=== PATIENT | male | born 1955 | race Caucasian/White ===

== ENCOUNTER 2020-05-27 23:39 | Emergency (ER) | payer MEDICARE, OTHER, SELFPAY ==
[2020-05-27 23:46] VITALS: BP 90/61; PULSE 85; RESP 16; TEMP 36.5; O2SAT 96; BMI 20.8
--- NOTE | 2020-05-27 23:47 | ECG_ITS ---
Test Reason : ALTERED MENTHAL Blood Pressure : / mmHG Vent. Rate : 081 BPM Atrial Rate : 081 BPM P-R Int : 196 ms QRS Dur : 088 ms QT Int : 422 ms P-R-T Axes : 075 004 060 degrees QTc Int : 490 ms Normal sinus rhythm Prolonged QT Abnormal ECG No previous ECGs available Referred By: Masha Arizmendi Electronically Signed By:Wilber Diaz
--- NOTE | 2020-05-27 23:47 | ED.AMS ---
HPI - Altered Mental Status General Chief Complaint: Altered Mental Status Stated Complaint: AMS W/FLU SX HX OF PNA FROM SNF Source: EMS Mode of arrival: EMS Limitations: altered mental status History of Present Illness HPI narrative: 64-year-old male presents via EMS from [facility] with past medical history of BPH, constipation, history of esophageal obstruction GERD diabetes 2, history of hydronephrosis, anemia, dysphagia, hypertension, hypothyroidism, presbyopia, schizoaffective disorder, and personality disorder presents with altered mental status, diagnosis of pneumonia on chest x-ray today to the left lower lobe. He was given 1 dose of his antibiotic and nursing staff noted that he was unable to speak, was lethargic, and required physical stimulus to respond. Related Data Previous Rx's Medication Instructions Recorded cefuroxime axetil 500 mg PO Q12H 10 Days #20 tab 05/28/20 Allergies Allergy/AdvReac Type Severity Reaction Status Date / Time fish oil [FISH OIL] Allergy Unknown UNK Unverified 02/29/20 19:27 Iodinated Contrast Media Allergy Unknown UNK Unverified 02/29/20 19:27 [IODINATED CONTRAST- ORAL AND IV DYE] iodine [IODINE] Allergy Unknown UNK Unverified 02/29/20 19:27 pollen Allergy Unknown Uncoded 07/04/19 00:00 SEAFOOD Allergy Unknown UNK Uncoded 02/29/20 19:27 shellfish Allergy Unknown Uncoded 07/04/19 00:00 Review of Systems Review of Systems: H&P limited secondary to mental status Yes Unobtainable due to mental status PMFSH Past Medical History Source: unable to obtain, old records reviewed and nursing notes reviewed Social History Social History Alcohol intake: unknown Smoking Status: Never smoker Smoked in Last 30 Days: No Use of substances other than those prescribed or required for medical reasons: No Advance Directives: No Advance Directives Information Provided: No Physical Exam Vital Signs: Vital Signs: Last Vital Signs Temp 97.5 F 05/28/20 00:00 Pulse 70 05/28/20 02:00 Resp 18 05/28/20 02:00 BP 104/65 05/28/20 02:00 Pulse Ox 97 05/28/20 01:29 Body Mass Index 20.8 Appearance: Alert. Does not respond appropriately. Moderate distress. Unable to perform tasks at this time Eyes: Pupils equal, round and reactive to light. ENT: Pharynx normal. Neck: Normal inspection. Neck supple. CVS: Normal heart rate and rhythm. Pulses normal. Respiratory: No respiratory distress. Abdomen: Soft and nontender. Skin: Skin warm and dry. Normal skin color. Normal skin turgor. Extremities: No lower extremity edema. Neuro: No motor deficit. No sensory deficit. Course Course Course Narrative: 64-year-old male presents from [facility], diagnosed with pneumonia today via chest x-ray. He was given 1 dose of doxycycline 100 mg and started on prednisone at [facility]. Plan of care is to rule out ACS, CVA, and sepsis. EKG shows normal sinus rhythm, troponin negative, white count is elevated at 18 but he does have known pneumonia, lactic acid is 0.9, BUN is 31 we will resuscitate with 2 L of fluid, 1st L was infusing on arrival. Blood pressure on arrival was 90/61, responsive to 1 L fluids at 111/68 at 1:29 a.m.. COVID RSV and influenza negative. Patient is not septic, highly unlikely that this is ACS, could possibly be steroid induced reaction. Plan of care is to discharge to care home facility with the addition of Ceftin 500 mg b.i.d. for 10 days in conjunction with the already prescribed doxycycline. Report to [facility] by RN. MDM - Altered Mental Status Differential Diagnosis Differential diagnosis: Likely altered mental status, delirium, subarachnoid hemorrhage and sepsis Medical Records Attestation: I reviewed the patient's medical records. Lab Data Attestation: I reviewed the patient's lab results. Result diagrams: 05/28/20 00:28 05/28/20 00:48 Labs: Lab Results 05/28/20 05/28/20 05/28/20 Range/Units 00:28 00:28 00:28 WBC 18.9 H (4.8-10.8) X10*3/uL RBC 3.78 L (4.60-5.80) X10*6/uL Hgb 10.8 L (14.0-18.0) g/dl Hct 33.6 L (42-52) % MCV 88.9 (80-98) fL MCH 28.6 (27.0-33.0) pg MCHC 32.1 (31.0-36.0) g/dl RDW 15.8 (11.0-16.0) % Plt Count 214 (160-400) X10*3/uL MPV 10.9 (9.4-12.4) fL Immature Gran % (Auto) 0.5 H (0.0-0.4) % Neut % (Auto) 82.4 H (45-73) % Lymph % (Auto) 9.6 L (20-40) % [place] % (Auto) 6.9 (2-11) % Eos % (Auto) 0.3 (0-4) % Baso % (Auto) 0.3 (0-2) % Lymph # (Auto) 1.8 (1.2-4.9) X10*3/uL [place] # (Auto) 1.3 H (0.1-1.2) X10*3/uL Eos # (Auto) 0.1 (0.0-0.4) X10*3/uL Baso # (Auto) 0.1 (0.0-0.2) X10*3/uL Abs Immat Gran (auto) 0.10 H (0.00-0.03) X10*3/uL Absolute Neuts (auto) 15.6 H (2.0-8.3) X10*3/uL Absolute Nucleated RBC 0.000 (0.0-0.012) X10*3/uL Nucleated RBC % (auto) 0.0 (0.0-0.2) /100WBC PT 15.6 H (10.8-13.0) SEC INR 1.3 H (0.9-1.1) APTT 33.5 (24.1-38.0) SEC Sodium (135-145) mmol/L Potassium (3.3-5.1) mmol/l Chloride (96-108) mmol/L Carbon Dioxide (22-29) mmol/L Anion Gap (12-20) BUN (9-16) mg/dL Creatinine (0.5-1.4) mg/dL Estim Creat Clear Calc Estimated GFR POC Glucose (60-115) mg/dL Random Glucose (60-115) mg/dL Lactic Acid (0.5-2.0) mmol/L Calcium (8.4-10.2) mg/dL Magnesium (1.6-2.6) mg/dL Troponin I High Sens < 3.5 (<3.5-35.0) ng/L Urine Color Urine Appearance Urine pH (5.0-8.0) Ur Specific [place] (1.005-1.025) Urine Protein (NEG-TRACE) MG/DL Urine Glucose (UA) (NEG) MG/DL Urine Ketones (NEG) MG/DL Urine Blood (NEG) Urine Nitrite (NEG) Ur Leukocyte Esterase (NEG) Coronavirus (PCR) (Negative) Influenza Type A (PCR) (Negative) Influenza Type B (PCR) (Negative) RSV RNA Qual (PCR) (Negative) 05/28/20 05/28/20 05/28/20 Range/Units 00:30 00:48 00:48 WBC (4.8-10.8) X10*3/uL RBC (4.60-5.80) X10*6/uL Hgb (14.0-18.0) g/dl Hct (42-52) % MCV (80-98) fL MCH (27.0-33.0) pg MCHC (31.0-36.0) g/dl RDW (11.0-16.0) % Plt Count (160-400) X10*3/uL MPV (9.4-12.4) fL Immature Gran % (Auto) (0.0-0.4) % Neut % (Auto) (45-73) % Lymph % (Auto) (20-40) % [place] % (Auto) (2-11) % Eos % (Auto) (0-4) % Baso % (Auto) (0-2) % Lymph # (Auto) (1.2-4.9) X10*3/uL [place] # (Auto) (0.1-1.2) X10*3/uL Eos # (Auto) (0.0-0.4) X10*3/uL Baso # (Auto) (0.0-0.2) X10*3/uL Abs Immat Gran (auto) (0.00-0.03) X10*3/uL Absolute Neuts (auto) (2.0-8.3) X10*3/uL Absolute Nucleated RBC (0.0-0.012) X10*3/uL Nucleated RBC % (auto) (0.0-0.2) /100WBC PT (10.8-13.0) SEC INR (0.9-1.1) APTT (24.1-38.0) SEC Sodium 140 (135-145) mmol/L Potassium 4.3 (3.3-5.1) mmol/l Chloride 105 (96-108) mmol/L Carbon Dioxide 28 (22-29) mmol/L Anion Gap 11 L (12-20) BUN 31 H (9-16) mg/dL Creatinine 1.39 (0.5-1.4) mg/dL Estim Creat Clear Calc 49.9 Estimated GFR 51 POC Glucose (60-115) mg/dL Random Glucose 93 (60-115) mg/dL Lactic Acid 0.9 (0.5-2.0) mmol/L Calcium 7.5 L (8.4-10.2) mg/dL Magnesium 1.9 (1.6-2.6) mg/dL Troponin I High Sens (<3.5-35.0) ng/L Urine Color Urine Appearance Urine pH (5.0-8.0) Ur Specific [place] (1.005-1.025) Urine Protein (NEG-TRACE) MG/DL Urine Glucose (UA) (NEG) MG/DL Urine Ketones (NEG) MG/DL Urine Blood (NEG) Urine Nitrite (NEG) Ur Leukocyte Esterase (NEG) Coronavirus (PCR) NEGATIVE (Negative) Influenza Type A (PCR) NEGATIVE (Negative) Influenza Type B (PCR) NEGATIVE (Negative) RSV RNA Qual (PCR) NEGATIVE (Negative) 05/28/20 05/28/20 Range/Units 00:56 01:07 WBC (4.8-10.8) X10*3/uL RBC (4.60-5.80) X10*6/uL Hgb (14.0-18.0) g/dl Hct (42-52) % MCV (80-98) fL MCH (27.0-33.0) pg MCHC (31.0-36.0) g/dl RDW (11.0-16.0) % Plt Count (160-400) X10*3/uL MPV (9.4-12.4) fL Immature Gran % (Auto) (0.0-0.4) % Neut % (Auto) (45-73) % Lymph % (Auto) (20-40) % [place] % (Auto) (2-11) % Eos % (Auto) (0-4) % Baso % (Auto) (0-2) % Lymph # (Auto) (1.2-4.9) X10*3/uL [place] # (Auto) (0.1-1.2) X10*3/uL Eos # (Auto) (0.0-0.4) X10*3/uL Baso # (Auto) (0.0-0.2) X10*3/uL Abs Immat Gran (auto) (0.00-0.03) X10*3/uL Absolute Neuts (auto) (2.0-8.3) X10*3/uL Absolute Nucleated RBC (0.0-0.012) X10*3/uL Nucleated RBC % (auto) (0.0-0.2) /100WBC PT (10.8-13.0) SEC INR (0.9-1.1) APTT (24.1-38.0) SEC Sodium (135-145) mmol/L Potassium (3.3-5.1) mmol/l Chloride (96-108) mmol/L Carbon Dioxide (22-29) mmol/L Anion Gap (12-20) BUN (9-16) mg/dL Creatinine (0.5-1.4) mg/dL Estim Creat Clear Calc Estimated GFR POC Glucose 94 (60-115) mg/dL Random Glucose (60-115) mg/dL Lactic Acid (0.5-2.0) mmol/L Calcium (8.4-10.2) mg/dL Magnesium (1.6-2.6) mg/dL Troponin I High Sens (<3.5-35.0) ng/L Urine Color DARK YELLOW Urine Appearance CLEAR Urine pH 6.5 (5.0-8.0) Ur Specific [place] <= 1.005 (1.005-1.025) Urine Protein NEG (NEG-TRACE) MG/DL Urine Glucose (UA) NEG (NEG) MG/DL Urine Ketones NEG (NEG) MG/DL Urine Blood NEG (NEG) Urine Nitrite NEG (NEG) Ur Leukocyte Esterase NEG (NEG) Coronavirus (PCR) (Negative) Influenza Type A (PCR) (Negative) Influenza Type B (PCR) (Negative) RSV RNA Qual (PCR) (Negative) Imaging Data CT scan - chest: Attestation: I personally reviewed and interpreted this imaging study as follows: Radiologist's impression: EXAMINATION: CT CHEST WITHOUT CONTRAST CLINICAL INFORMATION: Altered mental status. Concern for pneumonia. COMPARISON: None. TECHNIQUE: Contiguous axial thin section helical images of the chest were performed without contrast. The data set was reformatted in the coronal and sagittal planes and reviewed on an independent workstation. Please note that the examination is limited due to patient motion artifact. DLP: 287 mGy-cm. FINDINGS: The heart is of normal size. There is no pericardial effusion. There is neither mediastinal, hilar nor axillary lymphadenopathy. There are no chest wall masses. There is a moderate hiatal hernia. Review of lung windows demonstrates that there are neither pleural effusions nor pneumothoraces. There is patchy groundglass opacification throughout the left lower lobe. Within the posterior basal segment of the right lower lobe, there is linear opacification. There is less prominent patchy ground glass opacification within the left upper lobe. There are no pulmonary parenchymal nodules. Images of the upper abdomen demonstrate that the liver is of normal size and attenuation without focal lesions. Normal adrenal glands are identified. Bone windows: Neither sclerotic nor lytic bone lesions are identified. CT/CT chest wo con IMPRESSION: Limited exam due to patient motion artifact. Left lower lobe groundglass opacification suspicious for pneumonia. Recommendation is for a followup chest series to be obtained following treatment and/or resolution of symptoms to assure resolution of this appearance. Automated exposure control (Care Dose) Adjustment of the mA and/or kv according to patient size (this includes techniques or standardized protocols for targeted exams where dose is matched to indication / reason for exam; i.e. extremities or head). CT scan - head: Attestation: I personally reviewed and interpreted this imaging study as follows: Radiologist's impression: EXAMINATION: CT HEAD WITHOUT CONTRAST CLINICAL INFORMATION: Altered mental status. COMPARISON: 08/05/2017. TECHNIQUE: Contiguous helical images of the brain were obtained without IV contrast. Multiplanar reconstructions were performed. DLP: 880 mGy-cm. FINDINGS: There are no pathologic extra-axial fluid collections. The lateral, third, fourth ventricles are nondilated and concordant with the appearance of the sulci. There is no evidence for acute intraparenchymal hemorrhage or infarct. There is neither mass nor mass effect. There is no shift of midline structures. The paranasal sinuses and mastoid air cells are clear. There are no osseous lesions. CT/CT head/brain wo con IMPRESSION: No evidence for acute intracranial injury. Automated exposure control (Care Dose) Adjustment of the mA and/or kv according to patient size (this includes techniques or standardized protocols for targeted exams where dose is matched to indication / reason for exam; i.e. extremities or head). ECG Data ECG #1: Attestation: I personally reviewed and interpreted this ECG as follows: ECG interpretation date: 05/28/20 ECG interpretation time: 00:04 Prior ECG tracings: not available for review Interpretation: Vent. Rate : 081 BPM Atrial Rate : 081 BPM P-R Int : 196 ms QRS Dur : 088 ms QT Int : 422 ms P-R-T Axes : 075 004 060 degrees QTc Int : 490 ms Normal sinus rhythm Prolonged QT Abnormal ECG No previous ECGs available Scores Heart Score History: -0- slightly suspicious ECG: -0- normal Age: -1- >45 - <65 Risk factory: -1- 1 or 2 risk factors Troponin: -0- < or = normal limit Score: 2 Risk: 1.7% Critical Care Time Critical Care Time Critical Care Time: Yes Total Critical Care Time: 65 Attestation: I have personally provided critical care time exclusive of time spent on separately billable procedures. Time includes review of laboratory data, radiology results, discussion with consultants, and monitoring for potential decompensation. Interventions were performed as documented. Discharge Plan Discharge Clinical Impression: Altered mental status Qualifiers: Altered mental status type: unspecified Qualified Code(s): R41.82 - Altered mental status, unspecified Pneumonia Qualifiers: Pneumonia type: due to unspecified organism Laterality: left Lung location: lower lobe of lung Qualified Code(s): J18.9 - Pneumonia, unspecified organism Patient Disposition: [facility] Instructions: Bacterial Pneumonia (ED) Additional Instructions: You were evaluated for altered mental status and lethargy after taking doxycycline and prednisone for left lobe pneumonia. Please continue to take her doxycycline as scheduled. Please add Ceftin 500 mg p.o. b.i.d. for 10 days. Continue with all other medications previously prescribed. Your EKG was normal sinus rhythm with a prolonged QT interval of 490, suspected to be because of your antipsychotic medication. Troponin is negative. We ruled out sepsis, your lactic acid is 0.9. You do have kidney disease, BUN was elevated at 31, we resuscitated with 2 L of normal saline. Urinalysis was negative for acute findings. CT scan of head was negative for acute findings requiring emergent intervention. Prescriptions: New cefuroxime axetil 500 mg tablet 500 mg PO Q12H 10 Days Qty: 20 RF: 0
[2020-05-28] VITALS: BP 104/63; PULSE 79; RESP 15; TEMP 36.4; O2SAT 97
--- NOTE | 2020-05-28 00:05 | CT_ITS ---
EXAMINATION: CT CHEST WITHOUT CONTRAST CLINICAL INFORMATION: Altered mental status. Concern for pneumonia. COMPARISON: None. TECHNIQUE: Contiguous axial thin section helical images of the chest were performed without contrast. The data set was reformatted in the coronal and sagittal planes and reviewed on an independent workstation. Please note that the examination is limited due to patient motion artifact. DLP: 287 mGy-cm. FINDINGS: The heart is of normal size. There is no pericardial effusion. There is neither mediastinal, hilar nor axillary lymphadenopathy. There are no chest wall masses. There is a moderate hiatal hernia. Review of lung windows demonstrates that there are neither pleural effusions nor pneumothoraces. There is patchy groundglass opacification throughout the left lower lobe. Within the posterior basal segment of the right lower lobe, there is linear opacification. There is less prominent patchy ground glass opacification within the left upper lobe. There are no pulmonary parenchymal nodules. Images of the upper abdomen demonstrate that the liver is of normal size and attenuation without focal lesions. Normal adrenal glands are identified. Bone windows: Neither sclerotic nor lytic bone lesions are identified. CT/CT chest wo con IMPRESSION: Limited exam due to patient motion artifact. Left lower lobe groundglass opacification suspicious for pneumonia. Recommendation is for a followup chest series to be obtained following treatment and/or resolution of symptoms to assure resolution of this appearance. Automated exposure control (Care Dose) Adjustment of the mA and/or kv according to patient size (this includes techniques or standardized protocols for targeted exams where dose is matched to indication / reason for exam; i.e. extremities or head).
[2020-05-28] MEDS: 0.9 % Sodium Chloride 1,000 ML 999 ML IVCONT ×2 (00:17→01:41)
--- NOTE | 2020-05-28 00:19 | PC.NURSE ---
Iv access obtained to left hand. Fluids hung and running wo. Pt minimally responsive to verbal and physical stimuli at this time. Spo2 97% on room air. Sinus on monitor in the 70's. Extremities pale and cool. Afebrile rectally, ekg obtained and passed off to provider. Resp reg and even with occasional snores, covid swab obtained. Plan for chest CT.
[2020-05-28 00:46] LABS: MANUAL DIFF FLAG NO
[2020-05-28 00:47] VITALS: BP 104/63; PULSE 70; RESP 16
[2020-05-28 00:48] LABS: Basophils Absolute Auto 0.1 X10*3/uL (0.0-0.2); Basophils Percent Auto 0.3 % (0-2); Eosinophils Absolute Auto 0.1 X10*3/uL (0.0-0.4); Eosinophils Percent Auto 0.3 % (0-4); Hematocrit 33.6 % (42-52); Hemoglobin 10.8 g/dl (14.0-18.0); Imm Gran Pct Auto 0.5 % (0.0-0.4); Lymphocytes Absolute Auto 1.8 X10*3/uL (1.2-4.9); Lymphocytes Percent Auto 9.6 % (20-40); Mean Corpuscular HGB Conc 32.1 g/dl (31.0-36.0); Mean Corpuscular Hemoglobin 28.6 pg (27.0-33.0); Mean Corpuscular Volume 88.9 fL (80-98); Mean Platelet Volume 10.9 fL (9.4-12.4); Monocytes Absolute Auto 1.3 X10*3/uL (0.1-1.2); Monocytes Percent Auto 6.9 % (2-11); Neutrophils Absolute Auto 15.6 X10*3/uL (2.0-8.3); Neutrophils Percent Auto 82.4 % (45-73); Platelet Count 214 X10*3/uL (160-400); Red Blood Count 3.78 X10*6/uL (4.60-5.80); Red Cell Distribution Width 15.8 % (11.0-16.0); White Blood Count 18.9 X10*3/uL (4.8-10.8)
--- NOTE | 2020-05-28 00:52 | CT_ITS ---
EXAMINATION: CT HEAD WITHOUT CONTRAST CLINICAL INFORMATION: Altered mental status. COMPARISON: 08/05/2017. TECHNIQUE: Contiguous helical images of the brain were obtained without IV contrast. Multiplanar reconstructions were performed. DLP: 880 mGy-cm. FINDINGS: There are no pathologic extra-axial fluid collections. The lateral, third, fourth ventricles are nondilated and concordant with the appearance of the sulci. There is no evidence for acute intraparenchymal hemorrhage or infarct. There is neither mass nor mass effect. There is no shift of midline structures. The paranasal sinuses and mastoid air cells are clear. There are no osseous lesions. CT/CT head/brain wo con IMPRESSION: No evidence for acute intracranial injury. Automated exposure control (Care Dose) Adjustment of the mA and/or kv according to patient size (this includes techniques or standardized protocols for targeted exams where dose is matched to indication / reason for exam; i.e. extremities or head).
[2020-05-28 00:56] LABS: INTERNATIONAL NORM RATIO 1.3 (0.9-1.1); Prothrombin Time 15.6 SEC (10.8-13.0)
[2020-05-28 00:59] LABS: Partial Thromboplastin Time 33.5 SEC (24.1-38.0)
[2020-05-28 01:11] LABS: Glucose, Whole Blood 94 mg/dL (60-115)
[2020-05-28 01:16] LABS: Glucose Urine UA NEG (NEG); Leukocyte Esterase Urine NEG (NEG); Nitrite Urine NEG (NEG); PH 6.5 (5.0-8.0); Specific Gravity - Urine <= 1.005 (1.005-1.025); Urine Blood NEG (NEG); Urine Ketones NEG (NEG); Urine Protein NEG (NEG-TRACE)
[2020-05-28 01:17] LABS: Lactic Acid 0.9 mmol/L (0.5-2.0)
[2020-05-28 01:19] LABS: Troponin-I High Sensitivity < 3.5 ng/L (<3.5-35.0)
[2020-05-28 01:21] LABS: Influenza A PCR NEGATIVE (Negative); Influenza B PCR NEGATIVE (Negative); Resp Syncy Virus RNA Qual PCR NEGATIVE (Negative); SARS COV2 PCR INHOUSE NEGATIVE (Negative)
[2020-05-28 01:22] LABS: Anion Gap 11 (12-20); Blood Urea Nitrogen 31 mg/dL (9-16); Calcium 7.5 mg/dL (8.4-10.2); Carbon Dioxide 28 mmol/L (22-29); Chloride 105 mmol/L (96-108); Creatinine Clr Calc Pharmacy 49.9; Estimated Glomerular Filt Rate 51; Glucose Random 93 mg/dL (60-115); Magnesium 1.9 mg/dL (1.6-2.6); Potassium 4.3 mmol/l (3.3-5.1); Sodium 140 mmol/L (135-145)
[2020-05-28 01:27] LABS: Appearance Urine CLEAR; Color Urine DARK YELLOW
[2020-05-28 01:29] VITALS: BP 111/68; PULSE 76; RESP 18; O2SAT 97
[2020-05-28] MEDS: cefTRIAXone sodium 1 GM in 0.9 % Sodium Chloride 50 ML IV (01:57)
[2020-05-28 02:00] VITALS: BP 104/65; PULSE 70; RESP 18
== END 2020-05-28 03:16 | disposition skilled nursing facility (03) ==
PROVIDERS: Nurse Practitioner Family; Emergency Provider Student in an Organized Health Care Education/Training Program
DX: J18.9 Pneumonia, unspecified organism (principal); R41.82 Altered mental status, unspecified; Z20.828 Contact with and (suspected) exposure to other viral communicable diseases; Z79.899 Other long term (current) drug therapy
CPT/HCPCS: 0241U; 36415; 70450; 71250; 80048; 81003; 82947; 83605; 83735; 84484; 85025; 85610; 85730; 87040; 93005; 96361; 96374; 99284; 99291; J0696

== ENCOUNTER 2020-09-23 08:37 | Inpatient (IN) | payer MEDICARE, MEDICAID, SELFPAY ==
[2020-09-23] VITALS (13 sets, daily range): BP systolic 86–132; BP diastolic 53–84; PULSE 98–112; RESP 16–24; TEMP 36.6–38.9; O2SAT 92–99; BMI 23.3
--- NOTE | ~2020-09-23 | XR_ITS ---
EXAMINATION: XR CHEST CLINICAL INFORMATION: Dyspnea. COMPARISON: Chest CT dated 05/28/2020. TECHNIQUE: Frontal view of the chest was obtained. FINDINGS: Linear scarring versus atelectasis redemonstrated within the right midlung. No new airspace consolidation. No pleural effusion or pneumothorax. Stable cardiomediastinal silhouette. XR/XR chest 1V IMPRESSION: No acute cardiopulmonary findings.
--- NOTE | 2020-09-23 08:43 | ED.WEAKNESS ---
HPI - Weakness General Chief complaint: Fever Stated complaint: INCR WEAKNESS,TEMP,LOW O2SAT (89%RA) PER SNF Time Seen by Provider: 09/23/20 08:43 Source: patient, EMS and old records reviewed Mode of arrival: EMS Limitations: altered mental status History of Present Illness HPI Narrative: 64 yo male with hx of TIB, schizoaffective ds, BPH, prior UTIs comes in from [facility] with low BPs in 80s, fevers, tachycardia Complaint: generalized weakness Onset (ago): hour(s) (started this AM) Duration: constant Location: generalized Migration: none Severity: moderate Relieving factors: none Exacerbating factors: none Context: history of similar Associated symptoms: fever/chills and loss of appetite Related Data Home Medications Medication Instructions Recorded Confirmed acetaminophen 650 mg PO Q4H PRN 09/23/20 09/23/20 acetaminophen 650 mg PO Q4H PRN 09/23/20 09/23/20 clomipramine 150 mg PO BEDTIME 09/23/20 09/23/20 clonazepam 0.25 mg PO DAILY 09/23/20 09/23/20 clonazepam 0.5 mg PO BEDTIME 09/23/20 09/23/20 clozapine 100 mg PO BEDTIME 09/23/20 09/23/20 clozapine 200 mg PO BEDTIME 09/23/20 09/23/20 diphenhydramine HCl [Benadryl] 25 mg PO Q6H PRN 09/23/20 09/23/20 docusate sodium 100 mg PO BID 09/23/20 09/23/20 doxycycline hyclate 50 mg PO DAILY 09/23/20 09/23/20 famotidine 40 mg PO BEDTIME 09/23/20 09/23/20 lactulose 10 g PO DAILY 09/23/20 09/23/20 levothyroxine 50 mcg PO DAILY 09/23/20 09/23/20 metoprolol tartrate 12.5 mg PO DAILY 09/23/20 09/23/20 multivitamin 1 tab PO DAILY 09/23/20 09/23/20 omeprazole 40 mg PO DAILY 09/23/20 09/23/20 pantoprazole 40 mg PO BID 09/23/20 09/23/20 pregabalin 150 mg PO BID 09/23/20 09/23/20 sennosides [senna] 17.2 mg PO BEDTIME 09/23/20 09/23/20 sodium bicarbonate 650 mg PO BID 09/23/20 09/23/20 tamsulosin 0.4 mg PO BEDTIME 09/23/20 09/23/20 Allergies Allergy/AdvReac Type Severity Reaction Status Date / Time fish oil [FISH OIL] Allergy Unknown UNK Unverified 02/29/20 19:27 Iodinated Contrast Media Allergy Unknown UNK Unverified 02/29/20 19:27 [IODINATED CONTRAST- ORAL AND IV DYE] iodine [IODINE] Allergy Unknown UNK Unverified 02/29/20 19:27 pollen Allergy Unknown Uncoded 07/04/19 00:00 SEAFOOD Allergy Unknown UNK Uncoded 02/29/20 19:27 shellfish Allergy Unknown Uncoded 07/04/19 00:00 Review of Systems Review of Systems: ROS unable to be obtained due to cognitive impairment PMFSH Past Medical History Attestation statement: The following information was validated with the patient. Medical History BPH (benign prostatic hyperplasia) Schizoaffective disorder TBI (traumatic brain injury) Social History Social History Alcohol intake: unknown Smoking Status: Never smoker Advance Directives: No Advance Directives Information Provided: No Physical Exam Vital Signs: Vital Signs: Last Vital Signs Temp 99.3 F 09/23/20 10:48 Pulse 99 09/23/20 11:16 Resp 16 09/23/20 11:16 BP 107/71 09/23/20 11:16 Pulse Ox 96 09/23/20 11:16 Body Mass Index 23.3 Appearance: Alert. Oriented x1, follows commands. Mild acute distress. Eyes: Pupils equal, round and reactive to light. ENT: Pharynx dry MMM Neck: Normal inspection. Neck supple. CVS: tachycardic heart rate and rhythm. Pulses normal. Respiratory: No respiratory distress. Breath sounds normal. Abdomen: Soft and no grimace to palpation Skin: Skin warm and dry. Normal skin color. Normal skin turgor. Extremities: No lower extremity edema. No calf ttp Neuro: Oriented X 1 No motor deficit. No sensory deficit. follows commands, repeats commands back Course Course Course Narrative: will repeat fluids responding well now 107/71 seems more alert, states he feels fine at this time, if he continues to improve plan to admit to hospitalist service focused exam for sepsis performed at 12pm MDM - Weakness MDM Narrative Medical decision making narrative: 64 yo male with hx of TIB, schizoaffective ds, BPH, prior UTIs comes in from [facility] with low BPs in 80s, fevers, tachycardia at this time labs, cultures, lactic acid, CXR, urine, IVF 30cc/kg bolus, tylenol, empiric cefepime ordered on arrival, dispo per results and improvement, suspect UTI vs pneumonia as source of infection Lab Data Result diagrams: 09/23/20 09:13 09/23/20 09:13 Labs: Lab Results 09/23/20 09/23/20 09/23/20 Range/Units 08:58 09:00 09:13 WBC (4.8-10.8) X10*3/uL RBC (4.60-5.80) X10*6/uL Hgb (14.0-18.0) g/dl Hct (42-52) % MCV (80-98) fL MCH (27.0-33.0) pg MCHC (31.0-36.0) g/dl RDW (11.0-16.0) % Plt Count (160-400) X10*3/uL MPV (9.4-12.4) fL Immature Gran % (Auto) (0.0-0.4) % Neut % (Auto) (45-73) % Lymph % (Auto) (20-40) % [place] % (Auto) (2-11) % Eos % (Auto) (0-4) % Baso % (Auto) (0-2) % Lymph # (Auto) (1.2-4.9) X10*3/uL [place] # (Auto) (0.1-1.2) X10*3/uL Eos # (Auto) (0.0-0.4) X10*3/uL Baso # (Auto) (0.0-0.2) X10*3/uL Abs Immat Gran (auto) (0.00-0.03) X10*3/uL Absolute Neuts (auto) (2.0-8.3) X10*3/uL Absolute Nucleated RBC (0.0-0.012) X10*3/uL Nucleated RBC % (auto) (0.0-0.2) /100WBC PT (10.8-13.0) SEC INR (0.9-1.1) APTT (24.1-38.0) SEC Sodium 140 (135-145) mmol/L Potassium 4.5 (3.3-5.1) mmol/L Chloride 105 (96-108) mmol/L Carbon Dioxide 23 (22-29) mmol/L Anion Gap 17 (12-20) BUN 33 H (9-16) mg/dL Creatinine 2.32 H (0.5-1.4) mg/dL Estim Creat Clear Calc 34.2 Estimated GFR 28 Random Glucose 130 H D (60-115) mg/dL Lactic Acid (0.5-2.0) mmol/L Calcium 8.3 L D (8.4-10.2) mg/dL Magnesium (1.6-2.6) mg/dL Total Bilirubin (0.0-1.0) mg/dL Direct Bilirubin (0.0-0.5) mg/dL AST (5-37) U/L ALT (0-40) U/L Alkaline Phosphatase (39-117) U/L Troponin I High Sens (<3.5-35.0) ng/L Total Protein (6.5-8.0) g/dL Albumin (3.5-5.0) g/dL Lipase (8-78) U/L Urine Color DARK YELLOW Urine Appearance CLOUDY Urine pH 6.5 (5.0-8.0) Ur Specific Gilbert 1.020 (1.005-1.025) Urine Protein 2+ H (NEG-TRACE) MG/DL Urine Glucose (UA) 100 H (NEG) MG/DL Urine Ketones 5 (NEG) MG/DL Urine Blood 3+ H (NEG) Urine Nitrite NEG (NEG) Ur Leukocyte Esterase 3+ H (NEG) Urine RBC 1-4 (0) /HPF Urine WBC TNTC H (0-4) /HPF Ur Squamous Epith Cells TRACE /LPF Urine Bacteria 4+ /LPF COVID-19 (RICHA) Negative (Negative) COVID-19 Clin Com See Note 09/23/20 09/23/20 09/23/20 Range/Units 09:13 09:13 09:13 WBC 19.6 H (4.8-10.8) X10*3/uL RBC 4.52 L (4.60-5.80) X10*6/uL Hgb 11.8 L (14.0-18.0) g/dl Hct 38.1 L (42-52) % MCV 84.3 (80-98) fL MCH 26.1 L (27.0-33.0) pg MCHC 31.0 (31.0-36.0) g/dl RDW 15.9 (11.0-16.0) % Plt Count 227 (160-400) X10*3/uL MPV 10.4 (9.4-12.4) fL Immature Gran % (Auto) 1.0 H (0.0-0.4) % Neut % (Auto) 87.8 H (45-73) % Lymph % (Auto) 4.4 L (20-40) % [place] % (Auto) 6.7 (2-11) % Eos % (Auto) 0.0 (0-4) % Baso % (Auto) 0.1 (0-2) % Lymph # (Auto) 0.9 L (1.2-4.9) X10*3/uL [place] # (Auto) 1.3 H (0.1-1.2) X10*3/uL Eos # (Auto) 0.0 (0.0-0.4) X10*3/uL Baso # (Auto) 0.0 (0.0-0.2) X10*3/uL Abs Immat Gran (auto) 0.19 H (0.00-0.03) X10*3/uL Absolute Neuts (auto) 17.3 H (2.0-8.3) X10*3/uL Absolute Nucleated RBC 0.000 (0.0-0.012) X10*3/uL Nucleated RBC % (auto) 0.0 (0.0-0.2) /100WBC PT 18.7 H (10.8-13.0) SEC INR 1.6 H (0.9-1.1) APTT 39.9 H (24.1-38.0) SEC Sodium (135-145) mmol/L Potassium (3.3-5.1) mmol/L Chloride (96-108) mmol/L Carbon Dioxide (22-29) mmol/L Anion Gap (12-20) BUN (9-16) mg/dL Creatinine (0.5-1.4) mg/dL Estim Creat Clear Calc Estimated GFR Random Glucose (60-115) mg/dL Lactic Acid (0.5-2.0) mmol/L Calcium (8.4-10.2) mg/dL Magnesium 1.9 (1.6-2.6) mg/dL Total Bilirubin 0.6 (0.0-1.0) mg/dL Direct Bilirubin 0.3 (0.0-0.5) mg/dL AST 24 (5-37) U/L ALT 25 (0-40) U/L Alkaline Phosphatase 131 H (39-117) U/L Troponin I High Sens (<3.5-35.0) ng/L Total Protein 6.5 (6.5-8.0) g/dL Albumin 3.6 (3.5-5.0) g/dL Lipase 11 (8-78) U/L Urine Color Urine Appearance Urine pH (5.0-8.0) Ur Specific Gilbert (1.005-1.025) Urine Protein (NEG-TRACE) MG/DL Urine Glucose (UA) (NEG) MG/DL Urine Ketones (NEG) MG/DL Urine Blood (NEG) Urine Nitrite (NEG) Ur Leukocyte Esterase (NEG) Urine RBC (0) /HPF Urine WBC (0-4) /HPF Ur Squamous Epith Cells /LPF Urine Bacteria /LPF COVID-19 (RICHA) (Negative) COVID-19 Clin Com 09/23/20 09/23/20 Range/Units 09:13 09:13 WBC (4.8-10.8) X10*3/uL RBC (4.60-5.80) X10*6/uL Hgb (14.0-18.0) g/dl Hct (42-52) % MCV (80-98) fL MCH (27.0-33.0) pg MCHC (31.0-36.0) g/dl RDW (11.0-16.0) % Plt Count (160-400) X10*3/uL MPV (9.4-12.4) fL Immature Gran % (Auto) (0.0-0.4) % Neut % (Auto) (45-73) % Lymph % (Auto) (20-40) % [place] % (Auto) (2-11) % Eos % (Auto) (0-4) % Baso % (Auto) (0-2) % Lymph # (Auto) (1.2-4.9) X10*3/uL [place] # (Auto) (0.1-1.2) X10*3/uL Eos # (Auto) (0.0-0.4) X10*3/uL Baso # (Auto) (0.0-0.2) X10*3/uL Abs Immat Gran (auto) (0.00-0.03) X10*3/uL Absolute Neuts (auto) (2.0-8.3) X10*3/uL Absolute Nucleated RBC (0.0-0.012) X10*3/uL Nucleated RBC % (auto) (0.0-0.2) /100WBC PT (10.8-13.0) SEC INR (0.9-1.1) APTT (24.1-38.0) SEC Sodium (135-145) mmol/L Potassium (3.3-5.1) mmol/L Chloride (96-108) mmol/L Carbon Dioxide (22-29) mmol/L Anion Gap (12-20) BUN (9-16) mg/dL Creatinine (0.5-1.4) mg/dL Estim Creat Clear Calc Estimated GFR Random Glucose (60-115) mg/dL Lactic Acid 2.0 (0.5-2.0) mmol/L Calcium (8.4-10.2) mg/dL Magnesium (1.6-2.6) mg/dL Total Bilirubin (0.0-1.0) mg/dL Direct Bilirubin (0.0-0.5) mg/dL AST (5-37) U/L ALT (0-40) U/L Alkaline Phosphatase (39-117) U/L Troponin I High Sens 6.2 D (<3.5-35.0) ng/L Total Protein (6.5-8.0) g/dL Albumin (3.5-5.0) g/dL Lipase (8-78) U/L Urine Color Urine Appearance Urine pH (5.0-8.0) Ur Specific Gilbert (1.005-1.025) Urine Protein (NEG-TRACE) MG/DL Urine Glucose (UA) (NEG) MG/DL Urine Ketones (NEG) MG/DL Urine Blood (NEG) Urine Nitrite (NEG) Ur Leukocyte Esterase (NEG) Urine RBC (0) /HPF Urine WBC (0-4) /HPF Ur Squamous Epith Cells /LPF Urine Bacteria /LPF COVID-19 (RICHA) (Negative) COVID-19 Clin Com ECG Data Attestation: I personally reviewed and interpreted this ECG as follows: ECG interpretation date: 09/23/20 ECG interpretation time: 09:19 Interpretation: Rate: 106 Rhythm: sinus tachycardia [place]: normal Normal P waves. Normal KACEY. Normal QRS complex. ST T wave : nonspecific qTC: normal prior studies: no acute ischemia The study has been interpreted contemporaneously by me. . Critical Care Time Critical Care Time Critical Care Time: Yes Total Critical Care Time: 30 Attestation: 3L of IVF I attest to this time spent taking care of the patient Discharge Plan Discharge Clinical Impression: Acute UTI Fever Qualifiers: Fever type: unspecified Qualified Code(s): R50.9 - Fever, unspecified Acute renal failure Qualifiers: Acute renal failure type: unspecified Qualified Code(s): N17.9 - Acute kidney failure, unspecified Patient Disposition: Admitted As Inpatient
--- NOTE | 2020-09-23 08:48 | ECG_ITS ---
Test Reason : TACHYCARDIA Blood Pressure : / mmHG Vent. Rate : 106 BPM Atrial Rate : 106 BPM P-R Int : 182 ms QRS Dur : 090 ms QT Int : 374 ms P-R-T Axes : 076 040 069 degrees QTc Int : 496 ms Sinus tachycardia Nonspecific ST abnormality Borderline ECG When compared with ECG of 28-MAY-2020 00:04, No significant change was found Referred By: Arielle Mars Electronically Signed By:ANT MARTIN
[2020-09-23 09:25] LABS: MANUAL DIFF FLAG NO
[2020-09-23 09:29] LABS: Basophils Percent Auto 0.1 % (0-2); Hematocrit 38.1 % (42-52); Hemoglobin 11.8 g/dl (14.0-18.0); Imm Gran Abs Auto 0.19 X10*3/uL (0.00-0.03); Lymphocytes Absolute Auto 0.9 X10*3/uL (1.2-4.9); Lymphocytes Percent Auto 4.4 % (20-40); Mean Corpuscular Hemoglobin 26.1 pg (27.0-33.0); Mean Corpuscular Volume 84.3 fL (80-98); Mean Platelet Volume 10.4 fL (9.4-12.4); Monocytes Absolute Auto 1.3 X10*3/uL (0.1-1.2); Monocytes Percent Auto 6.7 % (2-11); Neutrophils Absolute Auto 17.3 X10*3/uL (2.0-8.3); Neutrophils Percent Auto 87.8 % (45-73); Platelet Count 227 X10*3/uL (160-400); Red Blood Count 4.52 X10*6/uL (4.60-5.80); Red Cell Distribution Width 15.9 % (11.0-16.0); White Blood Count 19.6 X10*3/uL (4.8-10.8)
[2020-09-23] MEDS: cefEPime HCl 2 GM in 0.9 % Sodium Chloride 50 ML IV ×2 (09:35→21:27)
[2020-09-23] MEDS: Acetaminophen Oral Liquid 650 MG/20.3 ML SOLUTION PO (09:36)
[2020-09-23 09:40] LABS: INTERNATIONAL NORM RATIO 1.6 (0.9-1.1); Prothrombin Time 18.7 SEC (10.8-13.0)
[2020-09-23 09:42] LABS: Glucose Urine UA 100 MG/DL (NEG); Leukocyte Esterase Urine 3+ (NEG); Nitrite Urine NEG (NEG); PH 6.5 (5.0-8.0); UACC Culture Trigger YES; Urine Blood 3+ (NEG); Urine Ketones 5 MG/DL (NEG); Urine Protein 2+ MG/DL (NEG-TRACE)
[2020-09-23 09:44] LABS: Partial Thromboplastin Time 39.9 SEC (24.1-38.0)
[2020-09-23 09:47] LABS: COVID-19 Test Negative (Negative)
[2020-09-23 09:47] LABS: Appearance Urine CLOUDY; Color Urine DARK YELLOW
[2020-09-23 09:59] LABS: Alanine Aminotransferase 25 U/L (0-40); Albumin Level 3.6 g/dL (3.5-5.0); Alkaline Phosphatase 131 U/L (39-117); Aspartate Amino Transferase 24 U/L (5-37); Bilirubin Direct 0.3 mg/dL (0.0-0.5); Bilirubin Total 0.6 mg/dL (0.0-1.0); Lipase 11 U/L (8-78); Magnesium 1.9 mg/dL (1.6-2.6); Total Protein 6.5 g/dL (6.5-8.0)
[2020-09-23 10:00] LABS: Anion Gap 17 (12-20); Blood Urea Nitrogen 33 mg/dL (9-16); Calcium 8.3 mg/dL (8.4-10.2); Carbon Dioxide 23 mmol/L (22-29); Chloride 105 mmol/L (96-108); Creatinine Clr Calc Pharmacy 34.2; Estimated Glomerular Filt Rate 28; Glucose Random 130 mg/dL (60-115); Potassium 4.5 mmol/L (3.3-5.1); Sodium 140 mmol/L (135-145)
[2020-09-23 10:04] LABS: Troponin-I High Sensitivity 6.2 ng/L (<3.5-35.0)
[2020-09-23 10:05] LABS: Bacteria Urine 4+ /LPF; Squamous Epithelial Cell Urine TRACE /LPF; WBC Urine TNTC /HPF (0-4)
[2020-09-23] MEDS: 0.9 % Sodium Chloride 1,000 ML 999 ML IVCONT ×2 (10:18→11:20)
[2020-09-23] MEDS: 0.9 % Sodium Chloride 1,000 ML 100 ML IVCONT ×2 (14:30→23:31)
--- NOTE | 2020-09-23 15:14 | HP_ITS ---
DATE OF SERVICE: 09/23/2020 CHIEF COMPLAINT: Fever and weakness. HISTORY OF PRESENTING ILLNESS: This is a 64-year-old gentleman, resident of [facility] with underlying history of traumatic brain injury, schizoaffective disorder, BPH, history of prior UTIs, was sent to [facility] due to fevers, low blood pressure, and tachycardia. The patient in the emergency room was noted to be hypotensive with the blood pressure of 87/53. He was tachycardic and febrile with temperature of 102.1. The patient's lactic acid was normal, but his renal function was suggestive of acute kidney injury. Therefore, the patient was diagnosed to have sepsis. Since his urinalysis was positive for UTI, he was started on IV cefepime and was placed on IV fluids 30 mL/kg. The patient's blood pressure subsequently improved currently 105/86. The patient is awake, answering questions appropriately, but then falls back to sleep. No behavioral issues have been noted. The patient's chest x-ray showed no infection. The patient denies any pain, discomfort, he denies any nausea, vomiting, or shortness of breath. He does not verbalize much, most likely due to his underlying psychiatric history. The patient is now being admitted to [facility] for continued monitoring and treatment of severe sepsis related to UTI. PAST MEDICAL HISTORY: Significant for: 1. Benign prostate hyperplasia. 2. History of schizoaffective disorder. 3. History of traumatic brain injury. 4. History of GERD. 5. History of esophageal obstruction. 6. History of diabetes type 2. 7. History of anemia. 8. History of dysphagia. 9. History of hypothyroidism. 10. History of hypertension. 11. History of personality disorder. 12. History of presbyopia. SOCIAL HISTORY: The patient unable to provide any history, but as per old records, no history of alcohol use. He has never smoked. FAMILY HISTORY: Not available in the old records and the patient unable to provide any information regarding his family. ALLERGIES: THE PATIENT IS ALLERGIC TO FISH OIL, IODINATED CONTRAST MEDIA, IODINE, POLLEN, SEAFOOD, SHELLFISH, UNKNOWN ALLERGY TO ALL ABOVE. MEDICATIONS ON ADMISSION: Tylenol 650 mg every 4 hours as needed, clomipramine 150 mg at bedtime, clonazepam 0.25 mg daily and 0.5 mg at bedtime, clozapine 300 mg at bedtime, diphenhydramine 25 mg every 6 hours as needed, Colace 100 mg b.i.d., doxycycline 50 mg daily, famotidine 40 mg at bedtime, lactulose 10 g by mouth daily, levothyroxine 50 mcg daily, metoprolol 12.5 daily, multivitamin 1 p.o. daily, omeprazole 40 daily, Protonix 40 mg b.i.d., pregabalin 150 b.i.d., senna 17.2 mg p.o. at bedtime, sodium bicarb 650 mg b.i.d., Flomax 0.4 mg p.o. at bedtime. REVIEW OF SYSTEMS: CURTAIN CLEANER: The patient denies any headache or dizziness. CVS: He denies chest pain. GASTROINTESTINAL: The patient denies nausea, vomiting, or diarrhea. : No urinary symptoms. Rest of all other systems are reviewed and are negative. PHYSICAL EXAMINATION: GENERAL: The patient is awake, alert, answered most of the questions appropriately. VITAL SIGNS: His current vitals are BP 107/71 with a pulse of 99, respiratory rate 16, O2 saturation 96%. His fever improved from 102.1 to 99.3. HEENT: Pupils equal, round, and reactive to light and accommodation. NECK: Supple. No increased JVD. LUNGS: Clear to auscultation bilaterally. HEART: Regular rate rhythm. ABDOMEN: Soft. EXTREMITIES: Without clubbing, cyanosis, or edema. NEURO: The patient is moving all 4 extremities. Speech is clear. LABORATORY DATA: Showed a WBC count of 19,600, hematocrit of 38.1, platelet of 227. Sodium 140, potassium 4.5, chloride 105, bicarb of 23, creatinine of 2.32 with a normal creatinine in May 2020 of 1.39. Blood sugar 130, calcium 8.3, albumin 3.6. IMAGING STUDY: Chest x-ray showed no acute infiltrate. ASSESSMENT AND PLAN: This is a 64-year-old gentleman, resident of [facility] with underlying history of traumatic brain injury and schizoaffective disorder, was sent to [facility] for evaluation of low blood pressure, fever and weakness. The patient has been diagnosed to be in severe sepsis due to urinary tract infection. 1. Severe sepsis due to urinary tract infection. The patient has received IV fluid 30 mL/kg in the emergency room and has received IV cefepime. Sepsis focused examination has been done. The patient met sepsis criteria due to fever, tachycardia, and leukocytosis as well as acute renal injury. We will follow patient's CBC, BMP closely. The patient will be continued on IV fluids. We will follow urine as well as blood culture and adjust antibiotics. 2. History of schizoaffective disorder/traumatic brain injury. The patient will be continued on home medication including Clozaril and Klonopin. 3. History of gastroesophageal reflux disease. The patient is on 2 different PPIs as well as H2 blockers. We will discontinue Protonix. Continue him on Prilosec and famotidine. 4. History of hypertension. The patient is on low-dose beta blockers. We will hold beta elmer for today and reassess the need for beta blockers tomorrow morning. 5. Anemia. The patient's hematocrit is stable at 38. 6. Deep venous thrombosis prophylaxis. The patient will be placed on Lovenox. 7. History of diabetes mellitus. The patient is not on oral hypoglycemics. We will follow blood sugar closely. 8. History of hypothyroidism. Continue levothyroxine. MD SILVA Yanez/JAY / [id number]
[2020-09-23] MEDS: 0.9 % Sodium Chloride Flush 3 ML SYRINGE IVFLUSH (16:37)
[2020-09-23 16:57] LABS: Glucose, Whole Blood 76 mg/dL (60-115)
[2020-09-23] MEDS: Acetaminophen 325 MG TABLET 650 MG PO (18:49)
--- NOTE | 2020-09-23 19:30 | MHC.CM.PN ---
CM attempted to meet with pt. Pt unable to answer questions probably due to his hx of TBI. Explained that he will be admitted to the hospital because he has a UTI and needs antibiotics. Pt states that's good for me, infection is bad . Pt had no questions for CM and CM told pt that I would call his mother in [place] to update her on his medical condition. Pt was pleased I would call his mother. CM unable to gain any knowledge speaking with pt. Record from [facility] reviewed. Pt is independent with ambulation and with ADL's. Is continent. Has no difficulty eating. Pt mother/guardian Eliza Riggs ([phone]). Reviewed IMM with guardian and signed by CM. Guardian agreeable and requests that IMM be left with patient's belongings. CM gave CM contact information to guardian and encouraged her to call with any concerns. Aware that CM is present in [facility] 8 am to 11pm. Guardian aware that pt does not yet have a bed assignment. D/C plan is to return to [facility] via BLS. CM to follow for d/c needs.
[2020-09-24] VITALS (9 sets, daily range): BP systolic 119–157; BP diastolic 71–97; PULSE 95–108; RESP 14–20; TEMP 36.4–36.8; O2SAT 94–98
[2020-09-24] MEDS: ondansetron HCL 4 MG/2 ML VIAL IVPUSH (04:43)
--- NOTE | 2020-09-24 04:43 | PC.NURSE ---
pt vomited brown liquid. treated with zofran iv.
[2020-09-24] MEDS: Omeprazole 40 MG CAPSULE.DR PO (06:48)
--- NOTE | 2020-09-24 06:51 | PC.NURSE ---
pt nausea has resolved and no vomiting, pt is ready for transfer report given to Tiffanie HOOPER
[2020-09-24] MEDS: Levothyroxine Sodium 50 MCG TABLET PO (06:55)
--- NOTE | 2020-09-24 07:35 | P.PNIM_ITS ---
Subjective Subjective Date of Service: 09/24/20 Interval History: F/u on severe sepsis, UTI and renal failure Review of Systems Gen: no fever Resp: no sob, no cough CV: no chest, no ASTUDILLO, no leg edema GI: No n/v, no abd pain Neuro: No confusion Physical Exam Vital Signs: Vital Signs: Last Vital Signs Temp 98.1 F 09/23/20 21:26 Pulse 101 H 09/24/20 06:54 Resp 18 09/24/20 06:54 BP 138/79 09/24/20 06:54 Pulse Ox 96 09/24/20 06:50 Body Mass Index 23.3 General: alert, no distress Resp: CTA bilateral CVS: S1,S2,RRR GI: +BS, NT, no distention Skin: No rash Neuro: motor grossly intact Psych: appropriate affect Objective Data Current Medications Generic Name Dose Route Start Last Admin Trade Name Freq PRN Reason Stop Dose Admin Acetaminophen 650 mg 09/23/20 13:06 09/23/20 18:49 Acetaminophen 325 Mg Tablet PO 650 mg Q6H PRN Administration Pain, Mild (Pain Scale 1-3) Clomipramine HCl 150 mg 09/24/20 21:00 Clomipramine Hcl 25 Mg Capsule PO BEDTIME KIMBER Clonazepam 0.25 mg 09/24/20 09:00 Clonazepam 0.5 Mg Tablet PO DAILY KIMBER Clonazepam 0.5 mg 09/24/20 01:39 09/24/20 02:23 Clonazepam 0.5 Mg Tablet PO Not Given BEDTIME KIMBER Clozapine 100 mg 09/24/20 01:39 09/24/20 02:32 Clozapine 100 Mg Tablet PO Not Given BEDTIME KIMBER Clozapine 200 mg 09/24/20 01:39 09/24/20 02:32 Clozapine 100 Mg Tablet PO Not Given BEDTIME KIMBER Diphenhydramine HCl 25 mg 09/24/20 01:39 Diphenhydramine Hcl 25 Mg Tablet PO Q6H PRN Itching Docusate Sodium 100 mg 09/24/20 01:39 09/24/20 02:41 Docusate Sodium 100 Mg Capsule PO Not Given BID KIMBER Enoxaparin Sodium 40 mg 09/24/20 02:00 09/24/20 02:40 Enoxaparin Sodium 40 Mg/0.4 Ml Syringe SUBCUT Not Given Q24H KIMBER Famotidine 40 mg 09/24/20 21:00 Famotidine 20 Mg Tablet PO BEDTIME [facility] Sodium Chloride 1,000 mls @ 100 mls/hr 09/23/20 13:15 09/23/20 23:31 Ns IVCONT 100 mls/hr .Q10H KIMBER Administration Cefepime HCl 2 gm/ Sodium 50 mls @ 100 mls/hr 09/23/20 21:00 09/23/20 22:12 Chloride IV Infused Q12H [facility] Infusion Levothyroxine Sodium 50 mcg 09/24/20 06:30 09/24/20 06:55 Levothyroxine Sodium 50 Mcg Tablet PO 50 mcg DAILY@0630 [facility] Administration Metoprolol Tartrate 12.5 mg 09/24/20 09:00 Metoprolol Tartrate 25 Mg Tablet PO DAILY [facility] Protocol Omeprazole 40 mg 09/24/20 06:30 09/24/20 06:48 Omeprazole 40 Mg Capsule.Dr PO 40 mg DAILY@0630 [facility] Administration Ondansetron HCl 4 mg 09/23/20 13:06 09/24/20 04:43 Ondansetron Hcl 4 Mg/2 Ml Vial IVPUSH 4 mg Q8H PRN Administration Nausea and Vomiting Pharmacy Consult 1 each 09/23/20 08:47 Consult Rx Perform Med Rec MISCELLANE ONCE PRN Consult order Pregabalin 150 mg 09/24/20 01:39 09/24/20 02:41 Pregabalin 150 Mg Capsule PO Not Given BID [facility] Sodium Bicarbonate 650 mg 09/24/20 01:39 09/24/20 02:40 Sodium Bicarbonate 650 Mg Tablet PO Not Given BID [facility] Sodium Chloride 3 ml 09/23/20 16:00 09/24/20 00:41 0.9 % Sodium Chloride Flush 3 Ml Syringe IVFLUSH Not Given QSHIFT [facility] Tamsulosin HCl 0.4 mg 09/24/20 01:39 09/24/20 02:40 Tamsulosin Hcl 0.4 Mg Capsule PO Not Given BEDTIME [facility] Labs CBC & Chem 7: 09/24/20 08:36 09/24/20 08:36 Assessment and Plan (1) Sepsis associated hypotension: Status: Acute (2) Acute UTI: Status: Acute (3) Acute renal failure: Status: Acute (4) BPH (benign prostatic hyperplasia): Status: Inactive (5) Schizoaffective disorder: Status: Inactive Assessment and Plan: 64-year-old male from [facility] with underlying history of traumatic brain injury and schizoaffective disorder sent to ED for low blood pressure, fever and weakness. He is diagnosed with severe sepsis due to urinary tract infection. # Severe sepsis due UTI and associated with Hypotension. Hypotension is now resolved. -Continue Cefepime -Follow cultures -consider ID consult -Repeat labs (CBC, chem) tomorrow #SARAH--likely pre renal, hydrated # Schizoaffective disorder/traumatic brain injury. The patient will be continued on home medication including Clozaril and Klonopin. # GERD. Prilosec and Famotidine # Hypertension. Restart Metoprolol, was on hold d/t low BP # Anemia, chronic stable. No acute loss # Diabetes mellitus. Not on med, SSI # Hypothyroidism. Continue levothyroxine. # Deep venous thrombosis prophylaxis: Lovenox Need for hospitalization: severe sepsis associated organ failure with incrased risk of morbidity and mortality and in need of IV antibiotics use
[2020-09-24 08:53] LABS: Hematocrit 33.7 % (42-52); Hemoglobin 10.5 g/dl (14.0-18.0); Mean Corpuscular HGB Conc 31.2 g/dl (31.0-36.0); Mean Corpuscular Hemoglobin 26.5 pg (27.0-33.0); Mean Corpuscular Volume 85.1 fL (80-98); Mean Platelet Volume 11.1 fL (9.4-12.4); Platelet Count 182 X10*3/uL (160-400); Red Blood Count 3.96 X10*6/uL (4.60-5.80); Red Cell Distribution Width 15.8 % (11.0-16.0); White Blood Count 15.4 X10*3/uL (4.8-10.8)
[2020-09-24] MEDS: cefEPime HCl 2 GM in 0.9 % Sodium Chloride 50 ML IV (09:09)
[2020-09-24 09:18] LABS: Anion Gap 14 (12-20); Blood Urea Nitrogen 25 mg/dL (9-16); Calcium 7.3 mg/dL (8.4-10.2); Carbon Dioxide 19 mmol/L (22-29); Chloride 112 mmol/L (96-108); Creatinine Clr Calc Pharmacy 73.5; Estimated Glomerular Filt Rate > 60; Glucose Random 100 mg/dL (60-115); Potassium 4.1 mmol/L (3.3-5.1); Sodium 141 mmol/L (135-145)
[2020-09-24] MEDS: 0.9 % Sodium Chloride 1,000 ML 100 ML IVCONT ×2 (09:46→18:19)
--- NOTE | 2020-09-24 11:47 | MHC.CM.PN ---
GUARDIANSHIP AND FACE SHEET RECEIVED VIA EMAIL. COPIES NOW IN PAPER CHART. PLAN IS TO RETURN TO [facility] WHEN MEDICALLY STABLE.
--- NOTE | 2020-09-24 16:03 | MHC.CM.PN ---
PER PHYSICIAN ROUNDS, PLAN IS 1-2 MORE DAYS OF IV ABX AND RETURN TO [facility] ON PO. FACILITY MADE AWARE OF PLAN.
--- NOTE | 2020-09-24 19:20 | PC.NURSE ---
PT refused all AM meds. Dr. Bach made aware.
--- NOTE | 2020-09-24 23:17 | PC.NURSE ---
Addendum entered by Marly Lantigua RN 09/25/20 04:53: sitter placed at bedside d/t needing frequent redirection, pt constantly up with supervision to bathroom back ot bed spitting on bed and floor. pt refusing personal care when offered. Addendum entered by Marly Lantigua RN 09/25/20 02:26: pt oob frequently, tele sitter calling frequently and bed alarming, when staff to bedside pt stating take a hike , made aware pt refused all PO psych medications yesterday and last night, placed new order for PO Clonazepam, offer to pt, pt spit on floor made aware MD states frequent orientation. Nursing research contracts supervisor made aware of pts need for sitter d/t frequent OOB, nursing research contracts supervisor at bedside to see pt. Original Note: pt removed tele pack and IV, refusing to allow Rn to replace them pt asking this Rn to leave his room and come back wiht his breakfast at 830, when offered night time medications pt states the same thing, pt refuses to listen to RN explain the medications, continually asking this Rn to leave the room made aware
[2020-09-25 03:33] VITALS: BP 165/93; PULSE 95; RESP 20; TEMP 36.6; O2SAT 98
[2020-09-25 06:45] LABS: Hematocrit 34.1 % (42-52); Hemoglobin 10.7 g/dl (14.0-18.0); Mean Corpuscular HGB Conc 31.4 g/dl (31.0-36.0); Mean Corpuscular Hemoglobin 26.4 pg (27.0-33.0); Mean Platelet Volume 10.8 fL (9.4-12.4); Platelet Count 223 X10*3/uL (160-400); Red Blood Count 4.06 X10*6/uL (4.60-5.80); Red Cell Distribution Width 15.8 % (11.0-16.0); White Blood Count 10.7 X10*3/uL (4.8-10.8)
[2020-09-25 07:21] VITALS: BP 164/95; PULSE 107; RESP 18; TEMP 36.5; O2SAT 99
[2020-09-25 10:18] VITALS: BP 164/95; PULSE 107
[2020-09-25 11:06] VITALS: BP 151/98; PULSE 100; RESP 18; TEMP 36.7; O2SAT 99
--- NOTE | 2020-09-25 12:44 | PM.DS ---
DS: Providers Provider Date of Service: 09/25/20 Date of admission: 09/23/20 13:06 Primary care physician: Swapnil Vazquez DO DS: Diagnosis Discharge Diagnosis (1) Sepsis associated hypotension: Status: Acute (2) Acute UTI: Status: Acute (3) Acute renal failure: Status: Acute (4) BPH (benign prostatic hyperplasia): Status: Inactive (5) Schizoaffective disorder: Status: Inactive DS: Medications Discharge Medications Home Medications: Home Medications Medication Instructions Recorded Confirmed acetaminophen 650 mg PO Q4H PRN 09/23/20 09/23/20 acetaminophen 650 mg PO Q4H PRN 09/23/20 09/23/20 clomipramine 150 mg PO BEDTIME 09/23/20 09/23/20 clonazepam 0.25 mg PO DAILY 09/23/20 09/23/20 clonazepam 0.5 mg PO BEDTIME 09/23/20 09/23/20 clozapine 100 mg PO BEDTIME 09/23/20 09/23/20 clozapine 200 mg PO BEDTIME 09/23/20 09/23/20 diphenhydramine HCl [Benadryl] 25 mg PO Q6H PRN 09/23/20 09/23/20 docusate sodium 100 mg PO BID 09/23/20 09/23/20 doxycycline hyclate 50 mg PO DAILY 09/23/20 09/23/20 famotidine 40 mg PO BEDTIME 09/23/20 09/23/20 lactulose 10 g PO DAILY 09/23/20 09/23/20 levothyroxine 50 mcg PO DAILY 09/23/20 09/23/20 metoprolol tartrate 12.5 mg PO DAILY 09/23/20 09/23/20 multivitamin 1 tab PO DAILY 09/23/20 09/23/20 omeprazole 40 mg PO DAILY 09/23/20 09/23/20 pantoprazole 40 mg PO BID 09/23/20 09/23/20 pregabalin 150 mg PO BID 09/23/20 09/23/20 sennosides [senna] 17.2 mg PO BEDTIME 09/23/20 09/23/20 sodium bicarbonate 650 mg PO BID 09/23/20 09/23/20 tamsulosin 0.4 mg PO BEDTIME 09/23/20 09/23/20 DS: Summary Hospital Course Hospital Course: He presented with sepsis due to UTI with elevated WBC, hypoventilation and was put on IV Cefepime with good response, blood pressure has returned normal, no fever, WBC is now normal down from 19 K. Culture growing proteus M. He has been refusing care, refusing medication, vitals and I this point is likely to take meds from staff that he knows and will therefore discharge with PO Augmentin fore rest of treatment for UTI. Time Spent with Patient Time attestation: Total time spent providing and/or coordinating discharge services: Discharge coordination time: Greater than 30 minutes Physical Exam Vital Signs: Vital Signs: Last Vital Signs Temp 98.1 F 09/25/20 11:06 Pulse 131 H 09/25/20 11:06 Resp 18 09/25/20 11:06 BP 151/98 H 09/25/20 11:06 Pulse Ox 99 09/25/20 11:06 Body Mass Index 23.3 General: agresiv, uncooper, no acute distress Resp: normal breathing pattern CVS: S1,S2,RRR, tachy when agitated GI: +BS, NT, no distention Skin: No rash Neuro: motor grossly intact Psych: flat DS: Data Data Completed and Pending Labs on day of discharge: Laboratory Results - last 24 hr 09/25/20 05:42 WBC 10.7 RBC 4.06 L Hgb 10.7 L Hct 34.1 L MCV 84.0 MCH 26.4 L MCHC 31.4 RDW 15.8 Plt Count 223 MPV 10.8 Absolute Nucleated RBC 0.000 Nucleated RBC % (auto) 0.0 Preliminary micro results at discharge 09/23/20 09:15 Blood Culture - Preliminary Blood - Venous No growth after 48 hours. 09/23/20 09:15 Blood Culture - Preliminary Blood - Venous No growth after 48 hours. 09/23/20 00:00 Urine Culture - Preliminary Urine clean catch - Clean Catch Midstream Proteus mirabilis Gram negative patricia Discharge Plan Discharge Anticipated Discharge Date/Time: 09/25/20 09:39 Patient Disposition: Xfer [facility] Discharge Diagnosis: Sepsis, UTI Referrals: [facility] [Outside] - 1 Week (RESUMPTION OF CARE) Swapnil Vazquez DO [Primary Care Provider] - 1 Week Discharge Medications: New amoxicillin-pot clavulanate 875-125 mg Tablet 1 tab PO Q12H Qty: 16 RF: 0 Continued clomipramine 75 mg capsule 150 mg PO BEDTIME RF: 0 famotidine 40 mg tablet 40 mg PO BEDTIME RF: 0 clonazepam 0.5 mg tablet 0.25 mg PO DAILY RF: 0 doxycycline hyclate 50 mg capsule 50 mg PO DAILY RF: 0 omeprazole 40 mg capsule,delayed release(DR/EC) 40 mg PO DAILY RF: 0 tamsulosin 0.4 mg capsule 0.4 mg PO BEDTIME RF: 0 pregabalin 150 mg capsule 150 mg PO BID RF: 0 multivitamin Tablet 1 tab PO DAILY RF: 0 sennosides [senna] 8.6 mg Tablet 17.2 mg PO BEDTIME RF: 0 acetaminophen 325 mg Tablet 650 mg PO Q4H PRN (Reason: Fever) RF: 0 acetaminophen 325 mg Tablet 650 mg PO Q4H PRN (Reason: Pain) RF: 0 clozapine 100 mg Tablet 100 mg PO BEDTIME RF: 0 clozapine 100 mg Tablet 200 mg PO BEDTIME RF: 0 clonazepam 0.5 mg tablet 0.5 mg PO BEDTIME RF: 0 sodium bicarbonate 650 mg Tablet 650 mg PO BID RF: 0 levothyroxine 50 mcg tablet 50 mcg PO DAILY RF: 0 pantoprazole 40 mg Tablet,Delayed Release (Dr/Ec) 40 mg PO BID RF: 0 diphenhydramine HCl [Benadryl] 25 mg Capsule 25 mg PO Q6H PRN (Reason: Itching) RF: 0 docusate sodium 100 mg Capsule 100 mg PO BID RF: 0 metoprolol tartrate 25 mg Tablet 12.5 mg PO DAILY RF: 0 lactulose 10 gram/15 mL (15 mL) Solution 10 g PO DAILY RF: 0 Discharge Orders: Discharge Order (Routine); Ordered 09/25/20 Ordered By: Mert Bach Diet: advance to usual diet Activity on Discharge: As tolerated Stand Alone Forms: Patient Portal Discharge page Care Plan Goals: full recovery from UTI and prevent rehospitalization Health Concerns: pneumonia and underlying schizophrenia Plan of Treatment: Take antibiotics as recommended and follow with your Doctor in a week Assessment: Sepsis due to pneumonia, sepsis resolved and recovering from pneumonia
--- NOTE | 2020-09-25 13:18 | MHC.CM.PN ---
PT DISCHARGING TODAY BACK TO [facility] AT 3PM, ACTION FOR BLS TRANSPORT, [facility], NSG AND HOSPITALIST AWARE PF PT'S DISPO.
== END 2020-09-25 15:23 | disposition skilled nursing facility (03) | DRG 872 ==
LOC: HO.ED 10:21 → HO.EDOVER 13:11 → HO.S3 09-24 07:07
PROVIDERS: Admitting Provider Hospitalist; Emergency Provider Emergency Medicine; PCP Hospitalist; Visit Provider Internal Medicine
DX: A41.9 Sepsis, unspecified organism (principal); N17.9 Acute kidney failure, unspecified; N39.0 Urinary tract infection, site not specified; E11.9 Type 2 diabetes mellitus without complications; E03.9 Hypothyroidism, unspecified; N40.0 Benign prostatic hyperplasia without lower urinary tract symptoms; R65.20 Severe sepsis without septic shock; B96.4 Proteus (mirabilis) (morganii) as the cause of diseases classified elsewhere; K21.9 Gastro-esophageal reflux disease without esophagitis; F25.9 Schizoaffective disorder, unspecified; Z87.820 Personal history of traumatic brain injury; Z20.822 Contact with and (suspected) exposure to COVID-19; Z87.891 Personal history of nicotine dependence; Z79.890 Hormone replacement therapy; Z79.899 Other long term (current) drug therapy
CPT/HCPCS: 36415; 70450; 71045; 80048; 80076; 81001; 81003; 82947; 83605; 83690; 83735; 84484; 85025; 85027; 85610; 85730; 87040; 87086; 87088; 87186; 87635; 93005; 96361; 96365; 99284; 99291; J0692; J1650; J2405

== ENCOUNTER 2020-09-25 15:58 | Emergency (ER) | payer MEDICARE, MEDICAID, SELFPAY ==
--- NOTE | ~2020-09-25 | CT_ITS ---
EXAMINATION: CT HEAD WITHOUT CONTRAST CLINICAL INFORMATION: Fall. COMPARISON: CT head 05/28/2020 TECHNIQUE: Contiguous axial imaging was performed from the skull base to vertex without intravenous administration of contrast. Coronal and sagittal reformatted images are performed at the CT scanner. [This CT examination was performed using dose optimization techniques as appropriate, variously including the following: *Automated exposure control *Adjustment of mA and/or kV according to patient size (this includes techniques or standardized protocols for targeted exams where dose is matched to indication/reason for exam; i.e. extremities or head) *Use of iterative reconstruction technique] DLP: 809 mGy-cm. FINDINGS: There is no evidence of acute intracranial hemorrhage or territorial infarction. No abnormal mass-effect or midline shift is seen. Newell to white matter differentiation is well preserved. No extra-axial fluid collections are identified. The ventricles are normal in size for patient age. There is no abnormal attenuation within the brain parenchyma. There is no osseous abnormality. The mastoid air cells and visualized portions of the paranasal sinuses are well-aerated. CT/CT head/brain wo con IMPRESSION: No acute intracranial pathology.
[2020-09-25 16:11] VITALS: BP 182/99; PULSE 85; RESP 18; TEMP 37.1; O2SAT 99; BMI 25.8
--- NOTE | 2020-09-25 16:18 | PC.NURSE ---
PER ELSA HOOPER ON [facility], PATIENT DID NOT FALL TODAY HAD [employer]ERAS ON AND SITTER AT BEDSIDE.
--- NOTE | 2020-09-25 16:27 | ED.FALL ---
HPI - Fall General Chief Complaint: Fall Stated Complaint: LAC TO BACK OF HEAD Time Seen by Provider: 09/25/20 16:26 Source: EMS Mode of arrival: EMS Limitations: other (TBI) History of Present Illness HPI Narrative: With extensive history as noted below including history of TBI does history from the patient is somewhat limited and he resides at a fpc facility he was here at this facility and admitted for UTI he was under supervision given his schizoaffective disorder and TBI and intellectual disability he was transferred from the facility to the residential where he was ([facility]) upon return there they noted that he had some abrasion like area to the posterior scalp there was a question whether he fell or not per the facility however patient was under supervision here the entire time and he was transferred back with EMS transport/supervision and there is no reported fall. Patient apparently has a history of scratching himself and apparently he did this is posterior scalp likely. He upon arrival is well nontoxic appearing, smiling is asking for coffee. Off no epitaxial reactor technician in the ED who works at the facility and as well as here and knows the patient and this is his baseline. Fall witnessed: no Prolonged down time: no Location of injury: head Related Data Home Medications Medication Instructions Recorded Confirmed acetaminophen 650 mg PO Q4H PRN 09/23/20 09/23/20 acetaminophen 650 mg PO Q4H PRN 09/23/20 09/23/20 clomipramine 150 mg PO BEDTIME 09/23/20 09/23/20 clonazepam 0.25 mg PO DAILY 09/23/20 09/23/20 clonazepam 0.5 mg PO BEDTIME 09/23/20 09/23/20 clozapine 100 mg PO BEDTIME 09/23/20 09/23/20 clozapine 200 mg PO BEDTIME 09/23/20 09/23/20 diphenhydramine HCl [Benadryl] 25 mg PO Q6H PRN 09/23/20 09/23/20 docusate sodium 100 mg PO BID 09/23/20 09/23/20 doxycycline hyclate 50 mg PO DAILY 09/23/20 09/23/20 famotidine 40 mg PO BEDTIME 09/23/20 09/23/20 lactulose 10 g PO DAILY 09/23/20 09/23/20 levothyroxine 50 mcg PO DAILY 09/23/20 09/23/20 metoprolol tartrate 12.5 mg PO DAILY 09/23/20 09/23/20 multivitamin 1 tab PO DAILY 09/23/20 09/23/20 omeprazole 40 mg PO DAILY 09/23/20 09/23/20 pantoprazole 40 mg PO BID 09/23/20 09/23/20 pregabalin 150 mg PO BID 09/23/20 09/23/20 sennosides [senna] 17.2 mg PO BEDTIME 09/23/20 09/23/20 sodium bicarbonate 650 mg PO BID 09/23/20 09/23/20 tamsulosin 0.4 mg PO BEDTIME 09/23/20 09/23/20 Previous Rx's Medication Instructions Recorded amoxicillin-pot clavulanate 1 tab PO Q12H #16 tab 09/25/20 Allergies Allergy/AdvReac Type Severity Reaction Status Date / Time fish oil [FISH OIL] Allergy Unknown UNK Verified 09/24/20 09:51 Iodinated Contrast Media Allergy Unknown UNK Verified 09/24/20 09:51 [IODINATED CONTRAST- ORAL AND IV DYE] iodine [IODINE] Allergy Unknown UNK Verified 09/24/20 09:51 pollen Allergy Unknown Unknown Uncoded 09/24/20 09:51 SEAFOOD Allergy Unknown UNK Uncoded 02/29/20 19:27 shellfish Allergy Unknown Unknown Uncoded 09/24/20 09:51 Review of Systems Review of Systems: Constitutional: No Weight loss, No Fever, No Chills, No Night Sweats, No Fatigue, No Malaise ENT/Mouth: No Hearing loss, No Ear Pain, No Nasal Congestion, No Sinus Pain, No Hoarseness, No sore throat, No Rhinorrhea, No Swallowing Difficulty Eyes: No Eye Pain, No Swelling, No Redness, No Foreign Body, No Discharge, No Vision Changes Cardiovascular: No Chest Pain, No SOB, No Dyspnea on Exertion, No Orthopnea, No Edema, No Palpitations Respiratory: No Cough, No Sputum, No Wheezing, No Smoke Exposure, No Dyspnea Gastrointestinal: No Nausea, No Vomiting, No Diarrhea, No Constipation, No abdominal Pain, No Hematochezia, No Melena Genitourinary: no irregular bleeding, No Dysuria, No Urinary Frequency, No Hematuria, No Urinary Incontinence, No Urgency, No Flank Pain, No Urinary Flow Changes, No Hesitancy Musculoskeletal: No joint pain, No Myalgias, No Joint Swelling Skin: No Skin Lesions, No rash Neuro: No Weakness, No Numbness, No Paresthesias, No Loss of Consciousness, No Dizziness, No Headache Psych: No Social Issues Heme/Lymph: No Bruising, No Bleeding,No Lymphadenopathy Endocrine: No Polyuria, No Polydipsia, No Temperature Intolerance Yes all other systems are reviewed and are negative [facility] Past Medical History [facility] Narrative: 1. Benign prostate hyperplasia. 2. History of schizoaffective disorder. 3. History of traumatic brain injury. 4. History of GERD. 5. History of esophageal obstruction. 6. History of diabetes type 2. 7. History of anemia. 8. History of dysphagia. 9. History of hypothyroidism. 10. History of hypertension. 11. History of personality disorder. 12. History of presbyopia. Medical History BPH (benign prostatic hyperplasia) Schizoaffective disorder TBI (traumatic brain injury) Social History Social History Household Members: Other Housing: Correction Alcohol intake: unknown Smoking Status: Never smoker Advance Directives: No Advance Directives Information Provided: Yes Current occupational status: disabled Physical Exam Vital Signs: Vital Signs: Last Vital Signs Temp 98.7 F 09/25/20 16:11 Pulse 85 09/25/20 16:11 Resp 18 09/25/20 16:11 BP 182/99 H 09/25/20 16:11 Pulse Ox 99 09/25/20 16:11 Body Mass Index 25.8 Reviewed Const: General: cooperative; No acute distress or intoxicated appearing Nutritional Appearance: average body habitus Orientation/consciousness: oriented to person and patient oriented x3 HENMT: Head: Yes normal to inspection Head images: 1. Area of 1 cm superficial abrasion. No tender palpation, no hematoma. Ears: hearing grossly normal bilaterally Eyes: General: appearance normal, both eyes and all related structures Visual Johns: normal visual johns by confrontation Neck: Neck: Yes normal visual inspection, No positive Brudzinski's sign, No positive Kernig's sign and No tender Thyroid: Thyroid normal Chest: Chest palpation & inspection: normal inspection of the chest Resp: Effort & Inspection: normal respiratory effort Auscultation: clear to auscultation bilaterally Cardio: Jugular venous distension: no JVD Rhythm: regular rhythm Heart sounds: S1 normal heart sound present and S2 normal heart sound present GI: Inspection: Yes normal to inspection Percussion: Yes normal to percussion Auscultation: normal bowel sounds : General: Yes no CVA tenderness Back/Spine/Pelvis: Back: no CVA tenderness Skin: Other: Bilateral elbows with slight erythema consistent with friction but no abrasion or skin breakage. No signs of infection. Full range of motion. No TTP. General skin exam: no rashes or lesions noted Neuro: General: oriented to person and patient oriented x3 Extrem: General: Yes normal to inspection Course Course Course Narrative: Given the TBI and intellectual disability CT of the brain was done upon arrival as a precaution this was negative. Area is consistent with abrasion like. He is otherwise atraumatic on exam. He offers no complaints. Drinking coffee patient is cleared to return back to skilled nurse facility. Discharge Plan Discharge Clinical Impression: Abrasion of scalp Qualifiers: Encounter type: initial encounter Qualified Code(s): S00.01XA - Abrasion of scalp, initial encounter Patient Disposition: Home, Self-Care Instructions: Abrasion (ED) Additional Instructions: The scalp abrasions likely from him scratching as his tendency to do so however CT scan of the brain was done and this was negative Return to facility Prescriptions: No Action clomipramine 75 mg capsule 150 mg PO BEDTIME RF: 0 famotidine 40 mg tablet 40 mg PO BEDTIME RF: 0 clonazepam 0.5 mg tablet 0.25 mg PO DAILY RF: 0 doxycycline hyclate 50 mg capsule 50 mg PO DAILY RF: 0 omeprazole 40 mg capsule,delayed release(DR/EC) 40 mg PO DAILY RF: 0 tamsulosin 0.4 mg capsule 0.4 mg PO BEDTIME RF: 0 pregabalin 150 mg capsule 150 mg PO BID RF: 0 multivitamin Tablet 1 tab PO DAILY RF: 0 sennosides [senna] 8.6 mg Tablet 17.2 mg PO BEDTIME RF: 0 acetaminophen 325 mg Tablet 650 mg PO Q4H PRN (Reason: Fever) RF: 0 acetaminophen 325 mg Tablet 650 mg PO Q4H PRN (Reason: Pain) RF: 0 clozapine 100 mg Tablet 100 mg PO BEDTIME RF: 0 clozapine 100 mg Tablet 200 mg PO BEDTIME RF: 0 clonazepam 0.5 mg tablet 0.5 mg PO BEDTIME RF: 0 sodium bicarbonate 650 mg Tablet 650 mg PO BID RF: 0 levothyroxine 50 mcg tablet 50 mcg PO DAILY RF: 0 pantoprazole 40 mg Tablet,Delayed Release (Dr/Ec) 40 mg PO BID RF: 0 diphenhydramine HCl [Benadryl] 25 mg Capsule 25 mg PO Q6H PRN (Reason: Itching) RF: 0 docusate sodium 100 mg Capsule 100 mg PO BID RF: 0 metoprolol tartrate 25 mg Tablet 12.5 mg PO DAILY RF: 0 lactulose 10 gram/15 mL (15 mL) Solution 10 g PO DAILY RF: 0 amoxicillin-pot clavulanate 875-125 mg Tablet 1 tab PO Q12H Qty: 16 RF: 0
--- NOTE | 2020-09-25 16:35 | MHC.CM.ED ---
CM reviewed pt chart and pt did not fall. Pt had a sitter and camera while in hospital. RYLEE spoke with RN at [facility], Marilynn, who stated that pt returned to them with old blood on back of his head and bilateral redness on both elbows. Stated they need some documentation regarding the bilateral redness of elbows and if a scratch or laceration was noted after dried blood was cleansed. Stated that pt can return, if above concerns are documented. Monique HOOPER aware of above conversation as well as Dhiraj MONSALVE.
--- NOTE | 2020-09-25 17:04 | PC.NURSE ---
mlp mark noted dried blood to back of head appears to have been caused by patient scratching self and reddened elbows noted to not have trauma etiology. plan at this time is to d/c back to [facility] when ct is back.
[2020-09-25 18:51] VITALS: PULSE 84; RESP 16; O2SAT 100
[2020-09-25 18:57] VITALS: BP 140/85; PULSE 58; RESP 18; TEMP 36.5; O2SAT 100
== END 2020-09-25 19:47 | disposition home or self-care (01) ==
PROVIDERS: Emergency Provider Emergency Medicine; PCP Hospitalist
DX: S00.01XA Abrasion of scalp, initial encounter (principal); W50.4XXA Accidental scratch by another person, initial encounter; E11.9 Type 2 diabetes mellitus without complications; I10 Essential (primary) hypertension; K21.9 Gastro-esophageal reflux disease without esophagitis; D64.9 Anemia, unspecified; F25.9 Schizoaffective disorder, unspecified; Z87.820 Personal history of traumatic brain injury; Y93.9 Activity, unspecified; Y92.129 Unspecified place in nursing home as the place of occurrence of the external cause; Y99.9 Unspecified external cause status
CPT/HCPCS: 70450; 99284

== ENCOUNTER 2020-09-29 01:40 | Emergency (ER) | payer MEDICARE, MEDICAID, SELFPAY ==
[2020-09-29 01:44] VITALS: BP 143/78; BP 157/92; PULSE 85; PULSE 92; RESP 15; TEMP 37.2; O2SAT 99; BMI 23.7
--- NOTE | 2020-09-29 01:52 | ED.GENADULT ---
HPI - General Adult General Chief complaint: General Medical Stated complaint: vomiting per snf Time Seen by Provider: 09/29/20 01:47 Source: EMS Mode of arrival: EMS Limitations: altered mental status History of Present Illness HPI narrative: Patient comes emergency room from [facility]. Patient was discharged on September 25 for sepsis UTI. The staff at [facility] states that the patient has been unwilling to take his medication has been vomiting. Patient was discharged with Augmentin. Patient is unable to give any significant history due to a chronic traumatic brain injury, patient states that he feels well Related Data Home Medications Medication Instructions Recorded Confirmed acetaminophen 650 mg PO Q4H PRN 09/23/20 09/23/20 acetaminophen 650 mg PO Q4H PRN 09/23/20 09/23/20 clomipramine 150 mg PO BEDTIME 09/23/20 09/23/20 clonazepam 0.25 mg PO DAILY 09/23/20 09/23/20 clonazepam 0.5 mg PO BEDTIME 09/23/20 09/23/20 clozapine 100 mg PO BEDTIME 09/23/20 09/23/20 clozapine 200 mg PO BEDTIME 09/23/20 09/23/20 diphenhydramine HCl [Benadryl] 25 mg PO Q6H PRN 09/23/20 09/23/20 docusate sodium 100 mg PO BID 09/23/20 09/23/20 doxycycline hyclate 50 mg PO DAILY 09/23/20 09/23/20 famotidine 40 mg PO BEDTIME 09/23/20 09/23/20 lactulose 10 g PO DAILY 09/23/20 09/23/20 levothyroxine 50 mcg PO DAILY 09/23/20 09/23/20 metoprolol tartrate 12.5 mg PO DAILY 09/23/20 09/23/20 multivitamin 1 tab PO DAILY 09/23/20 09/23/20 omeprazole 40 mg PO DAILY 09/23/20 09/23/20 pantoprazole 40 mg PO BID 09/23/20 09/23/20 pregabalin 150 mg PO BID 09/23/20 09/23/20 sennosides [senna] 17.2 mg PO BEDTIME 09/23/20 09/23/20 sodium bicarbonate 650 mg PO BID 09/23/20 09/23/20 tamsulosin 0.4 mg PO BEDTIME 09/23/20 09/23/20 Previous Rx's Medication Instructions Recorded amoxicillin-pot clavulanate 1 tab PO Q12H #16 tab 09/25/20 Allergies Allergy/AdvReac Type Severity Reaction Status Date / Time fish oil [FISH OIL] Allergy Unknown UNK Verified 09/24/20 09:51 Iodinated Contrast Media Allergy Unknown UNK Verified 09/24/20 09:51 [IODINATED CONTRAST- ORAL AND IV DYE] iodine [IODINE] Allergy Unknown UNK Verified 09/24/20 09:51 pollen Allergy Unknown Unknown Uncoded 09/24/20 09:51 SEAFOOD Allergy Unknown UNK Uncoded 02/29/20 19:27 shellfish Allergy Unknown Unknown Uncoded 09/24/20 09:51 Review of Systems Review of Systems: Patient states that he feels well Yes Unobtainable due to mental condition PMFSH Past Medical History Medical History BPH (benign prostatic hyperplasia) Schizoaffective disorder TBI (traumatic brain injury) Social History Social History Household Members: Other Housing: Longterm Alcohol intake: never Smoking Status: Never smoker Use of substances other than those prescribed or required for medical reasons: No Advance Directives: No Advance Directives Information Provided: No Current occupational status: disabled Physical Exam Vital Signs: Vital Signs: Last Vital Signs Temp 98.9 F 09/29/20 01:44 Pulse 85 09/29/20 01:44 Resp 15 09/29/20 01:44 BP 157/92 H 09/29/20 01:44 Pulse Ox 99 09/29/20 01:44 Body Mass Index 23.7 Appearance: Alert. Oriented X1. No acute distress. Eyes: Pupils equal, round and reactive to light. ENT: Pharynx normal. Neck: Normal inspection. Neck supple. No lymph nodes noted. No crepitus CVS: Normal heart rate and rhythm. Pulses normal. Normal S1 and S2 Respiratory: No respiratory distress. Breath sounds normal. No Wheezing. No rales Abdomen: Soft and nontender. No rigidity. No distention. good BS x4 Skin: Skin warm and dry. Normal skin color. Normal skin turgor. Extremities: No lower extremity edema. No lower extremity edema. No Lacerations. No Rash Neuro: Oriented X1. No motor deficit. Cranial nerves 2-12 grossly intact Course Course Course Narrative: Patient has not vomited in the emergency room. Patient's labs reviewed. White blood cell count within normal limits, lactic acid normal, patient does not have fever, urinalysis is clean. Patient to continue his regimen of current antibiotics with Augmentin as prescribed on hospital discharge on September 25 Medical Decision Making Lab Data Result diagrams: 09/29/20 02:02 09/29/20 02:02 Labs: Lab Results 09/29/20 09/29/20 09/29/20 Range/Units 02:02 02:02 02:02 WBC 9.2 (4.8-10.8) X10*3/uL RBC 4.46 L (4.60-5.80) X10*6/uL Hgb 11.7 L (14.0-18.0) g/dl Hct 36.4 L (42-52) % MCV 81.6 (80-98) fL MCH 26.2 L (27.0-33.0) pg MCHC 32.1 (31.0-36.0) g/dl RDW 14.9 (11.0-16.0) % Plt Count 297 D (160-400) X10*3/uL MPV 9.5 (9.4-12.4) fL Immature Gran % (Auto) 3.2 H (0.0-0.4) % Neut % (Auto) 77.2 H (45-73) % Lymph % (Auto) 10.9 L (20-40) % Crowley % (Auto) 8.5 (2-11) % Eos % (Auto) 0.0 (0-4) % Baso % (Auto) 0.2 (0-2) % Lymph # (Auto) 1.0 L (1.2-4.9) X10*3/uL Crowley # (Auto) 0.8 (0.1-1.2) X10*3/uL Eos # (Auto) 0.0 (0.0-0.4) X10*3/uL Baso # (Auto) 0.0 (0.0-0.2) X10*3/uL Abs Immat Gran (auto) 0.29 H (0.00-0.03) X10*3/uL Absolute Neuts (auto) 7.1 (2.0-8.3) X10*3/uL Absolute Nucleated RBC 0.000 (0.0-0.012) X10*3/uL Nucleated RBC % (auto) 0.0 (0.0-0.2) /100WBC Sodium 141 (135-145) mmol/L Potassium 3.7 (3.3-5.1) mmol/L Chloride 103 (96-108) mmol/L Carbon Dioxide 27 (22-29) mmol/L Anion Gap 15 (12-20) BUN 22 H (9-16) mg/dL Creatinine 0.93 (0.5-1.4) mg/dL Estim Creat Clear Calc 88.0 Estimated GFR > 60 Random Glucose 108 (60-115) mg/dL Lactic Acid (0.5-2.0) mmol/L Calcium 9.1 D (8.4-10.2) mg/dL Total Bilirubin 0.3 (0.0-1.0) mg/dL Direct Bilirubin 0.2 (0.0-0.5) mg/dL AST 21 (5-37) U/L ALT 34 (0-40) U/L Alkaline Phosphatase 115 (39-117) U/L Total Protein 6.8 (6.5-8.0) g/dL Albumin 4.0 (3.5-5.0) g/dL Urine Color Urine Appearance Urine pH (5.0-8.0) Ur Specific Cadott (1.005-1.025) Urine Protein (NEG-TRACE) MG/DL Urine Glucose (UA) (NEG) MG/DL Urine Ketones (NEG) MG/DL Urine Blood (NEG) Urine Nitrite (NEG) Ur Leukocyte Esterase (NEG) 09/29/20 09/29/20 Range/Units 02:02 02:23 WBC (4.8-10.8) X10*3/uL RBC (4.60-5.80) X10*6/uL Hgb (14.0-18.0) g/dl Hct (42-52) % MCV (80-98) fL MCH (27.0-33.0) pg MCHC (31.0-36.0) g/dl RDW (11.0-16.0) % Plt Count (160-400) X10*3/uL MPV (9.4-12.4) fL Immature Gran % (Auto) (0.0-0.4) % Neut % (Auto) (45-73) % Lymph % (Auto) (20-40) % Crowley % (Auto) (2-11) % Eos % (Auto) (0-4) % Baso % (Auto) (0-2) % Lymph # (Auto) (1.2-4.9) X10*3/uL Crowley # (Auto) (0.1-1.2) X10*3/uL Eos # (Auto) (0.0-0.4) X10*3/uL Baso # (Auto) (0.0-0.2) X10*3/uL Abs Immat Gran (auto) (0.00-0.03) X10*3/uL Absolute Neuts (auto) (2.0-8.3) X10*3/uL Absolute Nucleated RBC (0.0-0.012) X10*3/uL Nucleated RBC % (auto) (0.0-0.2) /100WBC Sodium (135-145) mmol/L Potassium (3.3-5.1) mmol/L Chloride (96-108) mmol/L Carbon Dioxide (22-29) mmol/L Anion Gap (12-20) BUN (9-16) mg/dL Creatinine (0.5-1.4) mg/dL Estim Creat Clear Calc Estimated GFR Random Glucose (60-115) mg/dL Lactic Acid 0.8 (0.5-2.0) mmol/L Calcium (8.4-10.2) mg/dL Total Bilirubin (0.0-1.0) mg/dL Direct Bilirubin (0.0-0.5) mg/dL AST (5-37) U/L ALT (0-40) U/L Alkaline Phosphatase (39-117) U/L Total Protein (6.5-8.0) g/dL Albumin (3.5-5.0) g/dL Urine Color YELLOW Urine Appearance CLEAR Urine pH 7.0 (5.0-8.0) Ur Specific Cadott 1.025 (1.005-1.025) Urine Protein TRACE (NEG-TRACE) MG/DL Urine Glucose (UA) NEG (NEG) MG/DL Urine Ketones 15 (NEG) MG/DL Urine Blood NEG (NEG) Urine Nitrite NEG (NEG) Ur Leukocyte Esterase NEG (NEG) Discharge Plan Discharge Clinical Impression: Nausea Patient Disposition: Xfer Other Transfer Details: [facility] Instructions: Acute Nausea and Vomiting (ED) Additional Instructions: Continue the current regimen of antibiotics. Prescriptions: No Action clomipramine 75 mg capsule 150 mg PO BEDTIME RF: 0 famotidine 40 mg tablet 40 mg PO BEDTIME RF: 0 clonazepam 0.5 mg tablet 0.25 mg PO DAILY RF: 0 doxycycline hyclate 50 mg capsule 50 mg PO DAILY RF: 0 omeprazole 40 mg capsule,delayed release(DR/EC) 40 mg PO DAILY RF: 0 tamsulosin 0.4 mg capsule 0.4 mg PO BEDTIME RF: 0 pregabalin 150 mg capsule 150 mg PO BID RF: 0 multivitamin Tablet 1 tab PO DAILY RF: 0 sennosides [senna] 8.6 mg Tablet 17.2 mg PO BEDTIME RF: 0 acetaminophen 325 mg Tablet 650 mg PO Q4H PRN (Reason: Fever) RF: 0 acetaminophen 325 mg Tablet 650 mg PO Q4H PRN (Reason: Pain) RF: 0 clozapine 100 mg Tablet 100 mg PO BEDTIME RF: 0 clozapine 100 mg Tablet 200 mg PO BEDTIME RF: 0 clonazepam 0.5 mg tablet 0.5 mg PO BEDTIME RF: 0 sodium bicarbonate 650 mg Tablet 650 mg PO BID RF: 0 levothyroxine 50 mcg tablet 50 mcg PO DAILY RF: 0 pantoprazole 40 mg Tablet,Delayed Release (Dr/Ec) 40 mg PO BID RF: 0 diphenhydramine HCl [Benadryl] 25 mg Capsule 25 mg PO Q6H PRN (Reason: Itching) RF: 0 docusate sodium 100 mg Capsule 100 mg PO BID RF: 0 metoprolol tartrate 25 mg Tablet 12.5 mg PO DAILY RF: 0 lactulose 10 gram/15 mL (15 mL) Solution 10 g PO DAILY RF: 0 amoxicillin-pot clavulanate 875-125 mg Tablet 1 tab PO Q12H Qty: 16 RF: 0
[2020-09-29 02:08] LABS: Basophils Percent Auto 0.2 % (0-2); Hematocrit 36.4 % (42-52); Hemoglobin 11.7 g/dl (14.0-18.0); Imm Gran Abs Auto 0.29 X10*3/uL (0.00-0.03); Imm Gran Pct Auto 3.2 % (0.0-0.4); Lymphocytes Percent Auto 10.9 % (20-40); MANUAL DIFF FLAG NO; Mean Corpuscular HGB Conc 32.1 g/dl (31.0-36.0); Mean Corpuscular Hemoglobin 26.2 pg (27.0-33.0); Mean Corpuscular Volume 81.6 fL (80-98); Mean Platelet Volume 9.5 fL (9.4-12.4); Monocytes Absolute Auto 0.8 X10*3/uL (0.1-1.2); Monocytes Percent Auto 8.5 % (2-11); Neutrophils Absolute Auto 7.1 X10*3/uL (2.0-8.3); Neutrophils Percent Auto 77.2 % (45-73); Platelet Count 297 X10*3/uL (160-400); Red Blood Count 4.46 X10*6/uL (4.60-5.80); Red Cell Distribution Width 14.9 % (11.0-16.0); White Blood Count 9.2 X10*3/uL (4.8-10.8)
[2020-09-29 02:26] LABS: Lactic Acid 0.8 mmol/L (0.5-2.0)
[2020-09-29 02:33] LABS: Glucose Urine UA NEG (NEG); Leukocyte Esterase Urine NEG (NEG); Nitrite Urine NEG (NEG); Specific Gravity - Urine 1.025 (1.005-1.025); Urine Blood NEG (NEG); Urine Ketones 15 MG/DL (NEG); Urine Protein TRACE MG/DL (NEG-TRACE)
[2020-09-29 02:34] LABS: Appearance Urine CLEAR; Color Urine YELLOW
--- NOTE | 2020-09-29 02:35 | PC.NURSE ---
Patient came from [facility] with chief complaint per RN for behavioral vomiting. Per EMS patient has not had any vomiting while on ambulance. Patient also has not vomited since he has been at the hospital.
[2020-09-29 02:40] LABS: Anion Gap 15 (12-20); Blood Urea Nitrogen 22 mg/dL (9-16); Calcium 9.1 mg/dL (8.4-10.2); Carbon Dioxide 27 mmol/L (22-29); Chloride 103 mmol/L (96-108); Estimated Glomerular Filt Rate > 60; Glucose Random 108 mg/dL (60-115); Potassium 3.7 mmol/L (3.3-5.1); Sodium 141 mmol/L (135-145)
[2020-09-29 02:41] LABS: Alanine Aminotransferase 34 U/L (0-40); Alkaline Phosphatase 115 U/L (39-117); Aspartate Amino Transferase 21 U/L (5-37); Bilirubin Direct 0.2 mg/dL (0.0-0.5); Bilirubin Total 0.3 mg/dL (0.0-1.0); Total Protein 6.8 g/dL (6.5-8.0)
--- NOTE | 2020-09-29 02:45 | PC.NURSE ---
Patient was given ice cubes and patient tolerated the fluid. Patient didn't not vomit after eating the ice chips.
== END 2020-09-29 03:46 | disposition other institution (70) ==
PROVIDERS: Emergency Provider Emergency Medicine
DX: R11.2 Nausea with vomiting, unspecified (principal); N40.0 Benign prostatic hyperplasia without lower urinary tract symptoms; Z79.899 Other long term (current) drug therapy
CPT/HCPCS: 36415; 51702; 80048; 80076; 81003; 83605; 85025; 87040; 87147; 87205; 99284

== ENCOUNTER 2020-11-05 06:45 | Outpatient (REF) | payer MEDICARE, MEDICAID, SELFPAY | END 2020-11-05 06:46 | disposition home or self-care (01) | LOC: HO.CT 06:45 | PROVIDERS: PCP Hospitalist; Visit Provider Hospitalist | DX: Z13.89 Encounter for screening for other disorder (principal) ==

== ENCOUNTER 2020-11-18 13:44 | Outpatient (REF) | payer MEDICARE, MEDICAID, SELFPAY ==
--- NOTE | ~2020-11-18 | CT_ITS ---
EXAMINATION: CT ABDOMEN WITHOUT AND WITH CONTRAST CLINICAL INFORMATION: Abnormal finding on diagnostic imaging. COMPARISON: Previous chest CT May 2020. TECHNIQUE: Contiguous axial thin section helical images of the abdomen were performed before and after the administration of oral contrast and 85 mL of Omnipaque 350 intravenous contrast. The data set was reformatted in the coronal and sagittal planes and reviewed on an independent workstation. This CT examination was performed using dose optimization techniques as appropriate, variously including the following: *Automated exposure control *Adjustment of mA and/or kV according to patient size (this includes techniques or standardized protocols for targeted exams where dose is matched to indication/reason for exam; i.e. extremities or head) *Use of iterative reconstruction technique DLP: 302 mGy-cm FINDINGS: LUNG BASES: There is chronic scarring or atelectasis in the posterior basal segment of the right lower lobe. This is similar to May [address] Previously identified left lower lobe pneumonia has resolved. LIVER, GALLBLADDER, AND BILIARY TREE: Unremarkable. PANCREAS: Unremarkable. SPLEEN: Unremarkable. ADRENAL GLANDS AND KIDNEYS: The right kidney appears atrophic. There is a small 1 mm stone in the lower pole of the right kidney. There are multiple bilateral renal cysts. There is a 1.4 cm lesion in the medial upper pole of the right kidney. This is high signal without contrast Hounsfield units measuring 68. This does demonstrate evidence of enhancement, Hounsfield units postcontrast measuring 68 as well, and likely represents a hyperdense cyst. The remainder of the cysts represent simple cysts. The largest measures 3 cm in the lower pole of the right kidney. BOWEL LOOPS: There is a large amount of stool seen in the colon suggestive of severe constipation. The colon appears dilated. Visualized small bowel is unremarkable. There are postsurgical changes to the stomach and probable esophageal hernia. LYMPH NODES: Normal. VASCULAR: Unremarkable. BONES: There are degenerative changes of the lower thoracic spine. CT/CT abdomen wo/w con IMPRESSION: Severe constipation. Atrophic right kidney. Bilateral renal cysts. 1.4 cm hyperdense cyst in the medial upper pole of the right kidney. The remainder of the cysts represent simple cysts. Postsurgical changes to the stomach and probable esophageal hernia.
[2020-11-18] MEDS: iohexoL 350 MG/ML 100 ML INFUS..BTL IV (14:51)
== END 2020-11-18 13:45 | disposition home or self-care (01) ==
LOC: HO.CT 13:44
PROVIDERS: PCP Hospitalist; Visit Provider Hospitalist
DX: R93.421 Abnormal radiologic findings on diagnostic imaging of right kidney (principal)
CPT/HCPCS: 74170; Q9967

== ENCOUNTER 2020-11-22 13:40 | Inpatient (IN) | payer MEDICARE, MEDICAID, SELFPAY ==
--- NOTE | ~2020-11-22 | CT_ITS ---
EXAMINATION: CT ABDOMEN AND PELVIS WITH CONTRAST CLINICAL INFORMATION: Vomiting feces, question bowel obstruction COMPARISON: CT abdomen with and without contrast 11/18/2020 TECHNIQUE: Multidetector volumetric images were obtained from the superior aspect of the liver through the pubic symphysis following administration 85 mL of Omnipaque 350 intravenous contrast. Sagittal and coronal reformatted images were obtained on the technologist's workstation. Oral contrast: No This CT examination was performed using dose optimization techniques as appropriate, variously including the following: *Automated exposure control *Adjustment of mA and/or kV according to patient size (this includes techniques or standardized protocols for targeted exams where dose is matched to indication/reason for exam; i.e. extremities or head) *Use of iterative reconstruction technique DLP: 410 mGy-cm FINDINGS: LUNG BASES: There is right lower lobe bandlike atelectasis. Minimal compressive atelectasis left lung base. There is a small hiatal hernia. The heart size is normal. LIVER, GALLBLADDER, AND BILIARY TREE: The liver is normal in size, shape, and attenuation. No focal hepatic lesion or biliary ductal dilatation is present. The gallbladder is unremarkable with no evidence of radiopaque gallstones, gallbladder wall thickening, or obvious pericholecystic inflammatory changes. PANCREAS: Unremarkable. SPLEEN: Unremarkable. ADRENAL GLANDS: Unremarkable. KIDNEYS AND URETERS: The right kidney is smaller measuring 8.2 cm with multiple simple cyst. The largest cyst upper pole measures 3.4 cm. Right No radiopaque renal calculi or hydronephrosis seen. There is a 1.1 cm lesion in the mid upper pole right kidney with increased attenuation measuring 70 Hounsfield units. Question hyperdense cyst. The left kidney measures 12.3 cm in length. There are several upper mid and lower pole renal cysts. No radiopaque renal calculi or hydronephrosis seen. BLADDER: Nonspecific mild bladder wall thickening seen. No radiopaque calculi Unremarkable. GASTROINTESTINAL TRACT: The large amount of stool seen in the colon most prominent in the right colon. The small bowel loops are normal caliber. A subtle finding of a swirled appearance of a small bowel loop left midabdomen on axial images 3236, series 3 suspicious for focal small bowel or torsion. No proximal small bowel obstruction seen. This finding appears new. Appendix is not seen with certainty no free air or free fluid seen. ABDOMINAL WALL: There is likely lower anterior abdominal wall hernia repair with mesh in place. No recurrent hernia seen. LYMPH NODES: Normal. VASCULAR: Bilateral hemispheric calcification of abdominal aorta without aneurysmal dilatation PELVIC VISCERA: Large amount of stool seen throughout the sigmoid. There is no free fluid. There is moderate constipation. OSSEOUS STRUCTURES: Unremarkable. CT/CT abdomen pelvis w con IMPRESSION: Indication constipation with large amount of stool seen throughout the colon most prominent in the right colon. Appendix is not seen. There is a whirled appearance of a loop of small bowel in the left midabdomen suspicious for early volvulus. This was not seen on the previous exam. Recommend follow-up CT abdomen with bowel perforation in 24-48 hours or earlier earlier if clinically deemed necessary. Atrophic right kidney and a complex lesion upper pole medially measuring 80 Hounsfield units, suspicious of a hyperdense cyst or mass. Multiple left renal Mild nonspecific bladder wall thickening and right and midline anterior abdominal wall hernia repair with mesh in place. Stable right lower lobe atelectasis scarring. Minimal dependent atelectasis left lung base. Small hiatal hernia.
--- NOTE | ~2020-11-22 | XR_ITS ---
EXAMINATION: XR ABDOMEN KUB CLINICAL INDICATION: Constipation COMPARISON: CT abdomen and pelvis 11/23/2020 TECHNIQUE: AP x2 views of the abdomen. FINDINGS: There is a large amount of stool seen through the entire colon similar to recent imaging. There is no gaseous dilatation of bowel or abnormal collections of gas. No pneumatosis. There are metallic tacks seen overlying the lower quadrant from prior mesh/hernia repair. No visible urinary tract calculi. Subsegmental atelectasis right lung base. No segmental airspace consolidation or effusion. No visible acute bony abnormality. XR/XR KUB IMPRESSION: Large amount of stool throughout entire colon. No abnormal collections of gas.
[2020-11-22 13:50] VITALS: BP 156/101; PULSE 96; O2SAT 100
--- NOTE | 2020-11-22 13:51 | ECG_ITS ---
Test Reason : CHECK CARDIAC STATUS Blood Pressure : / mmHG Vent. Rate : 097 BPM Atrial Rate : 097 BPM P-R Int : 162 ms QRS Dur : 082 ms QT Int : 366 ms P-R-T Axes : 074 -39 069 degrees QTc Int : 464 ms Normal sinus rhythm Left axis deviation Cannot rule out Inferior infarct , age undetermined Cannot rule out Anterior infarct , age undetermined Abnormal ECG When compared with ECG of 23-SEP-2020 09:14, No significant change was found Referred By: Arielle Mars Electronically Signed By:RAND WARD MD
--- NOTE | 2020-11-22 13:52 | ED.AMS ---
HPI - Altered Mental Status General Chief Complaint: Psychiatric Symptoms Stated Complaint: ALTERED MENTAL Time Seen by Provider: 11/22/20 13:51 Source: patient and EMS Mode of arrival: EMS Limitations: altered mental status History of Present Illness HPI narrative: eating his feces, wont' take meds for 2 days complaint: other (agitation) Onset (ago): day(s) (2) Timing confirmed by: caregiver Severity: moderate Consistency of symptoms: constant Context: history of similar presentation Associated symptoms: denies other symptoms Related Data Home Medications Medication Instructions Recorded Confirmed acetaminophen 650 mg PO Q4H PRN 09/23/20 09/23/20 acetaminophen 650 mg PO Q4H PRN 09/23/20 09/23/20 clomipramine 150 mg PO BEDTIME 09/23/20 09/23/20 clonazepam 0.25 mg PO DAILY 09/23/20 09/23/20 clonazepam 0.5 mg PO BEDTIME 09/23/20 09/23/20 clozapine 100 mg PO BEDTIME 09/23/20 09/23/20 clozapine 200 mg PO BEDTIME 09/23/20 09/23/20 diphenhydramine HCl [Benadryl] 25 mg PO Q6H PRN 09/23/20 09/23/20 docusate sodium 100 mg PO BID 09/23/20 09/23/20 doxycycline hyclate 50 mg PO DAILY 09/23/20 09/23/20 famotidine 40 mg PO BEDTIME 09/23/20 09/23/20 lactulose 10 g PO DAILY 09/23/20 09/23/20 levothyroxine 50 mcg PO DAILY 09/23/20 09/23/20 metoprolol tartrate 12.5 mg PO DAILY 09/23/20 09/23/20 multivitamin 1 tab PO DAILY 09/23/20 09/23/20 omeprazole 40 mg PO DAILY 09/23/20 09/23/20 pantoprazole 40 mg PO BID 09/23/20 09/23/20 pregabalin 150 mg PO BID 09/23/20 09/23/20 sennosides [senna] 17.2 mg PO BEDTIME 09/23/20 09/23/20 sodium bicarbonate 650 mg PO BID 09/23/20 09/23/20 tamsulosin 0.4 mg PO BEDTIME 09/23/20 09/23/20 Previous Rx's Medication Instructions Recorded amoxicillin-pot clavulanate 1 tab PO Q12H #16 tab 09/25/20 Allergies Allergy/AdvReac Type Severity Reaction Status Date / Time fish oil [FISH OIL] Allergy Unknown UNK Verified 09/24/20 09:51 Iodinated Contrast Media Allergy Unknown UNK Verified 09/24/20 09:51 [IODINATED CONTRAST- ORAL AND IV DYE] iodine [IODINE] Allergy Unknown UNK Verified 09/24/20 09:51 pollen Allergy Unknown Unknown Uncoded 09/24/20 09:51 SEAFOOD Allergy Unknown UNK Uncoded 02/29/20 19:27 shellfish Allergy Unknown Unknown Uncoded 09/24/20 09:51 Review of Systems Review of Systems: ROS unable to be obtained due to altered mental status [facility] Past Medical History Attestation statement: The following information was validated with the patient. Medical History Acute kidney failure BPH (benign prostatic hyperplasia) BPH (benign prostatic hyperplasia) Diabetes Dysphagia HTN (hypertension) Schizoaffective disorder TBI (traumatic brain injury) Social History Social History (Updated 11/22/20 @ 14:13 by Arielle Mars DO) Household Members: Other Household Members Other:: SNF Housing: Prison Alcohol intake: never Patient Tobacco Use Status: Tobacco use Unknown Advance Directives: No Advance Directives Information Provided: No Current occupational status: disabled Physical Exam Vital Signs: Vital Signs: Last Vital Signs Temp 98 F 11/22/20 13:54 Pulse 76 11/22/20 13:54 Resp 17 11/22/20 13:54 BP 144/71 H 11/22/20 13:54 Pulse Ox 97 11/22/20 13:54 Body Mass Index 22.4 Appearance: Alert. Not cooperative states I am only here for observation No acute distress. I do not appreciate feces on his person, mouth, under fingernails Eyes: Pupils equal, round and reactive to light. ENT: Pharynx normal. Neck: Normal inspection. Neck supple. CVS: Normal heart rate and rhythm. Pulses normal. Respiratory: No respiratory distress. Breath sounds normal. Abdomen: Soft and non-tender. Skin: Skin warm and dry. Normal skin color. Normal skin turgor. Extremities: No lower extremity edema. No calf ttp Neuro: tracks follows commands, not cooperative. No motor deficit. No sensory deficit. Course Course Course Narrative: staff notes he is well known to them and that this is not far off from his baseline and that he does have a history of eating feces - no focal deficits, no abdominal pain doubt need for imaging Physician observation started at 326pm Patient placed in physician observation because the patient needed more time for crisis evaluation and need for safe DC back to facility. At the time observation was started the patient's vitals were stable, patient is alert and oriented but slightly agitated, Neuro: nonfocal, CV RRR, Lungs clear MDM - Altered Mental Status MDM Narrative Medical decision making narrative: 64 yo male with SARAH, BPH, dysphagia, schizoaffective, HTN here with reported ingestion of his own feces then throwing, not taking his medications x 2 days, at this time will obtain labs, CT head/abdomen pelvis for obstruction though he is refusing all care at this time, may need BHN input given presentation Lab Data Result diagrams: 11/22/20 14:41 11/22/20 14:41 Labs: Lab Results 11/22/20 11/22/20 11/22/20 Range/Units 14:31 14:40 14:41 WBC 8.0 (4.8-10.8) X10*3/uL RBC 5.18 (4.60-5.80) X10*6/uL Hgb 12.6 L (14.0-18.0) g/dl Hct 40.6 L (42-52) % MCV 78.4 L (80-98) fL MCH 24.3 L (27.0-33.0) pg MCHC 31.0 (31.0-36.0) g/dl RDW 15.7 (11.0-16.0) % Plt Count 432 H D (160-400) X10*3/uL MPV 9.9 (9.4-12.4) fL Immature Gran % (Auto) 0.6 H (0.0-0.4) % Neut % (Auto) 74.5 H (45-73) % Lymph % (Auto) 17.6 L (20-40) % [place] % (Auto) 6.9 (2-11) % Eos % (Auto) 0.0 (0-4) % Baso % (Auto) 0.4 (0-2) % Lymph # (Auto) 1.4 (1.2-4.9) X10*3/uL [place] # (Auto) 0.6 (0.1-1.2) X10*3/uL Eos # (Auto) 0.0 (0.0-0.4) X10*3/uL Baso # (Auto) 0.0 (0.0-0.2) X10*3/uL Abs Immat Gran (auto) 0.05 H (0.00-0.03) X10*3/uL Absolute Neuts (auto) 5.9 (2.0-8.3) X10*3/uL Absolute Nucleated RBC 0.000 (0.0-0.012) X10*3/uL Nucleated RBC % (auto) 0.0 (0.0-0.2) /100WBC VBG pH (7.32-7.43) VBG pCO2 mmHg VBG pO2 mmHg VBG HCO3 (22-26) mmol/L VBG O2 Saturation % VBG Base Excess mmol/L Sodium (135-145) mmol/L Potassium (3.3-5.1) mmol/L Chloride (96-108) mmol/L Carbon Dioxide (22-29) mmol/L Anion Gap (12-20) BUN (9-16) mg/dL Creatinine (0.5-1.4) mg/dL Estim Creat Clear Calc Estimated GFR Random Glucose (60-115) mg/dL Calcium (8.4-10.2) mg/dL Magnesium (1.6-2.6) mg/dL Total Bilirubin (0.0-1.0) mg/dL Direct Bilirubin (0.0-0.5) mg/dL AST (5-37) U/L ALT (0-40) U/L Alkaline Phosphatase (39-117) U/L Ammonia (13-55) umol/L Troponin I High Sens (<3.5-35.0) ng/L Total Protein (6.5-8.0) g/dL Albumin (3.5-5.0) g/dL TSH 1.93 (0.32-4.0) uIU/mL Urine Color YELLOW Urine Appearance CLOUDY Urine pH 8.5 H (5.0-8.0) Ur Specific [place] 1.015 (1.005-1.025) Urine Protein TRACE (NEG-TRACE) MG/DL Urine Glucose (UA) NEG (NEG) MG/DL Urine Ketones 5 (NEG) MG/DL Urine Blood NEG (NEG) Urine Nitrite NEG (NEG) Ur Leukocyte Esterase NEG (NEG) COVID-19 (RICHA) (Negative) COVID-19 Clin Com 11/22/20 11/22/20 11/22/20 Range/Units 14:41 14:41 14:41 WBC (4.8-10.8) X10*3/uL RBC (4.60-5.80) X10*6/uL Hgb (14.0-18.0) g/dl Hct (42-52) % MCV (80-98) fL MCH (27.0-33.0) pg MCHC (31.0-36.0) g/dl RDW (11.0-16.0) % Plt Count (160-400) X10*3/uL MPV (9.4-12.4) fL Immature Gran % (Auto) (0.0-0.4) % Neut % (Auto) (45-73) % Lymph % (Auto) (20-40) % [place] % (Auto) (2-11) % Eos % (Auto) (0-4) % Baso % (Auto) (0-2) % Lymph # (Auto) (1.2-4.9) X10*3/uL [place] # (Auto) (0.1-1.2) X10*3/uL Eos # (Auto) (0.0-0.4) X10*3/uL Baso # (Auto) (0.0-0.2) X10*3/uL Abs Immat Gran (auto) (0.00-0.03) X10*3/uL Absolute Neuts (auto) (2.0-8.3) X10*3/uL Absolute Nucleated RBC (0.0-0.012) X10*3/uL Nucleated RBC % (auto) (0.0-0.2) /100WBC VBG pH (7.32-7.43) VBG pCO2 mmHg VBG pO2 mmHg VBG HCO3 (22-26) mmol/L VBG O2 Saturation % VBG Base Excess mmol/L Sodium 142 (135-145) mmol/L Potassium 4.2 (3.3-5.1) mmol/L Chloride 108 (96-108) mmol/L Carbon Dioxide 22 (22-29) mmol/L Anion Gap 16 (12-20) BUN 20 H (9-16) mg/dL Creatinine 1.11 (0.5-1.4) mg/dL Estim Creat Clear Calc 71.1 Estimated GFR > 60 Random Glucose 92 (60-115) mg/dL Calcium 9.6 (8.4-10.2) mg/dL Magnesium 2.2 (1.6-2.6) mg/dL Total Bilirubin 0.5 (0.0-1.0) mg/dL Direct Bilirubin 0.2 (0.0-0.5) mg/dL AST 13 (5-37) U/L ALT 8 (0-40) U/L Alkaline Phosphatase 140 H D (39-117) U/L Ammonia 32 (13-55) umol/L Troponin I High Sens (<3.5-35.0) ng/L Total Protein 7.6 (6.5-8.0) g/dL Albumin 4.4 (3.5-5.0) g/dL TSH (0.32-4.0) uIU/mL Urine Color Urine Appearance Urine pH (5.0-8.0) Ur Specific [place] (1.005-1.025) Urine Protein (NEG-TRACE) MG/DL Urine Glucose (UA) (NEG) MG/DL Urine Ketones (NEG) MG/DL Urine Blood (NEG) Urine Nitrite (NEG) Ur Leukocyte Esterase (NEG) COVID-19 (RICHA) Negative (Negative) COVID-19 Clin Com See Note 11/22/20 11/22/20 Range/Units 14:41 14:48 WBC (4.8-10.8) X10*3/uL RBC (4.60-5.80) X10*6/uL Hgb (14.0-18.0) g/dl Hct (42-52) % MCV (80-98) fL MCH (27.0-33.0) pg MCHC (31.0-36.0) g/dl RDW (11.0-16.0) % Plt Count (160-400) X10*3/uL MPV (9.4-12.4) fL Immature Gran % (Auto) (0.0-0.4) % Neut % (Auto) (45-73) % Lymph % (Auto) (20-40) % [place] % (Auto) (2-11) % Eos % (Auto) (0-4) % Baso % (Auto) (0-2) % Lymph # (Auto) (1.2-4.9) X10*3/uL [place] # (Auto) (0.1-1.2) X10*3/uL Eos # (Auto) (0.0-0.4) X10*3/uL Baso # (Auto) (0.0-0.2) X10*3/uL Abs Immat Gran (auto) (0.00-0.03) X10*3/uL Absolute Neuts (auto) (2.0-8.3) X10*3/uL Absolute Nucleated RBC (0.0-0.012) X10*3/uL Nucleated RBC % (auto) (0.0-0.2) /100WBC VBG pH 7.40 (7.32-7.43) VBG pCO2 35 mmHg VBG pO2 82 mmHg VBG HCO3 22 (22-26) mmol/L VBG O2 Saturation 94.0 % VBG Base Excess -1.3 mmol/L Sodium (135-145) mmol/L Potassium (3.3-5.1) mmol/L Chloride (96-108) mmol/L Carbon Dioxide (22-29) mmol/L Anion Gap (12-20) BUN (9-16) mg/dL Creatinine (0.5-1.4) mg/dL Estim Creat Clear Calc Estimated GFR Random Glucose (60-115) mg/dL Calcium (8.4-10.2) mg/dL Magnesium (1.6-2.6) mg/dL Total Bilirubin (0.0-1.0) mg/dL Direct Bilirubin (0.0-0.5) mg/dL AST (5-37) U/L ALT (0-40) U/L Alkaline Phosphatase (39-117) U/L Ammonia (13-55) umol/L Troponin I High Sens < 3.5 (<3.5-35.0) ng/L Total Protein (6.5-8.0) g/dL Albumin (3.5-5.0) g/dL TSH (0.32-4.0) uIU/mL Urine Color Urine Appearance Urine pH (5.0-8.0) Ur Specific [place] (1.005-1.025) Urine Protein (NEG-TRACE) MG/DL Urine Glucose (UA) (NEG) MG/DL Urine Ketones (NEG) MG/DL Urine Blood (NEG) Urine Nitrite (NEG) Ur Leukocyte Esterase (NEG) COVID-19 (RICHA) (Negative) COVID-19 Clin Com ECG Data ECG #1: Attestation: I personally reviewed and interpreted this ECG as follows: ECG interpretation date: 11/22/20 ECG interpretation time: 15:24 Interpretation: Rate: 97 Rhythm: NSR [place]: left Normal P waves. Normal KACEY. Normal QRS complex. ST T wave : no SARAH, inverted aVL qTC: normal prior studies: no sig change since but q waves noted now in inf leads The study has been interpreted contemporaneously by me. . Discharge Plan Discharge Clinical Impression: Schizoaffective disorder Prescriptions: No Action clomipramine 75 mg capsule 150 mg PO BEDTIME RF: 0 famotidine 40 mg tablet 40 mg PO BEDTIME RF: 0 clonazepam 0.5 mg tablet 0.25 mg PO DAILY RF: 0 doxycycline hyclate 50 mg capsule 50 mg PO DAILY RF: 0 omeprazole 40 mg capsule,delayed release(DR/EC) 40 mg PO DAILY RF: 0 tamsulosin 0.4 mg capsule 0.4 mg PO BEDTIME RF: 0 pregabalin 150 mg capsule 150 mg PO BID RF: 0 multivitamin Tablet 1 tab PO DAILY RF: 0 sennosides [senna] 8.6 mg Tablet 17.2 mg PO BEDTIME RF: 0 acetaminophen 325 mg Tablet 650 mg PO Q4H PRN (Reason: Fever) RF: 0 acetaminophen 325 mg Tablet 650 mg PO Q4H PRN (Reason: Pain) RF: 0 clozapine 100 mg Tablet 100 mg PO BEDTIME RF: 0 clozapine 100 mg Tablet 200 mg PO BEDTIME RF: 0 clonazepam 0.5 mg tablet 0.5 mg PO BEDTIME RF: 0 sodium bicarbonate 650 mg Tablet 650 mg PO BID RF: 0 levothyroxine 50 mcg tablet 50 mcg PO DAILY RF: 0 pantoprazole 40 mg Tablet,Delayed Release (Dr/Ec) 40 mg PO BID RF: 0 diphenhydramine HCl [Benadryl] 25 mg Capsule 25 mg PO Q6H PRN (Reason: Itching) RF: 0 docusate sodium 100 mg Capsule 100 mg PO BID RF: 0 metoprolol tartrate 25 mg Tablet 12.5 mg PO DAILY RF: 0 lactulose 10 gram/15 mL (15 mL) Solution 10 g PO DAILY RF: 0 amoxicillin-pot clavulanate 875-125 mg Tablet 1 tab PO Q12H Qty: 16 RF: 0
[2020-11-22 13:54] VITALS: BP 144/71; PULSE 76; RESP 17; TEMP 36.6; O2SAT 97; BMI 22.4
--- NOTE | 2020-11-22 14:13 | PC.NURSE ---
PT refused blood draw. RN and DO aware.
--- NOTE | 2020-11-22 14:48 | PC.NURSE ---
per snf pt aate his own feces x4 and vomitted it back up. rn here that also works there confirms he's done this in the past, pt has refused meds x 2 days and has been more agitated than usual
[2020-11-22 14:51] LABS: MANUAL DIFF FLAG NO
[2020-11-22 14:56] LABS: Glucose Urine UA NEG (NEG); Leukocyte Esterase Urine NEG (NEG); Nitrite Urine NEG (NEG); PH 8.5 (5.0-8.0); Specific Gravity - Urine 1.015 (1.005-1.025); Urine Blood NEG (NEG); Urine Ketones 5 MG/DL (NEG); Urine Protein TRACE MG/DL (NEG-TRACE)
[2020-11-22 14:56] LABS: VBG Base Excess -1.3 mmol/L; VBG HCO3 22 mmol/L (22-26); VBG pCO2 35 mmHg; VBG pO2 82 mmHg
[2020-11-22 14:57] LABS: Venous Blood Gas Refer to POC result
[2020-11-22 14:58] LABS: Basophils Percent Auto 0.4 % (0-2); Hematocrit 40.6 % (42-52); Hemoglobin 12.6 g/dl (14.0-18.0); Imm Gran Abs Auto 0.05 X10*3/uL (0.00-0.03); Imm Gran Pct Auto 0.6 % (0.0-0.4); Lymphocytes Absolute Auto 1.4 X10*3/uL (1.2-4.9); Lymphocytes Percent Auto 17.6 % (20-40); Mean Corpuscular Hemoglobin 24.3 pg (27.0-33.0); Mean Corpuscular Volume 78.4 fL (80-98); Mean Platelet Volume 9.9 fL (9.4-12.4); Monocytes Absolute Auto 0.6 X10*3/uL (0.1-1.2); Monocytes Percent Auto 6.9 % (2-11); Neutrophils Absolute Auto 5.9 X10*3/uL (2.0-8.3); Neutrophils Percent Auto 74.5 % (45-73); Platelet Count 432 X10*3/uL (160-400); Red Blood Count 5.18 X10*6/uL (4.60-5.80); Red Cell Distribution Width 15.7 % (11.0-16.0)
[2020-11-22 14:58] LABS: Appearance Urine CLOUDY; Color Urine YELLOW
[2020-11-22 15:06] LABS: COVID-19 Test Negative (Negative); IDNOW Serial# 9DD0AD1C
[2020-11-22 15:11] LABS: Ammonia 32 umol/L (13-55)
[2020-11-22 15:22] LABS: Troponin-I High Sensitivity < 3.5 ng/L (<3.5-35.0)
[2020-11-22 15:23] LABS: Alanine Aminotransferase 8 U/L (0-40); Albumin Level 4.4 g/dL (3.5-5.0); Alkaline Phosphatase 140 U/L (39-117); Anion Gap 16 (12-20); Aspartate Amino Transferase 13 U/L (5-37); Bilirubin Direct 0.2 mg/dL (0.0-0.5); Bilirubin Total 0.5 mg/dL (0.0-1.0); Blood Urea Nitrogen 20 mg/dL (9-16); Calcium 9.6 mg/dL (8.4-10.2); Carbon Dioxide 22 mmol/L (22-29); Chloride 108 mmol/L (96-108); Creatinine Clr Calc Pharmacy 71.1; Estimated Glomerular Filt Rate > 60; Glucose Random 92 mg/dL (60-115); Magnesium 2.2 mg/dL (1.6-2.6); Potassium 4.2 mmol/L (3.3-5.1); Sodium 142 mmol/L (135-145); Total Protein 7.6 g/dL (6.5-8.0)
[2020-11-22 15:44] LABS: Thyroid Stimulating Hormone 1.93 uIU/mL (0.32-4.0)
[2020-11-22 17:31] VITALS: BP 142/94; PULSE 90; RESP 18; O2SAT 100
[2020-11-23 04:00] VITALS: RESP 20
[2020-11-23 07:40] VITALS: RESP 16
[2020-11-23 08:00] VITALS: RESP 16
[2020-11-23 08:03] LABS: Amphetamine Screen Urine Not Detected (Not Detect); Barbiturates, Urine Not Detected (Not Detect); Benzodiazepines Screen Urine Not Detected (Not Detect); Cannabinoid Screen Urine Not Detected (Not Detect); Cocaine Screen Urine Not Detected (Not Detect); Opiate Screen Urine Not Detected (Not Detect); Phencyclidine Screen Urine Not Detected (Not Detect)
--- NOTE | 2020-11-23 09:57 | PC.NURSE ---
online form for [facility] filled out at 0715, care team aware of pt.
--- NOTE | 2020-11-23 10:19 | PC.NURSE ---
care team at bedside
--- NOTE | 2020-11-23 11:30 | PC.NURSE ---
pa to speak with md oconnor pt sent for r/o obstruction and message never conveyed to this facility.
[2020-11-23 12:02] VITALS: RESP 18
[2020-11-23] MEDS: LORazepam 2 MG/ML VIAL IVPUSH (12:02)
[2020-11-23] MEDS: ondansetron HCL 4 MG/2 ML VIAL IVPUSH (12:02)
[2020-11-23] MEDS: Morphine Sulfate 4 MG/ML CARTRIDGE IVPUSH (12:02)
[2020-11-23] MEDS: iohexoL 350 MG/ML 100 ML INFUS..BTL IV (13:07)
--- NOTE | 2020-11-23 13:44 | MHC.CARE ---
Pt is a 64 yo male hx of schizoaffective d/o, who arrived at the [facility] ED via ambulance with reported ingestion of his own feces then throwing up, not taking his medications for 2 days. Pt is dressed in Hospital attire, appears disheveled and is older in appearance than his stated age. Pt is observed frequently rising from his bed, casting his sheets aside, and walking quickly to the bathroom nearby where he will emerge moments later, walk quickly to his bed, dive upon it, and aggressively wrestle his sheets over his body. Pt is heard making odd sounds, a cross between a whimper and a moan. When CARE TEAM approached pt and requests an audience, pt will abruptly leave his bed in the fashion described above, returning in the fashion described above. Pt does not engage CARE TEAM in conversation and when pressed, repeats the above behavior. Pt appeared agitated and at times confused. The final time that CARE TEAM attempted to engage with pt, he pulled the sheet over his head and closed his eyes, saying nothing. Contacted [facility] regarding pt and spoke with staff who reported that pt was sent via ambulance yesterday because he had ?eaten feces and vomited?. Staff advised CARE TEAM that this behavior is new, however nursing notes identify that they spoke with ?Staff? and that this behavior is ?not far off from his baseline and that he does have a history of eating feces?. Staff also advised CARE TEAM that he has been refusing medication which is ?unusual?, he mumbles when he speaks making understanding him challenging, and he likes to frequently walk saying that at his baseline he is quite active. It was explained to CARE that pt would at times refuse medications, though this is not his norm, saying ?They (meds) are systemically ruining my body?. 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 Pt will at times ?take things?, and will write often though his writing appears like a written ?Word salad?. On Wednesday of this week pt was here for a CT scan of his abdomen, the reason was not divulged. Pt was prescribed Prednisone and Benadryl. CARE TEAM contacted pt?s Mother, who is also his guardian to gather collateral information. Pt?s Mother, Ms. Eliza Riggs, advised CARE that pt can be resistant to authority and non-compliant based on his ?Mood?. Ms. Riggs stated that pt has a hx of being non-compliant with his medications but has never known him to consume feces. Ms. Riggs expressed her surprise at not being notified that her son was in the ED as she is his legal Guardian. There does not appear to be any documentation identifying this. Ms. Riggs suggested that CARE speak with pt?s psychiatrist Dr. Mell Acuña (sp?). CARE TEAM contacted [facility] to obtain Dr. Acuña? number but was sent to a voice mail. A Google search for this name yielded negative results. It is unclear if this is the correct spelling of that Dr?s name. Ms. Riggs was unable to provide a correct spelling. call center support representative Psychiatrist Dr. Becky Kim was contacted by CARE TEAM and asked to meet with pt to provide feedback on the pt?s condition as pt would not engage with CARE TEAM and the collateral contacts provided conflicting information. Later in the morning, Dr. Abdulaziz Vazquez (pt?s PCP), who initially sent over the patient from [facility] (Per ED Dr?s note) called the ED requesting an update on the patient. ED explained to Dr. Vazquez that pt is currently waiting for BHN (CARE TEAM took the case). Dr Vazquez asked why pt was awaiting a crisis assessment and was advised he was sent to the ED for eating feces. Dr. Vazquez reported that the information was not accurate and that Dr. Vazquez, in fact sent the patient over due to the patient having a distended abdomen and vomiting feces yesterday. Dr. Vazquez sent pt to the ED for a possible bowel obstruction and not a crisis evaluation. Pt does not meet criteria for IPLOC and it is questionable whether or not as crisis evaluation was necessary. Pt is no longer a CARE TEAM pt as IPLOC and other services have been ruled out as needs at this time, this was agreed upon by pt?s provider BELLO Louie, and pt?s nurse RUFUS Barboza. Pt will remain a pt in the Ed for medical reasons related to a possible bowel obstruction. Dr. Kim advised of CARE TEAM?s findings.
[2020-11-23] MEDS: Sodium Phosphate,Mono-Dibasic 133 ML ENEMA PR (15:23)
--- NOTE | 2020-11-23 15:23 | PC.NURSE ---
DISIMPATED BY BELLO SOFIA. LARGE AMOUNT OF STOOL OBTAINED.
[2020-11-23 17:52] LABS: INTERNATIONAL NORM RATIO 1.2 (0.9-1.1); Prothrombin Time 14.8 SEC (10.8-13.0)
[2020-11-23 18:14] VITALS: BP 150/83; PULSE 86; RESP 20; TEMP 36.5; O2SAT 100
[2020-11-23] MEDS: Heparin Sodium,Porcine 5,000 UNIT/ML VIAL 5000 UNIT SUBCUT (18:21)
--- NOTE | 2020-11-23 19:56 | HP_ITS ---
DATE OF SERVICE: 11/23/2020 CHIEF COMPLAINT: Constipation. HISTORY OF PRESENT ILLNESS: A 64-year-old man, presenting to the ER from [facility] initially because it was thought that he was eating feces, but apparently the medical provider from [facility] called and said that was not accurate and he was sent over due to a distended abdomen and he vomited feces yesterday and there was concern for bowel obstruction. Initially, there was consultation due to the fact that they thought he was eating feces and throwing it. He did have an abdominal and pelvic CT in the ER, which showed severe constipation with large amount of stool throughout the colon with loop of small bowel in the left mid abdomen suspicious for early volvulus. He was not noted to have any fever, leukocytosis. He was disimpacted in the ER and a large amount of stool was removed. He received Zofran, morphine, Ativan. He does have a pretty severe psychiatric mental illness and was very difficult to assess during the interview as he was not able to answer questions appropriately. The patient will be admitted for further management and treatment of severe constipation versus possible volvulus. PAST MEDICAL HISTORY: 1. BPH. 2. Schizoaffective disorder. 3. TBI. 4. GERD. 5. Esophageal obstruction. 6. Diabetes mellitus. 7. Anemia. 8. Dysphagia. 9. Hypothyroidism. 10. Hypertension. 11. Personality disorder. 12. Presbyopia. SOCIAL HISTORY: Lives at [facility]. According to the record, he does not use any alcohol, tobacco, illicit drugs. FAMILY HISTORY: Not available in the old record and the patient is unable to provide any of this information. ALLERGIES: FISH OIL, IV DYE, IODINE, POLLEN, SEAFOOD, AND SHELLFISH. MEDICATIONS: 1. . 2. Clomipramine 75 mg. 3. Clonazepam 0.5 mg. 4. Famotidine 40 mg. 5. Lactulose. 6. Levothyroxine. 7. Metoprolol. 8. Mupirocin cream. 9. cream. 10. Omeprazole 40 mg. 11. Pregabalin 150 mg. 12. Tamsulosin 0.4 mg. REVIEW OF SYSTEMS: Unable to obtain an accurate review of systems as the patient has a history of schizophrenic disorder and was unable to answer questions accurately during the interview. PHYSICAL EXAMINATION: CONSTITUTIONAL: Patient is resting in bed. VITAL SIGNS: Temperature 98, pulse 70, respiratory rate 17, blood pressure 144/71, saturation 97% on room air. SKIN: Intact without rash or sores. HEENT: Head is normocephalic, atraumatic. Eyes: Pupils are PERRLA. Sclerae anicteric. Mouth and throat, mucous membranes are intact and moist. NECK: Supple. No lymphadenopathy. No JVD noted. CHEST: Clear to auscultation without wheezes, rhonchi, or rales. HEART: Regular rate and rhythm. Clear S1, S2. No murmurs, rubs, or gallops. ABDOMEN: Positive bowel sounds. Soft, nontender. No hepatomegaly or splenomegaly noted. NEURO: The patient is alert, confused, unable to perform an accurate cranial nerve examination. LABORATORY DATA: WBC 8.0, hemoglobin 12.6, hematocrit 40.6, platelets 432. Sodium is 142, potassium is 4.2, chloride is 108, bicarb is 22, BUN is 20, creatinine is 1.11. ASSESSMENT AND PLAN: A 64-year-old man who is being admitted with severe constipation, abdominal CT showing possible early volvulus. Case discussed with General Surgery. At this time, the patient is okay to be admitted to medical floor for treatment of constipation and further monitoring. 1. Severe constipation. Disimpacted in the ER. We will continue suppository, enema, bowel regimen. General Surgery following. No further episodes of vomiting. 2. Microcytic anemia. Chronic. No signs of bleeding. Follow CBC. 3. Schizophrenia. Continue medications from [facility]. 4. Deep vein thrombosis prophylaxis with heparin. 5. Case discussed with Dr. Fletcher. 6. Full code. GISELLE Lucas JR/JAY / [phone]
[2020-11-23 20:00] VITALS: BP 155/96; PULSE 87; RESP 20; TEMP 36.4; O2SAT 100
[2020-11-23] MEDS: 0.9 % Sodium Chloride Flush 3 ML SYRINGE IVFLUSH (21:40)
[2020-11-24] VITALS: BP 160/86; PULSE 71; RESP 20; TEMP 36.4; O2SAT 100
[2020-11-24] MEDS: bisacodyL 10 MG SUPP.RECT PR (00:26)
[2020-11-24 03:37] VITALS: RESP 20
[2020-11-24] MEDS: Heparin Sodium,Porcine 5,000 UNIT/ML VIAL 5000 UNIT SUBCUT (06:06)
[2020-11-24 07:06] LABS: MANUAL DIFF FLAG NO
[2020-11-24 07:12] LABS: Basophils Absolute Auto 0.1 X10*3/uL (0.0-0.2); Basophils Percent Auto 0.5 % (0-2); Eosinophils Percent Auto 0.1 % (0-4); Hematocrit 38.3 % (42-52); Imm Gran Abs Auto 0.07 X10*3/uL (0.00-0.03); Imm Gran Pct Auto 0.6 % (0.0-0.4); Lymphocytes Absolute Auto 1.7 X10*3/uL (1.2-4.9); Lymphocytes Percent Auto 15.8 % (20-40); Mean Corpuscular HGB Conc 31.3 g/dl (31.0-36.0); Mean Corpuscular Hemoglobin 24.4 pg (27.0-33.0); Mean Platelet Volume 10.1 fL (9.4-12.4); Monocytes Absolute Auto 0.7 X10*3/uL (0.1-1.2); Monocytes Percent Auto 6.7 % (2-11); Neutrophils Absolute Auto 8.2 X10*3/uL (2.0-8.3); Neutrophils Percent Auto 76.3 % (45-73); Platelet Count 420 X10*3/uL (160-400); Red Blood Count 4.91 X10*6/uL (4.60-5.80); White Blood Count 10.8 X10*3/uL (4.8-10.8)
[2020-11-24 07:20] VITALS: BP 165/92; PULSE 75; RESP 18; TEMP 36.5; O2SAT 100
[2020-11-24 07:41] LABS: Anion Gap 14 (12-20); Blood Urea Nitrogen 23 mg/dL (9-16); Carbon Dioxide 23 mmol/L (22-29); Chloride 106 mmol/L (96-108); Creatinine Clr Calc Pharmacy 91.8; Estimated Glomerular Filt Rate > 60; Glucose Random 88 mg/dL (60-115); Potassium 4.1 mmol/L (3.3-5.1); Sodium 139 mmol/L (135-145)
[2020-11-24] MEDS: polyethylene glycoL 3350 17 GM POWD.PACK PO (07:42)
[2020-11-24] MEDS: 0.9 % Sodium Chloride Flush 3 ML SYRINGE IVFLUSH (07:42)
[2020-11-24 07:48] LABS: Calcium 9.2 mg/dL (8.4-10.2)
--- NOTE | 2020-11-24 10:02 | MHC.CM.PN ---
PATIENT IS FROM [facility] PLAN IS TO RETURN AT TIME OF DC. IMM DISCUSSED WITH LEGAL GUARDIAN/MOTHER LITZY @ [phone]. LITZY NOW AWARE THAT INFORMATION ABOUT PATIENT EATING FECES IS INCORRECT LITZY ASKS THAT IMM BE RETURNED TO [facility] ALONG WITH PATIENT'S BELONGINGS. IMM 11/24 IN CHART.
--- NOTE | 2020-11-24 11:23 | HO.PM.IMPN ---
Subjective Subjective Date of Service: 11/24/20 <Genny Wall NP - Last Filed: 11/24/20 13:02> 11/24/20 <Mert Bach MD - Last Filed: 11/24/20 13:59> Interval History: follow vomiting no further episodes lying in bed decline MiraLax this morning <Genny Wall NP - Last Filed: 11/24/20 13:02> Physical Exam Vital Signs: Vital Signs: Last Vital Signs Temp 97.7 F 11/24/20 07:20 Pulse 75 11/24/20 07:20 Resp 18 11/24/20 07:20 BP 165/92 H 11/24/20 07:20 Pulse Ox 100 11/24/20 07:20 Body Mass Index 22.4 <Genny Wall NP - Last Filed: 11/24/20 13:02> Appearing in no acute distress lung sounds are clear to auscultation heart regular rate rhythm, clear S1, S2 positive bowel sounds, abdomen is soft, nontender neuro patient is alert x3, no focal deficits <Genny Wall NP - Last Filed: 11/24/20 13:02> Objective Data Current Medications Generic Name Dose Route Start Last Admin Trade Name Freq PRN Reason Stop Dose Admin Acetaminophen 650 mg 11/23/20 16:00 Acetaminophen 325 Mg Tablet PO Q6H PRN Pain, Mild (Pain Scale 1-3) Bisacodyl 10 mg 11/23/20 16:03 11/24/20 00:26 Bisacodyl 10 Mg Supp.Rect OK 10 mg BEDTIME PRN Administration Constipation Heparin Sodium (Porcine) 5,000 unit 11/23/20 18:00 11/24/20 06:06 Heparin Sodium,Porcine 5,000 Unit/Ml Vial SUBCUT 5,000 unit Q12H KIMBER Administration Polyethylene Glycol 17 gm 11/24/20 09:00 11/24/20 07:42 Polyethylene Glycol 3350 17 Gm Powd.Pack PO 17 gm DAILY KIMBER Administration Sodium Chloride 3 ml 11/23/20 16:00 11/24/20 07:42 0.9 % Sodium Chloride Flush 3 Ml Syringe IVFLUSH 3 ml QSHIFT KIMBER Administration <Genny Wall NP - Last Filed: 11/24/20 13:02> Labs CBC & Chem 7: : 11/24/20 06:13 11/24/20 06:13 <Genny Wall NP - Last Filed: 11/24/20 13:02> Assessment and Plan (1) Acute renal failure: Status: Acute <Genny Wall NP - Last Filed: 11/24/20 13:02> Assessment and Plan: 64-year-old man who is being admitted with severe constipation, abdominal CT showing possible early volvulus. Case discussed with General Surgery. At this time, the patient is okay to be admitted to medical floor for treatment of constipation and further monitoring. Severe constipation. Disimpacted in the ER. Reported BM and flatus -continue suppository, enema, bowel regimen. -General Surgery following. Microcytic anemia. Chronic. No signs of bleeding. -Follow CBC. Schizophrenia. -Continue medications from [facility]. Deep vein thrombosis prophylaxis with heparin. Case discussed with Dr. Bach Full code. <Genny Wall NP - Last Filed: 11/24/20 13:02> (2) Constipation: Status: Acute <Genny Wall NP - Last Filed: 11/24/20 13:02> Assessment and Plan: I saw and examined the patient and discussed findings, mangement, and disposition with PA and I agree with the above, except if otherwise stated. He severe constipation and had manual disimpaction yesterday, he is refusing meds <Mert Bach MD - Last Filed: 11/24/20 13:59>
[2020-11-24 12:00] VITALS: BP 141/84; PULSE 76; RESP 18; TEMP 36.5; O2SAT 100
[2020-11-24 15:38] VITALS: BP 138/82; PULSE 71; RESP 18; TEMP 36.5; O2SAT 100
[2020-11-24 19:51] VITALS: BP 137/81; PULSE 94; RESP 15; TEMP 36.4; O2SAT 94
--- NOTE | 2020-11-24 22:27 | PC.NURSE ---
PATIENT REMOVED IV ACCESS.OK TO KEEP OUT FOR NOW PER HOSPITALIST.
[2020-11-25] VITALS: BP 139/81; PULSE 73; RESP 15; TEMP 36.5; O2SAT 97
[2020-11-25] MEDS: bisacodyL 5 MG TABLET.DR PO (07:58)
[2020-11-25] MEDS: polyethylene glycoL 3350 17 GM POWD.PACK PO (07:59)
[2020-11-25 08:00] VITALS: BP 190/98; PULSE 60; RESP 18; TEMP 36; O2SAT 99
--- NOTE | 2020-11-25 09:53 | P.DS_ITS ---
DS: Providers Provider Date of Service: 11/26/20 <Genny Wall NP - Last Filed: 11/26/20 12:40> Date of admission: 11/23/20 17:03 <Genny Wall NP - Last Filed: 11/26/20 12:40> Date of discharge: 11/26/20 <Genny Wall NP - Last Filed: 11/26/20 12:40> Primary care physician: Swapnil Vazquez DO <Genny Wall NP - Last Filed: 11/26/20 12:40> Admitting clinician: Genny Wall <Genny Wall NP - Last Filed: 11/26/20 12:40> Attending physician on admission: Oneyda Lagos <Genny Wall NP - Last Filed: 11/26/20 12:40> Consults: 11/22/20 14:42 Consult to Crisis Stat Reason for consultation: increased agitation at facility, refusing meds, eating his feces Has provider been notified: Yes <Genny Wall NP - Last Filed: 11/26/20 12:40> Attending physician on discharge: Eyad Read <Genny Wall NP - Last Filed: 11/26/20 12:40> Discharging clinician: Genny Wall <Genny Wall NP - Last Filed: 11/26/20 12:40> DS: Diagnosis Discharge Diagnosis (1) Constipation: Status: Acute <Genny Wall NP - Last Filed: 11/26/20 12:40> DS: Medications Discharge Medications Home Medications: Home Medications Medication Instructions Recorded Confirmed acetaminophen 650 mg PO Q4H PRN 09/23/20 11/23/20 clomipramine 150 mg PO BEDTIME 09/23/20 11/23/20 clonazepam 0.25 mg PO DAILY 09/23/20 11/23/20 clonazepam 0.5 mg PO DAILY 09/23/20 11/23/20 clozapine 100 mg PO BEDTIME 09/23/20 11/23/20 clozapine 200 mg PO BEDTIME 09/23/20 11/23/20 diphenhydramine HCl [Benadryl] 25 mg PO Q6H PRN 09/23/20 11/23/20 docusate sodium 100 mg PO BID 09/23/20 11/23/20 famotidine 40 mg PO BEDTIME 09/23/20 11/23/20 lactulose 10 g PO DAILY 09/23/20 11/23/20 levothyroxine 50 mcg PO DAILY 09/23/20 11/23/20 metoprolol tartrate 12.5 mg PO DAILY 09/23/20 11/23/20 multivitamin 1 tab PO DAILY 09/23/20 11/23/20 omeprazole 40 mg PO DAILY 09/23/20 11/23/20 pantoprazole 40 mg PO BID 09/23/20 11/23/20 pregabalin 150 mg PO BID 09/23/20 09/23/20 sennosides [senna] 17.2 mg PO BEDTIME 09/23/20 11/23/20 sodium bicarbonate 650 mg PO BID 09/23/20 11/23/20 tamsulosin 0.4 mg PO BEDTIME 09/23/20 11/23/20 doxycycline hyclate 1 cap PO DAILY 11/23/20 11/23/20 <Genny Wall NP - Last Filed: 11/26/20 12:40> DS: Summary Hospital Course Hospital Course: 64-year-old man, presenting to the ER from [facility] initially because it was thought that he was eating feces, but apparently the medical provider from [facility] called and said that was not accurate and he was sent over due to a distended abdomen and he vomited feces yesterday and there was concern for bowel obstruction. Initially, there was a psych consultation due to the fact that they thought he was eating feces and throwing it. He did have an abdominal and pelvic CT in the ER, which showed severe constipation with large amount of stool throughout the colon with loop of small bowel in the left mid abdomen suspicious for early volvulus. He was not noted to have any fever, leukocytosis. He was disimpacted in the ER and a large amount of stool was removed. He received Zofran, morphine, Ativan. He does have a pretty severe psychiatric mental illness and was very difficult to assess during the interview as he was not able to answer questions appropriately. The patient will be admitted for further management and treatment of severe constipation versus possible volvulus. Constipation. Patient was disimpacted while in the ED. Had a large amount of stool in the colon most prominent in the right colon initially was thought to be early volvulus however of the shortness the case. Patient was placed on MiraLa x, bisacodyl. Had bowel movements. Rpeat KUB showed large amounts of stool. He was given multiple emenas with resultant bowel movements. He tolerated a diet and will be d[facility]c to [facility] Continue medications. Attending Attestation: Patient seen and examined independently and I was present during [place] portion of E/M service. Agree with Bridgett Wall NP's history, physical, assessment, and plan. <Genny Wall NP - Last Filed: 11/26/20 12:40> Time Spent with Patient Time attestation: Total time spent providing and/or coordinating discharge services: <GISELLE Lucas Last Filed: 11/26/20 12:40> Discharge coordination time: Greater than 30 minutes <Genny Wall NP - Last Filed: 11/26/20 12:40> Quality: Stroke Does the patient have a stroke diagnosis?: No <GISELLE Lucas Last Filed: 11/26/20 12:40> Physical Exam Vital Signs: Vital Signs: Last Vital Signs Temp 96.8 F 11/25/20 08:00 Pulse 60 11/25/20 08:00 Resp 18 11/25/20 08:00 BP 190/98 H 11/25/20 08:00 Pulse Ox 99 11/25/20 08:00 Body Mass Index 22.4 <GISELLE Lucas Last Filed: 11/26/20 12:40> Appearing in no acute distress head is normocephalic atraumatic eyes pupils are PERRLA sclera is anicteric mouth throat mucous membranes are intact and moist neck is supple no lymphadenopathy, no JVD noted lung sounds are clear to auscultation heart regular rate rhythm, clear S1, S2 positive bowel sounds, abdomen is soft, nontender neuro patient is alert x3, no focal deficits <GISELLE Lucas Last Filed: 11/26/20 12:40> Discharge Plan Discharge Anticipated Discharge Date/Time: 11/26/20 08:27 <Genny Wall NP - Last Filed: 11/26/20 12:40> Patient Disposition: Xfer SNF <GISELLE Lucas Last Filed: 11/26/20 12:40> Discharge Diagnosis: Constipation <GISELLE Lucas Last Filed: 11/26/20 12:40> Constipation <Eyad Read MD - Last Filed: 11/26/20 16:17> Referrals: [facility] [Outside] - 1 Day (RESUMPTION OF CARE) Swapnil Vazquez DO [Primary Care Provider] - 1 Week <Genny Wall NP - Last Filed: 11/26/20 12:40> Discharge Medications: Continued clomipramine 75 mg capsule 150 mg PO BEDTIME RF: 0 famotidine 40 mg tablet 40 mg PO BEDTIME RF: 0 clonazepam 0.5 mg tablet 0.25 mg PO DAILY RF: 0 omeprazole 40 mg capsule,delayed release(DR/EC) 40 mg PO DAILY RF: 0 tamsulosin 0.4 mg capsule 0.4 mg PO BEDTIME RF: 0 pregabalin 150 mg capsule 150 mg PO BID RF: 0 sennosides [senna] 8.6 mg Tablet 17.2 mg PO BEDTIME RF: 0 acetaminophen 325 mg Tablet 650 mg PO Q4H PRN (Reason: Pain) RF: 0 clozapine 100 mg Tablet 100 mg PO BEDTIME RF: 0 clozapine 100 mg Tablet 200 mg PO BEDTIME RF: 0 clonazepam 0.5 mg tablet 0.5 mg PO DAILY@2000 RF: 0 sodium bicarbonate 650 mg Tablet 650 mg PO BID RF: 0 levothyroxine 50 mcg tablet 50 mcg PO DAILY RF: 0 pantoprazole 40 mg Tablet,Delayed Release (Dr/Ec) 40 mg PO BID RF: 0 diphenhydramine HCl [Benadryl] 25 mg Capsule 25 mg PO Q6H PRN (Reason: Itching) RF: 0 docusate sodium 100 mg Capsule 100 mg PO BID RF: 0 metoprolol tartrate 25 mg Tablet 12.5 mg PO DAILY RF: 0 lactulose 10 gram/15 mL (15 mL) Solution 20 g PO DAILY RF: 0 doxycycline hyclate 50 mg capsule 1 cap PO DAILY RF: 0 No Action multivitamin with minerals Tablet 1 tab PO DAILY RF: 0 <Genny Wall NP - Last Filed: 11/26/20 12:40> Discharge Orders: Discharge Order (Routine); Ordered 11/26/20 Ordered By: Genny Wall <Genny Wall NP - Last Filed: 11/26/20 12:40> Diet: advance to usual diet <Genny Wall NP - Last Filed: 11/26/20 12:40> advance to usual diet <Eyad Read MD - Last Filed: 11/26/20 16:17> Activity on Discharge: As tolerated <Genny Wall NP - Last Filed: 11/26/20 12:40> As tolerated <Eyad Read MD - Last Filed: 11/26/20 16:17> Stand Alone Forms: Patient Portal Discharge page <Genny Wall NP - Last Filed: 11/26/20 12:40> Care Plan Goals: resolution of constipation symptoms <Genny Wall NP - Last Filed: 11/26/20 12:40> Health Concerns: Constipation <Genny Wall NP - Last Filed: 11/26/20 12:40> Plan of Treatment: follow-up with primary care provider as needed good bowel regimen <Genny Wall NP - Last Filed: 11/26/20 12:40> Assessment: See discharge summary <Genny Wall NP - Last Filed: 11/26/20 12:40> Discharge Date/Time: 11/26/20 13:00 <Genny Wall NP - Last Filed: 11/26/20 12:40>
[2020-11-25] MEDS: Metoprolol Tartrate 12.5 MG HALFTAB PO (11:04)
[2020-11-25] MEDS: Multivitamin TABLET 1 TAB PO (11:04)
[2020-11-25] MEDS: clonazePAM 0.5 MG TABLET PO (11:04)
--- NOTE | 2020-11-25 11:42 | HO.PM.IMPN ---
Subjective Subjective Date of Service: 11/25/20 Interval History: Follow up Constipation Still with stool burden Physical Exam Vital Signs: Vital Signs: Last Vital Signs Temp 96.8 F 11/25/20 08:00 Pulse 60 11/25/20 08:00 Resp 18 11/25/20 08:00 BP 190/98 H 11/25/20 08:00 Pulse Ox 99 11/25/20 08:00 Body Mass Index 22.4 Appearing in no acute distress lung sounds are clear to auscultation heart regular rate rhythm, clear S1, S2 positive bowel sounds, abdomen is soft, nontender neuro patient is alert x3, no focal deficits Objective Data Current Medications Generic Name Dose Route Start Last Admin Trade Name Freq PRN Reason Stop Dose Admin Acetaminophen 650 mg 11/23/20 16:00 Acetaminophen 325 Mg Tablet PO Q6H PRN Pain, Mild (Pain Scale 1-3) Acetaminophen 650 mg 11/25/20 09:47 Acetaminophen 325 Mg Tablet PO Q4H PRN Pain Bisacodyl 10 mg 11/23/20 16:03 11/24/20 00:26 Bisacodyl 10 Mg Supp.Rect NJ 10 mg BEDTIME PRN Administration Constipation Bisacodyl 5 mg 11/25/20 09:00 11/25/20 07:58 Bisacodyl 5 Mg Tablet.Dr PO 5 mg DAILY KIMBER Administration Clonazepam 0.25 mg 11/26/20 09:00 Clonazepam 0.5 Mg Tablet PO DAILY KIMBER Clonazepam 0.5 mg 11/25/20 10:00 11/25/20 11:04 Clonazepam 0.5 Mg Tablet PO 0.5 mg DAILY KIMBRE Administration Clozapine 300 mg 11/25/20 21:00 Clozapine 100 Mg Tablet PO BEDTIME KIMBER Diphenhydramine HCl 25 mg 11/25/20 09:47 Diphenhydramine Hcl 25 Mg Tablet PO Q6H PRN Itching Docusate Sodium 100 mg 11/25/20 21:00 Docusate Sodium 100 Mg Capsule PO BID KIMBER Heparin Sodium (Porcine) 5,000 unit 11/23/20 18:00 11/25/20 05:51 Heparin Sodium,Porcine 5,000 Unit/Ml Vial SUBCUT Not Given Q12H KIMBER Lactulose 10 gm 11/26/20 09:00 Lactulose 20 Gm/30 Ml Solution PO DAILY KIMBER Levothyroxine Sodium 50 mcg 11/26/20 06:00 Levothyroxine Sodium 50 Mcg Tablet PO DAILY@0600 [facility] Metoprolol Tartrate 12.5 mg 11/25/20 10:00 11/25/20 11:04 Metoprolol Tartrate 12.5 Mg Halftab PO 12.5 mg DAILY [facility] Administration Protocol Mineral Oil 133 ml 11/25/20 11:41 Mineral Oil Enema 133 Ml Enema NJ 11/25/20 11:42 ONCE ONE Multivitamins/Vitamin C 1 tab 11/25/20 10:00 11/25/20 11:04 Multivitamin Tablet PO 1 tab DAILY [facility] Administration Non-Formulary Medication 150 mg 11/25/20 21:00 Clomipramine PO BEDTIME KIMBER Non-Formulary Medication 40 mg 11/25/20 21:00 Famotidine PO BEDTIME [facility] Non-Formulary Medication 40 mg 11/25/20 10:00 Pantoprazole PO BID [facility] Omeprazole 40 mg 11/25/20 10:00 Omeprazole 40 Mg Capsule.Dr PO DAILY [facility] Polyethylene Glycol 17 gm 11/24/20 09:00 11/25/20 07:59 Polyethylene Glycol 3350 17 Gm Powd.Pack PO 17 gm DAILY [facility] Administration Senna 17.2 mg 11/25/20 21:00 Sennosides 8.6 Mg Tablet PO BEDTIME [facility] Sodium Bicarbonate 650 mg 11/25/20 21:00 Sodium Bicarbonate 650 Mg Tablet PO BID [facility] Sodium Chloride 3 ml 11/23/20 16:00 11/25/20 08:01 0.9 % Sodium Chloride Flush 3 Ml Syringe IVFLUSH Not Given QSHIFT [facility] Tamsulosin HCl 0.4 mg 11/25/20 21:00 Tamsulosin Hcl 0.4 Mg Capsule PO BEDTIME [facility] Labs CBC & Chem 7: 11/24/20 06:13 11/24/20 06:13 Assessment and Plan (1) Constipation: Status: Acute Assessment and Plan: 64-year-old man who is being admitted with severe constipation, abdominal CT showing possible early volvulus. Case discussed with General Surgery. At this time, the patient is okay to be admitted to medical floor for treatment of constipation and further monitoring. Severe constipation. Disimpacted in the ER. Still with large amount of stool on KUB Some episodes of vomiting -continue suppository, soap suds enema, bowel regimen. -General Surgery consult Microcytic anemia. Chronic. No signs of bleeding. -Follow CBC. Schizophrenia. -Continue medications from [facility]. Deep vein thrombosis prophylaxis with heparin. Case discussed with Dr. Read Full code.
[2020-11-25 12:00] VITALS: BP 159/79; PULSE 79; RESP 18; TEMP 36; O2SAT 100
--- NOTE | 2020-11-25 12:11 | MHC.CM.PN ---
EMR REVIEWED, PER HOSPITALIST PT IS VOMITING AND KUB SHOWED LARGE AMT OF STOOL, NO PLAN FOR D/C TODAY, SNF UPDATED [facility]IA [facility], CM WILL CONT TO FOLLOW D/C NEEDS, POSSIBLE D/C TUES 11/26/20. D/C PLAN: RETURN TO [facility]
--- NOTE | 2020-11-25 12:30 | PM.CNGS ---
History of Present Illness Consult details Consult date: 11/25/20 Requesting physician: Genny Wall Narrative: 64-year-old male patient with history of schizoaffective disorder presenting with a recent history of vomiting fecal material at his facility. He presented to the emergency department and underwent evaluation with a CT of the abdomen and pelvis. This revealed constipation with a large stool burden throughout the entire colon. He was admitted to the hospitalist service and has been undergoing management with various bowel preparations including Dulcolax, lactulose and fleets enemas. He underwent a disimpaction in the emergency department but since then has had no bowel movements. He continues to have frequent feculent emesis. Surgical consultation was requested for possible repeat disimpaction. Review of Systems Review of Systems: Yes Unobtainable due to mental status PMFSH Past Medical History Medical History Acute kidney failure BPH (benign prostatic hyperplasia) BPH (benign prostatic hyperplasia) Diabetes Dysphagia HTN (hypertension) Schizoaffective disorder TBI (traumatic brain injury) Social History Social History Household Members: None Household Members Other:: SNF Housing: Care Home Unable to assess alcohol history related to: Unknown Alcohol intake: unknown Patient Tobacco Use Status: Tobacco use Unknown Use of substances other than those prescribed or required for medical reasons: Unknown Last Used Substance: Unknown Currently Displaying Signs/Symptoms of Drug Intoxication Withdrawal: No Have you been hit, kicked, punched, or otherwise hurt by someone within the past year? If so, by whom?: No (unknown) Do you feel safe in your current relationship?: No Current Relationship Is there a partner from a previous relationship who is making you feel unsafe now?: No Are you made to feel afraid or neglected: No Advance Directives: No Advance Directives Information Provided: No Do you have thoughts of harming others: None Do you have a plan to hurt others: No Plan Recently lost weight without trying: No Nutrition Risks: No Nutritional Risk Poor oral hygiene: No service: No Current occupational status: disabled Meds Allergies Allergy/AdvReac Type Severity Reaction Status Date / Time fish oil [FISH OIL] Allergy Unknown UNK Verified 09/24/20 09:51 Iodinated Contrast Media Allergy Unknown UNK Verified 09/24/20 09:51 [IODINATED CONTRAST- ORAL AND IV DYE] iodine [IODINE] Allergy Unknown UNK Verified 09/24/20 09:51 pollen Allergy Unknown Unknown Uncoded 09/24/20 09:51 SEAFOOD Allergy Unknown UNK Uncoded 02/29/20 19:27 shellfish Allergy Unknown Unknown Uncoded 09/24/20 09:51 Active Medications: Current Medications Generic Name Dose Route Start Last Admin Trade Name Freq PRN Reason Stop Dose Admin Acetaminophen 650 mg 11/23/20 16:00 Acetaminophen 325 Mg Tablet PO Q6H PRN Pain, Mild (Pain Scale 1-3) Acetaminophen 650 mg 11/25/20 09:47 Acetaminophen 325 Mg Tablet PO Q4H PRN Pain Bisacodyl 10 mg 11/23/20 16:03 11/24/20 00:26 Bisacodyl 10 Mg Supp.Rect CO 10 mg BEDTIME PRN Administration Constipation Bisacodyl 5 mg 11/25/20 09:00 11/25/20 07:58 Bisacodyl 5 Mg Tablet.Dr PO 5 mg DAILY KIMBER Administration Clonazepam 0.25 mg 11/26/20 09:00 Clonazepam 0.5 Mg Tablet PO DAILY KIMBER Clonazepam 0.5 mg 11/25/20 10:00 11/25/20 11:04 Clonazepam 0.5 Mg Tablet PO 0.5 mg DAILY KIMBER Administration Clozapine 300 mg 11/25/20 21:00 Clozapine 100 Mg Tablet PO BEDTIME KIMBER Diphenhydramine HCl 25 mg 11/25/20 09:47 Diphenhydramine Hcl 25 Mg Tablet PO Q6H PRN Itching Docusate Sodium 100 mg 11/25/20 21:00 Docusate Sodium 100 Mg Capsule PO BID KIMBER Heparin Sodium (Porcine) 5,000 unit 11/23/20 18:00 11/25/20 05:51 Heparin Sodium,Porcine 5,000 Unit/Ml Vial SUBCUT Not Given Q12H KIMBER Lactulose 10 gm 11/26/20 09:00 Lactulose 20 Gm/30 Ml Solution PO DAILY [facility] Levothyroxine Sodium 50 mcg 11/26/20 06:00 Levothyroxine Sodium 50 Mcg Tablet PO DAILY@0600 KIMBER Metoprolol Tartrate 12.5 mg 11/25/20 10:00 11/25/20 11:04 Metoprolol Tartrate 12.5 Mg Halftab PO 12.5 mg DAILY KIMBER Administration Protocol Multivitamins/Vitamin C 1 tab 11/25/20 10:00 11/25/20 11:04 Multivitamin Tablet PO 1 tab DAILY [facility] Administration Non-Formulary Medication 150 mg 11/25/20 21:00 Clomipramine PO BEDTIME KIMBER Non-Formulary Medication 40 mg 11/25/20 21:00 Famotidine PO BEDTIME [facility] Non-Formulary Medication 40 mg 11/25/20 10:00 Pantoprazole PO BID [facility] Omeprazole 40 mg 11/25/20 10:00 Omeprazole 40 Mg Capsule.Dr PO DAILY [facility] Polyethylene Glycol 17 gm 11/24/20 09:00 11/25/20 07:59 Polyethylene Glycol 3350 17 Gm Powd.Pack PO 17 gm DAILY [facility] Administration Senna 17.2 mg 11/25/20 21:00 Sennosides 8.6 Mg Tablet PO BEDTIME [facility] Sodium Bicarbonate 650 mg 11/25/20 21:00 Sodium Bicarbonate 650 Mg Tablet PO BID [facility] Sodium Chloride 3 ml 11/23/20 16:00 11/25/20 08:01 0.9 % Sodium Chloride Flush 3 Ml Syringe IVFLUSH Not Given QSHIFT [facility] Tamsulosin HCl 0.4 mg 11/25/20 21:00 Tamsulosin Hcl 0.4 Mg Capsule PO BEDTIME [facility] Home Medications Medication Instructions Recorded Confirmed Last Taken Type acetaminophen 650 mg PO Q4H PRN 09/23/20 11/23/20 09/23/20 History clomipramine 150 mg PO BEDTIME 09/23/20 11/23/20 09/22/20 History clonazepam 0.25 mg PO DAILY 09/23/20 11/23/20 09/23/20 History clonazepam 0.5 mg PO DAILY 09/23/20 11/23/20 09/22/20 History clozapine 100 mg PO BEDTIME 09/23/20 11/23/20 09/22/20 History clozapine 200 mg PO BEDTIME 09/23/20 11/23/20 09/22/20 History diphenhydramine HCl [Benadryl] 25 mg PO Q6H PRN 09/23/20 11/23/20 Unknown History docusate sodium 100 mg PO BID 09/23/20 11/23/20 09/23/20 History famotidine 40 mg PO BEDTIME 09/23/20 11/23/20 09/22/20 History lactulose 20 g PO DAILY 09/23/20 11/25/20 09/23/20 History levothyroxine 50 mcg PO DAILY 09/23/20 11/23/20 09/23/20 History metoprolol tartrate 12.5 mg PO DAILY 09/23/20 11/23/20 09/23/20 History omeprazole 40 mg PO DAILY 09/23/20 11/23/20 09/23/20 History pantoprazole 40 mg PO BID 09/23/20 11/23/20 09/23/20 History pregabalin 150 mg PO BID 09/23/20 11/25/20 09/23/20 History sennosides [senna] 17.2 mg PO BEDTIME 09/23/20 11/23/20 09/22/20 History sodium bicarbonate 650 mg PO BID 09/23/20 11/23/20 09/23/20 History tamsulosin 0.4 mg PO BEDTIME 09/23/20 11/23/20 09/22/20 History doxycycline hyclate 1 cap PO DAILY 11/23/20 11/23/20 Unknown History multivitamin with minerals 1 tab PO DAILY 11/25/20 11/25/20 Unknown History Physical Exam Vital Signs: Vital Signs: Last Vital Signs Temp 96.8 F 11/25/20 12:00 Pulse 79 11/25/20 12:00 Resp 18 11/25/20 12:00 BP 159/79 H 11/25/20 12:00 Pulse Ox 100 11/25/20 12:00 Body Mass Index 22.4 Const: General: cooperative, comfortable and awake Nutritional Appearance: thin Limitations: behavioral limitations Eyes: Other: No scleral icterus Resp: Other: breathing comfortably on room air GI: Other: soft, nondistended, nontender, no rebound, no guarding, no rigidity, no palpable mass Rectal examination reveals an enlarged prostate, no palpable stool within reach, no palpable mass, no gross bleeding Skin: Other: erythematous skin of nose and elbows Extrem: General: No edema Results Labs Result diagrams: 11/24/20 06:13 11/24/20 06:13 Labs: Urine 11/22/20 Range/Units 14:31 Urine Color YELLOW Urine Appearance CLOUDY Urine pH 8.5 H (5.0-8.0) Ur Specific Keeling 1.015 (1.005-1.025) Urine Protein TRACE (NEG-TRACE) MG/DL Urine Glucose (UA) NEG (NEG) MG/DL All other labs normal. Assessment and Plan (1) Constipation: Status: Acute 64-year-old male patient with a schizoaffective disorder presenting with feculent vomiting and chronic constipation. Patient was found to have a large stool burden involving the entire colon. A disimpaction was performed in the emergency department the patient has had no bowel movement since then. Patient is currently eating but vomiting as well. abdominal examination today reveals his abdomen to be soft and nondistended. Rectal examination reveals no stool within the rectal vault. Review of the abdominal x-ray today does reveal stool throughout the colon with minimal within the distal rectum. The fleets enemas do not appear to be effective in reaching the area of feces; he may benefit from a larger volume using a soapsuds enema. No disimpaction could be performed at this time. Procedures Date of Service Date of Service: 11/25/20
[2020-11-25] MEDS: Mineral OiL enema 133 ML ENEMA PR (12:42)
[2020-11-25 14:49] VITALS: BP 160/79; PULSE 106; RESP 17; TEMP 36.2; O2SAT 100
[2020-11-25] MEDS: bisacodyL 10 MG SUPP.RECT PR (18:09)
--- NOTE | 2020-11-25 18:13 | PC.NURSE ---
SSE ordered.pt refused.Genny Wall notified.ordered to give dulolax supp. given at 1810.hat in toilet to monitor for bm.
[2020-11-25 19:24] VITALS: BP 148/72; PULSE 84; RESP 16; TEMP 36.1; O2SAT 100
[2020-11-26 04:00] VITALS: BP 158/68; PULSE 66; RESP 19; TEMP 36.7; O2SAT 95
--- NOTE | 2020-11-26 06:08 | PC.NURSE ---
ATTEMPTS MADE TIMES 3 TO ADMINISTER AM MEDICATIONS ALONG WITH HEPARIN SC, PATIENT VERY NICELY DECLINED, ASKED MY NAME AND THEN PROCEEDED TO SAY NO THANK YOU TO ALL. EXPLANATION, BEVERAGE, AND SNACK ALL OFFERED FOR MEDICATION EASE, BUT STILL WITH NO RESULTS.
--- NOTE | 2020-11-26 07:48 | PM.PNGS ---
Subjective Subjective Date of Service: 11/26/20 Interval history: Patient with multiple bowel movements since yesterday, incontinent, no further vomiting, only dry heaves. Physical Exam Vital Signs: Vital Signs: Last Vital Signs Temp 98.1 F 11/26/20 04:00 Pulse 66 11/26/20 04:00 Resp 19 11/26/20 04:00 BP 158/68 H 11/26/20 04:00 Pulse Ox 95 11/26/20 04:00 Body Mass Index 22.4 Const: General: alert and awake Resp: Effort & Inspection: normal respiratory effort GI: Other: soft, nondistended, non-tender Extrem: General: No edema Progress Note: A&P Assessment and plan (1) Constipation: Status: Acute Assessment and Plan: Patient is now passing stool; will need continued bowel regime due to the large stool load. Will sign off; please re-consult if needed. Fall Risk Details Current Medications: Current Medications Generic Name Dose Route Start Last Admin Trade Name Freq PRN Reason Stop Dose Admin Acetaminophen 650 mg 11/23/20 16:00 Acetaminophen 325 Mg Tablet PO Q6H PRN Pain, Mild (Pain Scale 1-3) Acetaminophen 650 mg 11/25/20 09:47 Acetaminophen 325 Mg Tablet PO Q4H PRN Pain Bisacodyl 10 mg 11/23/20 16:03 11/25/20 18:09 Bisacodyl 10 Mg Supp.Rect WA 10 mg BEDTIME PRN Administration Constipation Bisacodyl 5 mg 11/25/20 09:00 11/25/20 07:58 Bisacodyl 5 Mg Tablet.Dr PO 5 mg DAILY KIMBER Administration Clonazepam 0.25 mg 11/26/20 09:00 Clonazepam 0.5 Mg Tablet PO DAILY [facility]BER Clonazepam 0.5 mg 11/25/20 20:00 11/25/20 20:57 Clonazepam 0.5 Mg Tablet PO Not Given DAILY@1999 KIMBER Clozapine 300 mg 11/25/20 21:00 11/25/20 20:59 Clozapine 100 Mg Tablet PO Not Given BEDTIME [facility]IM[facility] Diphenhydramine HCl 25 mg 11/25/20 09:47 Diphenhydramine Hcl 25 Mg Tablet PO Q6H PRN Itching Docusate Sodium 100 mg 11/25/20 21:00 11/25/20 20:58 Docusate Sodium 100 Mg Capsule PO Not Given BID KIMBER Heparin Sodium (Porcine) 5,000 unit 11/23/20 18:00 11/26/20 06:07 Heparin Sodium,Porcine 5,000 Unit/Ml Vial SUBCUT Not Given Q12H [facility] Lactulose 10 gm 11/26/20 09:00 Lactulose 20 Gm/30 Ml Solution PO DAILY [facility] Levothyroxine Sodium 50 mcg 11/26/20 06:00 11/26/20 06:07 Levothyroxine Sodium 50 Mcg Tablet PO Not Given DAILY@0600 [facility] Metoprolol Tartrate 12.5 mg 11/25/20 10:00 11/25/20 11:04 Metoprolol Tartrate 12.5 Mg Halftab PO 12.5 mg DAILY [facility] Administration Protocol Multivitamins/Vitamin C 1 tab 11/25/20 10:00 11/25/20 11:04 Multivitamin Tablet PO 1 tab DAILY KIMBER Administration Omeprazole 40 mg 11/25/20 16:30 11/26/20 06:07 Omeprazole 40 Mg Capsule.Dr PO Not Given DAILY@0600 [facility] Polyethylene Glycol 17 gm 11/24/20 09:00 11/25/20 07:59 Polyethylene Glycol 3350 17 Gm Powd.Pack PO 17 gm DAILY KIMBER Administration Senna 17.2 mg 11/25/20 21:00 11/25/20 20:58 Sennosides 8.6 Mg Tablet PO Not Given BEDTIME [facility] Sodium Bicarbonate 650 mg 11/25/20 21:00 11/25/20 20:58 Sodium Bicarbonate 650 Mg Tablet PO Not Given BID [facility] Sodium Chloride 3 ml 11/23/20 16:00 11/26/20 07:09 0.9 % Sodium Chloride Flush 3 Ml Syringe IVFLUSH Not Given QSHIFT [facility] Tamsulosin HCl 0.4 mg 11/25/20 21:00 11/25/20 20:58 Tamsulosin Hcl 0.4 Mg Capsule PO Not Given BEDTIME [facility] Time Spent With Patient Time: Total time spent is greater than 50% in coordination of care (as documented) at patient's floor/unit and/or counseling patient: Time with patient: 15 - 24 minutes Procedures Date of Service Date of Service: 11/26/20
[2020-11-26 08:00] VITALS: BP 189/97; PULSE 75; RESP 16; TEMP 36.3; O2SAT 100
[2020-11-26] MEDS: Lactulose 20 GM/30 ML SOLUTION 10 GM PO (08:07)
[2020-11-26] MEDS: polyethylene glycoL 3350 17 GM POWD.PACK PO (08:08)
[2020-11-26 09:02] VITALS: BP 149/86; PULSE 74
[2020-11-26 09:03] VITALS: BP 149/86; PULSE 74
[2020-11-26] MEDS: Metoprolol Tartrate 25 MG TABLET PO (09:03)
--- NOTE | 2020-11-26 09:15 | MHC.CM.PN ---
PT DISCHARGING TODAY BACK TO [facility]SP[facility], PTS MOTHER/GUARDIAN LITZY NOTIFIED AT 9:05AM [phone] AND IS PLEASED W/D/C PLAN.
[2020-11-26 11:17] LABS: COVID-19 Test Negative (Negative); IDNOW Serial# 9DD0AD1C
== END 2020-11-26 13:00 | disposition skilled nursing facility (03) | DRG 392 ==
LOC: HO.ED 11-23 15:46 → HO.EDOVER 11-23 17:12 → HO.S3 11-23 17:27
PROVIDERS: Emergency Medicine Emergency Medical Services; Physician Assistant Medical; Admitting Provider Nurse Practitioner Acute Care; Emergency Provider Emergency Medicine; PCP Hospitalist; Visit Provider Family Medicine
DX: K59.00 Constipation, unspecified (principal); N17.9 Acute kidney failure, unspecified; N40.0 Benign prostatic hyperplasia without lower urinary tract symptoms; D64.9 Anemia, unspecified; I10 Essential (primary) hypertension; F20.9 Schizophrenia, unspecified; E11.9 Type 2 diabetes mellitus without complications; Z20.822 Contact with and (suspected) exposure to COVID-19; Z87.820 Personal history of traumatic brain injury; Z79.890 Hormone replacement therapy; Z79.899 Other long term (current) drug therapy
CPT/HCPCS: 36415; 74018; 74177; 80048; 80076; 80307; 81003; 82140; 83735; 84443; 84484; 85025; 85610; 87635; 93005; 99285; J2060; J2270; J2405; Q9967

== ENCOUNTER 2020-11-26 15:37 | Emergency (ER) | payer MEDICARE, MEDICAID, SELFPAY ==
--- NOTE | ~2020-11-26 | CT_ITS ---
EXAMINATION: CT ABDOMEN AND PELVIS WITHOUT CONTRAST CLINICAL INFORMATION: Fecal impaction COMPARISON: CT scan abdomen pelvis 11/23/2020, 11/18/2020. TECHNIQUE: Multidetector volumetric imaging was performed from the superior aspect of the liver through the pubic symphysis. Sagittal and coronal reformatted images were obtained on the technologist's workstation. This CT examination was performed using dose optimization techniques as appropriate, variously including the following: *Automated exposure control *Adjustment of mA and/or kV according to patient size (this includes techniques or standardized protocols for targeted exams where dose is matched to indication/reason for exam; i.e. extremities or head) *Use of iterative reconstruction technique DLP: 442 mGy-cm FINDINGS: There is breathing motion. There is artifact from imaging with the arms over the lower chest. LUNG BASES: Small hiatal hernia. There is normal aeration of the lung bases. LIVER, GALLBLADDER, AND BILIARY TREE: The liver is normal in size, shape, and attenuation. No focal hepatic lesion or biliary ductal dilatation is present. The gallbladder is unremarkable with no evidence of radiopaque gallstones, gallbladder wall thickening, or obvious pericholecystic inflammatory changes. PANCREAS: Unremarkable. SPLEEN: Unremarkable. ADRENAL GLANDS: Unremarkable. KIDNEYS AND URETERS: Right kidney is atrophic. Right kidney measures 8 cm. Left kidney measures approximately 12 cm. There are no renal calculus or hydronephrosis. There is a cortical cyst at the midpole of the right kidney measuring 2.8 cm. Density measurement 6 Hounsfield units. No follow-up imaging is recommended for simple renal cyst. There is a hyperdense cortical cyst in the midpole the right kidney measuring 1.2 cm. This did not demonstrate enhancement on the CT study of 11/18/2020. Multiple left renal cysts. Seen on the postcontrast study of 11/18/2020. BLADDER: Unremarkable. GASTROINTESTINAL TRACT: There is no acute change of bowel. There is no bowel wall thickening /edema. There is no bowel obstruction. There is a large volume of stool in the colon. Stool present from cecum through pelvis. The appendix is normal . The small bowel loops are unremarkable. Postsurgical changes of stomach. There is small hiatal hernia. Mesentery: There is question of a mesenteric twist on prior CT 11/23/2020 and left upper quadrant without volvulus. The swirled appearance of the mesentery is not present on today's exam. There is no mesenteric twist. There is no edema of the mesentery. No free air or free fluid. ABDOMINAL WALL: No significant hernia is appreciated. Surgical clips present in the lower pelvis bilaterally. No recurrent inguinal hernia. LYMPH NODES: Normal. VASCULAR: Atherosclerotic vascular calcifications of the wall of aorta and iliac arteries. There is no aneurysm. PELVIC VISCERA: Prostate measures 3.9 cm transverse. Stable sharply marginated cyst in the right pelvic sidewall anteriorly measuring 2.5 cm. Density measurement of 9 Hounsfield units, simple fluid. OSSEOUS STRUCTURES: Unremarkable. CT/CT abdomen pelvis wo con IMPRESSION: 1. No acute abnormality of the abdomen or pelvis. This world appearance of the mesentery in the left upper quadrant is not seen on today's study. There is no mesenteric twist. 2. Large volume of stool in the colon but there is no acute change of bowel. 3. Postsurgical changes of stomach. Small hiatal hernia 4. Surgical mesh low anterior abdominal wall without recurrent hernia. Stable small cyst at the right pelvic sidewall anteriorly. 5. Atrophic right kidney. Bilateral renal cysts including a hyperdense cyst in the right kidney stable since prior studies.
[2020-11-26 15:46] VITALS: BP 158/98; BP 172/99; PULSE 72; PULSE 80; O2SAT 98; O2SAT 99; BMI 17.4
[2020-11-26 15:53] LABS: Glucose, Whole Blood 103 mg/dL (60-115)
--- NOTE | 2020-11-26 16:15 | ED.GENADULT ---
HPI - General Adult General Chief complaint: General Medical Stated complaint: VOMITING Time Seen by Provider: 11/26/20 16:15 Source: EMS and RN notes reviewed Mode of arrival: EMS Limitations: other History of Present Illness HPI narrative: Patient with history of schizophrenia, TBI, severe constipation discharge today had 13:00 when he reached retirement started toward throwing up fecal smell sent him back for further evaluation. Two days ago patient had a CT scan which showed severe constipation during stay in the hospital patient refused to take anything p.o. but had a bowel movement earlier today was manually disimpacted on the day of arrival 2 days ago Related Data Home Medications Medication Instructions Recorded Confirmed acetaminophen 650 mg PO Q4H PRN 09/23/20 11/23/20 clomipramine 150 mg PO BEDTIME 09/23/20 11/23/20 clonazepam 0.25 mg PO DAILY 09/23/20 11/23/20 clonazepam 0.5 mg PO DAILY@199909/23/20 11/25/20 clozapine 100 mg PO BEDTIME 09/23/20 11/23/20 clozapine 200 mg PO BEDTIME 09/23/20 11/23/20 diphenhydramine HCl [Benadryl] 25 mg PO Q6H PRN 09/23/20 11/23/20 docusate sodium 100 mg PO BID 09/23/20 11/23/20 famotidine 40 mg PO BEDTIME 09/23/20 11/23/20 lactulose 20 g PO DAILY 09/23/20 11/25/20 levothyroxine 50 mcg PO DAILY 09/23/20 11/23/20 metoprolol tartrate 12.5 mg PO DAILY 09/23/20 11/23/20 omeprazole 40 mg PO DAILY 09/23/20 11/23/20 pantoprazole 40 mg PO BID 09/23/20 11/23/20 pregabalin 150 mg PO BID 09/23/20 11/25/20 sennosides [senna] 17.2 mg PO BEDTIME 09/23/20 11/23/20 sodium bicarbonate 650 mg PO BID 09/23/20 11/23/20 tamsulosin 0.4 mg PO BEDTIME 09/23/20 11/23/20 doxycycline hyclate 1 cap PO DAILY 11/23/20 11/23/20 multivitamin with minerals 1 tab PO DAILY 11/25/20 11/25/20 Previous Rx's Medication Instructions Recorded polyethylene glycol 3350 [Miralax] 17 g PO DAILY #510 g 11/26/20 Allergies Allergy/AdvReac Type Severity Reaction Status Date / Time fish oil [FISH OIL] Allergy Unknown UNK Verified 09/24/20 09:51 Iodinated Contrast Media Allergy Unknown UNK Verified 09/24/20 09:51 [IODINATED CONTRAST- ORAL AND IV DYE] iodine [IODINE] Allergy Unknown UNK Verified 09/24/20 09:51 pollen Allergy Unknown Unknown Uncoded 09/24/20 09:51 SEAFOOD Allergy Unknown UNK Uncoded 02/29/20 19:27 shellfish Allergy Unknown Unknown Uncoded 09/24/20 09:51 Review of Systems Review of Systems: Yes Unobtainable due to mental status [facility] Past Medical History Medical History Acute kidney failure BPH (benign prostatic hyperplasia) BPH (benign prostatic hyperplasia) Diabetes Dysphagia HTN (hypertension) Schizoaffective disorder TBI (traumatic brain injury) Social History Social History Household Members: None Household Members Other:: SNF Housing: Retirement Unable to assess alcohol history related to: Unknown Alcohol intake: unknown Patient Tobacco Use Status: Tobacco use Unknown Use of substances other than those prescribed or required for medical reasons: Unknown Advance Directives: No Advance Directives Information Provided: No service: No Current occupational status: disabled Physical Exam Vital Signs: Vital Signs: Last Vital Signs Temp 97.8 F 11/26/20 20:00 Pulse 98 11/26/20 20:00 Resp 15 11/26/20 20:00 BP 133/92 H 11/26/20 20:00 Pulse Ox 95 11/26/20 20:00 Body Mass Index 17.4 Appearance: Alert. Oriented X2. No acute distress. Eyes: PERRLA, No Nystagmus ENT: Pharynx normal. Oral Mucosa moist scratch tafoya on the nose and the face Neck: Normal inspection. Neck supple. CVS: Normal heart rate and rhythm. Pulses normal. Respiratory: No respiratory distress. Equal air entry bilateral, no wheezing/rales/rhonchi Abdomen: Soft and nontender. Bowel sounds are present, no mass palpable, no CVA tenderness Skin: Skin warm and dry. Normal skin color. Normal skin turgor. Extremities: No lower extremity edema. No calf tenderness Neuro: Oriented X 2. No motor deficit. No sensory deficit. Medical Decision Making MDM Narrative Medical decision making narrative: Patient very difficult to manage in the ER refusing to take the medication for constipation give small amount of MiraLax by mouth. CT scan negative for any obstruction discharge patient back to retirement advised to continue MiraLax Just before transfer patient had a macular rash over his extremities ?allergic reaction was given Benadryl 50 mg no shortness of breath no lip or tongue swelling Lab Data Lab results reviewed: Yes I reviewed the patient's lab results. Labs: Lab Results 11/26/20 Range/Units 15:49 POC Glucose 103 (60-115) mg/dL Imaging Data CT scan - abdomen: Radiologist's impression: Patient: Levar RiggsMR#: [id number]: 6Acct:[id number]/Sex: 64 / MADM Date: 11/26/20Loc: [facility]: Ordering Physician: Pete Cai MD Date of Service: 11/26/20 Procedure(s): CT abdomen pelvis wo con Accession Number(s): [id number] cc: Pete Cai MD~ EXAMINATION: CT ABDOMEN AND PELVIS WITHOUT CONTRAST CLINICAL INFORMATION: Fecal impaction COMPARISON: CT scan abdomen pelvis 11/23/2020, 11/18/2020. TECHNIQUE: Multidetector volumetric imaging was performed from the superior aspect of the liver through the pubic symphysis. Sagittal and coronal reformatted images were obtained on the technologist's workstation. This CT examination was performed using dose optimization techniques as appropriate, variously including the following: *Automated exposure control *Adjustment of mA and/or kV according to patient size (this includes techniques or standardized protocols for targeted exams where dose is matched to indication/reason for exam; i.e. extremities or head) *Use of iterative reconstruction technique DLP: 442 mGy-cm FINDINGS: There is breathing motion. There is artifact from imaging with the arms over the lower chest. LUNG BASES: Small hiatal hernia. There is normal aeration of the lung bases. LIVER, GALLBLADDER, AND BILIARY TREE: The liver is normal in size, shape, and attenuation. No focal hepatic lesion or biliary ductal dilatation is present. The gallbladder is unremarkable with no evidence of radiopaque gallstones, gallbladder wall thickening, or obvious pericholecystic inflammatory changes. PANCREAS: Unremarkable. SPLEEN: Unremarkable. ADRENAL GLANDS: Unremarkable. KIDNEYS AND URETERS: Right kidney is atrophic. Right kidney measures 8 cm. Left kidney measures approximately 12 cm. There are no renal calculus or hydronephrosis. There is a cortical cyst at the midpole of the right kidney measuring 2.8 cm. Density measurement 6 Hounsfield units. No follow-up imaging is recommended for simple renal cyst. There is a hyperdense cortical cyst in the midpole the right kidney measuring 1.2 cm. This did not demonstrate enhancement on the CT study of 11/18/2020. Multiple left renal cysts. Seen on the postcontrast study of 11/18/2020. BLADDER: Unremarkable. GASTROINTESTINAL TRACT: There is no acute change of bowel. There is no bowel wall thickening /edema. There is no bowel obstruction. There is a large volume of stool in the colon. Stool present from cecum through pelvis. The appendix is normal . The small bowel loops are unremarkable. Postsurgical changes of stomach. There is small hiatal hernia. Mesentery: There is question of a mesenteric twist on prior CT 11/23/2020 and left upper quadrant without volvulus. The swirled appearance of the mesentery is not present on today's exam. There is no mesenteric twist. There is no edema of the mesentery. No free air or free fluid. ABDOMINAL WALL: No significant hernia is appreciated. Surgical clips present in the lower pelvis bilaterally. No recurrent inguinal hernia. LYMPH NODES: Normal. VASCULAR: Atherosclerotic vascular calcifications of the wall of aorta and iliac arteries. There is no aneurysm. PELVIC VISCERA: Prostate measures 3.9 cm transverse. Stable sharply marginated cyst in the right pelvic sidewall anteriorly measuring 2.5 cm. Density measurement of 9 Hounsfield units, simple fluid. OSSEOUS STRUCTURES: Unremarkable. CT/CT abdomen pelvis wo con IMPRESSION: 1. No acute abnormality of the abdomen or pelvis. This world appearance of the mesentery in the left upper quadrant is not seen on today's study. There is no mesenteric twist. 2. Large volume of stool in the colon but there is no acute change of bowel. 3. Postsurgical changes of stomach. Small hiatal hernia 4. Surgical mesh low anterior abdominal wall without recurrent hernia. Stable small cyst at the right pelvic sidewall anteriorly. 5. Atrophic right kidney. Bilateral renal cysts including a hyperdense cyst in the right kidney stable since prior studies. Dictated By:JEFFERY WALDEN MDSigned By:<Electronically signed by JEFFERY WALDEN MD in [place]> Discharge Plan Discharge Clinical Impression: Constipation Qualifiers: Constipation type: chronic idiopathic constipation Qualified Code(s): K59.04 - Chronic idiopathic constipation Patient Disposition: Xfer [facility] Instructions: Constipation (ED) Additional Instructions: Continue to take p.o. fluids and stool softener as prescribed Prescriptions: New polyethylene glycol 3350 [Miralax] 17 gram/dose powder 17 g PO DAILY Qty: 510 RF: 0 No Action clomipramine 75 mg capsule 150 mg PO BEDTIME RF: 0 famotidine 40 mg tablet 40 mg PO BEDTIME RF: 0 clonazepam 0.5 mg tablet 0.25 mg PO DAILY RF: 0 omeprazole 40 mg capsule,delayed release(DR/EC) 40 mg PO DAILY RF: 0 tamsulosin 0.4 mg capsule 0.4 mg PO BEDTIME RF: 0 pregabalin 150 mg capsule 150 mg PO BID RF: 0 sennosides [senna] 8.6 mg Tablet 17.2 mg PO BEDTIME RF: 0 acetaminophen 325 mg Tablet 650 mg PO Q4H PRN (Reason: Pain) RF: 0 clozapine 100 mg Tablet 100 mg PO BEDTIME RF: 0 clozapine 100 mg Tablet 200 mg PO BEDTIME RF: 0 clonazepam 0.5 mg tablet 0.5 mg PO DAILY@2000 RF: 0 sodium bicarbonate 650 mg Tablet 650 mg PO BID RF: 0 levothyroxine 50 mcg tablet 50 mcg PO DAILY RF: 0 pantoprazole 40 mg Tablet,Delayed Release (Dr/Ec) 40 mg PO BID RF: 0 diphenhydramine HCl [Benadryl] 25 mg Capsule 25 mg PO Q6H PRN (Reason: Itching) RF: 0 docusate sodium 100 mg Capsule 100 mg PO BID RF: 0 metoprolol tartrate 25 mg Tablet 12.5 mg PO DAILY RF: 0 lactulose 10 gram/15 mL (15 mL) Solution 20 g PO DAILY RF: 0 doxycycline hyclate 50 mg capsule 1 cap PO DAILY RF: 0 multivitamin with minerals Tablet 1 tab PO DAILY RF: 0 Interventions: ED Discharge Assessment Last Done: 11/26/20 22:43 Discharge Date/Time: 11/26/20 22:00
[2020-11-26] MEDS: bisacodyL 5 MG TABLET.DR 10 MG PO (16:29)
[2020-11-26 18:00] VITALS: BP 156/84; PULSE 68; RESP 16; TEMP 36.7; O2SAT 99
[2020-11-26] MEDS: polyethylene glycoL 3350 17 GM POWD.PACK PO (18:18)
[2020-11-26 20:00] VITALS: BP 133/92; PULSE 98; RESP 15; TEMP 36.6; O2SAT 95
--- NOTE | 2020-11-26 20:11 | PC.NURSE ---
pt refused to take colace pills, they were then put in apple juice. pt wretching and trying to make himself vomit. attempt at administering sl zofran, pt spits tablet out. pt states I don't want it.
--- NOTE | 2020-11-26 20:35 | PC.NURSE ---
pt has large red area on right upper arm/shoulder. possible reaction to plastic on mattress, pt pulled sheet off bed.
[2020-11-26] MEDS: diphenhydrAMINE HCL 50 MG/ML VIAL IM (20:36)
--- NOTE | 2020-11-26 21:54 | PC.NURSE ---
report given to rn at [facility] in [place]. pt transported to [facility] by [facility]. pt ambulatory prior to getting on ems stretcher, pt back from bathroom and wandering down hallway. pt had to be redirected back to his stretcher.
== END 2020-11-26 22:00 ==
PROVIDERS: Emergency Provider Internal Medicine
DX: K59.04 Chronic idiopathic constipation (principal); E11.9 Type 2 diabetes mellitus without complications; I10 Essential (primary) hypertension; Z87.820 Personal history of traumatic brain injury
CPT/HCPCS: 74176; 82947; 96372; 99284; 99285; J1200

== ENCOUNTER → 2020-12-13 15:42 | Outpatient (BNVA) | payer MEDICARE, MEDICAID, SELFPAY | PROVIDERS: PCP Hospitalist; Visit Provider Nurse Practitioner Family | DX: F50.9 Eating disorder, unspecified (principal); K59.00 Constipation, unspecified; Z79.899 Other long term (current) drug therapy | CPT/HCPCS: 99202 ==

== ENCOUNTER 2021-01-23 07:45 | Inpatient (IN) | payer MEDICARE, MEDICAID, SELFPAY ==
[2021-01-23] VITALS (9 sets, daily range): BP systolic 93–144; BP diastolic 53–77; PULSE 86–96; RESP 13–18; TEMP 36.2–36.4; O2SAT 98–100; BMI 23.8
--- NOTE | ~2021-01-23 | CT_ITS ---
EXAMINATION: CT HEAD WITHOUT CONTRAST CLINICAL INFORMATION: AMS, unresponsive. COMPARISON: None TECHNIQUE: Contiguous axial imaging was performed from the skull base to vertex without intravenous administration of contrast. This CT examination was performed using dose optimization techniques as appropriate, variously including the following: *Automated exposure control *Adjustment of mA and/or kV according to patient size (this includes techniques or standardized protocols for targeted exams where dose is matched to indication/reason for exam; i.e. extremities or head) *Use of iterative reconstruction technique DLP: 838 mGy-cm FINDINGS: There is no evidence of acute intracranial hemorrhage or territorial infarction. No abnormal mass effect or midline shift is seen. [place]ell to white matter differentiation is well preserved. No extra-axial fluid collections are identified. The lateral ventricles are symmetrical in size and configuration with mild enlargement. There is minimal periventricular hypodensity in both cerebral hemispheres without mass effect. The osseous structures and soft tissues are normal. The mastoid air cells and visualized portions of the paranasal sinuses are well aerated. CT/CT head/brain wo con IMPRESSION: No acute intracranial process seen.
--- NOTE | 2021-01-23 07:54 | ECG_ITS ---
Test Reason : GEN MED Blood Pressure : / mmHG Vent. Rate : 094 BPM Atrial Rate : 094 BPM P-R Int : 158 ms QRS Dur : 080 ms QT Int : 370 ms P-R-T Axes : 086 -14 074 degrees QTc Int : 462 ms Normal sinus rhythm Inferior infarct (cited on or before 22-NOV-2020) Nonspecific ST elevation Abnormal ECG When compared with ECG of 22-NOV-2020 14:02, No significant change was found Referred By: Renu Nagel Electronically Signed By:RAND WARD MD
--- NOTE | 2021-01-23 07:58 | ED.GENADULT ---
HPI - General Adult General Chief complaint: General Medical Stated complaint: unresponsive Time Seen by Provider: 01/23/21 07:54 Source: EMS Mode of arrival: EMS Limitations: altered mental status History of Present Illness HPI narrative: Patient is brought to the emergency room by EMS from [facility]. This morning during morning rounds, patient was found unresponsive. Patient is known to have Klonopin and Benadryl together as home medication. Patient is responsive to pain, wakes up, says ?what?. At baseline, patient is nonverbal due to a previous traumatic brain injury. Related Data Home Medications Medication Instructions Recorded Confirmed acetaminophen 325 mg tablet 650 mg PO Q4H PRN 09/23/20 11/23/20 clomipramine 75 mg capsule 150 mg PO BEDTIME 09/23/20 11/23/20 clonazepam 0.5 mg tablet 0.25 mg PO DAILY 09/23/20 11/23/20 clonazepam 0.5 mg tablet 0.5 mg PO DAILY@199909/23/20 11/25/20 clozapine 100 mg tablet 100 mg PO BEDTIME 09/23/20 11/23/20 clozapine 100 mg tablet 200 mg PO BEDTIME 09/23/20 11/23/20 diphenhydramine HCl 25 mg capsule 25 mg PO Q6H PRN 09/23/20 11/23/20 (Benadryl) docusate sodium 100 mg capsule 100 mg PO BID 09/23/20 11/23/20 famotidine 40 mg tablet 40 mg PO BEDTIME 09/23/20 11/23/20 lactulose 10 gram/15 mL (15 mL) 20 g PO DAILY 09/23/20 11/25/20 oral solution levothyroxine 50 mcg tablet 50 mcg PO DAILY 09/23/20 11/23/20 metoprolol tartrate 25 mg tablet 12.5 mg PO DAILY 09/23/20 11/23/20 omeprazole 40 mg capsule,delayed 40 mg PO DAILY 09/23/20 11/23/20 release pantoprazole 40 mg tablet,delayed 40 mg PO BID 09/23/20 11/23/20 release pregabalin 150 mg capsule 150 mg PO BID 09/23/20 11/25/20 sennosides 8.6 mg tablet (senna) 17.2 mg PO BEDTIME 09/23/20 11/23/20 sodium bicarbonate 650 mg tablet 650 mg PO BID 09/23/20 11/23/20 tamsulosin 0.4 mg capsule 0.4 mg PO BEDTIME 09/23/20 11/23/20 doxycycline hyclate 50 mg capsule 1 cap PO DAILY 11/23/20 11/23/20 multivitamin with minerals 1 tab PO DAILY 11/25/20 11/25/20 Previous Rx's Medication Instructions Recorded polyethylene glycol 3350 17 17 g PO DAILY #510 g 11/26/20 gram/dose oral powder (Miralax) magnesium citrate (Citrate of 150 ml PO DAILY PRN #296 ml 12/13/20 Magnesia) Allergies Allergy/AdvReac Type Severity Reaction Status Date / Time fish oil [FISH OIL] Allergy Unknown UNK Verified 12/13/20 16:00 Iodinated Contrast Media Allergy Unknown UNK Verified 12/13/20 16:00 [IODINATED CONTRAST- ORAL AND IV DYE] iodine [IODINE] Allergy Unknown UNK Verified 12/13/20 16:00 pollen Allergy Unknown Unknown Uncoded 09/24/20 09:51 SEAFOOD Allergy Unknown UNK Uncoded 02/29/20 19:27 shellfish Allergy Unknown Unknown Uncoded 09/24/20 09:51 Review of Systems Review of Systems: Yes Unobtainable due to mental condition [facility] Past Medical History Medical History (Updated 01/23/21 @ 11:20 by Mert Bach MD) BPH (benign prostatic hyperplasia) Diabetes Dysphagia GERD (gastroesophageal reflux disease) HTN (hypertension) Hypothyroidism Personality disorder Presbyopia Schizoaffective disorder TBI (traumatic brain injury) Social History Social History Household Members: None Household Members Other:: SNF Housing: Care Home Unable to assess alcohol history related to: Unknown Alcohol intake: unknown Patient Tobacco Use Status: Tobacco use Unknown Advance Directives: No Advance Directives Information Provided: No service: No Current occupational status: disabled Physical Exam Vital Signs: Vital Signs: Last Vital Signs Temp 97.5 F 01/23/21 07:53 Pulse 86 01/23/21 10:38 Resp 18 01/23/21 10:38 BP 112/61 01/23/21 10:38 Pulse Ox 98 01/23/21 10:38 Body Mass Index 23.8 Const: Other: Appearance: Somnolent, needs stone rub to wake up Eyes: 2 mm pinpoint pupils, Pupils equal, round and reactive to light. ENT: Pharynx normal. Neck: Normal inspection. Neck supple. No lymph nodes noted. No crepitus CVS: Normal heart rate and rhythm. Pulses normal. Normal S1 and S2 Respiratory: No respiratory distress. Breath sounds normal. No Wheezing. No rales Abdomen: Soft and nontender. No rigidity. No distention. good BS x4 Skin: Skin cool to touch and dry. Normal skin color. Normal skin turgor. Extremities: No lower extremity edema. No lower extremity edema. No Lacerations. No Rash Neuro: Very somnolent, need sternal rub to , seems to be moving all extremities Course Course Course Narrative: EKG x2 was read by the EKG machine as acute STEMI. I do not agree with his findings. There are nonspecific ST segment elevations but this is not a STEMI. I discussed the EKG findings with Dr. Pinon, who agrees that this is not a STEMI For patient's records, he is a full code. Patient has occult stool test was positive. Patient being admitted for GI bleed. Patient's hemoglobin dropped from 12 to 8.2 Unclear why patient is somnolent, head CT within normal limits, urinalysis negative, U tox negative, not even benzodiazepines appear in the urine. Medical Decision Making Lab Data Result diagrams: 01/23/21 08:30 01/23/21 08:30 Labs: Lab Results 01/23/21 01/23/21 01/23/21 Range/Units 08:29 08:30 08:30 WBC 7.5 (4.8-10.8) X10*3/uL RBC 3.49 L D (4.60-5.80) X10*6/uL Hgb 8.2 L D (14.0-18.0) g/dl Hct 26.8 L D (42-52) % MCV 76.8 L (80-98) fL MCH 23.5 L (27.0-33.0) pg MCHC 30.6 L (31.0-36.0) g/dl RDW 16.7 H (11.0-16.0) % Plt Count 259 D (160-400) X10*3/uL MPV Not Reportable Immature Gran % (Auto) 0.4 (0.0-0.4) % Neut % (Auto) 73.9 H (45-73) % Lymph % (Auto) 17.5 L (20-40) % [place] % (Auto) 7.4 (2-11) % Eos % (Auto) 0.1 (0-4) % Baso % (Auto) 0.7 (0-2) % Lymph # (Auto) 1.3 (1.2-4.9) X10*3/uL [place] # (Auto) 0.6 (0.1-1.2) X10*3/uL Eos # (Auto) 0.0 (0.0-0.4) X10*3/uL Baso # (Auto) 0.1 (0.0-0.2) X10*3/uL Abs Immat Gran (auto) 0.03 (0.00-0.03) X10*3/uL Absolute Neuts (auto) 5.5 (2.0-8.3) X10*3/uL Absolute Nucleated RBC 0.000 (0.0-0.012) X10*3/uL Nucleated RBC % (auto) 0.0 (0.0-0.2) /100WBC Smear Tech's Comments VERIFIED PT 11.8 (9.9-13.0) SEC INR 1.0 (0.9-1.1) Sodium (135-145) mmol/L Potassium (3.3-5.1) mmol/L Chloride (96-108) mmol/L Carbon Dioxide (22-29) mmol/L Anion Gap (12-20) BUN (9-16) mg/dL Creatinine (0.5-1.4) mg/dL Estim Creat Clear Calc Estimated GFR Random Glucose (60-115) mg/dL Lactic Acid 1.9 (0.5-2.0) mmol/L Calcium (8.4-10.2) mg/dL Magnesium (1.6-2.6) mg/dL Total Bilirubin (0.0-1.0) mg/dL Direct Bilirubin (0.0-0.5) mg/dL AST (5-37) U/L ALT (0-40) U/L Alkaline Phosphatase (39-117) U/L Troponin I High Sens (<3.5-35.0) ng/L Total Protein (6.5-8.0) g/dL Albumin (3.5-5.0) g/dL TSH (0.32-4.0) uIU/mL Urine Color Urine Appearance Urine pH (5.0-8.0) Ur Specific Campbell (1.005-1.025) Urine Protein (NEG-TRACE) MG/DL Urine Glucose (UA) (NEG) MG/DL Urine Ketones (NEG) MG/DL Urine Blood (NEG) Urine Nitrite (NEG) Ur Leukocyte Esterase (NEG) Stool Occult Blood (NEGATIVE) Urine Opiates Screen (Not Detect) Urine Fentanyl Screen (Not Detect) Ur Barbiturates Screen (Not Detect) Ur Phencyclidine Scrn (Not Detect) Ur Amphetamines Screen (Not Detect) U Benzodiazepines Scrn (Not Detect) Urine Cocaine Screen (Not Detect) U Marijuana (THC) Screen (Not Detect) 01/23/21 01/23/21 01/23/21 Range/Units 08:30 08:30 08:36 WBC (4.8-10.8) X10*3/uL RBC (4.60-5.80) X10*6/uL Hgb (14.0-18.0) g/dl Hct (42-52) % MCV (80-98) fL MCH (27.0-33.0) pg MCHC (31.0-36.0) g/dl RDW (11.0-16.0) % Plt Count (160-400) X10*3/uL MPV Immature Gran % (Auto) (0.0-0.4) % Neut % (Auto) (45-73) % Lymph % (Auto) (20-40) % [place] % (Auto) (2-11) % Eos % (Auto) (0-4) % Baso % (Auto) (0-2) % Lymph # (Auto) (1.2-4.9) X10*3/uL [place] # (Auto) (0.1-1.2) X10*3/uL Eos # (Auto) (0.0-0.4) X10*3/uL Baso # (Auto) (0.0-0.2) X10*3/uL Abs Immat Gran (auto) (0.00-0.03) X10*3/uL Absolute Neuts (auto) (2.0-8.3) X10*3/uL Absolute Nucleated RBC (0.0-0.012) X10*3/uL Nucleated RBC % (auto) (0.0-0.2) /100WBC Smear Tech's Comments PT (9.9-13.0) SEC INR (0.9-1.1) Sodium 140 (135-145) mmol/L Potassium 4.4 (3.3-5.1) mmol/L Chloride 108 (96-108) mmol/L Carbon Dioxide 23 (22-29) mmol/L Anion Gap 13 (12-20) BUN 20 H (9-16) mg/dL Creatinine 1.09 (0.5-1.4) mg/dL Estim Creat Clear Calc 69.7 Estimated GFR > 60 Random Glucose 95 (60-115) mg/dL Lactic Acid (0.5-2.0) mmol/L Calcium 8.8 (8.4-10.2) mg/dL Magnesium 2.1 (1.6-2.6) mg/dL Total Bilirubin 0.3 (0.0-1.0) mg/dL Direct Bilirubin < 0.2 (0.0-0.5) mg/dL AST 12 (5-37) U/L ALT 10 (0-40) U/L Alkaline Phosphatase 112 (39-117) U/L Troponin I High Sens 3.9 (<3.5-35.0) ng/L Total Protein 5.7 L D (6.5-8.0) g/dL Albumin 3.4 L D (3.5-5.0) g/dL TSH 2.68 (0.32-4.0) uIU/mL Urine Color Urine Appearance Urine pH (5.0-8.0) Ur Specific Campbell (1.005-1.025) Urine Protein (NEG-TRACE) MG/DL Urine Glucose (UA) (NEG) MG/DL Urine Ketones (NEG) MG/DL Urine Blood (NEG) Urine Nitrite (NEG) Ur Leukocyte Esterase (NEG) Stool Occult Blood (NEGATIVE) Urine Opiates Screen Not Detected (Not Detect) Urine Fentanyl Screen Not Detected (Not Detect) Ur Barbiturates Screen Not Detected (Not Detect) Ur Phencyclidine Scrn Not Detected (Not Detect) Ur Amphetamines Screen Not Detected (Not Detect) U Benzodiazepines Scrn Not Detected (Not Detect) Urine Cocaine Screen Not Detected (Not Detect) U Marijuana (THC) Screen Not Detected (Not Detect) 01/23/21 01/23/21 Range/Units 08:36 10:00 WBC (4.8-10.8) X10*3/uL RBC (4.60-5.80) X10*6/uL Hgb (14.0-18.0) g/dl Hct (42-52) % MCV (80-98) fL MCH (27.0-33.0) pg MCHC (31.0-36.0) g/dl RDW (11.0-16.0) % Plt Count (160-400) X10*3/uL MPV Immature Gran % (Auto) (0.0-0.4) % Neut % (Auto) (45-73) % Lymph % (Auto) (20-40) % [place] % (Auto) (2-11) % Eos % (Auto) (0-4) % Baso % (Auto) (0-2) % Lymph # (Auto) (1.2-4.9) X10*3/uL [place] # (Auto) (0.1-1.2) X10*3/uL Eos # (Auto) (0.0-0.4) X10*3/uL Baso # (Auto) (0.0-0.2) X10*3/uL Abs Immat Gran (auto) (0.00-0.03) X10*3/uL Absolute Neuts (auto) (2.0-8.3) X10*3/uL Absolute Nucleated RBC (0.0-0.012) X10*3/uL Nucleated RBC % (auto) (0.0-0.2) /100WBC Smear Tech's Comments PT (9.9-13.0) SEC INR (0.9-1.1) Sodium (135-145) mmol/L Potassium (3.3-5.1) mmol/L Chloride (96-108) mmol/L Carbon Dioxide (22-29) mmol/L Anion Gap (12-20) BUN (9-16) mg/dL Creatinine (0.5-1.4) mg/dL Estim Creat Clear Calc Estimated GFR Random Glucose (60-115) mg/dL Lactic Acid (0.5-2.0) mmol/L Calcium (8.4-10.2) mg/dL Magnesium (1.6-2.6) mg/dL Total Bilirubin (0.0-1.0) mg/dL Direct Bilirubin (0.0-0.5) mg/dL AST (5-37) U/L ALT (0-40) U/L Alkaline Phosphatase (39-117) U/L Troponin I High Sens (<3.5-35.0) ng/L Total Protein (6.5-8.0) g/dL Albumin (3.5-5.0) g/dL TSH (0.32-4.0) uIU/mL Urine Color YELLOW Urine Appearance CLEAR Urine pH 6.0 (5.0-8.0) Ur Specific Campbell 1.020 (1.005-1.025) Urine Protein NEG (NEG-TRACE) MG/DL Urine Glucose (UA) NEG (NEG) MG/DL Urine Ketones 5 (NEG) MG/DL Urine Blood NEG (NEG) Urine Nitrite NEG (NEG) Ur Leukocyte Esterase NEG (NEG) Stool Occult Blood POSITIVE (NEGATIVE) Urine Opiates Screen (Not Detect) Urine Fentanyl Screen (Not Detect) Ur Barbiturates Screen (Not Detect) Ur Phencyclidine Scrn (Not Detect) Ur Amphetamines Screen (Not Detect) U Benzodiazepines Scrn (Not Detect) Urine Cocaine Screen (Not Detect) U Marijuana (THC) Screen (Not Detect) Imaging Data CT scan - head: Radiologist's impression: There is no evidence of acute intracranial hemorrhage or territorial infarction. No abnormal mass effect or midline shift is seen. Newell to white matter differentiation is well preserved. No extra-axial fluid collections are identified. The lateral ventricles are symmetrical in size and configuration with mild enlargement. There is minimal periventricular hypodensity in both cerebral hemispheres without mass effect. The osseous structures and soft tissues are normal. The mastoid air cells and visualized portions of the paranasal sinuses are well aerated. ? CT/CT head/brain wo con IMPRESSION: No acute intracranial process seen. ECG Data Attestation: I personally reviewed and interpreted this ECG as follows: (Normal sinus rhythm, heart rate 94, nonspecific ST segment elevations in lead 2, 3, AVF, V2, V3, V4, V5 and V6.) Critical Care Time Critical Care Time Critical Care Time: Yes Total Critical Care Time: 50 Attestation: 50 minutes were spent in direct patient care and stabilizing the patient. Discharge Plan Discharge Clinical Impression: GI bleed, Encephalopathy, Anemia Patient Disposition: Admitted As Inpatient
[2021-01-23] MEDS: 0.9 % Sodium Chloride 1,000 ML 999 ML IVCONT (08:02)
[2021-01-23 08:54] LABS: Glucose Urine UA NEG (NEG); Leukocyte Esterase Urine NEG (NEG); Nitrite Urine NEG (NEG); Urine Blood NEG (NEG); Urine Ketones 5 MG/DL (NEG); Urine Protein NEG (NEG-TRACE)
[2021-01-23 08:54] LABS: Basophils Absolute Auto 0.1 X10*3/uL (0.0-0.2); Basophils Percent Auto 0.7 % (0-2); Eosinophils Percent Auto 0.1 % (0-4); Hematocrit 26.8 % (42-52); Hemoglobin 8.2 g/dl (14.0-18.0); Imm Gran Abs Auto 0.03 X10*3/uL (0.00-0.03); Imm Gran Pct Auto 0.4 % (0.0-0.4); Lymphocytes Absolute Auto 1.3 X10*3/uL (1.2-4.9); Lymphocytes Percent Auto 17.5 % (20-40); MANUAL DIFF FLAG SCAN; Mean Corpuscular HGB Conc 30.6 g/dl (31.0-36.0); Mean Corpuscular Hemoglobin 23.5 pg (27.0-33.0); Mean Corpuscular Volume 76.8 fL (80-98); Monocytes Absolute Auto 0.6 X10*3/uL (0.1-1.2); Monocytes Percent Auto 7.4 % (2-11); Neutrophils Absolute Auto 5.5 X10*3/uL (2.0-8.3); Neutrophils Percent Auto 73.9 % (45-73); PLT CLUMP 1; Red Blood Count 3.49 X10*6/uL (4.60-5.80); Red Cell Distribution Width 16.7 % (11.0-16.0); SCAN SMEAR FLAG 1; White Blood Count 7.5 X10*3/uL (4.8-10.8)
[2021-01-23 08:56] LABS: Appearance Urine CLEAR; Color Urine YELLOW
--- NOTE | 2021-01-23 09:06 | ECG_ITS ---
Test Reason : GEN MED Blood Pressure : / mmHG Vent. Rate : 093 BPM Atrial Rate : 093 BPM P-R Int : 160 ms QRS Dur : 080 ms QT Int : 376 ms P-R-T Axes : 084 -11 076 degrees QTc Int : 467 ms Normal sinus rhythm Mild ST elevation that is non-specific Abnormal ECG When compared with ECG of 23-JAN-2021 08:23, No significant change was found Referred By: Renu Nagel Electronically Signed By:ANT MARTIN
[2021-01-23 09:10] LABS: Platelet Count 259 X10*3/uL (160-400); Prothrombin Time 11.8 SEC (9.9-13.0)
[2021-01-23 09:11] LABS: SLIDE REVIEW VERIFIED
[2021-01-23 09:12] LABS: Lactic Acid 1.9 mmol/L (0.5-2.0)
[2021-01-23 09:16] LABS: Amphetamine Screen Urine Not Detected (Not Detect); Barbiturates, Urine Not Detected (Not Detect); Benzodiazepines Screen Urine Not Detected (Not Detect); Cannabinoid Screen Urine Not Detected (Not Detect); Cocaine Screen Urine Not Detected (Not Detect); Fentanyl, urine Not Detected (Not Detect); Opiate Screen Urine Not Detected (Not Detect); Phencyclidine Screen Urine Not Detected (Not Detect)
[2021-01-23 09:20] LABS: Alanine Aminotransferase 10 U/L (0-40); Albumin Level 3.4 g/dL (3.5-5.0); Alkaline Phosphatase 112 U/L (39-117); Anion Gap 13 (12-20); Aspartate Amino Transferase 12 U/L (5-37); Blood Urea Nitrogen 20 mg/dL (9-16); Calcium 8.8 mg/dL (8.4-10.2); Carbon Dioxide 23 mmol/L (22-29); Chloride 108 mmol/L (96-108); Creatinine Clr Calc Pharmacy 69.7; Estimated Glomerular Filt Rate > 60; Glucose Random 95 mg/dL (60-115); Magnesium 2.1 mg/dL (1.6-2.6); Potassium 4.4 mmol/L (3.3-5.1); Sodium 140 mmol/L (135-145); Total Protein 5.7 g/dL (6.5-8.0)
[2021-01-23 09:32] LABS: Bilirubin Direct < 0.2 mg/dL (0.0-0.5); Bilirubin Total 0.3 mg/dL (0.0-1.0)
[2021-01-23 09:40] LABS: TSH reflex Free T4 2.68 uIU/mL (0.32-4.0)
[2021-01-23 09:53] LABS: Troponin-I High Sensitivity 3.9 ng/L (<3.5-35.0)
[2021-01-23 10:08] LABS: OBS Int Ctl Valid YES; OBS1 POSITIVE (NEGATIVE)
--- NOTE | 2021-01-23 11:00 | PM.IMHP ---
History of Present Illness Date of Service: 01/23/21 Chief Complaint: Uresponsiveness 65 year male from [facility] with Past history as listed brought to ED because of unresponsiveness. He has history of TBI and at baseline is non verbal. He reported ly this morning was very somnolent witl normal vitals and no respiratory distress. Review of his meds shows that he takes Klonopin, Lyrica, Clozapin and Benadryl, although Utox is negative for benzo. Additional his hemoglobin is 8.2 compare to a baseline of 12 and has positive occult blood but no active bleed. Further work up with CT head is negative. I have requested ABG, and ammonia level. He is protecting his airway. Review of Systems Review of Systems: Yes Unobtainable due to mental status [facility] Medical History BPH (benign prostatic hyperplasia) Diabetes Dysphagia GERD (gastroesophageal reflux disease) HTN (hypertension) Hypothyroidism Personality disorder Presbyopia Schizoaffective disorder TBI (traumatic brain injury) Social History Household Members: Other Household Members Other:: from [facility] Housing: Long-Term Housing Other:: [facility] Do you presently have visiting nurse or other home services: Yes (from [facility]) Unable to assess alcohol history related to: Unable to respond, Unknown and Refusing to respond Alcohol intake: unknown Patient Tobacco Use Status: Tobacco use Unknown Use of substances other than those prescribed or required for medical reasons: Refusing to respond Substance Use Type: Unknown Last Used Substance: Unknown Currently Displaying Signs/Symptoms of Drug Intoxication Withdrawal: No Spiritual Healthcare Practices: unable to respond [facility] Practices: unable to respond Cultural Healthcare Practices: unable to respond Advance Directives: No Advance Directives Information Provided: No Do you have thoughts of harming others: None Do you have a plan to hurt others: No Plan Recently lost weight without trying: Unsure Nutrition Risks: On aspiration precautions and Poor intake 0-25% >4 days Poor oral hygiene: Yes service: No Current occupational status: disabled Meds Allergies Allergy/AdvReac Type Severity Reaction Status Date / Time fish oil [FISH OIL] Allergy Unknown UNK Verified 12/13/20 16:00 Iodinated Contrast Media Allergy Unknown UNK Verified 12/13/20 16:00 [IODINATED CONTRAST- ORAL AND IV DYE] iodine [IODINE] Allergy Unknown UNK Verified 12/13/20 16:00 pollen Allergy Unknown Unknown Uncoded 09/24/20 09:51 SEAFOOD Allergy Unknown UNK Uncoded 02/29/20 19:27 shellfish Allergy Unknown Unknown Uncoded 09/24/20 09:51 Home Medications Medication Instructions Recorded Confirmed Last Taken Type acetaminophen 325 mg tablet 650 mg PO Q6H PRN 09/23/20 01/23/21 09/23/20 History diphenhydramine HCl 25 mg capsule 25 mg PO Q6H PRN 09/23/20 01/23/21 Unknown History (Benadryl) docusate sodium 100 mg capsule 100 mg PO BID 09/23/20 01/23/21 09/23/20 History lactulose 10 gram/15 mL (15 mL) 20 g PO DAILY 09/23/20 01/23/21 09/23/20 History oral solution levothyroxine 50 mcg tablet 50 mcg PO DAILY 09/23/20 01/23/21 09/23/20 History metoprolol tartrate 25 mg tablet 12.5 mg PO DAILY 09/23/20 01/23/21 09/23/20 History pantoprazole 40 mg tablet,delayed 40 mg PO BID 09/23/20 01/23/21 09/23/20 History release sennosides 8.6 mg tablet (senna) 17.2 mg PO BEDTIME 09/23/20 01/23/21 09/22/20 History sodium bicarbonate 650 mg tablet 650 mg PO DAILY 09/23/20 01/23/21 09/23/20 History tamsulosin 0.4 mg capsule 0.4 mg PO DAILY 09/23/20 01/23/21 09/22/20 History multivitamin with minerals 1 tab PO DAILY 11/25/20 01/23/21 Unknown History metronidazole 1 % topical cream 1 appl TOPICAL BEDTIME 01/23/21 01/23/21 Unknown History sennosides 8.6 mg tablet (senna) 8.6 mg PO DAILY PRN 01/23/21 01/23/21 Unknown History Physical Exam Vital Signs and Narrative: Vital Signs: Last Vital Signs Temp 97.5 F 01/23/21 07:53 Pulse 86 01/23/21 10:38 Resp 18 01/23/21 10:38 BP 112/61 01/23/21 10:38 Pulse Ox 98 01/23/21 10:38 Body Mass Index 23.8 Const: Other: Constitutional somonlent, difficult to arouse HEENT-pupils 3 mm and react Neck Supple, No lymphadenopathy Cardiovascular RRR, No M/R/G, S1 S2, No S3 S4, No pedal edema Respiratory Lungs clear, No respiratory distress Gastrointestinal Non tender, Non-distended Skin No rash Neurological Unresponsive, moving limbs spontaneously Psychological--Unresponsive Results Labs CBC and Chem 7: 01/25/21 05:26 01/25/21 05:26 Labs: Laboratory Results - last 24 hr 01/23/21 01/23/21 01/23/21 08:29 08:30 08:30 Hgb 8.2 L D MCV 76.8 L MCH 23.5 L MCHC 30.6 L RDW 16.7 H Plt Count 259 D MPV Not Reportable Immature Gran % (Auto) 0.4 Neut % (Auto) 73.9 H Lymph % (Auto) 17.5 L Power % (Auto) 7.4 Eos % (Auto) 0.1 Baso % (Auto) 0.7 Lymph # (Auto) 1.3 Power # (Auto) 0.6 Eos # (Auto) 0.0 Baso # (Auto) 0.1 Abs Immat Gran (auto) 0.03 Absolute Neuts (auto) 5.5 Absolute Nucleated RBC 0.000 Nucleated RBC % (auto) 0.0 Smear Tech's Comments VERIFIED PT 11.8 INR 1.0 Anion Gap Estim Creat Clear Calc Estimated GFR Random Glucose Lactic Acid 1.9 Calcium Magnesium Total Bilirubin Direct Bilirubin AST ALT Alkaline Phosphatase Troponin I High Sens Total Protein Albumin TSH Urine Color Urine Appearance Urine pH Ur Specific [place] Urine Protein Urine Glucose (UA) Urine Ketones Urine Blood Urine Nitrite Ur Leukocyte Esterase Stool Occult Blood Urine Opiates Screen Urine Fentanyl Screen Ur Barbiturates Screen Ur Phencyclidine Scrn Ur Amphetamines Screen U Benzodiazepines Scrn Urine Cocaine Screen U Marijuana (THC) Screen 01/23/21 01/23/21 01/23/21 08:30 08:30 08:36 Hgb MCV MCH MCHC RDW Plt Count MPV Immature Gran % (Auto) Neut % (Auto) Lymph % (Auto) Power % (Auto) Eos % (Auto) Baso % (Auto) Lymph # (Auto) Power # (Auto) Eos # (Auto) Baso # (Auto) Abs Immat Gran (auto) Absolute Neuts (auto) Absolute Nucleated RBC Nucleated RBC % (auto) Smear Tech's Comments PT INR Anion Gap 13 Estim Creat Clear Calc 69.7 Estimated GFR > 60 Random Glucose 95 Lactic Acid Calcium 8.8 Magnesium 2.1 Total Bilirubin 0.3 Direct Bilirubin < 0.2 AST 12 ALT 10 Alkaline Phosphatase 112 Troponin I High Sens 3.9 Total Protein 5.7 L D Albumin 3.4 L D TSH 2.68 Urine Color Urine Appearance Urine pH Ur Specific [place] Urine Protein Urine Glucose (UA) Urine Ketones Urine Blood Urine Nitrite Ur Leukocyte Esterase Stool Occult Blood Urine Opiates Screen Not Detected Urine Fentanyl Screen Not Detected Ur Barbiturates Screen Not Detected Ur Phencyclidine Scrn Not Detected Ur Amphetamines Screen Not Detected U Benzodiazepines Scrn Not Detected Urine Cocaine Screen Not Detected U Marijuana (THC) Screen Not Detected 01/23/21 01/23/21 08:36 10:00 Hgb MCV MCH MCHC RDW Plt Count MPV Immature Gran % (Auto) Neut % (Auto) Lymph % (Auto) Power % (Auto) Eos % (Auto) Baso % (Auto) Lymph # (Auto) Power # (Auto) Eos # (Auto) Baso # (Auto) Abs Immat Gran (auto) Absolute Neuts (auto) Absolute Nucleated RBC Nucleated RBC % (auto) Smear Tech's Comments PT INR Anion Gap Estim Creat Clear Calc Estimated GFR Random Glucose Lactic Acid Calcium Magnesium Total Bilirubin Direct Bilirubin AST ALT Alkaline Phosphatase Troponin I High Sens Total Protein Albumin TSH Urine Color YELLOW Urine Appearance CLEAR Urine pH 6.0 Ur Specific [place] 1.020 Urine Protein NEG Urine Glucose (UA) NEG Urine Ketones 5 Urine Blood NEG Urine Nitrite NEG Ur Leukocyte Esterase NEG Stool Occult Blood POSITIVE Urine Opiates Screen Urine Fentanyl Screen Ur Barbiturates Screen Ur Phencyclidine Scrn Ur Amphetamines Screen U Benzodiazepines Scrn Urine Cocaine Screen U Marijuana (THC) Screen Imaging Radiologist's Impressions: Impressions Head CT 01/23/21 07:54 IMPRESSION: No acute intracranial process seen. Assessment and Plan (1) GI bleed: (2) Encephalopathy: (3) Anemia: 65 year old male baseline non verbal and now unresponsive, and has acute drop in hemoglobin and has positive occult blood. 1/Encephalopathy/Unresponsiveness.. He is protecting his airway, metablic profile is unremarkable. I will check Ammonia level, and get blood gas. Should avoid all meds for especially Benzo, Psychotropicss and Narcs, consider doing EEG to rule out seizure. and if not improving Neurology consult 2/ Acute blood loss anemia--GIB, upper vs lower. IV PPI, GI consut, no heparin, no NSAID 3/ For all chronic medical issues (HTH, Hypothyroidism, Psych issues) hold meds. compression device for DVT prophylaxis Quality Stroke Does the patient have a stroke diagnosis?: No VTE Prior VTE?: No VTE Risk Level:: Medical - moderate - high VTE Device Contraindication: N/A - Device Ordered VTE Drug Contraindication: N/A - Med Ordered
--- NOTE | 2021-01-23 12:09 | PC.RT ---
abg order not put in properly dr notified and still not changed
[2021-01-23] MEDS: Pantoprazole Sodium 40 MG/10 ML VIAL IVPUSH (12:15)
[2021-01-23] MEDS: Dextrose 5 % and 0.45 % NaCl 1,000 ML 100 ML IVCONT (12:20)
[2021-01-23 13:21] LABS: Venous Blood Gas Refer to POC result
[2021-01-23 13:23] LABS: VBG Base Excess 4.2 mmol/L; VBG HCO3 29 mmol/L (22-26); VBG pCO2 45 mmHg; VBG pH 7.41 (7.32-7.43); VBG pO2 52 mmHg
[2021-01-23 13:32] LABS: Ammonia 18 umol/L (13-55)
[2021-01-23 14:32] LABS: COVID-19 Test Negative (Negative)
--- NOTE | 2021-01-23 18:58 | CONS_ITS ---
DATE OF SERVICE: 01/23/2021 REFERRING PHYSICIAN: Mert Bach MD REASON FOR CONSULTATION: Hemoccult-positive stools and anemia. HISTORY OF PRESENT ILLNESS: The patient is a 65-year-old man with traumatic brain injury and schizoaffective disorder, who was admitted from the detention because of unresponsiveness. This patient provides no history and the history is obtained from the chart. He has reportedly had a history of a TBI and is nonverbal at baseline. He was evaluated because of his unresponsiveness in the emergency room. Lab work showed a hemoglobin of 8.2, down from 11.6 in December of 2020, and stool occult blood was positive. There was no reported melena or hematochezia. There are no records indicating the patient has undergone previous colonoscopy. [facility] records reviewed, show that he did have an upper endoscopy in 2017 for coffee-grounds emesis, which showed a hiatal hernia. He is reportedly on omeprazole and famotidine as an outpatient, presumably for gastroesophageal reflux disease. PAST MEDICAL HISTORY: 1. BPH. 2. Diabetes. 3. Dysphagia. 4. Gastroesophageal reflux disease. 5. Hypertension. 6. Hypothyroidism. 7. Personality disorder. 8. Schizoaffective disorder. 9. TBI. CURRENT MEDICATIONS: His current medication list is reviewed in the chart. ALLERGIES: MULTIPLE ALLERGIES ARE REVIEWED. FAMILY HISTORY: This is reviewed with the electronic record and is noncontributory. SOCIAL HISTORY: He resides at the detention and is not reported to smoke or abuse alcohol. REVIEW OF SYSTEMS: Not obtainable. PHYSICAL EXAMINATION: GENERAL: Shows a somnolent male, who provides no history. VITAL SIGNS: Stable. SKIN: Anicteric. HEENT: Shows no scleral icterus. NECK: Without lymphadenopathy or thyromegaly. LUNGS: Clear. HEART: Shows a regular rate and rhythm. S1, S2. No murmur. ABDOMEN: Soft without focal masses or tenderness. Bowel sounds are present. No organomegaly is noted. EXTREMITIES: Without edema. LABORATORY DATA: Laboratory studies are reviewed. IMPRESSION: Anemia with Hemoccult-positive stools. At this time, there appears to be no signs of GI bleeding. There is no known history of him undergoing previous colonoscopy. This could be arranged electively after his change in mental status is evaluated and he returns to baseline. If the patient and his family wish to pursue further evaluation, he would have to take a bowel prep for this and there was clearly no way that he would be able to do this right at this time. Thanks for asking me to see him. I will follow him in the hospital with you. MD CE Aviles/JAY / [phone]
[2021-01-24] VITALS: BP 128/73
[2021-01-24] MEDS: Dextrose 5 % and 0.45 % NaCl 1,000 ML 100 ML IVCONT ×2 (00:19→10:15)
[2021-01-24] MEDS: 0.9 % Sodium Chloride Flush 3 ML SYRINGE IVFLUSH ×2 (00:22→10:15)
[2021-01-24] MEDS: Pantoprazole Sodium 40 MG/10 ML VIAL IVPUSH (06:39)
[2021-01-24 06:58] VITALS: BP 136/73; PULSE 82; RESP 18; TEMP 36.1; O2SAT 96
--- NOTE | 2021-01-24 07:44 | P.CDIC_ITS ---
CDI Concurrent Query Service Date: 02/22/21 Documentation Clarification: Please clarify if you are treating a proba ble/suspected/likely or confirmed: Based on the above, please further specify, in the Progress Notes, the known or suspected type of the documented encephalopathy: - Metabolic - Septic - Toxic - Toxic metabolic - Hypertensive - Anoxic - Alcoholic - Hepatic (reported as hepatic failure and needs further specificity as to acute, subacute, or chronic) - Due to a specified condition (such as UTI, hyponatremia, CVA, etc.) - Other (please specify): - Unable to determine Use of terms such as suspected, likely, concern for, or probable (associated with a specific diagnosis that is being evaluated, monitored, or treated as if it exists) are acceptable and can be coded in the inpatient setting, when documented at the time of discharge. Provider Response: Other Other Diagnosis: Encephalopathy--unable to determine type PLEASE DO NOT DELETE/MODIFY EXISTING CONTENT Additional information is needed in order to code to the highest accuracy and appropriate Severity of Illness (SOI). Please clarify the information noted below in your progress notes and discharge summary. Risk Factors/Clinical Indicators/Treatments Per MD notes: unresponsive, AMS Baseline nonverbal due to TBI somnolent, unclear why ED Impression: Encephalopathy CDS: Melissa Guzmán RN Contact Number: [phone] Please Review the information above and exercise your independent professional judgment in responding to the query. If you concur, pleas document in the PROGRESS NOTES and DISCHARGE SUMMARY. If you do not agree with the query, please document in the query above. THIS QUERY IS PART OF THE PERMANENT MEDICAL RECORD
[2021-01-24 08:57] LABS: OBS Int Ctl Valid YES; OBS1 NEGATIVE (NEGATIVE)
[2021-01-24 10:05] LABS: Hematocrit 26.8 % (42-52); Hemoglobin 8.2 g/dl (14.0-18.0)
[2021-01-24 10:55] VITALS: BP 152/90; PULSE 95; RESP 18; TEMP 36.1; O2SAT 100
--- NOTE | 2021-01-24 12:00 | MHC.SL.SWA ---
Speech Pathologist Impression: Risk of Aspiration Oralpharyngeal Dysphagia Risk of Aspiration Due to: Neurological Condition Dysphasia Diet Status: Upgrade Liquid Consistency and Strategies for Safe Swallow: Liquid Intake Recommendation: [place] Thick Liquid Intake Strategies: Small Sips No Straws Solid Food Consistency: Dietary Recommendations: Chopped/Advanced (NDD3) Additional Modifications to Solid Foods: Recommend maintain NECTAR thick liquids due to coughing on thin liquid. Recommend CHOPPED/ADVANCED (NDD3) solids and pills WHOLE or CRUSHED in PUREE. Recommend supervision and aspiration precautions. Oral Medication Intake: Whole with Puree Compensatory Strategies and Precautions to be Taken for Safe Swallow: Sitting Upright (90 deg) No Straw Small Bites and Sips Alternate Liquids/Solids Rate of Ingestion Change Oral Check Avoid Specific Foods Supervision While Eating and Drinking for Safe Swallow: Total Supervision (1:1) Foods to Avoid: Avoid tough/sticky foods. Swallowing Recommended Treatments: Compens. Strategy Educat. Recommendation for Speech: Inpatient Speech Therapy Comment: [facility] will continue to follow. Trombone Slide Assembler Clinican/Clinical Fellow: No Supervisory Statement: I have reviewed and agree with the student/clinical fellow's documentation: N/A Speech Language Pathologist: Molly Lisa M.A., CCC-PARAMEDIC
[2021-01-24 12:03] LABS: Immature Retic Fraction 11.4 % (2.3-13.4); Retic HGB Equivalent 22.1 pg (30.0-35.0); Reticulocyte Percent 1.6 % (0.5-1.8); Reticulocytes Absolute 0.056 X10*6/uL (0.026-0.095)
--- NOTE | 2021-01-24 12:30 | PM.NEUROCN ---
History of Present Illness Data of Consult Service Date: 01/24/21 Primary Care Provider: Swapnil Vazquez DO HPI Reason for consult: alteredMental status This is a 65-year-old residential resident with a history of DBI who is an unreliable historian apparently became less responsive in the nursing facility and was brought in and now appears to be back to his baseline. Talks very rapidly not making much sense does not want to be disturbed. Hhe cannot give any reliable information. He denies any headache or dizziness. Review of Systems Review of Systems: Yes Unobtainable due to mental condition and Unobtainable due to mental status Neurologic: Comments: Alert, partially oriented. Poorly cooperattive for unreliable historian. Cranial nerves goes grossly intact. No focal neurological findings. Neck is supple PMFSH Past Medical History Medical History BPH (benign prostatic hyperplasia) Diabetes Dysphagia GERD (gastroesophageal reflux disease) HTN (hypertension) Hypothyroidism Personality disorder Presbyopia Schizoaffective disorder TBI (traumatic brain injury) Social History Social History Household Members: Other Household Members Other:: from [facility] Housing: [facility] Other:: [facility] Do you presently have visiting nurse or other home services: Yes (from [facility]) Unable to assess alcohol history related to: Unable to respond, Unknown and Refusing to respond Alcohol intake: unknown Patient Tobacco Use Status: Tobacco use Unknown Use of substances other than those prescribed or required for medical reasons: Refusing to respond Substance Use Type: Unknown Last Used Substance: Unknown Currently Displaying Signs/Symptoms of Drug Intoxication Withdrawal: No Spiritual Healthcare Practices: unable to respond Sikh Healthcare Practices: unable to respond Cultural Healthcare Practices: unable to respond Advance Directives: No Advance Directives Information Provided: No Do you have thoughts of harming others: None Recently lost weight without trying: Unsure Nutrition Risks: On aspiration precautions and Poor intake 0-25% >4 days Poor oral hygiene: Yes service: No Current occupational status: disabled Meds Allergies Allergy/AdvReac Type Severity Reaction Status Date / Time fish oil [FISH OIL] Allergy Unknown UNK Verified 12/13/20 16:00 Iodinated Contrast Media Allergy Unknown UNK Verified 12/13/20 16:00 [IODINATED CONTRAST- ORAL AND IV DYE] iodine [IODINE] Allergy Unknown UNK Verified 12/13/20 16:00 pollen Allergy Unknown Unknown Uncoded 09/24/20 09:51 SEAFOOD Allergy Unknown UNK Uncoded 02/29/20 19:27 shellfish Allergy Unknown Unknown Uncoded 09/24/20 09:51 Active Medications: Current Medications Generic Name Dose Route Start Last Admin Trade Name Freq PRN Reason Stop Dose Admin Acetaminophen 650 mg 01/24/21 11:45 Acetaminophen 325 Mg Tablet PO Q6H PRN Fever Or Pain Clonazepam 0.25 mg 01/24/21 21:00 Clonazepam 0.5 Mg Tablet PO BEDTIME [facility] Clonazepam 0.5 mg 01/25/21 09:00 Clonazepam 0.5 Mg Tablet PO DAILY [facility] Diphenhydramine HCl 25 mg 01/24/21 11:45 Diphenhydramine Hcl 25 Mg Tablet PO Q6H PRN Itching Docusate Sodium 100 mg 01/24/21 21:00 Docusate Sodium 100 Mg Capsule PO BID [facility] Dextrose/Sodium Chloride 1,000 mls @ 100 mls/hr 01/23/21 11:45 01/24/21 10:15 D51/2ns IVCONT 100 mls/hr .Q10H [facility] Administration Lactulose 20 gm 01/25/21 09:00 Lactulose 20 Gm/30 Ml Solution PO DAILY [facility] Levothyroxine Sodium 50 mcg 01/25/21 06:00 Levothyroxine Sodium 50 Mcg Tablet PO DAILY@0600 [facility] Metoprolol Tartrate 12.5 mg 01/25/21 09:00 Metoprolol Tartrate 12.5 Mg Halftab PO DAILY [facility] Protocol Multivitamins/Minerals 1 tab 01/25/21 09:00 Multivitamin With Minerals Tablet PO DAILY [facility] Omeprazole 40 mg 01/25/21 06:30 Omeprazole 40 Mg Capsule. PO DAILY@0630 [facility] Pharmacy Consult 1 each 01/23/21 20:51 Consult Rx Perform Med Rec MISCELLANE ONCE PRN Consult order Pregabalin 150 mg 01/24/21 21:00 Pregabalin 150 Mg Capsule PO BID [facility] Senna 8.6 mg 01/24/21 11:45 Sennosides 8.6 Mg Tablet PO DAILY PRN Constipation Senna 17.2 mg 01/24/21 21:00 Sennosides 8.6 Mg Tablet PO BEDTIME [facility] Sodium Bicarbonate 650 mg 01/25/21 09:00 Sodium Bicarbonate 650 Mg Tablet PO DAILY [facility] Sodium Chloride 3 ml 01/23/21 16:00 01/24/21 10:15 0.9 % Sodium Chloride Flush 3 Ml Syringe IVFLUSH 3 ml QSHIFT [facility] Administration Tamsulosin HCl 0.4 mg 01/25/21 17:30 Tamsulosin Hcl 0.4 Mg Capsule PO DAILY@1730 [facility] Home Medications Medication Instructions Recorded Confirmed Last Taken Type acetaminophen 325 mg tablet 650 mg PO Q6H PRN 09/23/20 01/23/21 09/23/20 History clonazepam 0.5 mg tablet 0.25 mg PO BEDTIME 09/23/20 01/23/21 09/23/20 History clonazepam 0.5 mg tablet 0.5 mg PO DAILY 09/23/20 01/23/21 09/22/20 History diphenhydramine HCl 25 mg capsule 25 mg PO Q6H PRN 09/23/20 01/23/21 Unknown History (Argelia) docusate sodium 100 mg capsule 100 mg PO BID 09/23/20 01/23/21 09/23/20 History famotidine 40 mg tablet 40 mg PO BEDTIME 09/23/20 01/23/21 09/22/20 History lactulose 10 gram/15 mL (15 mL) 20 g PO DAILY 09/23/20 01/23/21 09/23/20 History oral solution levothyroxine 50 mcg tablet 50 mcg PO DAILY 09/23/20 01/23/21 09/23/20 History metoprolol tartrate 25 mg tablet 12.5 mg PO DAILY 09/23/20 01/23/21 09/23/20 History omeprazole 40 mg capsule,delayed 40 mg PO DAILY 09/23/20 01/23/21 09/23/20 History release pantoprazole 40 mg tablet,delayed 40 mg PO BID 09/23/20 01/23/21 09/23/20 History release pregabalin 150 mg capsule 150 mg PO BID 09/23/20 01/23/21 09/23/20 History sennosides 8.6 mg tablet (senna) 17.2 mg PO BEDTIME 09/23/20 01/23/21 09/22/20 History sodium bicarbonate 650 mg tablet 650 mg PO DAILY 09/23/20 01/23/2109/23/21 History tamsulosin 0.4 mg capsule 0.4 mg PO DAILY 09/23/20 01/23/21 09/22/20 History multivitamin with minerals 1 tab PO DAILY 11/25/20 01/23/21 Unknown History doxycycline hyclate 100 mg capsule 100 mg PO BID 01/23/21 01/23/21 Unknown History metronidazole 1 % topical cream 1 appl TOPICAL BEDTIME 01/23/21 01/23/21 Unknown History sennosides 8.6 mg tablet (senna) 8.6 mg PO DAILY PRN 01/23/21 01/23/21 Unknown History Physical Exam Vital Signs: Vital Signs: Last Vital Signs Temp 97 F 01/24/21 10:55 Pulse 95 01/24/21 10:55 Resp 18 01/24/21 10:55 BP 152/90 H 01/24/21 10:55 Pulse Ox 100 01/24/21 10:55 Body Mass Index 23.8 Const: Other: Constitutional somonlent, difficult to arouse HEENT-pupils 3 mm and react Neck Supple, No lymphadenopathy Cardiovascular RRR, No M/R/G, S1 S2, No S3 S4, No pedal edema Respiratory Lungs clear, No respiratory distress Gastrointestinal Non tender, Non-distended Skin No rash Neurological Unresponsive, moving limbs spontaneously Psychological--Unresponsive Results Labs CBC & Chem 7: 01/24/21 09:48 01/23/21 08:30 Labs: Short CBC 01/24/21 Range/Units 09:48 Hgb 8.2 L (14.0-18.0) g/dl Hct 26.8 L (42-52) % Microbiology Microbiology Results: Microbiology 01/23/21 08:30 Blood - Venous Blood Culture - Preliminary No growth after 24 hours. 01/23/21 08:30 Blood - Venous Blood Culture - Preliminary No growth after 24 hours. Assessment and Plan (1) Encephalopathy: Status: Acute Transient encephalopathy possibly related to GI bleed. Checks and ammoniia. Check for other metabolic infectious etiologies. Examms nonfocal. No evidence of stroke. No witnessed seizure. (2) Anemia: Status: Acute 65 year old male baseline non verbal and now unresponsive, and has acute drop in hemoglobin and has positive occult blood. 1/Encephalopathy/Unresponsiveness.. He is protecting his airway, metablic profile is unremarkable. I will check Ammonia level, and get blood gas. Should avoid all meds for especially Benzo, Psychotropicss and Narcs, consider doing EEG to rule out seizure. and if not improving Neurology consult 2/ Acute blood loss anemia--GIB, upper vs lower. IV PPI, GI consut, no heparin, no NSAID 3/ For all chronic medical issues (HTH, Hypothyroidism, Psych issues) hold meds. compression device for DVT prophylaxis Procedures Date of Service Date of Service: 01/24/21
--- NOTE | 2021-01-24 13:34 | MHC.CLN ---
RE: CONSULT RECOMMEND ADDING GLUCERNA BID TO INCREASE PO
[2021-01-24 14:55] VITALS: BP 140/89; PULSE 80; RESP 20; TEMP 36.4; O2SAT 96
--- NOTE | 2021-01-24 16:39 | P.PNIM_ITS ---
Subjective Subjective Date of Service: 01/24/21 Interval History: awake, labile affect no bleeding observed Review of Systems Review of Systems: Yes Unobtainable due to mental status Physical Exam Vital Signs: Vital Signs: Last Vital Signs Temp 97.6 F 01/24/21 14:55 Pulse 80 01/24/21 14:55 Resp 20 01/24/21 14:55 BP 140/89 H 01/24/21 14:55 Pulse Ox 96 01/24/21 14:55 Body Mass Index 23.8 Gen: in no acute distress HEENT: sclera anicteric, moist mucus membranes Neck: supple Lungs: clear to auscultation bilaterally Heart: regular rate and rhythm, no murmurs Abd: soft, non-tender, non-distended Ext: no edema Skin: warm/well-perfused Neuro: alert, disoriented Psych: bizarre affect, impaired insight Objective Data Current Medications Generic Name Dose Route Start Last Admin Trade Name Freq PRN Reason Stop Dose Admin Acetaminophen 650 mg 01/24/21 11:45 Acetaminophen 325 Mg Tablet PO Q6H PRN Fever Or Pain Clonazepam 0.25 mg 01/24/21 21:00 Clonazepam 0.5 Mg Tablet PO BEDTIME [facility] Clonazepam 0.5 mg 01/25/21 09:00 Clonazepam 0.5 Mg Tablet PO DAILY [facility] Diphenhydramine HCl 25 mg 01/24/21 11:45 Diphenhydramine Hcl 25 Mg Tablet PO Q6H PRN Itching Docusate Sodium 100 mg 01/24/21 21:00 Docusate Sodium 100 Mg Capsule PO BID [facility] Dextrose/Sodium Chloride 1,000 mls @ 100 mls/hr 01/23/21 11:45 01/24/21 10:15 D51/2ns IVCONT 100 mls/hr .Q10H [facility] Administration Lactulose 20 gm 01/25/21 09:00 Lactulose 20 Gm/30 Ml Solution PO DAILY [facility] Levothyroxine Sodium 50 mcg 01/25/21 06:00 Levothyroxine Sodium 50 Mcg Tablet PO DAILY@0600 [facility] Metoprolol Tartrate 12.5 mg 01/25/21 09:00 Metoprolol Tartrate 12.5 Mg Halftab PO DAILY [facility] Protocol Multivitamins/Minerals 1 tab 01/25/21 09:00 Multivitamin With Minerals Tablet PO DAILY [facility] Omeprazole 40 mg 01/25/21 06:30 Omeprazole 40 Mg Capsule. PO DAILY@0630 [facility] Pharmacy Consult 1 each 01/23/21 20:51 Consult Rx Perform Med Rec MISCELLANE ONCE PRN Consult order Pregabalin 150 mg 01/24/21 21:00 Pregabalin 150 Mg Capsule PO BID [facility] Senna 8.6 mg 01/24/21 11:45 Sennosides 8.6 Mg Tablet PO DAILY PRN Constipation Senna 17.2 mg 01/24/21 21:00 Sennosides 8.6 Mg Tablet PO BEDTIME [facility] Sodium Bicarbonate 650 mg 01/25/21 09:00 Sodium Bicarbonate 650 Mg Tablet PO DAILY [facility] Sodium Chloride 3 ml 01/23/21 16:00 01/24/21 16:03 0.9 % Sodium Chloride Flush 3 Ml Syringe IVFLUSH Not Given QSHIFT [facility] Tamsulosin HCl 0.4 mg 01/25/21 17:30 Tamsulosin Hcl 0.4 Mg Capsule PO DAILY@1730 [facility] Labs CBC & Chem 7: 01/24/21 09:48 01/23/21 08:30 Labs: Laboratory Results - last 24 hr 01/24/21 01/24/21 08:33 09:48 Absolute Retic 0.056 Percent Retic 1.6 Immature Retic Fraction 11.4 Retic Hgb Equivalent 22.1 L Stool Occult Blood NEGATIVE Microbiology Microbiology Results: Microbiology 01/23/21 08:30 Blood Culture - Preliminary Blood - Venous No growth after 24 hours. 01/23/21 08:30 Blood Culture - Preliminary Blood - Venous No growth after 24 hours. Assessment and Plan (1) GI bleed: Status: Acute (2) Encephalopathy: Status: Acute (3) Anemia: Status: Acute Assessment and Plan: 65 year old male with TBI/schizoaffective disorder, admitted with encephalopathy, found to have acute/chronic blood loss anemia, FOBT+ now back to baseline mental status # encephalopathy, toxic - likely med effect- d/c'ed clonazepam + pregabalin - now appears back to baseline, appreciate Neuro consult - per HOSPITAL CLERK: Recommend maintain NECTAR thick liquids due to coughing on thin liquid. Recommend CHOPPED/ADVANCED (NDD3) solids and pills WHOLE or CRUSHED in PUREE. Recommend supervision and aspiration precautions. # GI blood loss anemia - GI consulted. Per [facility] records, prior EGD 2017 for coffee-ground emesis showed hiatal hernia. On PPI for GERD. Pursue C-scope as outpt if Hb remains stable. check iron studies. # HTN - metoprolol # BPH - tamsulosin # hypothyroidism - LT4 # VTE ppx - SCDs Quality Stroke Does the patient have a stroke diagnosis?: No VTE Prior VTE?: No VTE Risk Level:: Medical - moderate - high VTE Device Contraindication: N/A - Device Ordered VTE Drug Contraindication: Treatment Not Tolerated
[2021-01-24 19:06] VITALS: BP 146/80; PULSE 112; RESP 20; TEMP 36.9; O2SAT 97
[2021-01-24 23:51] VITALS: BP 140/94; PULSE 110; RESP 16; TEMP 36.6; O2SAT 93
[2021-01-25] MEDS: Omeprazole 40 MG CAPSULE.DR PO (05:40)
[2021-01-25] MEDS: Levothyroxine Sodium 50 MCG TABLET PO (05:40)
[2021-01-25 06:37] LABS: Hematocrit 27.5 % (42-52); Hemoglobin 8.5 g/dl (14.0-18.0); Immature Retic Fraction 10.9 % (2.3-13.4); Mean Corpuscular HGB Conc 30.9 g/dl (31.0-36.0); Mean Corpuscular Hemoglobin 23.4 pg (27.0-33.0); Mean Corpuscular Volume 75.5 fL (80-98); Mean Platelet Volume 10.2 fL (9.4-12.4); Platelet Count 388 X10*3/uL (160-400); Red Blood Count 3.64 X10*6/uL (4.60-5.80); Red Cell Distribution Width 16.3 % (11.0-16.0); Retic HGB Equivalent 23.3 pg (30.0-35.0); Reticulocyte Percent 1.5 % (0.5-1.8); Reticulocytes Absolute 0.054 X10*6/uL (0.026-0.095); White Blood Count 6.1 X10*3/uL (4.8-10.8)
[2021-01-25 06:42] LABS: Anion Gap 13 (12-20); Blood Urea Nitrogen 17 mg/dL (9-16); Carbon Dioxide 26 mmol/L (22-29); Chloride 106 mmol/L (96-108); Creatinine Clr Calc Pharmacy 72.4; Estimated Glomerular Filt Rate > 60; Glucose Random 101 mg/dL (60-115); Iron 11 mcg/dL (45-160); Lactate Dehydrogenase 109 U/L (118-273); Percent Iron Saturation 3 % (15-50); Potassium 3.8 mmol/L (3.3-5.1); Sodium 141 mmol/L (135-145); Total Iron Binding Capacity 320 mcg/dL (228-428); Unsaturated Iron Binding 309 ug/dL
[2021-01-25 07:27] LABS: Ferritin 20 ng/mL (20-250)
[2021-01-25 07:29] VITALS: BP 127/84; PULSE 105; RESP 19; TEMP 36.6; O2SAT 100
[2021-01-25] MEDS: 0.9 % Sodium Chloride Flush 3 ML SYRINGE IVFLUSH (07:53)
--- NOTE | 2021-01-25 08:04 | PC.NURSE ---
Pt continually getting up out of chair setting of stat alarm and chair alarm. Several attempts at reorienting pt to ring for help and not get up by himself. Pt continually getting up, pt with unsteady gait. Mechanical Engineering Draftsperson made aware. Attempted to give medications, pt spit out and refused to take.
--- NOTE | 2021-01-25 10:07 | MHC.CM.PN ---
CM attempted to speak with Patient's Mother/Guardian/Eliza @ [phone], but reached Patient's Step Father/Guardian's - Kenny Arredondo instead, who has indicated that Eliza is presently incapacitated herself.CM addressed IMM with Kenny and original will be mailed certified letter to him and a copy has been placed on the chart. Patient is a LTC Resident of [facility] [place] and the goal for dc is for Patient to return there, perPCP is Dr. Swapnil Vazquez. Kenny. RYLEE has initiated and will follow for dc planning.
--- NOTE | 2021-01-25 11:30 | MHC.CM.PN ---
Per MD, Patient will be medically cleared for dc to return to LTC at [facility] today at 2 PM, via [facility]. Per MD, he will speak with Patient's Step Father, Kenny and inform him of the dc plan. Last IMM addressed this morning with Kenny.
[2021-01-25 11:48] LABS: COVID-19 Test Negative (Negative)
[2021-01-25 11:50] VITALS: BP 127/91; PULSE 112; RESP 18; TEMP 36.8; O2SAT 97
--- NOTE | 2021-01-25 12:48 | PM.DS ---
DS: Providers Provider Date of Service: 01/25/21 Date of admission: 01/23/21 11:15 Date of discharge: 01/25/21 Primary care physician: Swapnil Vazquez DO Admitting clinician: Mert Bach Attending physician on admission: Mert Bach Consults: 01/23/21 11:43 Consult to Gastroenterology Routine Consulting Provider: Dre Fontenot Reason for consultation: anemia, positive occult blood 01/24/21 09:22 Consult to Neurology Routine Consulting Provider: [facility] Reason for consultation: encephalopathy (TBI/schizoaffective at baseline) Attending physician on discharge: Angelo Esparza Discharging clinician: Angelo Esparza DS: Diagnosis Discharge Diagnosis (1) Toxic encephalopathy: Status: Acute (2) Iron deficiency anemia: Status: Acute (3) Heme positive stool: Status: Acute DS: Medications Discharge Medications Home Medications: Home Medications Medication Instructions Recorded Confirmed acetaminophen 325 mg tablet 650 mg PO Q6H PRN 09/23/20 01/23/21 diphenhydramine HCl 25 mg capsule 25 mg PO Q6H PRN 09/23/20 01/23/21 (Benadryl) docusate sodium 100 mg capsule 100 mg PO BID 09/23/20 01/23/21 lactulose 10 gram/15 mL (15 mL) 20 g PO DAILY 09/23/20 01/23/21 oral solution levothyroxine 50 mcg tablet 50 mcg PO DAILY 09/23/20 01/23/21 metoprolol tartrate 25 mg tablet 12.5 mg PO DAILY 09/23/20 01/23/21 pantoprazole 40 mg tablet,delayed 40 mg PO BID 09/23/20 01/23/21 release sennosides 8.6 mg tablet (senna) 17.2 mg PO BEDTIME 09/23/20 01/23/21 sodium bicarbonate 650 mg tablet 650 mg PO DAILY 09/23/20 01/23/21 tamsulosin 0.4 mg capsule 0.4 mg PO DAILY 09/23/20 01/23/21 multivitamin with minerals 1 tab PO DAILY 11/25/20 01/23/21 metronidazole 1 % topical cream 1 appl TOPICAL BEDTIME 01/23/21 01/23/21 sennosides 8.6 mg tablet (senna) 8.6 mg PO DAILY PRN 01/23/21 01/23/21 Previous Rx's Medication Instructions Recorded ferrous sulfate 324 mg (65 mg 324 mg PO BIDWM #60 tab 01/25/21 iron) tablet,delayed release DS: Summary Hospital Course Hospital Course: From admission H+P by Dr Bach, 01/23/21: 65 [facility] male from [facility]? with Past history as listed? brought to ED because of unresponsiveness.?He has history of TBI and at baseline is non verbal. He reported this morning was very somnolent with all ormal vitals and respiratory distress. Review of his meds shows that he takes Klonopin, Lyrica, Clozapin and Benadryl, although Utox is negative for benzo. Additional? his hemoglobin is 8.2 compare to a baseline of 12 and has positive occult blood? but no active bleed. Further? work up with CT head is negative.? I have requested ABG, and ammonia level.? He is protecting his airway. The patient was admitted to the [facility]. Mental status returned to baseline with discontinuation of clonazepam and pregabalin, which may have been too sedating in combination with diphenhydramine. Medications could be added back in a stepwise fashion if needed at the discretion of his primary care doctor. Per INSURANCE INSPECTOR consultation, diet should be chopped/advanced NDD3 solids, nectar-thick liquids due to coughing on thin liquid, and pills whole or crusehd in puree with full supervision and aspiration precautions. Regarding iron deficiency anemia, his hemoglobin remained stable in the 8 range. Repeat FOBT was negative. GI was consulted. Per [facility] records, prior EGD 2017 for coffee-ground emesis showed hiatal hernia.? He will be referred to GI for outpatient colonoscopy; per his alternate guardian, his stepfather, he had a normal colonoscopy at [facility] several years ago. He was started on oral iron repletion. He was discharged back to [facility] in stable condition. Time Spent with Patient Time attestation: Total time spent providing and/or coordinating discharge services: Discharge coordination time: Greater than 30 minutes Quality: Stroke Does the patient have a stroke diagnosis?: No Physical Exam Vital Signs: Vital Signs: Last Vital Signs Temp 98.2 F 01/25/21 11:50 Pulse 112 H 01/25/21 11:50 Resp 18 01/25/21 11:50 BP 127/91 H 01/25/21 11:50 Pulse Ox 97 01/25/21 11:50 Body Mass Index 23.8 Gen: in no acute distress HEENT: sclera anicteric, moist mucus membranes Neck: supple Lungs: clear to auscultation bilaterally Heart: regular rate and rhythm, no murmurs Abd: soft, non-tender, non-distended Ext: no edema Skin: warm/well-perfused Neuro: alert, disoriented Psych: bizarre affect, impaired insight DS: Data Data Completed and Pending Completed studies during hospitalization [Text1]: Laboratory Results WBC 6.1 X10*3/uL (4.8-10.8) 01/25/21 05:26 RBC 3.64 X10*6/uL (4.60-5.80) L 01/25/21 05:26 Hgb 8.5 g/dl (14.0-18.0) L 01/25/21 05:26 Hct 27.5 % (42-52) L 01/25/21 05:26 MCV 75.5 fL (80-98) L 01/25/21 05:26 MCH 23.4 pg (27.0-33.0) L 01/25/21 05:26 MCHC 30.9 g/dl (31.0-36.0) L 01/25/21 05:26 RDW 16.3 % (11.0-16.0) H 01/25/21 05:26 Plt Count 388 X10*3/uL (160-400) D 01/25/21 05:26 MPV 10.2 fL (9.4-12.4) 01/25/21 05:26 Immature Gran % (Auto) 0.4 % (0.0-0.4) 01/23/21 08:30 Neut % (Auto) 73.9 % (45-73) H 01/23/21 08:30 Lymph % (Auto) 17.5 % (20-40) L 01/23/21 08:30 [place] % (Auto) 7.4 % (2-11) 01/23/21 08:30 Eos % (Auto) 0.1 % (0-4) 01/23/21 08:30 Baso % (Auto) 0.7 % (0-2) 01/23/21 08:30 Lymph # (Auto) 1.3 X10*3/uL (1.2-4.9) 01/23/21 08:30 [place]ion # (Auto) 0.6 X10*3/uL (0.1-1.2) 01/23/21 08:30 Eos # (Auto) 0.0 X10*3/uL (0.0-0.4) 01/23/21 08:30 Baso # (Auto) 0.1 X10*3/uL (0.0-0.2) 01/23/21 08:30 Abs Immat Gran (auto) 0.03 X10*3/uL (0.00-0.03) 01/23/21 08:30 Absolute Neuts (auto) 5.5 X10*3/uL (2.0-8.3) 01/23/21 08:30 Absolute Nucleated RBC 0.000 X10*3/uL (0.0-0.012) 01/25/21 05:26 Nucleated RBC % (auto) 0.0 /100WBC (0.0-0.2) 01/25/21 05:26 Smear Tech's Comments VERIFIED 01/23/21 08:30 Absolute Retic 0.054 X10*6/uL (0.026-0.095) 01/25/21 05:26 Percent Retic 1.5 % (0.5-1.8) 01/25/21 05:26 Immature Retic Fraction 10.9 % (2.3-13.4) 01/25/21 05:26 Retic Hgb Equivalent 23.3 pg (30.0-35.0) L 01/25/21 05:26 PT 11.8 SEC (9.9-13.0) 01/23/21 08:30 INR 1.0 (0.9-1.1) 01/23/21 08:30 VBG pH 7.41 (7.32-7.43) 01/23/21 13:13 VBG pCO2 45 mmHg 01/23/21 13:13 VBG pO2 52 mmHg 01/23/21 13:13 VBG HCO3 29 mmol/L (22-26) H 01/23/21 13:13 VBG O2 Saturation 79.0 % 01/23/21 13:13 VBG Base Excess 4.2 mmol/L 01/23/21 13:13 Sodium 141 mmol/L (135-145) 01/25/21 05:26 Potassium 3.8 mmol/L (3.3-5.1) 01/25/21 05:26 Chloride 106 mmol/L (96-108) 01/25/21 05:26 Carbon Dioxide 26 mmol/L (22-29) 01/25/21 05:26 Anion Gap 13 (12-20) 01/25/21 05:26 BUN 17 mg/dL (9-16) H 01/25/21 05:26 Creatinine 1.05 mg/dL (0.5-1.4) 01/25/21 05:26 Estim Creat Clear Calc 72.4 01/25/21 05:26 Estimated GFR > 60 01/25/21 05:26 Random Glucose 101 mg/dL (60-115) 01/25/21 05:26 Lactic Acid 1.9 mmol/L (0.5-2.0) 01/23/21 08:29 Calcium 9.0 mg/dL (8.4-10.2) 01/25/21 05:26 Magnesium 2.1 mg/dL (1.6-2.6) 01/23/21 08:30 Iron 11 mcg/dL (45-160) L 01/25/21 05:26 TIBC 320 mcg/dL (228-428) 01/25/21 05:26 % Saturation 3 % (15-50) L 01/25/21 05:26 Unsat Iron Binding 309 ug/dL 01/25/21 05:26 Ferritin 20 ng/mL (20-250) 01/25/21 05:26 Total Bilirubin 0.3 mg/dL (0.0-1.0) 01/23/21 08:30 Direct Bilirubin < 0.2 mg/dL (0.0-0.5) 01/23/21 08:30 AST 12 U/L (5-37) 01/23/21 08:30 ALT 10 U/L (0-40) 01/23/21 08:30 Alkaline Phosphatase 112 U/L (39-117) 01/23/21 08:30 Ammonia 18 umol/L (13-55) 01/23/21 13:12 Lactate Dehydrogenase 109 U/L (118-273) L 01/25/21 05:26 Troponin I High Sens 3.9 ng/L (<3.5-35.0) 01/23/21 08:30 Total Protein 5.7 g/dL (6.5-8.0) L D 01/23/21 08:30 Albumin 3.4 g/dL (3.5-5.0) L D 01/23/21 08:30 TSH 2.68 uIU/mL (0.32-4.0) 01/23/21 08:30 Urine Color YELLOW 01/23/21 08:36 Urine Appearance CLEAR 01/23/21 08:36 Urine pH 6.0 (5.0-8.0) 01/23/21 08:36 Ur Specific [place] 1.020 (1.005-1.025) 01/23/21 08:36 Urine Protein NEG MG/DL (NEG-TRACE) 01/23/21 08:36 Urine Glucose (UA) NEG MG/DL (NEG) 01/23/21 08:36 Urine Ketones 5 MG/DL (NEG) 01/23/21 08:36 Urine Blood NEG (NEG) 01/23/21 08:36 Urine Nitrite NEG (NEG) 01/23/21 08:36 Ur Leukocyte Esterase NEG (NEG) 01/23/21 08:36 Stool Occult Blood NEGATIVE (NEGATIVE) 01/24/21 08:33 Urine Opiates Screen Not Detected (Not Detect) 01/23/21 08:36 Urine Fentanyl Screen Not Detected (Not Detect) 01/23/21 08:36 Ur Barbiturates Screen Not Detected (Not Detect) 01/23/21 08:36 Ur Phencyclidine Scrn Not Detected (Not Detect) 01/23/21 08:36 Ur Amphetamines Screen Not Detected (Not Detect) 01/23/21 08:36 U Benzodiazepines Scrn Not Detected (Not Detect) 01/23/21 08:36 Urine Cocaine Screen Not Detected (Not Detect) 01/23/21 08:36 U Marijuana (THC) Screen Not Detected (Not Detect) 01/23/21 08:36 COVID-19 (RICHA) Negative (Negative) 01/25/21 11:20 COVID-19 Clin Com See Note 01/25/21 11:[address] 01/23/21 07:54 IMPRESSION: No acute intracranial process seen. Labs on day of discharge: Laboratory Results - last 24 hr 01/25/21 01/25/21 01/25/21 05:26 05:26 11:20 WBC 6.1 RBC 3.64 L Hgb 8.5 L Hct 27.5 L MCV 75.5 L MCH 23.4 L MCHC 30.9 L RDW 16.3 H Plt Count 388 D MPV 10.2 Absolute Nucleated RBC 0.000 Nucleated RBC % (auto) 0.0 Absolute Retic 0.054 Percent Retic 1.5 Immature Retic Fraction 10.9 Retic Hgb Equivalent 23.3 L Sodium 141 Potassium 3.8 Chloride 106 Carbon Dioxide 26 Anion Gap 13 BUN 17 H Creatinine 1.05 Estim Creat Clear Calc 72.4 Estimated GFR > 60 Random Glucose 101 Calcium 9.0 Iron 11 L TIBC 320 % Saturation 3 L Unsat Iron Binding 309 Ferritin 20 Lactate Dehydrogenase 109 L COVID-19 (RICHA) Negative COVID-19 Clin Com See Note Preliminary micro results at discharge 01/23/21 08:30 Blood Culture - Preliminary Blood - Venous No growth after 48 hours. 01/23/21 08:30 Blood Culture - Preliminary Blood - Venous No growth after 48 hours. Discharge Plan Discharge Anticipated Discharge Date/Time: 01/25/21 12:44 Patient Disposition: er [facility] Discharge Diagnosis: encephalopathy due to medication effect, iron deficiency anemia, heme-positive stool Referrals: [facility] [Outside] - 1 Week Dre Fontenot [Physician] - 2 Weeks Swapnil Vazquez DO [Primary Care Provider] - 1 Week Discharge Medications: New ferrous sulfate 324 mg (65 mg iron) Tablet,Delayed Release (Dr/Ec) 324 mg PO BIDWM Qty: 60 RF: 0 Continued tamsulosin 0.4 mg capsule 0.4 mg PO DAILY RF: 0 sennosides [senna] 8.6 mg Tablet 17.2 mg PO BEDTIME RF: 0 acetaminophen 325 mg Tablet 650 mg PO Q6H PRN (Reason: Fever Or Pain) RF: 0 sodium bicarbonate 650 mg Tablet 650 mg PO DAILY RF: 0 levothyroxine 50 mcg tablet 50 mcg PO DAILY RF: 0 pantoprazole 40 mg Tablet,Delayed Release (Dr/Ec) 40 mg PO BID RF: 0 diphenhydramine HCl [Benadryl] 25 mg Capsule 25 mg PO Q6H PRN (Reason: Itching) RF: 0 docusate sodium 100 mg Capsule 100 mg PO BID RF: 0 metoprolol tartrate 25 mg Tablet 12.5 mg PO DAILY RF: 0 lactulose 10 gram/15 mL (15 mL) Solution 20 g PO DAILY RF: 0 multivitamin with minerals Tablet 1 tab PO DAILY RF: 0 sennosides [senna] 8.6 mg Tablet 8.6 mg PO DAILY PRN (Reason: Constipation) RF: 0 metronidazole 1 % Cream 1 appl TOPICAL BEDTIME RF: 0 Discontinued famotidine 40 mg tablet 40 mg PO BEDTIME RF: 0 clonazepam 0.5 mg tablet 0.25 mg PO BEDTIME RF: 0 omeprazole 40 mg capsule,delayed release(DR/EC) 40 mg PO DAILY RF: 0 pregabalin 150 mg capsule 150 mg PO BID RF: 0 clonazepam 0.5 mg tablet 0.5 mg PO DAILY RF: 0 doxycycline hyclate 100 mg Capsule 100 mg PO BID RF: 0 Discharge Orders: Discharge Order (Routine); Ordered 01/25/21 Ordered By: Angelo Esparza Diet: advance to usual diet Activity on Discharge: As tolerated Stand Alone Forms: Patient Portal Discharge page Other Ambulatory Orders: Complete Blood Count Auto Diff (Routine) Timeframe: 2 Weeks Facility: [facility] - Location: Laboratory Ordered By: Angelo Esparza Care Plan Goals: baseline mental status resolution of anemia diagnosis of possible GI source of bleeding Health Concerns: encephalopathy due to medication effect, iron deficiency anemia, heme-positive stool Plan of Treatment: clonazepam + pregabalin stopped; resume in stepwise fashion at discretion of primary care doctor start ferrous sulfate 324 mg twice daily; recheck CBCd in 2 weeks follow up with Gastroenterology in 2 weeks to plan for outpatient colonoscopy Assessment: as above Patient Instructions: Anemia (DC)
--- NOTE | 2021-01-25 13:13 | MHC.CM.PN ---
D C Summary has been successfully faxed to Erin @ [facility] at [phone].
[2021-01-25 13:59] LABS: Folate 4.9 ng/mL (> or = 4.0); Vitamin B12 576 pg/mL (200-900)
== END 2021-01-25 14:10 | disposition skilled nursing facility (03) | DRG 92 ==
LOC: HO.ED 10:58 → HO.EDOVER 11:27 → HO.IMC 12:12
PROVIDERS: Admitting Provider Internal Medicine; Emergency Provider Emergency Medicine; PCP Hospitalist; Visit Provider Family Medicine
DX: G92 Toxic encephalopathy (principal); D62 Acute posthemorrhagic anemia; K21.9 Gastro-esophageal reflux disease without esophagitis; E03.9 Hypothyroidism, unspecified; I10 Essential (primary) hypertension; F25.9 Schizoaffective disorder, unspecified; T42.4X5A Adverse effect of benzodiazepines, initial encounter; R19.5 Other fecal abnormalities; T42.6X5A Adverse effect of other antiepileptic and sedative-hypnotic drugs, initial encounter; Y92.122 Bedroom in nursing home as the place of occurrence of the external cause; Z20.822 Contact with and (suspected) exposure to COVID-19; Z87.820 Personal history of traumatic brain injury; Z79.890 Hormone replacement therapy; Z79.899 Other long term (current) drug therapy
CPT/HCPCS: 36415; 70450; 80048; 80076; 80307; 81003; 82140; 82272; 82607; 82728; 82746; 82803; 83540; 83605; 83615; 83735; 84443; 84484; 85014; 85018; 85025; 85027; 85045; 85610; 87040; 87635; 92610; 93005; 96360; 99285; 99291

== ENCOUNTER 2021-03-23 18:07 | Emergency (ER) | payer MEDICARE, MEDICAID, SELFPAY ==
--- NOTE | ~2021-03-23 | CT_ITS ---
EXAMINATION: CT HEAD WITHOUT CONTRAST CLINICAL INFORMATION: Status post fall COMPARISON: 01/23/2021 TECHNIQUE: Contiguous axial imaging was performed from the skull base to vertex without intravenous administration of contrast. This CT examination was performed using dose optimization techniques as appropriate, variously including the following: *Automated exposure control *Adjustment of mA and/or kV according to patient size (this includes techniques or standardized protocols for targeted exams where dose is matched to indication/reason for exam; i.e. extremities or head) *Use of iterative reconstruction technique DLP: 790 mGy-cm FINDINGS: There is no evidence of acute intracranial hemorrhage or territorial infarction. No abnormal mass effect or midline shift is seen. Newell to white matter differentiation is well preserved. No extra-axial fluid collections are identified. Mild patchy deep white matter hypodensities suggesting chronic microvascular ischemic changes. The osseous structures and soft tissues are normal. The mastoid air cells and visualized portions of the paranasal sinuses are well aerated. CT/CT head/brain wo con IMPRESSION: No acute intracranial pathology.
[2021-03-23 18:20] VITALS: BP 130/72; BP 131/76; PULSE 76; PULSE 79; RESP 17; TEMP 36.8; O2SAT 100; O2SAT 98; BMI 15.7
--- NOTE | 2021-03-23 18:23 | PC.NURSE ---
[facility] to fax some additional paperwork that was accidentally left at [facility]. Given [facility] fax #[phone].
--- NOTE | 2021-03-23 19:25 | PC.NURSE ---
pt to ct scan
[2021-03-23] MEDS: Lidocaine HCl 2 % MPF 5 ML VIAL 10 ML INFILTRATI (19:44)
--- NOTE | 2021-03-23 19:45 | PC.NURSE ---
pt returned from ct scan
[2021-03-23 20:00] VITALS: BP 133/76; PULSE 72; RESP 18; TEMP 36.7; O2SAT 98
--- NOTE | 2021-03-23 20:29 | ED_ITS ---
HPI - Fall General Chief Complaint: Fall Stated Complaint: R EYEBROW LAC/NOSE BLEED S/P FALL PER SNF Time Seen by Provider: 03/23/21 19:31 Source: EMS Mode of arrival: EMS History of Present Illness HPI Narrative: Patient with history of TBI, schizoaffective disorder came from [facility] unit after mechanical fall unwitnessed came with laceration of the right eyebrow and epistaxis no loss of consciousness no seizures patient moving all 4 extremities equally Related Data Home Medications Medication Instructions Recorded Confirmed acetaminophen 325 mg tablet 650 mg PO Q6H PRN 09/23/20 01/23/21 diphenhydramine HCl 25 mg capsule 25 mg PO Q6H PRN 09/23/20 01/23/21 (Benadryl) docusate sodium 100 mg capsule 100 mg PO BID 09/23/20 01/23/21 lactulose 10 gram/15 mL (15 mL) 20 g PO DAILY 09/23/20 01/23/21 oral solution levothyroxine 50 mcg tablet 50 mcg PO DAILY 09/23/20 01/23/21 metoprolol tartrate 25 mg tablet 12.5 mg PO DAILY 09/23/20 01/23/21 pantoprazole 40 mg tablet,delayed 40 mg PO BID 09/23/20 01/23/21 release sennosides 8.6 mg tablet (senna) 17.2 mg PO BEDTIME 09/23/20 01/23/21 sodium bicarbonate 650 mg tablet 650 mg PO DAILY 09/23/20 01/23/21 tamsulosin 0.4 mg capsule 0.4 mg PO DAILY 09/23/20 01/23/21 multivitamin with minerals 1 tab PO DAILY 11/25/20 01/23/21 metronidazole 1 % topical cream 1 appl TOPICAL BEDTIME 01/23/21 01/23/21 sennosides 8.6 mg tablet (senna) 8.6 mg PO DAILY PRN 01/23/21 01/23/21 Previous Rx's Medication Instructions Recorded ferrous sulfate 324 mg (65 mg 324 mg PO BIDWM #60 tab 01/25/21 iron) tablet,delayed release Allergies Allergy/AdvReac Type Severity Reaction Status Date / Time fish oil [FISH OIL] Allergy Unknown UNK Verified 12/13/20 16:00 Iodinated Contrast Media Allergy Unknown UNK Verified 12/13/20 16:00 [IODINATED CONTRAST- ORAL AND IV DYE] iodine [IODINE] Allergy Unknown UNK Verified 12/13/20 16:00 pollen Allergy Unknown Unknown Uncoded 09/24/20 09:51 SEAFOOD Allergy Unknown UNK Uncoded 02/29/20 19:27 shellfish Allergy Unknown Unknown Uncoded 09/24/20 09:51 Review of Systems Review of Systems: Yes Unobtainable due to mental status Neurologic: Reports confusion Psychiatric: Psychiatric: Reports confusion [facility] Past Medical History Medical History Anemia BPH (benign prostatic hyperplasia) Diabetes Dysphagia Encephalopathy GERD (gastroesophageal reflux disease) GI bleed HTN (hypertension) Hypothyroidism Personality disorder Presbyopia Schizoaffective disorder TBI (traumatic brain injury) Social History Social History Household Members: Other Household Members Other:: from [facility] Housing: Snf Housing Other:: [facility] Do you presently have visiting nurse or other home services: Yes (from [facility]) Unable to assess alcohol history related to: Unable to respond, Unknown and Refusing to respond Alcohol intake: unknown Patient Tobacco Use Status: Tobacco use Unknown Use of substances other than those prescribed or required for medical reasons: Unknown Substance Use Type: Unknown Advance Directives: No Advance Directives Information Provided: Yes service: No Current occupational status: disabled Physical Exam Vital Signs: Vital Signs: Last Vital Signs Temp 98.0 F 03/23/21 20:00 Pulse 72 03/23/21 20:00 Resp 18 03/23/21 22:00 BP 133/76 03/23/21 20:00 Pulse Ox 98 03/23/21 20:00 Body Mass Index 15.7 Const: General: no acute distress, well developed and confusion Orientation/consciousness: oriented to person, oriented to place and confusion HENMT: Head: Yes No palpable skull fracture present Head images: 1. 4 cm laceration Ears: hearing grossly normal bilaterally General nose exam: Epistaxis present (Dried blood in nostril) bilaterally Face and sinus: Yes normal facial exam Mouth: Normal oral and palatal mucosa present Throat: Yes posterior oropharynx normal Eyes: Pupils: Equal, round and reactive pupils present EOM: EOMs intact bilaterally Resp: Effort & Inspection: normal respiratory effort Auscultation: clear to auscultation bilaterally Cardio: Palpation: normal PMI Rate: regular rate Rhythm: regular rhythm Heart sounds: S1 normal heart sound present and S2 normal heart sound present GI: Inspection: Yes normal to inspection Palpation (GI): Soft to palpation and nontender : General: Yes no CVA tenderness Back/Spine/Pelvis: Back: no CVA tenderness Thoracic/Lumbar Spine: No thoracic spinal tenderness and No lumbar spinal tenderness Neuro: General: oriented to person, oriented to place, moves all extremities, no focal motor deficits and confusion Cranial nerves: Yes Equal, round and reactive pupils present Extrem: General: Yes normal to inspection and Yes full ROM Procedures Laceration Laceration 1: Site: face Side (If applicable): right Size (cm): 4 Description: linear Depth: simple, single layer Skin layer closed with: other (Dermabond) MDM - Fall MDM Narrative Medical decision making narrative: Patient status post mechanical fall with history of same in the past CT scan of the head is negative patient refused stitches of the laceration and Dermabond was applied Discharge Plan Discharge Clinical Impression: Head injury Qualifiers: Encounter type: initial encounter Qualified Code(s): S09.90XA - Unspecified injury of head, initial encounter Laceration of eyebrow, right Qualifiers: Encounter type: initial encounter Qualified Code(s): S01.111A - Laceration without foreign body of right eyelid and periocular area, initial encounter Patient Disposition: er [facility] Transfer Details: To [facility] Instructions: Laceration (ED), Head Injury (ED) Additional Instructions: Head CT is negative for any acute bleed Patient refused suture of the right eyebrow laceration Dermabond was applied Prescriptions: No Action tamsulosin 0.4 mg capsule 0.4 mg PO DAILY RF: 0 sennosides [senna] 8.6 mg Tablet 17.2 mg PO BEDTIME RF: 0 acetaminophen 325 mg Tablet 650 mg PO Q6H PRN (Reason: Fever Or Pain) RF: 0 sodium bicarbonate 650 mg Tablet 650 mg PO DAILY RF: 0 levothyroxine 50 mcg tablet 50 mcg PO DAILY RF: 0 pantoprazole 40 mg Tablet,Delayed Release (Dr/Ec) 40 mg PO BID RF: 0 diphenhydramine HCl [Benadryl] 25 mg Capsule 25 mg PO Q6H PRN (Reason: Itching) RF: 0 docusate sodium 100 mg Capsule 100 mg PO BID RF: 0 metoprolol tartrate 25 mg Tablet 12.5 mg PO DAILY RF: 0 lactulose 10 gram/15 mL (15 mL) Solution 20 g PO DAILY RF: 0 multivitamin with minerals Tablet 1 tab PO DAILY RF: 0 sennosides [senna] 8.6 mg Tablet 8.6 mg PO DAILY PRN (Reason: Constipation) RF: 0 metronidazole 1 % Cream 1 appl TOPICAL BEDTIME RF: 0 ferrous sulfate 324 mg (65 mg iron) Tablet,Delayed Release (Dr/Ec) 324 mg PO BIDWM Qty: 60 RF: 0
--- NOTE | 2021-03-23 21:02 | PC.NURSE ---
patient alert to self, denies pain at this time, pt requested something to drink and eat, pt given po, continuing to wait for results of ct scan, pt not willing to let dressing be put on lac, will continue to monitor.
[2021-03-23 22:00] VITALS: RESP 18
--- NOTE | 2021-03-23 22:10 | PC.NURSE ---
patient refused vitals, rr 18
--- NOTE | 2021-03-23 22:58 | PC.NURSE ---
report called to francisco javier at [facility]
== END 2021-03-23 23:17 | disposition skilled nursing facility (03) ==
PROVIDERS: Emergency Provider Internal Medicine
DX: S01.111A Laceration without foreign body of right eyelid and periocular area, initial encounter (principal); S09.90XA Unspecified injury of head, initial encounter; E11.9 Type 2 diabetes mellitus without complications; I10 Essential (primary) hypertension; W19.XXXA Unspecified fall, initial encounter; Y93.9 Activity, unspecified; Y92.9 Unspecified place or not applicable; Y99.9 Unspecified external cause status
CPT/HCPCS: 12013; 70450; 99284

== ENCOUNTER 2021-04-06 09:57 | Emergency (ER) | payer MEDICARE, MEDICAID, SELFPAY ==
--- NOTE | ~2021-04-06 | XR_ITS ---
EXAMINATION: XR CHEST CLINICAL INFORMATION: Weight loss COMPARISON: Chest x-ray on 09/23/2020 TECHNIQUE: Frontal view of the chest was obtained. FINDINGS: The lungs are hyperinflated. There are mild chronic interstitial changes with mid and lower lung zone predominance. No focal airspace consolidation. No pleural effusions. XR/XR chest 1V IMPRESSION: No acute disease.
--- NOTE | ~2021-04-06 | CT_ITS ---
EXAMINATION: CT ABDOMEN AND PELVIS WITHOUT CONTRAST CLINICAL INFORMATION: Nausea, vomiting, constipation. COMPARISON: CT scan of the abdomen and pelvis dated 11/26/2020. TECHNIQUE: Multidetector volumetric imaging was performed from the superior aspect of the liver through the pubic symphysis. Sagittal and coronal reformatted images were obtained on the technologist workstation. This CT examination was performed using dose optimization techniques as appropriate, variously including the following: *Automated exposure control *Adjustment of mA and/or kV according to patient size (this includes techniques or standardized protocols for targeted exams where dose is matched to indication/reason for exam; i.e. extremities or head) *Use of iterative reconstruction technique DLP: 408 mGy-cm. FINDINGS: There is prominent beam hardening artifact seen extending through the upper abdomen and lower chest related to the patient's arms. Patient declined moving arms up out of the field of view. Evaluation overall is limited due to noncontrast imaging and due to paucity of internal fat planes. LUNG BASES: Small retrocardiac hiatal hernia seen, containing the gastric fundus. There is minimal linear atelectasis seen in the right lung base. LIVER, GALLBLADDER, AND BILIARY TREE: The liver is normal in size, shape, and attenuation. No focal hepatic lesion on noncontrast imaging. No biliary ductal dilatation is present. There are, however, subtle tiny locules of air seen in region of the falciform ligament and adjacent left hepatic capsular surface, suspicious for gas within the recanalized umbilical vein (series 3, images 22 and 23). The gallbladder is unremarkable with no evidence of radiopaque gallstones, gallbladder wall thickening, or obvious pericholecystic inflammatory changes. PANCREAS: Unremarkable on noncontrast imaging. SPLEEN: Unremarkable on noncontrast imaging. ADRENAL GLANDS: Right adrenal gland normal. There is nodularity/thickening of the left adrenal gland, unchanged from prior exam. No discrete measurable mass seen. KIDNEYS AND URETERS: The kidneys are normal in size, shape, and attenuation. No hydronephrosis, hydroureter, or calculi seen. No perinephric stranding. Again seen are right renal simple cysts as well as a hyperdense hemorrhagic/proteinaceous cyst in the upper pole of the right kidney, which measures 1.5 cm in diameter, similar to the previous exam. A 0.6 cm mid left renal low-attenuation mass is also stable compared to prior study, likely a small cyst BLADDER: Suboptimally assessed due to underdistention, appearing diffusely thick-walled, suggesting a combination of bladder wall hypertrophy from chronic bladder outlet obstruction and bladder decompression. PELVIC VISCERA: Prostate gland is enlarged and heterogeneous, measuring 4.1 cm in diameter and impresses upon the bladder base.. GASTROINTESTINAL TRACT: Poorly evaluated due to volume averaging with each other and possibly of intervening fat contrast. The small and large bowel are grossly unremarkable. The appendix is not seen. ABDOMINAL WALL: Hernia tacks are seen the abdomen/pelvis. No significant recurrent hernia formation seen. LYMPH NODES, VASCULAR: Unremarkable. OSSEOUS STRUCTURES: Moderate vertebral spondylosis in lower thoracic spine and upper lumbar spine. CT/CT abdomen pelvis wo con IMPRESSION: 1. There is suspicion of trace amount of air within the falciform ligament and adjacent liver capsule, raising the suspicion of trace amount of air within a recanalized umbilical vein. No other portal venous gas is seen and finding is of uncertain etiology and significance. No definite evidence of mesenteric venous gas or bowel ischemia is seen though evaluation of the bowel is significantly limited on these images performed noncontrast. Close clinical correlation is requested. Perhaps repeating the exam with intravenous and oral contrast may help to further define these findings. 2. Other incidental findings include small retrocardiac hiatal hernia, bilateral renal cysts, including a hemorrhagic/proteinaceous cyst in the upper pole of the right kidney, and an enlarged prostate gland. This critical result was discussed with BELLO Self 04/06/2021, 11:51 AM and it was ascertained that the content and urgency of this report was understood at the time of direct communication.
[2021-04-06 10:07] VITALS: BP 120/69; BP 122/76; PULSE 89; PULSE 91; RESP 12; TEMP 36.6; O2SAT 100; BMI 26.5
--- NOTE | 2021-04-06 10:09 | ED.ABDPAIN ---
HPI - Abdominal Pain General Chief Complaint: Nausea/Vomiting/Diarrhea Stated Complaint: NAUSEA/VOMITING, WEIGHT LOSS Time Seen by Provider: 04/06/21 09:58 Source: patient and EMS Mode of arrival: EMS History of Present Illness HPI narrative: 65-year-old male with past medical history of anemia, BPH, DM, dysphagia, encephalopathy, GERD, GI bleed, HTN, hypothyroid, schizoaffective, TBI, coming from [facility] for 10 lb weight loss in the past week, nausea, and vomiting with every meal. Per EMS patient was recently stopped on all psych meds over the past 1 month secondary to constipation. History limited secondary to patient's current mental status/not interactive with exam MD elicited complaint: abdominal pain Related Data Home Medications Medication Instructions Recorded Confirmed acetaminophen 325 mg tablet 650 mg PO Q6H PRN 09/23/20 04/06/21 diphenhydramine HCl 25 mg capsule 25 mg PO Q6H PRN 09/23/20 04/06/21 (Benadryl) docusate sodium 100 mg capsule 100 mg PO BID 09/23/20 04/06/21 lactulose 10 gram/15 mL (15 mL) 20 g PO DAILY 09/23/20 04/06/21 oral solution levothyroxine 50 mcg tablet 50 mcg PO DAILY 09/23/20 04/06/21 metoprolol tartrate 25 mg tablet 12.5 mg PO DAILY 09/23/20 04/06/21 pantoprazole 40 mg tablet,delayed 40 mg PO BID 09/23/20 04/06/21 release sennosides 8.6 mg tablet (senna) 17.2 mg PO BEDTIME 09/23/20 04/06/21 sodium bicarbonate 650 mg tablet 650 mg PO DAILY 09/23/20 04/06/21 tamsulosin 0.4 mg capsule 0.4 mg PO DAILY 09/23/20 04/06/21 multivitamin with minerals 1 tab PO DAILY 11/25/20 04/06/21 sennosides 8.6 mg tablet (senna) 8.6 mg PO DAILY PRN 01/23/21 04/06/21 lurasidone 40 mg tablet (Latuda) 1 tab PO BEDTIME 04/06/21 04/06/21 Allergies Allergy/AdvReac Type Severity Reaction Status Date / Time fish oil [FISH OIL] Allergy Unknown UNK Verified 12/13/20 16:00 Iodinated Contrast Media Allergy Unknown UNK Verified 12/13/20 16:00 [IODINATED CONTRAST- ORAL AND IV DYE] iodine [IODINE] Allergy Unknown UNK Verified 12/13/20 16:00 pollen Allergy Unknown Unknown Uncoded 09/24/20 09:51 SEAFOOD Allergy Unknown UNK Uncoded 02/29/20 19:27 shellfish Allergy Unknown Unknown Uncoded 09/24/20 09:51 Review of Systems Review of Systems Constitutional: + Weight loss, No Fever, No Chills Gastrointestinal: + Nausea, + Vomiting, No Diarrhea, + Constipation ROS limited secondary to patient's acute mental status Yes all other systems are reviewed and are negative Physical Exam Vital Signs: Vital Signs: Last Vital Signs Temp 97.8 F 04/06/21 10:07 Pulse 91 04/06/21 10:07 Resp 18 04/06/21 14:00 BP 120/69 04/06/21 10:07 Pulse Ox 100 04/06/21 10:07 Body Mass Index 26.5 Const: General: cooperative and comfortable Nutritional Appearance: malnourished and thin Limitations: behavioral limitations HENMT: Head: Yes normal to inspection Ears: hearing grossly normal bilaterally General nose exam: Normal external nose present Face and sinus: Yes normal facial exam Eyes: General: appearance normal, both eyes and all related structures EOM: EOMs intact bilaterally Neck: Neck: Yes normal visual inspection and Yes no meningeal signs Resp: Effort & Inspection: normal respiratory effort and no respiratory distress Auscultation: clear to auscultation bilaterally, no rales and no wheezes Cardio: Rate: regular rate Heart sounds: S1 normal heart sound present and S2 normal heart sound present GI: Inspection: Yes normal to inspection Palpation (GI): Soft to palpation, nontender, no guarding and not rigid Skin: Rashes: no rashes Wounds: no wounds Neuro: General: tone normal, moves all extremities and no meningeal signs Extrem: General: Yes normal to inspection Psych: Speech and movement: Mute speech present Affect: Blunted affect present Attitude: Guarded attititude/behavior present and Avoids eye contact (attititude/behavior) Course Course Course Narrative: 1126--H&H at patient's baseline/improved, BUN elevated to 27 likely from dehydration 1210-- XR chest 1V IMPRESSION: No acute disease. CT abdomen pelvis wo con IMPRESSION: 1. There is suspicion of trace amount of air within the falciform ligament and adjacent liver capsule, raising the suspicion of trace amount of air within a recanalized umbilical vein. No other portal venous gas is seen and finding is of uncertain etiology and significance. No definite evidence of mesenteric venous gas or bowel ischemia is seen though evaluation of the bowel is significantly limited on these images performed noncontrast. Close clinical correlation is requested. Perhaps repeating the exam with intravenous and oral contrast may help to further define these findings. 2. Other incidental findings include small retrocardiac hiatal hernia, bilateral renal cysts, including a hemorrhagic/proteinaceous cyst in the upper pole of the right kidney, and an enlarged prostate gland. >> Will obtain lactic acid. Case discussed with surgery Dr. Alas, low suspicion for free air/significance of CT findings with benign abdomen, no leukocytosis and reassuring labs. Recommends obtaining lactic, then discharging patient back to SNF with bowel regimen to help evacuate stool, and observation -1328--lactic acid negative at 1.6. Will p.o. challenge -patient persistently refusing to eat, have tried multiple different staff members, and different kinds of pureed food without any success. -1537--patient tolerated p.o. ice cream without nausea or vomiting. Plan to DC back to [facility] -1632-patient forcefully making himself spit up/dry heaves, not actually vomiting MDM - Abdominal Pain MDM Narrative Medical decision making narrative: 65-year-old male with past medical history of anemia, BPH, DM, dysphagia, encephalopathy, GERD, GI bleed, HTN, hypothyroid, schizoaffective, TBI, coming from [facility] for 10 lb weight loss in the past week, nausea, and vomiting with every meal. On exam NAD, nontoxic, abdomen soft/nontender, guarded, not interactive with history/physical. Concern for SBO/constipation vs intra-abdominal pathology vs metabolic abnormalities psychiatric illness Plan: EKG, labs, UA, CT abdomen/pelvis, IVF, re-evaluate Medical Records Attestation: I reviewed the patient's medical records. Lab Data Attestation: I reviewed the patient's lab results. Result diagrams: 04/06/21 10:38 04/06/21 10:38 Labs: Lab Results 10/24/21 10/24/21 10/24/21 Range/Units 10:38 10:38 10:39 WBC 5.7 (4.8-10.8) X10*3/uL RBC 5.17 D (4.60-5.80) X10*6/uL Hgb 10.8 L D (14.0-18.0) g/dl Hct 35.6 L D (42-52) % MCV 68.9 L (80-98) fL MCH 20.9 L (27.0-33.0) pg MCHC 30.3 L (31.0-36.0) g/dl RDW 17.5 H (11.0-16.0) % Plt Count 420 H (160-400) X10*3/uL MPV 9.4 (9.4-12.4) fL Immature Gran % (Auto) 0.2 (0.0-0.4) % Neut % (Auto) 71.2 (45-73) % Lymph % (Auto) 19.1 L (20-40) % [place] % (Auto) 8.1 (2-11) % Eos % (Auto) 0.7 (0-4) % Baso % (Auto) 0.7 (0-2) % Lymph # (Auto) 1.1 L (1.2-4.9) X10*3/uL [place] # (Auto) 0.5 (0.1-1.2) X10*3/uL Eos # (Auto) 0.0 (0.0-0.4) X10*3/uL Baso # (Auto) 0.0 (0.0-0.2) X10*3/uL Abs Immat Gran (auto) 0.01 (0.00-0.03) X10*3/uL Absolute Neuts (auto) 4.0 (2.0-8.3) X10*3/uL Absolute Nucleated RBC 0.000 (0.0-0.012) X10*3/uL Nucleated RBC % (auto) 0.0 (0.0-0.2) /100WBC Sodium 141 (135-145) mmol/L Potassium 4.1 (3.3-5.1) mmol/L Chloride 105 (96-108) mmol/L Carbon Dioxide 26 (22-29) mmol/L Anion Gap 14 (12-20) BUN 27 H D (9-16) mg/dL Creatinine 1.20 (0.5-1.4) mg/dL Estim Creat Clear Calc 67.3 Estimated GFR > 60 Random Glucose 108 (60-115) mg/dL Lactic Acid (0.5-2.0) mmol/L Calcium 10.2 D (8.4-10.2) mg/dL Magnesium 2.3 (1.6-2.6) mg/dL Total Bilirubin 0.3 (0.0-1.0) mg/dL Direct Bilirubin < 0.2 (0.0-0.5) mg/dL AST 18 D (5-37) U/L ALT 12 (0-40) U/L Alkaline Phosphatase 142 H D (39-117) U/L Total Protein 7.6 D (6.5-8.0) g/dL Albumin 4.5 D (3.5-5.0) g/dL Lipase 19 (8-78) U/L COVID-19 (RICHA) Negative (Negative) COVID-19 Clin Com See Note 04/06/21 Range/Units 13:03 WBC (4.8-10.8) X10*3/uL RBC (4.60-5.80) X10*6/uL Hgb (14.0-18.0) g/dl Hct (42-52) % MCV (80-98) fL MCH (27.0-33.0) pg MCHC (31.0-36.0) g/dl RDW (11.0-16.0) % Plt Count (160-400) X10*3/uL MPV (9.4-12.4) fL Immature Gran % (Auto) (0.0-0.4) % Neut % (Auto) (45-73) % Lymph % (Auto) (20-40) % [place] % (Auto) (2-11) % Eos % (Auto) (0-4) % Baso % (Auto) (0-2) % Lymph # (Auto) (1.2-4.9) X10*3/uL [place] # (Auto) (0.1-1.2) X10*3/uL Eos # (Auto) (0.0-0.4) X10*3/uL Baso # (Auto) (0.0-0.2) X10*3/uL Abs Immat Gran (auto) (0.00-0.03) X10*3/uL Absolute Neuts (auto) (2.0-8.3) X10*3/uL Absolute Nucleated RBC (0.0-0.012) X10*3/uL Nucleated RBC % (auto) (0.0-0.2) /100WBC Sodium (135-145) mmol/L Potassium (3.3-5.1) mmol/L Chloride (96-108) mmol/L Carbon Dioxide (22-29) mmol/L Anion Gap (12-20) BUN (9-16) mg/dL Creatinine (0.5-1.4) mg/dL Estim Creat Clear Calc Estimated GFR Random Glucose (60-115) mg/dL Lactic Acid 1.6 (0.5-2.0) mmol/L Calcium (8.4-10.2) mg/dL Magnesium (1.6-2.6) mg/dL Total Bilirubin (0.0-1.0) mg/dL Direct Bilirubin (0.0-0.5) mg/dL AST (5-37) U/L ALT (0-40) U/L Alkaline Phosphatase (39-117) U/L Total Protein (6.5-8.0) g/dL Albumin (3.5-5.0) g/dL Lipase (8-78) U/L COVID-19 (RICHA) (Negative) COVID-19 Clin Com ECG Data Attestation: I personally reviewed and interpreted this ECG as follows: ECG interpretation date: 04/06/21 ECG interpretation time: 10:23 Interpretation: EKG normal sinus rhythm with a rate of 88. NJ interval 170. QTC 445. No STEMI. Artifact present Discharge Plan Discharge Clinical Impression: Acute dehydration Constipation Qualifiers: Constipation type: unspecified constipation type Qualified Code(s): K59.00 - Constipation, unspecified Nausea & vomiting Qualifiers: Vomiting type: unspecified Vomiting Intractability: unspecified Qualified Code(s): R11.2 - Nausea with vomiting, unspecified Patient Disposition: er SNF Instructions: Dehydration (ED), Acute Nausea and Vomiting (ED) Additional Instructions: Patient's labs show he is dehydrated His CT shows he is very constipated, please give Mag citrate and enemas for constipation Please make sure he is staying hydrated Prescriptions: No Action tamsulosin 0.4 mg capsule 0.4 mg PO DAILY RF: 0 sennosides [senna] 8.6 mg Tablet 17.2 mg PO BEDTIME RF: 0 acetaminophen 325 mg Tablet 650 mg PO Q6H PRN (Reason: Fever Or Pain) RF: 0 sodium bicarbonate 650 mg Tablet 650 mg PO DAILY RF: 0 levothyroxine 50 mcg tablet 50 mcg PO DAILY RF: 0 pantoprazole 40 mg Tablet,Delayed Release (Dr/Ec) 40 mg PO BID RF: 0 diphenhydramine HCl [Benadryl] 25 mg Capsule 25 mg PO Q6H PRN (Reason: Itching) RF: 0 docusate sodium 100 mg Capsule 100 mg PO BID RF: 0 metoprolol tartrate 25 mg Tablet 12.5 mg PO DAILY RF: 0 lactulose 10 gram/15 mL (15 mL) Solution 20 g PO DAILY RF: 0 multivitamin with minerals Tablet 1 tab PO DAILY RF: 0 sennosides [senna] 8.6 mg Tablet 8.6 mg PO DAILY PRN (Reason: Constipation) RF: 0 Latuda 40 mg tablet 1 tab PO BEDTIME RF: 0 Referrals: Swapnil Vazquez DO [Physician] - 2 days [facility] Past Medical History Attestation statement: The following information was validated with the patient. Medical History Anemia BPH (benign prostatic hyperplasia) Diabetes Dysphagia Encephalopathy GERD (gastroesophageal reflux disease) GI bleed HTN (hypertension) Hypothyroidism Personality disorder Presbyopia Schizoaffective disorder TBI (traumatic brain injury) Social History Social History Household Members: Other Household Members Other:: from [facility] Housing: [facility] Housing Other:: [facility] Do you presently have visiting nurse or other home services: Yes (from [facility]) Unable to assess alcohol history related to: Unable to respond, Unknown and Refusing to respond Alcohol intake: unknown Patient Tobacco Use Status: Tobacco use Unknown Use of substances other than those prescribed or required for medical reasons: Unknown Substance Use Type: Unknown Advance Directives: No Advance Directives Information Provided: No service: No Current occupational status: disabled
--- NOTE | 2021-04-06 10:11 | ECG_ITS ---
Test Reason : VOMITING Blood Pressure : / mmHG Vent. Rate : 088 BPM Atrial Rate : 088 BPM P-R Int : 170 ms QRS Dur : 084 ms QT Int : 368 ms P-R-T Axes : 082 -31 075 degrees QTc Int : 445 ms Normal sinus rhythm Left axis deviation Abnormal ECG No significant changes seen Referred By: Lauryn Evangelista Electronically Signed By:CARA FAGAN MD
[2021-04-06 10:44] LABS: MANUAL DIFF FLAG NO
[2021-04-06 10:46] LABS: Basophils Percent Auto 0.7 % (0-2); Eosinophils Percent Auto 0.7 % (0-4); Hematocrit 35.6 % (42-52); Hemoglobin 10.8 g/dl (14.0-18.0); Imm Gran Abs Auto 0.01 X10*3/uL (0.00-0.03); Imm Gran Pct Auto 0.2 % (0.0-0.4); Lymphocytes Absolute Auto 1.1 X10*3/uL (1.2-4.9); Lymphocytes Percent Auto 19.1 % (20-40); Mean Corpuscular HGB Conc 30.3 g/dl (31.0-36.0); Mean Corpuscular Hemoglobin 20.9 pg (27.0-33.0); Mean Corpuscular Volume 68.9 fL (80-98); Mean Platelet Volume 9.4 fL (9.4-12.4); Monocytes Absolute Auto 0.5 X10*3/uL (0.1-1.2); Monocytes Percent Auto 8.1 % (2-11); Neutrophils Percent Auto 71.2 % (45-73); Platelet Count 420 X10*3/uL (160-400); Red Blood Count 5.17 X10*6/uL (4.60-5.80); Red Cell Distribution Width 17.5 % (11.0-16.0); White Blood Count 5.7 X10*3/uL (4.8-10.8)
[2021-04-06] MEDS: Famotidine/PF 20 MG/2 ML VIAL IVPUSH (10:49)
[2021-04-06] MEDS: ondansetron HCL 4 MG/2 ML VIAL IVPUSH (10:51)
[2021-04-06] MEDS: 0.9 % Sodium Chloride 1,000 ML 999 ML IVCONT ×2 (10:53→12:33)
[2021-04-06 11:04] LABS: COVID-19 Test Negative (Negative); IDNOW Serial# 9DD0AD1C
[2021-04-06 11:08] LABS: Alanine Aminotransferase 12 U/L (0-40); Albumin Level 4.5 g/dL (3.5-5.0); Alkaline Phosphatase 142 U/L (39-117); Anion Gap 14 (12-20); Aspartate Amino Transferase 18 U/L (5-37); Bilirubin Direct < 0.2 mg/dL (0.0-0.5); Bilirubin Total 0.3 mg/dL (0.0-1.0); Blood Urea Nitrogen 27 mg/dL (9-16); Calcium 10.2 mg/dL (8.4-10.2); Carbon Dioxide 26 mmol/L (22-29); Chloride 105 mmol/L (96-108); Creatinine Clr Calc Pharmacy 67.3; Estimated Glomerular Filt Rate > 60; Glucose Random 108 mg/dL (60-115); Lipase 19 U/L (8-78); Magnesium 2.3 mg/dL (1.6-2.6); Potassium 4.1 mmol/L (3.3-5.1); Sodium 141 mmol/L (135-145); Total Protein 7.6 g/dL (6.5-8.0)
[2021-04-06 12:00] VITALS: RESP 18
--- NOTE | 2021-04-06 12:50 | PHA.MEDREC ---
Pharmacy Consult ? Medication Reconciliation Pharmacy has completed the medication reconciliation. Patient has stopped all psych meds but latuda and per RN at [facility]...[facility] has refused meds for 2 days
--- NOTE | 2021-04-06 13:00 | PC.NURSE ---
attempting to draw vl, 4 staff in room to do so
[2021-04-06] MEDS: Magnesium Citrate 300 ML SOLUTION PO (13:19)
--- NOTE | 2021-04-06 13:19 | PC.NURSE ---
trying to attempt to get the patient to drink the mag citrate
[2021-04-06 13:22] LABS: Lactic Acid 1.6 mmol/L (0.5-2.0)
[2021-04-06 14:00] VITALS: RESP 18
--- NOTE | 2021-04-06 14:20 | PC.NURSE ---
patient refusing vitals, rr [id number]
--- NOTE | 2021-04-06 14:21 | PC.NURSE ---
per request of provider, attempting to get the patient to take po
--- NOTE | 2021-04-06 15:09 | PC.NURSE ---
staff that the patient knows well attempted to get him to take bites of oatmeal, patient refusing. pt is spitting onto the floor- pt given emesis bag which he then threw onto the floor as well. psych provider in to see the patient.
--- NOTE | 2021-04-06 15:12 | PC.NURSE ---
patient is now taking bites of ice cream with a tech that knows him well, provider is aware, will continue to monitor.
--- NOTE | 2021-04-06 15:24 | MHC.CARE ---
Pamela met with Pt. per request of provider. PT. spoke in one or two word sentances and asked what this specification writer's credentials were. Spoke with Nurse Mason, at [facility]. whom reported that Pt. is presenting at baseline, and works well with someone he knows. When this specification writer went to consult with the provider, Pt was seen eating ice cream with a [employer] that he was familiar with.
[2021-04-06 16:00] VITALS: RESP 18
--- NOTE | 2021-04-06 16:24 | PC.NURSE ---
report called to [facility]
--- NOTE | 2021-04-06 16:31 | PC.NURSE ---
patient ate moderate amount of puree meals .
--- NOTE | 2021-04-06 17:36 | PC.NURSE ---
patient continues to wait for ambulance to return him to [facility], patient spitting on floor- is not vomiting and has not vomited since he arrived here, provider is aware, will continue to monitor.
[2021-04-06 18:00] VITALS: RESP 18
--- NOTE | 2021-04-06 18:35 | PC.NURSE ---
ems here to pick up driver patient, pt still refusing vitals, rr 18
== END 2021-04-06 18:37 | disposition skilled nursing facility (03) ==
PROVIDERS: Physician Assistant; Emergency Provider Emergency Medicine
DX: E86.0 Dehydration (principal); K59.00 Constipation, unspecified; R11.2 Nausea with vomiting, unspecified; Z20.822 Contact with and (suspected) exposure to COVID-19; Z79.899 Other long term (current) drug therapy
CPT/HCPCS: 36415; 71045; 74176; 80048; 80076; 83605; 83690; 83735; 85025; 87635; 93005; 96361; 96374; 96375; 99284; J2405

== ENCOUNTER → 2021-04-22 10:23 | Outpatient (BNVA) | payer MEDICARE, MEDICAID, SELFPAY | PROVIDERS: PCP Hospitalist; Visit Provider Nurse Practitioner Family ==

== ENCOUNTER → 2021-05-19 13:48 | Outpatient (BNVA) | payer MEDICARE, MEDICAID, SELFPAY | PROVIDERS: PCP Hospitalist; Referring Provider Hospitalist; Visit Provider Nurse Practitioner Family | DX: K21.9 Gastro-esophageal reflux disease without esophagitis (principal); D50.9 Iron deficiency anemia, unspecified; R13.12 Dysphagia, oropharyngeal phase | CPT/HCPCS: 99212 ==

== ENCOUNTER 2021-05-22 20:07 | Emergency (ER) | payer MEDICARE, MEDICAID, SELFPAY ==
--- NOTE | ~2021-05-22 | CT_ITS ---
EXAMINATION: CT CERVICAL SPINE WITHOUT CONTRAST CLINICAL INFORMATION: Fall. COMPARISON: CT cervical spine dated 08/05/2017. TECHNIQUE: Contiguous axial CT images of the cervical spine were obtained without contrast. Sagittal and coronal reformats were provided and reviewed. This CT examination was performed using dose optimization techniques as appropriate, variously including the following: *Automated exposure control *Adjustment of mA and/or kV according to patient size (this includes techniques or standardized protocols for targeted exams where dose is matched to indication/reason for exam; i.e. extremities or head) *Use of iterative reconstruction technique DLP: 409 mGy-cm FINDINGS: Normal vertebral body alignment. The cervical lordosis is maintained. No acute fracture or subluxation. No loss of vertebral body height. Multilevel loss of intervertebral disc height with degenerative endplate changes and endplate osteophytes, slightly progressed. Multilevel bilateral facet arthropathy. No lytic or blastic osseous lesion. The visualized paraspinal soft tissues are grossly unremarkable. The thyroid is unremarkable. The lung apices are clear. Mild multilevel bilateral neural foraminal stenosis, slightly progressed. CT/CT cervical spine wo con IMPRESSION: 1. No acute fracture or subluxation. 2. Multilevel degenerative disease and bilateral facet arthropathy with multilevel bilateral neural foraminal stenosis, slightly progressed when compared to the prior CT.
--- NOTE | ~2021-05-22 | CT_ITS ---
EXAMINATION: CT HEAD WITHOUT CONTRAST (STROKE PROTOCOL) CLINICAL INFORMATION: Stroke protocol. New onset right-sided weakness. COMPARISON: Multiple priors, most recent head CT dated 03/23/2021. TECHNIQUE: Contiguous axial imaging was performed from the skull base to vertex without intravenous administration of contrast. This CT examination was performed using dose optimization techniques as appropriate, variously including the following: *Automated exposure control *Adjustment of mA and/or kV according to patient size (this includes techniques or standardized protocols for targeted exams where dose is matched to indication/reason for exam; i.e. extremities or head) *Use of iterative reconstruction technique DLP: 909 mGy-cm FINDINGS: There is no intracranial hemorrhage, hematoma, or extra-axial fluid collection. The ventricles are normal in size. There is no hydrocephalus, edema, or mass effect. The nguyen-white matter differentiation appears symmetric. There is no acute infarct or mass lesion. The calvarium appears intact. There is no pneumocephalus or orbital emphysema. The visualized sinuses and middle ears and mastoid air cells show no significant mucosal thickening. There are no air-fluid levels. CT/CT head for stroke IMPRESSION: No acute intracranial hemorrhage or mass effect. This critical result was discussed with Dr. Cai at 9:35 PM on 05/22/2021. It was ascertained that the content and urgency of the report was understood at the time of direct communication.
--- NOTE | ~2021-05-22 | XR_ITS ---
EXAMINATION: XR CHEST CLINICAL INFORMATION: CVA. COMPARISON: Chest x-ray 04/06/2021 TECHNIQUE: Frontal view of the chest was obtained. 10:27 PM FINDINGS: Patient rotated to the right. This obscures the hilar regions. There is no acute change of the chest. No focal consolidation, no pleural effusion or pneumothorax. No pulmonary vascular congestion. Multilevel degenerative spondylosis of the spine. XR/XR chest 1V IMPRESSION: No acute abnormality of chest
[2021-05-22 20:19] VITALS: BMI 20.7
[2021-05-22 20:30] VITALS: BP 135/86; PULSE 89; RESP 18; TEMP 36.4; O2SAT 100
--- NOTE | 2021-05-22 20:54 | ED_ITS ---
HPI - Fall General Chief Complaint: Weakness Stated Complaint: fall Time Seen by Provider: 05/22/21 20:54 Source: EMS and RN notes reviewed Mode of arrival: EMS Limitations: altered mental status History of Present Illness HPI Narrative: [facility] with history of schizophrenia TBI personally disorder apparently rolled over from the bed to the floor unwitnessed at around 18:30 since then patient with decreased responsiveness sleeping all the time no significant external injury noticed. No vomiting. Prior to the fall patient did have any significant complaints was at as usual health ambulates Related Data Home Medications Medication Instructions Recorded Confirmed acetaminophen 325 mg tablet 650 mg PO Q6H PRN 09/23/20 04/06/21 diphenhydramine HCl 25 mg capsule 25 mg PO Q6H PRN 09/23/20 04/06/21 (Benadryl) docusate sodium 100 mg capsule 100 mg PO BID 09/23/20 04/06/21 lactulose 10 gram/15 mL (15 mL) 20 g PO DAILY 09/23/20 04/06/21 oral solution levothyroxine 50 mcg tablet 50 mcg PO DAILY 09/23/20 04/06/21 metoprolol tartrate 25 mg tablet 12.5 mg PO DAILY 09/23/20 04/06/21 pantoprazole 40 mg tablet,delayed 40 mg PO BID 09/23/20 04/06/21 release sennosides 8.6 mg tablet (senna) 17.2 mg PO BEDTIME 09/23/20 04/06/21 sodium bicarbonate 650 mg tablet 650 mg PO DAILY 09/23/20 04/06/21 tamsulosin 0.4 mg capsule 0.4 mg PO DAILY 09/23/20 04/06/21 multivitamin with minerals 1 tab PO DAILY 11/25/20 04/06/21 sennosides 8.6 mg tablet (senna) 8.6 mg PO DAILY PRN 01/23/21 04/06/21 lurasidone 40 mg tablet (Latuda) 1 tab PO BEDTIME 04/06/21 04/06/21 Allergies Allergy/AdvReac Type Severity Reaction Status Date / Time fish oil [FISH OIL] Allergy Unknown UNK Verified 05/19/21 13:51 Iodinated Contrast Media Allergy Unknown UNK Verified 05/19/21 13:51 [IODINATED CONTRAST- ORAL AND IV DYE] iodine [IODINE] Allergy Unknown UNK Verified 05/19/21 13:51 pollen Allergy Unknown Unknown Uncoded 04/22/21 10:25 SEAFOOD Allergy Unknown UNK Uncoded 04/22/21 10:25 shellfish Allergy Unknown Unknown Uncoded 04/22/21 10:25 Review of Systems Review of Systems: Yes Unobtainable due to mental status PMFSH Past Medical History Medical History Anemia BPH (benign prostatic hyperplasia) Diabetes Dysphagia Encephalopathy GERD (gastroesophageal reflux disease) GI bleed HTN (hypertension) Hypothyroidism Personality disorder Presbyopia Schizoaffective disorder TBI (traumatic brain injury) Social History Social History Household Members: Other Household Members Other:: from [facility]: [facility] Other:: [facility] Do you presently have visiting nurse or other home services: Yes (from [facility]) Unable to assess alcohol history related to: Unable to respond, Unknown and Refusing to respond Alcohol intake: unknown Patient Tobacco Use Status: Tobacco use Unknown Substance Use Type: Unknown Advance Directives: No Advance Directives Information Provided: Yes service: No Current occupational status: disabled Physical Exam Vital Signs: Vital Signs: Last Vital Signs Temp 98.8 F 05/22/21 21:54 Pulse 80 05/23/21 00:00 Resp 15 05/23/21 00:00 BP 137/91 H 05/23/21 00:00 Pulse Ox 97 05/23/21 00:00 BMI result Body Mass Index 20.7 Appearance: Obtunded minimal response to painful stimuli Eyes: PERRLA, No Nystagmus ENT: Pharynx normal. Oral Mucosa moist Neck: Normal inspection. Neck supple. CVS: Normal heart rate and rhythm. Pulses normal. Respiratory: No respiratory distress. Equal air entry bilateral, no wheezing/rales/rhonchi Abdomen: Soft and nontender. Bowel sounds are present, no mass palpable, no CVA tenderness Skin: Skin warm and dry. Normal skin color. Normal skin turgor. Extremities: No lower extremity edema. No calf swelling Neuro: Obtunded minimal response to painful stimuli Course Reevaluation(s) Reevaluation #1: While placing the IV line patient started moving around sitting up in the bed and falling sleep again etiology is not very clear likely toxic metabolic encephalopathy so at this time there is no source of infection chest x-ray negative labs are negative afebrile CT scan of the head and C-spine [place] will watch him give some IV fluids and re-evaluate Time: 22:37 MDM - Fall MDM Narrative Medical decision making narrative: Patient been sleeping since came to the ER was moving his extremities when freeing the IV line fighting with us workup is essentially negative called the long term will take the patient back. Patient vitals are stable Lab Data Attestation: I reviewed the patient's lab results. Result diagrams: 05/22/21 21:52 05/22/21 21:52 Labs: Lab Results 05/22/21 05/22/21 05/22/21 Range/Units 21:15 21:17 21:52 WBC 7.5 (4.8-10.8) X10*3/uL RBC 4.82 (4.60-5.80) X10*6/uL Hgb 10.2 L (14.0-18.0) g/dl Hct 33.3 L (42.0-52.0) % MCV 69.1 L (80.0-98.0) fL MCH 21.2 L (27.0-33.0) pg MCHC 30.6 L (31.0-36.0) g/dl RDW 20.7 H (11.0-16.0) % Plt Count 326 (160-400) X10*3/uL MPV 9.9 (9.4-12.4) fL Immature Gran % (Auto) 0.1 (0.0-0.4) % Neut % (Auto) 69.6 (45-73) % Lymph % (Auto) 21.4 (20-40) % [place] % (Auto) 8.2 (2-11) % Eos % (Auto) 0.0 (0-4) % Baso % (Auto) 0.7 (0-2) % Lymph # (Auto) 1.6 (1.2-4.9) X10*3/uL [place] # (Auto) 0.6 (0.1-1.2) X10*3/uL Eos # (Auto) 0.0 (0.0-0.4) X10*3/uL Baso # (Auto) 0.1 (0.0-0.2) X10*3/uL Abs Immat Gran (auto) 0.01 (0.00-0.03) X10*3/uL Absolute Neuts (auto) 5.2 (2.0-8.3) x10*3/uL Absolute Nucleated RBC 0.000 (0.0-0.012) X10*3/uL Nucleated RBC % (auto) 0.0 (0.0-0.2) /100WBC PT 12.8 (9.9-13.0) SEC INR 1.1 (0.9-1.1) Sodium (135-145) mmol/L Potassium (3.3-5.1) mmol/L Chloride (96-108) mmol/L Carbon Dioxide (22-29) mmol/L Anion Gap (12-20) BUN (9-16) mg/dL Creatinine (0.5-1.4) mg/dL Estim Creat Clear Calc Estimated GFR POC Glucose 94 (60-115) mg/dL Random Glucose (60-115) mg/dL Calcium (8.4-10.2) mg/dL Troponin I High Sens (<3.5-35.0) ng/L Urine Color Urine Appearance Urine pH (5.0-8.0) Ur Specific [place] (1.005-1.025) Urine Protein (NEG-TRACE) MG/DL Urine Glucose (UA) (NEG) MG/DL Urine Ketones (NEG) MG/DL Urine Blood (NEG) Urine Nitrite (NEG) Ur Leukocyte Esterase (NEG) Urine Opiates Screen (Not Detect) Urine Fentanyl Screen (Not Detect) Ur Barbiturates Screen (Not Detect) Ur Phencyclidine Scrn (Not Detect) Ur Amphetamines Screen (Not Detect) U Benzodiazepines Scrn (Not Detect) Urine Cocaine Screen (Not Detect) U Marijuana (THC) Screen (Not Detect) COVID-19 (RICHA) (Negative) COVID-19 Clin Com 05/22/21 05/22/21 05/22/21 Range/Units 21:52 21:52 21:52 WBC (4.8-10.8) X10*3/uL RBC (4.60-5.80) X10*6/uL Hgb (14.0-18.0) g/dl Hct (42.0-52.0) % MCV (80.0-98.0) fL MCH (27.0-33.0) pg MCHC (31.0-36.0) g/dl RDW (11.0-16.0) % Plt Count (160-400) X10*3/uL MPV (9.4-12.4) fL Immature Gran % (Auto) (0.0-0.4) % Neut % (Auto) (45-73) % Lymph % (Auto) (20-40) % [place] % (Auto) (2-11) % Eos % (Auto) (0-4) % Baso % (Auto) (0-2) % Lymph # (Auto) (1.2-4.9) X10*3/uL [place] # (Auto) (0.1-1.2) X10*3/uL Eos # (Auto) (0.0-0.4) X10*3/uL Baso # (Auto) (0.0-0.2) X10*3/uL Abs Immat Gran (auto) (0.00-0.03) X10*3/uL Absolute Neuts (auto) (2.0-8.3) x10*3/uL Absolute Nucleated RBC (0.0-0.012) X10*3/uL Nucleated RBC % (auto) (0.0-0.2) /100WBC PT (9.9-13.0) SEC INR (0.9-1.1) Sodium 138 (135-145) mmol/L Potassium 4.6 (3.3-5.1) mmol/L Chloride 102 (96-108) mmol/L Carbon Dioxide 25 (22-29) mmol/L Anion Gap 16 (12-20) BUN 19 H (9-16) mg/dL Creatinine 1.03 (0.5-1.4) mg/dL Estim Creat Clear Calc 64.2 Estimated GFR > 60 POC Glucose (60-115) mg/dL Random Glucose 99 (60-115) mg/dL Calcium 9.6 (8.4-10.2) mg/dL Troponin I High Sens < 3.5 (<3.5-35.0) ng/L Urine Color Urine Appearance Urine pH (5.0-8.0) Ur Specific [place] (1.005-1.025) Urine Protein (NEG-TRACE) MG/DL Urine Glucose (UA) (NEG) MG/DL Urine Ketones (NEG) MG/DL Urine Blood (NEG) Urine Nitrite (NEG) Ur Leukocyte Esterase (NEG) Urine Opiates Screen (Not Detect) Urine Fentanyl Screen (Not Detect) Ur Barbiturates Screen (Not Detect) Ur Phencyclidine Scrn (Not Detect) Ur Amphetamines Screen (Not Detect) U Benzodiazepines Scrn (Not Detect) Urine Cocaine Screen (Not Detect) U Marijuana (THC) Screen (Not Detect) COVID-19 (RICHA) Negative (Negative) COVID-19 Clin Com See Note 05/22/21 05/22/21 Range/Units 21:52 21:52 WBC (4.8-10.8) X10*3/uL RBC (4.60-5.80) X10*6/uL Hgb (14.0-18.0) g/dl Hct (42.0-52.0) % MCV (80.0-98.0) fL MCH (27.0-33.0) pg MCHC (31.0-36.0) g/dl RDW (11.0-16.0) % Plt Count (160-400) X10*3/uL MPV (9.4-12.4) fL Immature Gran % (Auto) (0.0-0.4) % Neut % (Auto) (45-73) % Lymph % (Auto) (20-40) % [place] % (Auto) (2-11) % Eos % (Auto) (0-4) % Baso % (Auto) (0-2) % Lymph # (Auto) (1.2-4.9) X10*3/uL [place] # (Auto) (0.1-1.2) X10*3/uL Eos # (Auto) (0.0-0.4) X10*3/uL Baso # (Auto) (0.0-0.2) X10*3/uL Abs Immat Gran (auto) (0.00-0.03) X10*3/uL Absolute Neuts (auto) (2.0-8.3) x10*3/uL Absolute Nucleated RBC (0.0-0.012) X10*3/uL Nucleated RBC % (auto) (0.0-0.2) /100WBC PT (9.9-13.0) SEC INR (0.9-1.1) Sodium (135-145) mmol/L Potassium (3.3-5.1) mmol/L Chloride (96-108) mmol/L Carbon Dioxide (22-29) mmol/L Anion Gap (12-20) BUN (9-16) mg/dL Creatinine (0.5-1.4) mg/dL Estim Creat Clear Calc Estimated GFR POC Glucose (60-115) mg/dL Random Glucose (60-115) mg/dL Calcium (8.4-10.2) mg/dL Troponin I High Sens (<3.5-35.0) ng/L Urine Color YELLOW Urine Appearance CLEAR Urine pH 6.5 (5.0-8.0) Ur Specific [place] 1.010 (1.005-1.025) Urine Protein NEG (NEG-TRACE) MG/DL Urine Glucose (UA) NEG (NEG) MG/DL Urine Ketones NEG (NEG) MG/DL Urine Blood NEG (NEG) Urine Nitrite NEG (NEG) Ur Leukocyte Esterase NEG (NEG) Urine Opiates Screen Not Detected (Not Detect) Urine Fentanyl Screen Not Detected (Not Detect) Ur Barbiturates Screen Not Detected (Not Detect) Ur Phencyclidine Scrn Not Detected (Not Detect) Ur Amphetamines Screen Not Detected (Not Detect) U Benzodiazepines Scrn Not Detected (Not Detect) Urine Cocaine Screen Not Detected (Not Detect) U Marijuana (THC) Screen Not Detected (Not Detect) COVID-19 (RICHA) (Negative) COVID-19 Clin Com Discharge Plan Discharge Clinical Impression: Lethargy Fall Qualifiers: Encounter type: initial encounter Qualified Code(s): W19.XXXA - Unspecified fall, initial encounter Patient Disposition: er LT Transfer Details: To [facility] Instructions: Fall Prevention for Older Adults (ED), Weakness (ED) Additional Instructions: Patient had CT scan and cervical spine CT is negative for any acute injury labs are stable urine drug screen is normal UA is normal there is no source of infection, COVID-19 negative, patient able to get up and move his all 4 extremities in the bed. Follow-up with your PCP Prescriptions: No Action tamsulosin 0.4 mg capsule 0.4 mg PO DAILY RF: 0 sennosides [senna] 8.6 mg Tablet 17.2 mg PO BEDTIME RF: 0 acetaminophen 325 mg Tablet 650 mg PO Q6H PRN (Reason: Fever Or Pain) RF: 0 sodium bicarbonate 650 mg Tablet 650 mg PO DAILY RF: 0 levothyroxine 50 mcg tablet 50 mcg PO DAILY RF: 0 pantoprazole 40 mg Tablet,Delayed Release (Dr/Ec) 40 mg PO BID RF: 0 diphenhydramine HCl [Benadryl] 25 mg Capsule 25 mg PO Q6H PRN (Reason: Itching) RF: 0 docusate sodium 100 mg Capsule 100 mg PO BID RF: 0 metoprolol tartrate 25 mg Tablet 12.5 mg PO DAILY RF: 0 lactulose 10 gram/15 mL (15 mL) Solution 20 g PO DAILY RF: 0 multivitamin with minerals Tablet 1 tab PO DAILY RF: 0 sennosides [senna] 8.6 mg Tablet 8.6 mg PO DAILY PRN (Reason: Constipation) RF: 0 Latuda 40 mg tablet 1 tab PO BEDTIME RF: 0
--- NOTE | 2021-05-22 21:02 | ECG_ITS ---
Test Reason : AMS Blood Pressure : / mmHG Vent. Rate : 080 BPM Atrial Rate : 080 BPM P-R Int : 174 ms QRS Dur : 080 ms QT Int : 378 ms P-R-T Axes : 083 -28 076 degrees QTc Int : 435 ms Normal sinus rhythm Normal ECG When compared with ECG of 06-APR-2021 10:23, No significant change was found Referred By: Pete Carter Electronically Signed By:Wilber Diaz
--- NOTE | 2021-05-22 21:04 | PC.NURSE ---
Patient came from [facility] for weakness and not at baseline. Per report from EMS [facility] staff stated that patient had fallen out of his bed and hit his head. Patient is basically only responding to pain. Pupils are pinpoint. EMS gave patient 2 mg of Narcan with no response. Patient is snorting and has no muscle tone..
[2021-05-22 21:19] LABS: Glucose, Whole Blood 94 mg/dL (60-115)
[2021-05-22 21:49] LABS: INTERNATIONAL NORM RATIO 1.1 (0.9-1.1); Prothrombin Time 12.8 SEC (9.9-13.0)
[2021-05-22 21:54] VITALS: BP 149/86; PULSE 80; RESP 16; TEMP 37.1; O2SAT 100
[2021-05-22 21:58] LABS: MANUAL DIFF FLAG NO
[2021-05-22 22:00] LABS: Basophils Absolute Auto 0.1 X10*3/uL (0.0-0.2); Basophils Percent Auto 0.7 % (0-2); Hematocrit 33.3 % (42.0-52.0); Hemoglobin 10.2 g/dl (14.0-18.0); Imm Gran Abs Auto 0.01 X10*3/uL (0.00-0.03); Imm Gran Pct Auto 0.1 % (0.0-0.4); Lymphocytes Absolute Auto 1.6 X10*3/uL (1.2-4.9); Lymphocytes Percent Auto 21.4 % (20-40); Mean Corpuscular HGB Conc 30.6 g/dl (31.0-36.0); Mean Corpuscular Hemoglobin 21.2 pg (27.0-33.0); Mean Corpuscular Volume 69.1 fL (80.0-98.0); Mean Platelet Volume 9.9 fL (9.4-12.4); Monocytes Absolute Auto 0.6 X10*3/uL (0.1-1.2); Monocytes Percent Auto 8.2 % (2-11); Neutrophils Absolute Auto 5.2 x10*3/uL (2.0-8.3); Neutrophils Percent Auto 69.6 % (45-73); Platelet Count 326 X10*3/uL (160-400); Red Blood Count 4.82 X10*6/uL (4.60-5.80); Red Cell Distribution Width 20.7 % (11.0-16.0); White Blood Count 7.5 X10*3/uL (4.8-10.8)
[2021-05-22 22:13] LABS: Anion Gap 16 (12-20); Blood Urea Nitrogen 19 mg/dL (9-16); Calcium 9.6 mg/dL (8.4-10.2); Carbon Dioxide 25 mmol/L (22-29); Chloride 102 mmol/L (96-108); Creatinine Clr Calc Pharmacy 64.2; Estimated Glomerular Filt Rate > 60; Glucose Random 99 mg/dL (60-115); Potassium 4.6 mmol/L (3.3-5.1); Sodium 138 mmol/L (135-145)
[2021-05-22 22:16] LABS: Appearance Urine CLEAR; Color Urine YELLOW; Glucose Urine UA NEG (NEG); Leukocyte Esterase Urine NEG (NEG); Nitrite Urine NEG (NEG); PH 6.5 (5.0-8.0); Urine Blood NEG (NEG); Urine Ketones NEG (NEG); Urine Protein NEG (NEG-TRACE)
[2021-05-22 22:17] LABS: COVID-19 Test Negative (Negative)
[2021-05-22 22:19] LABS: Troponin-I High Sensitivity < 3.5 ng/L (<3.5-35.0)
[2021-05-22 22:41] LABS: Amphetamine Screen Urine Not Detected (Not Detect); Barbiturates, Urine Not Detected (Not Detect); Benzodiazepines Screen Urine Not Detected (Not Detect); Cannabinoid Screen Urine Not Detected (Not Detect); Cocaine Screen Urine Not Detected (Not Detect); Fentanyl, urine Not Detected (Not Detect); Opiate Screen Urine Not Detected (Not Detect); Phencyclidine Screen Urine Not Detected (Not Detect)
[2021-05-22] MEDS: 0.9 % Sodium Chloride 1,000 ML 999 ML IVCONT (23:15)
[2021-05-23] VITALS: BP 137/91; PULSE 80; RESP 15; O2SAT 97
--- NOTE | 2021-05-23 00:41 | PC.NURSE ---
[facility] contacted to [facility]. Patient's workup negative for lab abnormality, tox screen, head injury etc. Md spoke with [facility]
== END 2021-05-23 02:07 ==
PROVIDERS: Emergency Provider Internal Medicine
DX: R53.1 Weakness (principal); R53.83 Other fatigue; Z91.81 History of falling; Z20.822 Contact with and (suspected) exposure to COVID-19; E11.9 Type 2 diabetes mellitus without complications; I10 Essential (primary) hypertension; F20.9 Schizophrenia, unspecified; Z87.820 Personal history of traumatic brain injury
CPT/HCPCS: 36415; 70450; 71045; 72125; 80048; 80307; 81003; 82947; 84484; 85025; 85610; 87635; 93005; 96360; 99285

== ENCOUNTER 2021-07-23 09:59 | Day surgery (SDC) | payer MEDICARE, MEDICAID, SELFPAY ==
[2021-07-17 14:15] VITALS: BMI 18.3
[2021-07-21 10:01] VITALS: BMI 16.5
--- NOTE | 2021-07-22 10:13 | P.CONAN_ITS ---
Documented by User: Ange Spence NP 07/22/21 10:15 HPI - Anesthesia Eval Consult details Narrative: 65yo M for Upper Endoscopy and Colonoscopy TBI SNF resident [facility] Active Problems Active Problems: All Active Problems (Updated 07/21/21 @ 10:16 by Olivia Fowler RN) Toxic encephalopathy (Acute) Iron deficiency anemia (Acute) Heme positive stool (Acute) Past Medical History Medical History (Updated 07/21/21 @ 10:16 by Olivia Fowler RN) Anemia BPH (benign prostatic hyperplasia) Diabetes Dysphagia Encephalopathy GERD (gastroesophageal reflux disease) GI bleed History of COVID-19 HTN (hypertension) Hypothyroidism Personality disorder Presbyopia Resides in [facility] facility Schizoaffective disorder TBI (traumatic brain injury) Surgical History Surgical History (Updated 07/17/21 @ 14:17 by Olivia Fowler RN) Surgical history unknown Social History Social History (Updated 07/17/21 @ 14:13 by Olivia Fowler RN) Household Members: Other Household Members Other:: resides @ [facility] Housing: Half-Way Housing Other:: [facility] Are you a primary health care legal assistant to a significant other at home: No Do you presently have visiting nurse or other home services: Yes ([facility]) Unable to assess alcohol history related to: Unknown Alcohol intake: unknown Patient Tobacco Use Status: Tobacco use Unknown Use of substances other than those prescribed or required for medical reasons: No Substance Use Type: Unknown Are you DNR?: No Advance Directives: No Advance Directives Information Provided: No (per [facility] manager maritime Kourtney) Advance Directives on File: No Recently lost weight without trying: Unsure Nutrition Risks: No Nutritional Risk service: No Current occupational status: disabled Meds Allergies Allergy/AdvReac Type Severity Reaction Status Date / Time fish oil [FISH OIL] Allergy Unknown Unknown Verified 07/23/21 10:29 Iodinated Contrast Media Allergy Unknown Unknown Verified 07/23/21 10:29 [IODINATED CONTRAST- ORAL AND IV DYE] pollen extracts Allergy Unknown Unknown Verified 07/23/21 10:29 shellfish derived Allergy Unknown Unknown Verified 07/23/21 10:29 Home Medications Medication Instructions Recorded Confirmed Last Taken Type acetaminophen 325 mg tablet 650 mg PO Q6H PRN 09/23/20 07/21/21 09/23/20 History diphenhydramine HCl 25 mg capsule 25 mg PO Q6H PRN 09/23/20 07/21/21 Unknown History (Benadryl) docusate sodium 100 mg capsule 100 mg PO BID 09/23/20 07/21/21 09/23/20 History lactulose 10 gram/15 mL (15 mL) 20 g PO DAILY 09/23/20 07/21/21 09/23/20 History oral solution levothyroxine 50 mcg tablet 50 mcg PO DAILY 09/23/20 07/21/21 09/23/20 History pantoprazole 40 mg tablet,delayed 40 mg PO BID 09/23/20 07/21/21 09/23/20 History release sennosides 8.6 mg tablet (senna) 17.2 mg PO BEDTIME 09/23/20 07/21/21 09/22/20 History sodium bicarbonate 650 mg tablet 650 mg PO DAILY 09/23/20 07/21/21 09/23/20 Hi story tamsulosin 0.4 mg capsule 0.4 mg PO DAILY 09/23/20 07/21/21 09/22/20 History multivitamin with minerals 1 tab PO DAILY 11/25/20 07/21/21 Unknown History sennosides 8.6 mg tablet (senna) 8.6 mg PO DAILY PRN 01/23/21 07/21/21 Unknown History lurasidone 40 mg tablet (Latuda) 1 tab PO BEDTIME 04/06/21 07/21/21 Unknown History metoprolol succinate 25 mg 25 mg PO BID 07/21/21 07/21/21 Unknown History tablet,extended release 24 hr Exam Exam Date and Time: July 22, 2021 1013 Height,Weight and Vital Signs: Height 6 ft Weight 55.248 kg Pertinent Lab Results Pertinent Lab Results: Laboratory Tests 05/22/21 05/22/21 21:52 21:52 WBC 7.5 Hgb 10.2 L Hct 33.3 L Plt Count 326 Sodium 138 Potassium 4.6 Chloride 102 Carbon Dioxide 25 BUN 19 H Creatinine 1.03 Narrative Narrative: EKG 05/2021 Vent. Rate : 080 BPM ? ? Atrial Rate : 080 BPM ?? P-R Int : 174 ms? QRS Dur : 080 ms ? ? QT Int : 378 ms ? ? ? P-R-T Axes : 083 -28 076 degrees ?? QTc Int : 435 ms ? Normal sinus rhythm Normal ECG When compared with ECG of 06-APR-2021 10:23, No significant change was found Assessment and Plan Assessment Anesthesia Assessment: Chart Reviewed Documented by User: Val Sheffield MD 07/23/21 10:51 [facility] Past Medical History Medical History (Updated 07/21/21 @ 10:16 by Olivia Fowler, RUFUS) Anemia BPH (benign prostatic hyperplasia) Diabetes Dysphagia Encephalopathy GERD (gastroesophageal reflux disease) GI bleed History of COVID-19 HTN (hypertension) Hypothyroidism Personality disorder Presbyopia Resides in [facility] facility Schizoaffective disorder TBI (traumatic brain injury) Family History Family history of problems with anesthesia: No Surgical History Surgical History (Updated 07/17/21 @ 14:17 by Olivia Fowler, RUFUS) Surgical history unknown History of Problems with Anesthesia: No Social History Social History (Updated 07/17/21 @ 14:13 by Olivia Fowler RN) Household Members: Other Household Members Other:: resides @ [facility] Housing: Half-Way Housing Other:: [facility] Are you a primary health care legal assistant to a significant other at home: No Do you presently have visiting nurse or other home services: Yes ([facility]) Unable to assess alcohol history related to: Unknown Alcohol intake: unknown Patient Tobacco Use Status: Tobacco use Unknown Use of substances other than those prescribed or required for medical reasons: No Substance Use Type: Unknown Are you DNR?: No Advance Directives: No Advance Directives Information Provided: No (per [facility] manager Kourtney) Advance Directives on File: No Recently lost weight without trying: Unsure Nutrition Risks: No Nutritional Risk service: No Current occupational status: disabled Meds Allergies Allergy/AdvReac Type Severity Reaction Status Date / Time fish oil [FISH OIL] Allergy Unknown Unknown Verified 07/23/21 10:29 Iodinated Contrast Media Allergy Unknown Unknown Verified 07/23/21 10:29 [IODINATED CONTRAST- ORAL AND IV DYE] pollen extracts Allergy Unknown Unknown Verified 07/23/21 10:29 shellfish derived Allergy Unknown Unknown Verified 07/23/21 10:29 Home Medications Medication Instructions Recorded Confirmed Last Taken Type acetaminophen 325 mg tablet 650 mg PO Q6H PRN 09/23/20 07/21/21 09/23/20 History diphenhydramine HCl 25 mg capsule 25 mg PO Q6H PRN 09/23/20 07/21/21 Unknown History (Benadryl) docusate sodium 100 mg capsule 100 mg PO BID 09/23/20 07/21/21 09/23/20 History lactulose 10 gram/15 mL (15 mL) 20 g PO DAILY 09/23/20 07/21/21 09/23/20 History oral solution levothyroxine 50 mcg tablet 50 mcg PO DAILY 09/23/20 07/21/21 09/23/20 History pantoprazole 40 mg tablet,delayed 40 mg PO BID 09/23/20 07/21/21 09/23/20 History release sennosides 8.6 mg tablet (senna) 17.2 mg PO BEDTIME 09/23/20 07/21/21 09/22/20 History sodium bicarbonate 650 mg tablet 650 mg PO DAILY 09/23/20 07/21/21 09/23/20 History tamsulosin 0.4 mg capsule 0.4 mg PO DAILY 09/23/20 07/21/21 09/22/20 History multivitamin with minerals 1 tab PO DAILY 11/25/20 07/21/21 Unknown History sennosides 8.6 mg tablet (senna) 8.6 mg PO DAILY PRN 01/23/21 07/21/21 Unknown History lurasidone 40 mg tablet (Latuda) 1 tab PO BEDTIME 04/06/21 07/21/21 Unknown History metoprolol succinate 25 mg 25 mg PO BID 07/21/21 07/21/21 Unknown History tablet,extended release 24 hr Exam Airway Mallampati Class: II (Missing multiple teeth, denies loose teeth) TM Dist: >3cm Neck ROM: Full Heart: rrr Lungs: cta Assessment and Plan Assessment Anesthesia Assessment: Anesthesia Plan Discussed and Chart Reviewed Final Anesthetic Review Family History of Problems with Anesthesia: No History of Problems with Anesthesia: No NPO: Yes ASA Class: III Final Preanesthetic Review: No Changes in Pt Med Stat, Meds/Allgs Chart Reviewed and Consent Obtained/Reviewed Patient Risk: Intermediate Procedure Risk: Intermediate Anesthetic Plan Anesthetic Plan: MAC: Disposition: Standard PACU
[2021-07-23 10:30] VITALS: BP 133/80; PULSE 56; RESP 16; TEMP 36.6; O2SAT 100
--- NOTE | 2021-07-23 10:37 | P.HPSUR_ITS ---
Pre-Procedural Eval Section A Date of Service: 07/23/21 Section B Chief Complaint: Iron deficiency anemia unspecified, GERD Relevant Family History (Specify if Yes): No Relevant Social History: None Present Medications: see Short Stay Collaborative assessment Medical History: Significant History (Anemia BPH (benign prostatic hyperplasia) Diabetes Dysphagia Encephalopathy GERD (gastroesophageal reflux disease) GI bleed History of COVID-19 HTN (hypertension) Hypothyroidism Personality disorder Presbyopia Resides in assisted facility Schizoaffective disorder TBI (traumatic brain injury)) History of Previous Operations: Relevant previous surgery/procedure and date(s) (Surgical history unknown) Allergies: Allergies Allergy/AdvReac Type Severity Reaction Status Date / Time fish oil [FISH OIL] Allergy Unknown Unknown Verified 07/23/21 10:29 Iodinated Contrast Media Allergy Unknown Unknown Verified 07/23/21 10:29 [IODINATED CONTRAST- ORAL AND IV DYE] pollen extracts Allergy Unknown Unknown Verified 07/23/21 10:29 shellfish derived Allergy Unknown Unknown Verified 07/23/21 10:29 Review of Systems Sugical H&P ROS: Negative: Constitution, Cardiovascular, Respiratory, Neurological, Psychiatric, Hem-Onc, Allergic/Immunologic, Gastrointestinal, Genitourinary, Musculoskeletal, Integumentary, Endocrine and Eyes/Ears/Nose/Throat Exam Surgical H&P Exam: Normal: HEENT, Normal: Heart, Normal: Lungs, Normal: Extremities, Normal: Abdomen and Normal: Skin and Significant Findings: Neurological (abnormal affect) Plan Diagnosis/Plan: Unchanged I have reviewed the history and physical and performed a pertinent physical examination on my patient. No changes have occurred unless specified.
[2021-07-23 11:03] LABS: Glucose, Whole Blood 83 mg/dL (60-115)
[2021-07-23] MEDS: Lactated Ringers 1,000 ML 100 ML IVCONT (11:04)
--- NOTE | 2021-07-23 11:05 | PC.NURSE ---
This RN spoke to nurse taking care of patient at [facility], Jackie. She verified that patient has been NPO since midnight 07/23. Jackie stated he finished approximately 65% of his prep (unable to finish it all) and that his bowel output is unknown. She stated that he did have BM's following prep but didn't let the nurses look . Patient unable to state what bowel output looks like. Dr. Rivas made aware.
--- NOTE | 2021-07-23 11:45 | PM.OP ---
Brief Operative Note Date of Service: 07/23/21 Pre-op diagnosis: anemia Post-op diagnosis: same Procedure: see op note Surgeon: Ildeofnso Rivas MD Anesthesia: MAC Was an Courseware Developer used for this Procedure?: No Estimated blood loss (mL): 0 Condition: stable Disposition: PACU
--- NOTE | 2021-07-23 11:47 | W.PM.OPN ---
Operative Note Operative Note Date of Service: 07/23/21 Narrative: Operative Information Procedure Description: EGD, Colonoscopy FLEXIBLE TRANSORAL UPPER GASTROINTESTINAL ENDOSCOPY AND COLONOSCOPY PROCEDURE NOTE UPPER ENDOSCOPY Consent: Indications for the procedure and potential complications of bleeding, perforation, reaction to medications and missed diagnosis were discussed with the patient and informed consent was obtained. Instrument: Olympus GIF H 190 J mid size upper endoscope Monitoring: Vital signs and clinical assessment, continuous EKG monitoring, Pulse oximetry, Carbon Dioxide monitoring and blood pressure monitoring were done throughout the procedure. Procedure: The patient was placed in the left lateral decubitis position and pre-procedure medications were administered and a bite block was placed. The endoscope was inserted into the mouth and advanced under direct vision to the third part of duodenum. A careful inspection was made as the upper endoscope was withdrawn including a retroflexed examination of the proximal stomach; Findings and interventions are described below. Findings: Larynx:normal Esophagus: GE junction at 37 cm, diaphragm hiatus at 43 cm, consistent with 6 cm hiatal hernia. Erosive esophagitis LA grade C at GEJ with tight junction and stricture at GEJ, gentle pressure applied and heme and minor tears noted after the scope dilated the area, Stomach: Patchy erythema. Biopsies were obtained. Grade 2 flap valve on retroflexed examination of the cardia. hiatal hernia noted. Duodenum: Normal bulb and descending duodenum, bx taken Intervention: Biopsies as noted above, dilation of esophageal stricture with scope COLONOSCOPY Instrument: Olympus variable stiffness adult scope 190L Colonoscopy Monitoring: Vital signs and clinical assessment, continuous EKG monitoring, Pulse oximetry, Carbon Dioxide monitoring and blood pressure monitoring were done throughout the procedure. Colon withdrawal time was 12 minutes. Procedure: The patient was placed in the left lateral decubitis position and pre-procedure medications were administered. After a digital rectal examination of the ano-rectum, the video colonoscope was inserted into the rectum and advanced through the colon to the cecum/TI. The colonoscope was slowly withdrawn in a retrograde panoramic fashion and the colon mucosa was carefully examined including a retroflexed view of the rectum. Findings and interventions are described below. Procedure Difficulty:easy Findings: Terminal Ileum-normal Cecum:normal Ascending Colon: normal Transverse Colon -normal Descending Colon:normal Sigmoid Colon: normal Rectum: Retroflexion with small internal hemorrhoids, grade I Anorectum - normal Colon preparation: [place] Bowel Preparation Scale Right colon; 2 Transverse colon: 2 Left colon; 1 (0 = Unprepared colon segment with mucosa not seen due to solid stool that cannot be cleared. 1 = Portion of mucosa of the colon segment seen, but other areas of the colon segment not well seen due to staining, residual stool and/or opaque liquid. 2 = Minor amount of residual staining, small fragments of stool and/or opaque liquid, but mucosa of colon segment seen well. 3 = Entire mucosa of colon segment seen well with no residual staining, small fragments of stool or opaque liquid) Impression and Post Procedure Diagnosis: Endoscopy Findings: erosive esophagitis hiatal hernia, moderate size gastritis esophageal stricture Colonoscopy Findings: internal hemorrhoids Plan: Await Pathology results Repeat Colonoscopy in 1 year or earlier if clinically indicated High fiber diet leaflet avoid straining at stool, epsom salts and sitz bath, anusol supps or cream may need repeat EGD in 3-6 months for further dilation enusre compliance with PPI reflux precautions Above findings were reviewed with the patient and relevant handouts were provided if indicated.
[2021-07-23 11:57] VITALS: BP 74/43; PULSE 47; RESP 16; TEMP 36.1; O2SAT 99
[2021-07-23 11:59] VITALS: BP 87/51; PULSE 54; RESP 16; O2SAT 99
[2021-07-23 12:20] VITALS: BP 130/65; PULSE 58; RESP 16; TEMP 36.1; O2SAT 100
== END 2021-07-23 12:45 | disposition home or self-care (01) ==
PROVIDERS: Visit Provider Internal Medicine Gastroenterology
PROC: (CPT 45378; principal; 2021-07-23 11:50)
DX: D50.9 Iron deficiency anemia, unspecified (principal); K92.1 Melena; K64.0 First degree hemorrhoids; K59.00 Constipation, unspecified; K22.2 Esophageal obstruction; K21.9 Gastro-esophageal reflux disease without esophagitis; K20.80 Other esophagitis without bleeding; K44.9 Diaphragmatic hernia without obstruction or gangrene; K29.50 Unspecified chronic gastritis without bleeding; D64.9 Anemia, unspecified; I10 Essential (primary) hypertension; E11.9 Type 2 diabetes mellitus without complications; E03.9 Hypothyroidism, unspecified; F25.9 Schizoaffective disorder, unspecified; F50.9 Eating disorder, unspecified; G92.9 Unspecified toxic encephalopathy; Z79.899 Other long term (current) drug therapy; Z91.041 Radiographic dye allergy status; Z87.820 Personal history of traumatic brain injury; Z86.16 Personal history of COVID-19
CPT/HCPCS: 45378; 43249; 43239; 82947; 88305; 88342; J2370

== ENCOUNTER 2021-11-15 15:58 | Emergency (ER) | payer MEDICARE, MEDICAID, SELFPAY ==
--- NOTE | ~2021-11-15 | US_ITS ---
EXAMINATION: NONINVASIVE ASSESSMENT OF THE ARTERIES OF LEFT LOWER EXTREMITY Gokul Miller MD CLINICAL INFORMATION: No pulses TECHNIQUE: Left lower extremity duplex ultrasound was performed with velocity measurements and waveform analysis in the common femoral arteries, profunda femoris arteries, proximal mid and distal superficial femoral arteries, popliteal arteries and tibial vessels. This study was performed only at rest. COMPARISON: CT abdomen pelvis 04/06/2020 FINDINGS: Velocities in cm/sec and phasicity as well as the presence of plaque are reported below. LEFT LEG: Mild calcific atherosclerotic plaque is present. Common Femoral: 180, biphasic Profunda Femoris: 95, biphasic Proximal SFA: 104, triphasic Mid SFA: 111, triphasic Distal SFA: 88, triphasic Popliteal: 83, triphasic Posterior tibial: 115, triphasic Peroneal: 153, triphasic US/US arterial duplex LE LT IMPRESSION: There is no evidence of any hemodynamically significant lower extremity arterial disease by pressure, waveform or duplex Doppler criteria at rest. Mild atherosclerotic changes are present..
--- NOTE | ~2021-11-15 | US_ITS ---
EXAMINATION: US VENOUS ULTRASOUND WITH DOPPLER LOWER EXTREMITY, BILATERAL CLINICAL INFORMATION: Bilateral lower extremity swelling COMPARISON: None TECHNIQUE: Ultrasound of the deep veins is performed from the hip to the calf with compression sonography and color and pulse Doppler assessment. Spectral analysis with color-flow imaging is performed. FINDINGS: RIGHT: There is normal venous compression and respiratory variation and augmented flow. The visualized common femoral vein, superficial femoral vein, profunda femoral vein, popliteal vein, and the trifurcation region shows no evidence of deep venous thrombosis. There is no significant popliteal fossa cyst. LEFT: There is normal venous compression and respiratory variation and augmented flow. The visualized common femoral vein, superficial femoral vein, profunda femoral vein, popliteal vein, and the trifurcation region shows no evidence of deep venous thrombosis. There is no significant popliteal fossa cyst. If the patient's symptoms persist, followup ultrasound in 5 days 7 days might be of value to exclude proximal propagation from a non-visualized calf vein. US/US venous duplex LE BI IMPRESSION: No DVT demonstrated in either lower extremity.
--- NOTE | ~2021-11-15 | XR_ITS ---
EXAMINATION: XR CHEST CLINICAL INFORMATION: Shortness of breath COMPARISON: Chest x-ray 04/06/2021 TECHNIQUE: Frontal view of the chest was obtained. FINDINGS: Patient is slightly rotated. No airspace consolidation, pleural fluid collection, or pneumothorax. Patients hand projects over the the left lung base/hemithorax. Minimal streaky right perihilar subsegmental atelectasis. Cardiomediastinal silhouette is within normal limits allowing for rotation. No evidence of pulmonary edema. No acute osseous injury. XR/XR chest 1V IMPRESSION: 1. No acute pulmonary process identified.
[2021-11-15 16:07] VITALS: BP 140/88; BP 141/78; PULSE 59; PULSE 61; RESP 12; TEMP 36.8; O2SAT 100; O2SAT 99
--- NOTE | 2021-11-15 16:11 | ED_ITS ---
HPI - Extremity Problem General Chief complaint: Extremity Problem Stated complaint: ? DVT FROM SNF PER EMS Time Seen by Provider: 11/15/21 16:11 Source: patient and EMS Mode of arrival: EMS Limitations: other (poor historian ) History of Present Illness HPI Narrative: This is a 65-year-old male history of BPH, anemia, diabetes, dysphagia encephalopathy, GERD, GI bleed, hypertension, hypothyroidism, schizoaffective disorder, previous TBI coming from [facility] with complaints of left lower extremity swelling x3 weeks progressively worsening. Patient is a poor historian and is unable to answer many of my questions however he tells me that his left lower extremity is large. He denies chest pain, shortness of breath, nausea, vomiting, fevers, chills, weakness. MD Complaint: extremity pain Onset (ago): week(s) (3) Pain Consistency: constant Location: left Quality: aching Radiation: none Relieving factors: nothing Exacerbating factors: nothing Associated symptoms: denies other symptoms Related Data Home Medications Medication Instructions Recorded Confirmed acetaminophen 325 mg tablet 650 mg PO Q6H PRN 09/23/20 09/24/21 diphenhydramine HCl 25 mg capsule 25 mg PO Q6H PRN 09/23/20 09/24/21 (Benadryl) docusate sodium 100 mg capsule 100 mg PO BID 09/23/20 09/24/21 lactulose 10 gram/15 mL (15 mL) 20 g PO DAILY 09/23/20 09/24/21 oral solution levothyroxine 50 mcg tablet 50 mcg PO DAILY 09/23/20 09/24/21 pantoprazole 40 mg tablet,delayed 40 mg PO BID 09/23/20 09/24/21 release sennosides 8.6 mg tablet (senna) 17.2 mg PO BEDTIME 09/23/20 09/24/21 sodium bicarbonate 650 mg tablet 650 mg PO DAILY 09/23/20 09/24/21 tamsulosin 0.4 mg capsule 0.4 mg PO DAILY 09/23/20 09/24/21 multivitamin with minerals 1 tab PO DAILY 11/25/20 09/24/21 sennosides 8.6 mg tablet (senna) 8.6 mg PO DAILY PRN 01/23/21 09/24/21 lurasidone 40 mg tablet (Latuda) 1 tab PO BEDTIME 04/06/21 09/24/21 metoprolol succinate 25 mg 25 mg PO BID 07/21/21 09/24/21 tablet,extended release 24 hr Previous Rx's Medication Instructions Recorded bisacodyl 5 mg tablet,delayed 10 mg PO ONCE 1 Days #2 tab 07/09/21 release (Dulcolax (bisacodyl)) polyethylene glycol 3350 17 238 g PO ONCE 1 Days #238 g 07/09/21 gram/dose oral powder (Miralax) sucralfate 100 mg/mL oral 10 ml PO BID #1000 ml 07/23/21 suspension (Carafate) Allergies Allergy/AdvReac Type Severity Reaction Status Date / Time fish oil [FISH OIL] Allergy Unknown Unknown Verified 11/15/21 16:07 Iodinated Contrast Media Allergy Unknown Unknown Verified 07/23/21 10:29 [IODINATED CONTRAST- ORAL AND IV DYE] pollen extracts Allergy Unknown Unknown Verified 07/23/21 10:29 shellfish derived Allergy Unknown Unknown Verified 07/23/21 10:29 Review of Systems Review of Systems: Constitutional : No Weight loss, No Fever, No Chills, No Fatigue, No Malaise ENT/Mouth : No sore throat, No Rhinorrhea Eyes: No Eye Pain, No Swelling, No Redness Cardiovascular : No Chest Pain, No SOB, No Dyspnea on Exertion, No Orthopnea, + Edema, No Palpitations Respiratory : No Cough, No Sputum, No Wheezing Gastrointestinal : No Nausea, No Vomiting, No Diarrhea, No Constipation, No abdominal Pain, No Hematochezia, No Melena Genitourinary : No Dysuria, No Urinary Frequency, No Hematuria, Musculoskeletal : No joint pain, No Myalgias, No Joint Swelling Skin : No Skin Lesions, No rash Neuro : No Weakness, No Numbness, No Dizziness, No Headache Psych : No Anxiety/Panic, No Depression All other systems reviewed and are negative Yes all other systems are reviewed and are negative [facility] Past Medical History Attestation statement: The following information was validated with the patient. Source: old records reviewed and nursing notes reviewed Medical History Anemia BPH (benign prostatic hyperplasia) Diabetes Dysphagia Encephalopathy GERD (gastroesophageal reflux disease) GI bleed History of COVID-19 HTN (hypertension) Hypothyroidism Personality disorder Presbyopia Resides in custodial facility Schizoaffective disorder TBI (traumatic brain injury) Surgical History Hx of colonoscopy Hx of esophagogastroduodenoscopy Surgical history unknown Social History Social History Household Members: Other Household Members Other:: resides @ [facility] Unit Housing: [facility] Housing Other:: [facility] Are you a primary manager of care to a significant other at home: No Do you presently have visiting nurse or other home services: No ([facility] staff) Unable to assess alcohol history related to: Unknown Alcohol intake: unknown Patient Tobacco Use Status: Tobacco use Unknown Substance Use Type: Unknown Advance Directives: Yes Advance Directives Information Provided: No Advance Directives on File: No service: No Current occupational status: disabled Physical Exam Vital Signs: Vital Signs: Last Vital Signs Temp 98.2 F 11/16/21 02:00 Pulse 92 11/16/21 02:00 Resp 16 11/16/21 02:00 BP 105/74 11/16/21 02:00 Pulse Ox 98 11/16/21 02:00 BMI result Body Mass Index 20.0 VSS Appearance: Alert.? Oriented X3.? No acute distress.? Head: Normocephalic, atraumatic, no step-offs or deformities Eyes: Pupils equal, round and reactive to light.? ENT: Pharynx normal.? Neck: Normal inspection.? Neck supple.? CVS: Normal heart rate and rhythm.? Pulses normal.? Respiratory: No respiratory distress.? Breath sounds normal.? Abdomen: Soft and nontender.? Skin: Skin warm and dry.? Normal skin color.? Normal skin turgor.? Extremities:3+ LE left pitting edema, 1+ pitting edema on right both from knee down. No overlying skin changes bilaterally. No cellulitis. No calf ttp. 5/5 strength to bilateral upper and lower extremities 2+ posterior tibialis pulses equal bilateral, 1+ dorsalis pedis pulse on the left, 2+ on the right. Back: No midline tenderness, no C-spine tenderness, full range of motion, no CVA tenderness bilaterally Neuro: Oriented X 3.? No motor deficit.? No sensory deficit. CN 2-12 intact Course Reevaluation(s) Reevaluation #1: Patient is hitting a staff members, agitated. At this time Haldol p.o. has been ordered, patient said he will take p.o. medications. Time: 16:41 Reevaluation #2: Patient combative towards staff members, threat to self and others, at this time medical restraints have been put in. Time: 18:30 Reevaluation #3: CBC appears to be around patient's baseline with a microcytic baseline anemia. Chemistry with no acute findings requiring intervention. COVID negative. CXR no acute findings. Lower extremity bilateral duplex with no DVT bilaterally. Kalya rial scan of left lower extremity with no signs of arterial occlusion. Likely left lower extremity edema. BNP wnl unlikley chf. Urine pending Time: 22:16 Additional Reevaluation(s): UA negative. At this time patient is cleared for discharge back to care 1. Will advise patient to follow-up with cardiology and his primary care provider. And have repeat ultrasound/duplex studies done a of pain/swelling continues in 5 days. At this time I feel comfortable discharge home. At time of discharge patient tells me he feels well, he is not in any pain, denies chest pain, shortness of breath, nausea, vomiting. Patient ambulating without difficulty. Vital signs are stable. Patient common cooperative. MDM - Extremity (Nontraumatic) MDM Narrative Medical decision making narrative: 1626 65 yo m presents w/ LLE swelling X 3 weeks worsening. Poor historian PE significant for LLE edema 3+ on the left pitting, right 1+ pitting. RRR. Lungs clear. Abdomen soft non tender non distended. Neuro alert to person not time or situation. Reported from EMS this is patients baseline. Upon physical examination patient is slightly agitated, trying to get out, unsteady on his feet. For this reason will order 1 mg of p.o. Ativan. Starla dx DVT. Darrianley PE no SOB or CP. Wells criteria 3- high risk for dvt Plan- labs, imaging. Medical Records Attestation: I reviewed the patient's medical records. Lab Data Attestation: I reviewed the patient's lab results. Result diagrams: 11/15/21 21:08 11/15/21 21:08 Labs: Lab Results 11/15/21 11/15/21 11/15/21 Range/Units 21:08 21:08 21:08 WBC 7.4 (4.8-10.8) X10*3/uL RBC 3.97 L (4.60-5.80) X10*6/uL Hgb 9.2 L (14.0-18.0) g/dl Hct 28.8 L (42.0-52.0) % MCV 72.5 L (80.0-98.0) fL MCH 23.2 L (27.0-33.0) pg MCHC 31.9 (31.0-36.0) g/dl RDW 16.6 H (11.0-16.0) % Plt Count 392 (160-400) X10*3/uL MPV 9.3 L (9.4-12.4) fL Immature Gran % (Auto) 0.4 (0.0-0.4) % Neut % (Auto) 60.5 (45-73) % Lymph % (Auto) 26.4 (20-40) % [place] % (Auto) 11.8 H (2-11) % Eos % (Auto) 0.1 (0-4) % Baso % (Auto) 0.8 (0-2) % Lymph # (Auto) 1.9 (1.2-4.9) X10*3/uL [place] # (Auto) 0.9 (0.1-1.2) X10*3/uL Eos # (Auto) 0.0 (0.0-0.4) X10*3/uL Baso # (Auto) 0.1 (0.0-0.2) X10*3/uL Abs Immat Gran (auto) 0.03 (0.00-0.03) X10*3/uL Absolute Neuts (auto) 4.4 (2.0-8.3) x10*3/uL Absolute Nucleated RBC 0.000 (0.0-0.012) X10*3/uL Nucleated RBC % (auto) 0.0 (0.0-0.2) /100WBC Sodium 134 L (135-145) mmol/L Potassium 4.4 (3.3-5.1) mmol/L Chloride 102 (96-108) mmol/L Carbon Dioxide 23 (22-29) mmol/L Anion Gap 13 (12-20) BUN 18 H (9-16) mg/dL Creatinine 1.02 (0.5-1.4) mg/dL Estim Creat Clear Calc 62.7 Estimated GFR > 60 Random Glucose 97 (60-115) mg/dL Calcium 8.8 D (8.4-10.2) mg/dL Magnesium 2.1 (1.6-2.6) mg/dL Total Bilirubin < 0.2 (0.0-1.0) mg/dL AST 14 (5-37) U/L ALT 13 (0-40) U/L Alkaline Phosphatase 128 H (39-117) U/L B-Natriuretic Peptide (<100) pg/mL Total Protein 6.2 L (6.5-8.0) g/dL Albumin 3.6 (3.5-5.0) g/dL Urine Color Urine Appearance Urine pH (5.0-8.0) Ur Specific [place] (1.005-1.025) Urine Protein (NEG-TRACE) MG/DL Urine Glucose (UA) (NEG) MG/DL Urine Ketones (NEG) MG/DL Urine Blood (NEG) Urine Nitrite (NEG) Ur Leukocyte Esterase (NEG) COVID-19 (RICHA) Negative (Negative) COVID-19 Clin Com See Note 11/15/21 11/16/21 Range/Units 21:08 02:21 WBC (4.8-10.8) X10*3/uL RBC (4.60-5.80) X10*6/uL Hgb (14.0-18.0) g/dl Hct (42.0-52.0) % MCV (80.0-98.0) fL MCH (27.0-33.0) pg MCHC (31.0-36.0) g/dl RDW (11.0-16.0) % Plt Count (160-400) X10*3/uL MPV (9.4-12.4) fL Immature Gran % (Auto) (0.0-0.4) % Neut % (Auto) (45-73) % Lymph % (Auto) (20-40) % [place] % (Auto) (2-11) % Eos % (Auto) (0-4) % Baso % (Auto) (0-2) % Lymph # (Auto) (1.2-4.9) X10*3/uL [place] # (Auto) (0.1-1.2) X10*3/uL Eos # (Auto) (0.0-0.4) X10*3/uL Baso # (Auto) (0.0-0.2) X10*3/uL Abs Immat Gran (auto) (0.00-0.03) X10*3/uL Absolute Neuts (auto) (2.0-8.3) x10*3/uL Absolute Nucleated RBC (0.0-0.012) X10*3/uL Nucleated RBC % (auto) (0.0-0.2) /100WBC Sodium (135-145) mmol/L Potassium (3.3-5.1) mmol/L Chloride (96-108) mmol/L Carbon Dioxide (22-29) mmol/L Anion Gap (12-20) BUN (9-16) mg/dL Creatinine (0.5-1.4) mg/dL Estim Creat Clear Calc Estimated GFR Random Glucose (60-115) mg/dL Calcium (8.4-10.2) mg/dL Magnesium (1.6-2.6) mg/dL Total Bilirubin (0.0-1.0) mg/dL AST (5-37) U/L ALT (0-40) U/L Alkaline Phosphatase (39-117) U/L B-Natriuretic Peptide 83 (<100) pg/mL Total Protein (6.5-8.0) g/dL Albumin (3.5-5.0) g/dL Urine Color STRAW Urine Appearance CLEAR Urine pH 6.5 (5.0-8.0) Ur Specific [place] <= 1.005 (1.005-1.025) Urine Protein NEG (NEG-TRACE) MG/DL Urine Glucose (UA) NEG (NEG) MG/DL Urine Ketones NEG (NEG) MG/DL Urine Blood NEG (NEG) Urine Nitrite NEG (NEG) Ur Leukocyte Esterase NEG (NEG) COVID-19 (RICHA) (Negative) COVID-19 Clin Com Critical Care Time Critical Care Time Critical Care Time: No Discharge Plan Discharge Clinical Impression: Edema of left lower leg, Lower extremity edema Patient Disposition: Home, Self-Care Additional Instructions: Take your medications as prescribed. If you were prescribed antibiotics today, it is important that you take your medication to their entirety, do not skip any doses, do not finish them early. Follow-up with your primary care provider this week. Please follow-up with cardiology in a week. Return to the emergency department with new or worsening symptoms. Such as fevers, chills, chest pain, shortness of breath, nausea, vomiting, dizziness, headache, vision changes, lethargy In case of emergency call 911 US/US venous duplex LE BI IMPRESSION: No DVT demonstrated in either lower extremity. US/US arterial duplex LE LT IMPRESSION: There is no evidence of any hemodynamically significant lower extremity arterial disease by pressure, waveform or duplex Doppler criteria at rest. Mild atherosclerotic changes are present.. Prescriptions: No Action bisacodyl [Dulcolax (bisacodyl)] 5 mg tablet,delayed release (DR/EC) 10 mg PO ONCE 1 Days Qty: 2 0RF Rx Instructions: take orally as directed prior to colonoscopy polyethylene glycol 3350 [Miralax] 17 gram/dose powder 238 g PO ONCE 1 Days Qty: 238 0RF Rx Instructions: take orally as directed prior to colonoscopy tamsulosin 0.4 mg capsule 0.4 mg PO DAILY 0RF sennosides [senna] 8.6 mg Tablet 17.2 mg PO BEDTIME 0RF acetaminophen 325 mg Tablet 650 mg PO Q6H PRN (Reason: Fever Or Pain) 0RF Rx Instructions: not to exceed 3000mg/day sodium bicarbonate 650 mg Tablet 650 mg PO DAILY 0RF levothyroxine 50 mcg tablet 50 mcg PO DAILY 0RF pantoprazole 40 mg Tablet,Delayed Release (Dr/Ec) 40 mg PO BID 0RF Rx Instructions: VERIFIED BOTH PPIS IN [facility] diphenhydramine HCl [Benadryl] 25 mg Capsule 25 mg PO Q6H PRN (Reason: Itching) 0RF docusate sodium 100 mg Capsule 100 mg PO BID 0RF lactulose 10 gram/15 mL (15 mL) Solution 20 g PO DAILY 0RF multivitamin with minerals Tablet 1 tab PO DAILY 0RF sennosides [senna] 8.6 mg Tablet 8.6 mg PO DAILY PRN (Reason: Constipation) 0RF Latuda 40 mg tablet 1 tab PO BEDTIME 0RF metoprolol succinate 25 mg Tablet Extended Release 24 Hr 25 mg PO BID 0RF sucralfate [Carafate] 100 mg/mL suspension 10 ml PO BID Qty: 1000 2RF Referrals: Vicki Hinton RN [Emergency Nurse] - 2 days
[2021-11-15] MEDS: LORazepam 1 MG TABLET PO (16:41)
[2021-11-15] MEDS: HaloperidoL 5 MG TABLET PO (16:44)
[2021-11-15 18:00] VITALS: BP 148/86; PULSE 95; RESP 16; TEMP 36.1; O2SAT 98
[2021-11-15] MEDS: LORazepam 2 MG/ML VIAL 1 MG IM (18:44)
[2021-11-15] MEDS: OLANZapine 10 MG VIAL IM (18:45)
--- NOTE | 2021-11-15 18:50 | PC.NURSE ---
Pt's behavior has continued to escalate over time period from [id number]. Pt yelling and pacing in er and refusing to sit still. lab work and further ultrasound was required for disposition and diagnosis, pt medicated as ordered.
[2021-11-15 21:13] LABS: MANUAL DIFF FLAG NO
[2021-11-15 21:17] LABS: Basophils Absolute Auto 0.1 X10*3/uL (0.0-0.2); Basophils Percent Auto 0.8 % (0-2); Eosinophils Percent Auto 0.1 % (0-4); Hematocrit 28.8 % (42.0-52.0); Hemoglobin 9.2 g/dl (14.0-18.0); Imm Gran Abs Auto 0.03 X10*3/uL (0.00-0.03); Imm Gran Pct Auto 0.4 % (0.0-0.4); Lymphocytes Absolute Auto 1.9 X10*3/uL (1.2-4.9); Lymphocytes Percent Auto 26.4 % (20-40); Mean Corpuscular HGB Conc 31.9 g/dl (31.0-36.0); Mean Corpuscular Hemoglobin 23.2 pg (27.0-33.0); Mean Corpuscular Volume 72.5 fL (80.0-98.0); Mean Platelet Volume 9.3 fL (9.4-12.4); Monocytes Absolute Auto 0.9 X10*3/uL (0.1-1.2); Monocytes Percent Auto 11.8 % (2-11); Neutrophils Absolute Auto 4.4 x10*3/uL (2.0-8.3); Neutrophils Percent Auto 60.5 % (45-73); Platelet Count 392 X10*3/uL (160-400); Red Blood Count 3.97 X10*6/uL (4.60-5.80); Red Cell Distribution Width 16.6 % (11.0-16.0); White Blood Count 7.4 X10*3/uL (4.8-10.8)
[2021-11-15 21:39] LABS: Alanine Aminotransferase 13 U/L (0-40); Albumin Level 3.6 g/dL (3.5-5.0); Alkaline Phosphatase 128 U/L (39-117); Anion Gap 13 (12-20); Aspartate Amino Transferase 14 U/L (5-37); Bilirubin Total < 0.2 mg/dL (0.0-1.0); Blood Urea Nitrogen 18 mg/dL (9-16); Calcium 8.8 mg/dL (8.4-10.2); Carbon Dioxide 23 mmol/L (22-29); Chloride 102 mmol/L (96-108); Creatinine Clr Calc Pharmacy 62.7; Estimated Glomerular Filt Rate > 60; Glucose Random 97 mg/dL (60-115); Magnesium 2.1 mg/dL (1.6-2.6); Potassium 4.4 mmol/L (3.3-5.1); Sodium 134 mmol/L (135-145); Total Protein 6.2 g/dL (6.5-8.0)
[2021-11-15 21:42] LABS: B Type Natriuretic Peptide 83 pg/mL (<100)
[2021-11-15 21:46] LABS: COVID-19 Test Negative (Negative)
[2021-11-15 23:12] VITALS: BP 105/51; PULSE 72; RESP 16; TEMP 36.6; O2SAT 98
[2021-11-16 02:00] VITALS: BP 105/74; PULSE 92; RESP 16; TEMP 36.8; O2SAT 98
[2021-11-16 02:26] LABS: Appearance Urine CLEAR; Color Urine STRAW; Glucose Urine UA NEG (NEG); Leukocyte Esterase Urine NEG (NEG); Nitrite Urine NEG (NEG); PH 6.5 (5.0-8.0); Specific Gravity - Urine <= 1.005 (1.005-1.025); Urine Blood NEG (NEG); Urine Ketones NEG (NEG); Urine Protein NEG (NEG-TRACE)
[2021-11-16 07:14] VITALS: BP 124/73; PULSE 76; RESP 20; O2SAT 99
== END 2021-11-16 09:26 | disposition home or self-care (01) ==
PROVIDERS: Physician Assistant; Emergency Provider Emergency Medicine; PCP Hospitalist
DX: R60.0 Localized edema (principal); M79.605 Pain in left leg; R06.02 Shortness of breath; Z79.899 Other long term (current) drug therapy; Z20.822 Contact with and (suspected) exposure to COVID-19
CPT/HCPCS: 36415; 71045; 80053; 81003; 83735; 83880; 85025; 87635; 93926; 93970; 96372; 99283; 99284; J2060

== ENCOUNTER → 2022-02-11 07:49 | Day surgery (SDC) | payer MEDICARE, MEDICAID, SELFPAY ==
--- NOTE | 2022-02-10 11:52 | P.CONAN_ITS ---
HPI - Anesthesia Eval Consult details Narrative: 66yo M for Upper Endoscopy s/p EGD 07/2021 with MAC TBI, SNF resident [facility] Active Problems Active Problems: All Active Problems (Updated 11/17/21 @ 00:02 by Kel Enamorado) Toxic encephalopathy (Acute) Iron deficiency anemia (Acute) Heme positive stool (Acute) Past Medical History Medical History Anemia BPH (benign prostatic hyperplasia) Diabetes Dysphagia Encephalopathy GERD (gastroesophageal reflux disease) GI bleed History of COVID-19 HTN (hypertension) Hypothyroidism Personality disorder Presbyopia Resides in detention facility Schizoaffective disorder TBI (traumatic brain injury) Family History Family history of problems with anesthesia: No Surgical History Surgical History Hx of colonoscopy Hx of esophagogastroduodenoscopy Surgical history unknown History of Problems with Anesthesia: No Social History Social History Household Members: Other Household Members Other:: resides @ [facility] Unit Housing: Detention Housing Other:: [facility] Are you a primary disabilities caregiver to a significant other at home: No Do you presently have visiting nurse or other home services: No ([facility] staff) Unable to assess alcohol history related to: Unknown Alcohol intake: unknown Patient Tobacco Use Status: Tobacco use Unknown Substance Use Type: Unknown service: No Current occupational status: disabled Meds Allergies Allergy/AdvReac Type Severity Reaction Status Date / Time fish oil [FISH OIL] Allergy Unknown Unknown Verified 11/15/21 16:07 Iodinated Contrast Media Allergy Unknown Unknown Verified 07/23/21 10:29 [IODINATED CONTRAST- ORAL AND IV DYE] pollen extracts Allergy Unknown Unknown Verified 07/23/21 10:29 shellfish derived Allergy Unknown Unknown Verified 07/23/21 10:29 Active Medications: Current Medications Lactated Ringer's (Lr) 1,000 mls @ 50 mls/hr IVCONT .Q20H [facility] Home Medications Medication Instructions Recorded Confirmed Last Taken Type acetaminophen 325 mg tablet 650 mg PO Q6H PRN Fever Or Pain 09/23/20 09/24/21 09/23/20 History diphenhydramine HCl 25 mg capsule 25 mg PO Q6H PRN Itching 09/23/20 09/24/21 Unknown History (Benadryl) docusate sodium 100 mg capsule 100 mg PO BID 09/23/20 09/24/21 09/23/20 History lactulose 10 gram/15 mL (15 mL) 20 g PO DAILY 09/23/20 09/24/21 09/23/20 History oral solution levothyroxine 50 mcg tablet 50 mcg PO DAILY 09/23/20 09/24/21 09/23/20 History pantoprazole 40 mg tablet,delayed 40 mg PO BID 09/23/20 09/24/21 09/23/20 History release sennosides 8.6 mg tablet (senna) 17.2 mg PO BEDTIME 09/23/20 09/24/21 09/22/20 History sodium bicarbonate 650 mg tablet 650 mg PO DAILY 09/23/20 09/24/21 09/23/20 History tamsulosin 0.4 mg capsule 0.4 mg PO DAILY 09/23/20 09/24/21 09/22/20 History multivitamin with minerals 1 tab PO DAILY 11/25/20 09/24/21 Unknown History sennosides 8.6 mg tablet (senna) 8.6 mg PO DAILY PRN Constipation 01/23/21 09/24/21 Unknown History lurasidone 40 mg tablet (Latuda) 1 tab PO BEDTIME 04/06/21 09/24/21 Unknown History metoprolol succinate 25 mg 25 mg PO BID 07/21/21 09/24/21 Unknown History tablet,extended release 24 hr Exam Exam Date and Time: February 10, 2022 1152 Pertinent Lab Results Pertinent Lab Results: Laboratory Tests 11/15/21 11/15/21 21:08 21:08 WBC 7.4 Hgb 9.2 L Hct 28.8 L Plt Count 392 Sodium 134 L Potassium 4.4 Chloride 102 Carbon Dioxide 23 BUN 18 H Creatinine 1.02 Narrative Narrative: EKG 2020 Vent. Rate : 080 BPM ? ? Atrial Rate : 080 BPM ?? P-R Int : 174 ms? QRS Dur : 080 ms ? ? QT Int : 378 ms ? ? ? P-R-T Axes : 083 -28 076 degrees ?? QTc Int : 435 ms ? Normal sinus rhythm Normal ECG When compared with ECG of 24-OCT-2021 10:23, No significant change was found Assessment and Plan Assessment Anesthesia Assessment: Chart Reviewed Final Anesthetic Review Family History of Problems with Anesthesia: No History of Problems with Anesthesia: No
--- NOTE | 2022-02-11 08:43 | PC.NURSE ---
Patient agitated, combative to caregiver - per caregiver Zoila more agitated than usual baseline but can be aggressive at baseline. Per Alana at [facility] no AM meds given this morning. Attempted to call HCP Kenny x 3 no answer at 3 different numbers listed. Per Dr Acuna & Dwight Goldsmith patient cancelled. [facility] aware & patient escorted out with caregiver & security.
== END ==
PROVIDERS: PCP Hospitalist; Visit Provider Internal Medicine
DX: R13.10 Dysphagia, unspecified (principal); Z53.8 Procedure and treatment not carried out for other reasons; R45.1 Restlessness and agitation; F20.9 Schizophrenia, unspecified; Z87.820 Personal history of traumatic brain injury

== ENCOUNTER 2022-03-16 19:01 | Emergency (ER) | payer MEDICARE, MEDICAID, SELFPAY ==
[2022-03-16 19:14] VITALS: BP 130/81; BP 137/84; PULSE 102; PULSE 88; RESP 18; TEMP 37.1; O2SAT 96; O2SAT 97; BMI 17.9
--- NOTE | 2022-03-16 19:53 | ED.GENADULT ---
HPI - General Adult General Chief complaint: General Medical Stated complaint: unable to swallow Time Seen by Provider: 03/16/22 19:53 History of Present Illness HPI narrative: Patient is a 66-year-old male with a history of toxic encephalopathy. Baseline mental status awake alert screams that time. Oriented times 0. Patient baseline is on pureed diet. Enjoys eating ice cream. Patient had a swallowing eval done today. He failed. He needs esophageal dilation from time to time. Patient is sent in for further evaluation. There has been no fever no chills no cough no congestion no systemic complaints otherwise. Related Data Home Medications Medication Instructions Recorded Confirmed acetaminophen 325 mg tablet 650 mg PO Q6H PRN Fever Or Pain 09/23/20 09/24/21 diphenhydramine HCl 25 mg capsule 25 mg PO Q6H PRN Itching 09/23/20 09/24/21 (Benadryl) docusate sodium 100 mg capsule 100 mg PO BID 09/23/20 09/24/21 lactulose 10 gram/15 mL (15 mL) 20 g PO DAILY 09/23/20 09/24/21 oral solution levothyroxine 50 mcg tablet 50 mcg PO DAILY 09/23/20 09/24/21 pantoprazole 40 mg tablet,delayed 40 mg PO BID 09/23/20 09/24/21 release sennosides 8.6 mg tablet (senna) 17.2 mg PO BEDTIME 09/23/20 09/24/21 sodium bicarbonate 650 mg tablet 650 mg PO DAILY 09/23/20 09/24/21 tamsulosin 0.4 mg capsule 0.4 mg PO DAILY 09/23/20 09/24/21 multivitamin with minerals 1 tab PO DAILY 11/25/20 09/24/21 sennosides 8.6 mg tablet (senna) 8.6 mg PO DAILY PRN Constipation 01/23/21 09/24/21 lurasidone 40 mg tablet (Latuda) 1 tab PO BEDTIME 04/06/21 09/24/21 metoprolol succinate 25 mg 25 mg PO BID 07/21/21 09/24/21 tablet,extended release 24 hr Previous Rx's Medication Instructions Recorded bisacodyl 5 mg tablet,delayed 10 mg PO ONCE 1 day #2 tabs 07/09/21 release (Dulcolax (bisacodyl)) polyethylene glycol 3350 17 238 g PO ONCE 1 day #238 grams 07/09/21 gram/dose oral powder (Miralax) sucralfate 100 mg/mL oral 10 ml PO BID #1,000 mL 07/23/21 suspension (Carafate) Allergies Allergy/AdvReac Type Severity Reaction Status Date / Time fish oil [FISH OIL] Allergy Unknown Unknown Verified 11/15/21 16:07 Iodinated Contrast Media Allergy Unknown Unknown Verified 07/23/21 10:29 [IODINATED CONTRAST- ORAL AND IV DYE] pollen extracts Allergy Unknown Unknown Verified 07/23/21 10:29 shellfish derived Allergy Unknown Unknown Verified 07/23/21 10:29 Review of Systems Review of Systems: Unable to obtain review systems secondary to patient's condition Yes Unobtainable due to mental status PMFSH Past Medical History Medical History Anemia BPH (benign prostatic hyperplasia) Diabetes Dysphagia Encephalopathy GERD (gastroesophageal reflux disease) GI bleed History of COVID-19 HTN (hypertension) Hypothyroidism Personality disorder Presbyopia Resides in prison facility Schizoaffective disorder TBI (traumatic brain injury) Surgical History Hx of colonoscopy Hx of esophagogastroduodenoscopy Surgical history unknown Social History Social History Household Members: Other Household Members Other:: resides @ [facility] Housing: Detention Housing Other:: [facility] Are you a primary day care attendant to a significant other at home: No Do you presently have visiting nurse or other home services: No ([facility] staff) Unable to assess alcohol history related to: Unknown Alcohol intake: unknown Patient Tobacco Use Status: Tobacco use Unknown Substance Use Type: Unknown Advance Directives: No Advance Directives Information Provided: Yes service: No Current occupational status: disabled Physical Exam ED Vital Signs: Vital Signs - 24 hr 03/16/22 19:14 Temperature 98.7 F Pulse Rate 102 H Respiratory Rate 18 Blood Pressure 130/81 Pulse Oximetry 97 Oxygen Delivery Method Room Air BMI result Body Mass Index 17.9 Appearance: Alert. Oriented times 0. No acute distress. Eyes: Pupils equal, round and reactive to light. ENT: Pharynx normal moist mucous membranes Neck: Normal inspection. Neck supple. No lymph nodes noted. No crepitus CVS: Normal heart rate and rhythm. Pulses normal. Normal S1 and S2 Respiratory: No respiratory distress. Breath sounds normal. No Wheezing. No rales Abdomen: Soft and nontender. No rigidity. No distention. good BS x4 Skin: Skin warm and dry. Normal skin color. Normal skin turgor. Extremities: No lower extremity edema. Neurovascular intact to all extremities. No Lacerations. No Rash Neuro: Oriented X 0. Screaming, moving all extremities Medical Decision Making MDM Narrative Medical decision making narrative: Patient's case discussed with Dr. Vazquez. Has a long history of esophageal strictures. Was agitated this morning unable to get the dilation done. While in the emergency department patient asked for ice cream. Received ice cream and sally suly. Tolerated the ice cream and gin drilled fine. Afterward patient became very content. Case discussed with Dr. Vazquez for follow-up. [place] comfortable with discharging patient instead of admitting for further esophageal dilation. Currently in stable condition. [facility] Discharge Plan Discharge Clinical Impression: Abnormal swallowing Patient Disposition: Home, Self-Care Instructions: Chronic Dysphagia (DC) Prescriptions: No Action bisacodyl [Dulcolax (bisacodyl)] 5 mg tablet,delayed release (DR/EC) 10 mg PO ONCE 1 Days Qty: 2 0RF Rx Instructions: take orally as directed prior to colonoscopy polyethylene glycol 3350 [Miralax] 17 gram/dose powder 238 g PO ONCE 1 Days Qty: 238 0RF Rx Instructions: take orally as directed prior to colonoscopy tamsulosin 0.4 mg capsule 0.4 mg PO DAILY sennosides [senna] 8.6 mg Tablet 17.2 mg PO BEDTIME acetaminophen 325 mg Tablet 650 mg PO Q6H PRN (Reason: Fever Or Pain) Rx Instructions: not to exceed 3000mg/day sodium bicarbonate 650 mg Tablet 650 mg PO DAILY levothyroxine 50 mcg tablet 50 mcg PO DAILY pantoprazole 40 mg Tablet,Delayed Release (Dr/Ec) 40 mg PO BID Rx Instructions: VERIFIED BOTH PPIS IN [facility] diphenhydramine HCl [Benadryl] 25 mg Capsule 25 mg PO Q6H PRN (Reason: Itching) docusate sodium 100 mg Capsule 100 mg PO BID lactulose 10 gram/15 mL (15 mL) Solution 20 g PO DAILY multivitamin with minerals Tablet 1 tab PO DAILY sennosides [senna] 8.6 mg Tablet 8.6 mg PO DAILY PRN (Reason: Constipation) Latuda 40 mg tablet 1 tab PO BEDTIME metoprolol succinate 25 mg Tablet Extended Release 24 Hr 25 mg PO BID sucralfate [Carafate] 100 mg/mL suspension 10 ml PO BID Qty: 1000 2RF Referrals: Swapnil Vazquez DO [Physician] - 1 day
--- NOTE | 2022-03-16 21:34 | PC.NURSE ---
Patient refused vital signs checked at discharge to [facility].
--- NOTE | 2022-03-16 21:36 | PC.NURSE ---
Multiple attempts were campos to call in nurse to nurse report to [facility], no answer to the phone calls. Patient taken back to [facility] by [facility].
== END 2022-03-16 21:41 | disposition home or self-care (01) ==
PROVIDERS: Emergency Provider Emergency Medicine Emergency Medical Services
DX: R13.10 Dysphagia, unspecified (principal); E11.9 Type 2 diabetes mellitus without complications; I10 Essential (primary) hypertension; G92.9 Unspecified toxic encephalopathy; D50.9 Iron deficiency anemia, unspecified; F25.9 Schizoaffective disorder, unspecified; Z87.820 Personal history of traumatic brain injury; Z79.899 Other long term (current) drug therapy
CPT/HCPCS: 99282; 99284

== ENCOUNTER 2022-04-28 13:52 | Day surgery (SDC) | payer MEDICARE, MEDICAID, SELFPAY ==
[2022-04-23 15:29] VITALS: BMI 15.7
--- NOTE | 2022-04-27 13:35 | HO.ANESPROP2 ---
Documented by User: Ange Spence NP 04/27/22 13:36 HPI - Anesthesia Eval Consult details Narrative: 66yo M for Upper Endoscopy s/p EGD and [place] 07/2021 with MAC TBI SNF resident Guardian for consent [facility] Active Problems Active Problems: All Active Problems (Updated 04/23/22 @ 14:54 by Dina Sewell, RN) Toxic encephalopathy (Acute) Iron deficiency anemia (Acute) Heme positive stool (Acute) Past Medical History Medical History Allergic rhinitis Anemia BPH (benign prostatic hyperplasia) Diabetes Dysphagia Encephalopathy Esophageal obstruction GERD (gastroesophageal reflux disease) GI bleed History of COVID-19 HTN (hypertension) Hydronephrosis Hypothyroidism On beta elmer at home Personality disorder Presbyopia Resides in [facility] Schizoaffective disorder TBI (traumatic brain injury) Family History Family history of problems with anesthesia: No Surgical History Surgical History Hx of colonoscopy Hx of esophagogastroduodenoscopy Surgical history unknown History of Problems with Anesthesia: No Social History Social History Household Members: Other Household Members Other:: resides @ [facility] Housing: Assisted Housing Other:: [facility] Are you a primary specialist wound care to a significant other at home: No Do you presently have visiting nurse or other home services: No (Resides at [facility]) Unable to assess alcohol history related to: Unknown Alcohol intake: unknown Patient Tobacco Use Status: Tobacco use Unknown Substance Use Type: Unknown Advance Directives: No Advance Directives Information Provided: Yes service: No Current occupational status: disabled Meds Allergies Allergy/AdvReac Type Severity Reaction Status Date / Time fish oil [FISH OIL] Allergy Unknown Unknown Verified 04/23/22 14:51 Iodinated Contrast Media Allergy Unknown Unknown Verified 04/23/22 14:51 [IODINATED CONTRAST- ORAL AND IV DYE] pollen extracts Allergy Unknown Unknown Verified 04/23/22 14:51 shellfish derived Allergy Unknown Unknown Verified 04/23/22 14:51 Home Medications Medication Instructions Recorded Confirmed Last Taken Type acetaminophen 325 mg tablet 650 mg PO Q6H PRN Fever Or Pain 04/1204/23/22 09/23/20 History diphenhydramine HCl 25 mg capsule 25 mg PO Q6H PRN Itching 09/23/20 04/23/22 Unknown History (Benadryl) docusate sodium 100 mg capsule 100 mg PO BID 09/23/20 04/23/22 09/23/20 History lactulose 10 gram/15 mL (15 mL) 20 g PO DAILY 09/23/20 04/23/22 09/23/20 History oral solution pantoprazole 40 mg tablet,delayed 40 mg PO BID 09/23/20 04/23/22 09/23/20 History release sennosides 8.6 mg tablet (senna) 17.2 mg PO BEDTIME 09/23/20 04/23/22 09/22/20 History sodium bicarbonate 650 mg tablet 650 mg PO DAILY 09/23/20 04/23/22 09/23/20 History tamsulosin 0.4 mg capsule 0.4 mg PO DAILY 09/23/20 04/23/22 09/22/20 History multivitamin with minerals 1 tab PO DAILY 11/25/20 04/23/22 Unknown History sennosides 8.6 mg tablet (senna) 8.6 mg PO DAILY PRN Constipation 01/23/21 04/23/22 Unknown History lurasidone 40 mg tablet (Latuda) 1 tab PO BEDTIME 04/06/21 09/24/21 Unknown History ascorbic acid (vitamin C) 500 mg 500 mg PO DAILY 04/23/22 04/23/22 Unknown History tablet clozapine 50 mg tablet 1 tab PO BEDTIME 04/23/22 04/23/22 Unknown History ferrous sulfate 325 mg (65 mg 325 mg PO DAILY 04/23/22 04/23/22 Unknown History iron) tablet hydroxyzine HCl 25 mg tablet 1 tab PO BID 04/23/22 04/23/22 Unknown History hydroxyzine HCl 50 mg tablet 1 tab PO TID PRN Agitation 04/23/22 04/23/22 Unknown History levothyroxine 50 mcg tablet 1 tab PO DAILY 04/23/22 04/23/22 Unknown History metoprolol succinate 50 mg 1 tab PO BID 04/23/22 04/23/22 Unknown History tablet,extended release 24 hr Exam Exam Date and Time: April 27, 2022 1335 Height,Weight and Vital Signs: Height 6 ft Weight 52.617 kg Pertinent Lab Results Pertinent Lab Results: Laboratory Tests 11/15/21 11/15/21 21:08 21:08 WBC 7.4 Hgb 9.2 L Hct 28.8 L Plt Count 392 Sodium 134 L Potassium 4.4 Chloride 102 Carbon Dioxide 23 BUN 18 H Creatinine 1.02 Narrative Narrative: EKG 05/2021 Vent. Rate : 080 BPM ? ? Atrial Rate : 080 BPM ?? P-R Int : 174 ms? QRS Dur : 080 ms ? ? QT Int : 378 ms ? ? ? P-R-T Axes : 083 -28 076 degrees ?? QTc Int : 435 ms ? Normal sinus rhythm Normal ECG When compared with ECG of 06-APR-2021 10:23, No significant change was found Assessment and Plan Assessment Anesthesia Assessment: Chart Reviewed Final Anesthetic Review Family History of Problems with Anesthesia: No History of Problems with Anesthesia: No Documented by User: Zenon Acuna MD 04/28/22 13:50 PMFSH Past Medical History Medical History Allergic rhinitis Anemia BPH (benign prostatic hyperplasia) Diabetes Dysphagia Encephalopathy Esophageal obstruction GERD (gastroesophageal reflux disease) GI bleed History of COVID-19 HTN (hypertension) Hydronephrosis Hypothyroidism On beta elmer at home Personality disorder Presbyopia Resides in penitentiary facility Schizoaffective disorder TBI (traumatic brain injury) Surgical History Surgical History Hx of colonoscopy Hx of esophagogastroduodenoscopy Surgical history unknown Social History Social History Household Members: Other Household Members Other:: resides @ [facility] Housing: Assisted Housing Other:: [facility] Are you a primary specialist wound care to a significant other at home: No Do you presently have visiting nurse or other home services: No (Resides at [facility] [place]) Unable to assess alcohol history related to: Unknown Alcohol intake: unknown Patient Tobacco Use Status: Tobacco use Unknown Substance Use Type: Unknown Advance Directives: No Advance Directives Information Provided: Yes service: No Current occupational status: disabled Meds Allergies Allergy/AdvReac Type Severity Reaction Status Date / Time fish oil [FISH OIL] Allergy Unknown Unknown Verified 04/23/22 14:51 Iodinated Contrast Media Allergy Unknown Unknown Verified 04/23/22 14:51 [IODINATED CONTRAST- ORAL AND IV DYE] pollen extracts Allergy Unknown Unknown Verified 04/23/22 14:51 shellfish derived Allergy Unknown Unknown Verified 04/23/22 14:51 Home Medications Medication Instructions Recorded Confirmed Last Taken Type acetaminophen 325 mg tablet 650 mg PO Q6H PRN Fever Or Pain 09/23/20 04/23/22 09/23/20 History diphenhydramine HCl 25 mg capsule 25 mg PO Q6H PRN Itching 09/23/20 04/23/22 Unknown History (Benadryl) docusate sodium 100 mg capsule 100 mg PO BID 09/23/20 04/23/22 09/23/20 History lactulose 10 gram/15 mL (15 mL) 20 g PO DAILY 09/23/20 04/23/22 09/23/20 History oral solution pantoprazole 40 mg tablet,delayed 40 mg PO BID 09/23/20 04/23/22 09/23/20 History release sennosides 8.6 mg tablet (senna) 17.2 mg PO BEDTIME 09/23/20 04/23/22 09/22/20 History sodium bicarbonate 650 mg tablet 650 mg PO DAILY 09/23/20 04/23/22 09/23/20 History tamsulosin 0.4 mg capsule 0.4 mg PO DAILY 09/23/20 04/23/22 09/22/20 History multivitamin with minerals 1 tab PO DAILY 11/25/20 04/23/22 Unknown History sennosides 8.6 mg tablet (senna) 8.6 mg PO DAILY PRN Constipation 01/23/21 04/23/22 Unknown History lurasidone 40 mg tablet (Latuda) 1 tab PO BEDTIME 04/06/21 09/24/21 Unknown History ascorbic acid (vitamin C) 500 mg 500 mg PO DAILY 04/23/22 04/23/22 Unknown History tablet clozapine 50 mg tablet 1 tab PO BEDTIME 04/23/22 04/23/22 Unknown History ferrous sulfate 325 mg (65 mg 325 mg PO DAILY 04/23/22 04/23/22 Unknown History iron) tablet hydroxyzine HCl 25 mg tablet 1 tab PO BID 04/23/22 04/23/22 Unknown History hydroxyzine HCl 50 mg tablet 1 tab PO TID PRN Agitation 04/23/22 04/23/22 Unknown History levothyroxine 50 mcg tablet 1 tab PO DAILY 04/23/22 04/23/22 Unknown History metoprolol succinate 50 mg 1 tab PO BID 04/23/22 04/23/22 Unknown History tablet,extended release 24 hr Exam Airway Mallampati Class: III TM Dist: >3cm Neck ROM: Full Loose/Missing/Broken Teeth: Yes (Multiple missing teeth globally) Heart: rrr +[id number] Lungs: cta b/l Assessment and Plan Assessment Anesthesia Assessment: Anesthesia Plan Discussed Final Anesthetic Review NPO: Yes ASA Class: III Final Preanesthetic Review: No Changes in Pt Med Stat, Meds/Allgs Chart Reviewed, Consent Obtained/Reviewed and Anes Risks/Benef Reviewed Patient Risk: Intermediate Procedure Risk: Intermediate Assessment/Block/Sedation in SS: Assess/Block/Sedation-SS Anesthetic Plan Anesthetic Plan: MAC: and Agree w/ Assess. and Plan Disposition: Standard PACU
--- NOTE | 2022-04-28 14:08 | MHC.SHP ---
Pre-Procedural Eval Section A Date of Service: 04/28/22 Section B Chief Complaint: Dysphagia, Relevant Family History (Specify if Yes): No Relevant Social History: None Present Medications: see Short Stay Collaborative assessment Medical History: Significant History (Allergic rhinitis Anemia BPH (benign prostatic hyperplasia) Diabetes Dysphagia Encephalopathy Esophageal obstruction GERD (gastroesophageal reflux disease) GI bleed History of COVID-19 HTN (hypertension) Hydronephrosis Hypothyroidism On beta elmer at home Personality disorder Presbyopia Resides in) History of Previous Operations: Relevant previous surgery/procedure and date(s) (Hx of colonoscopy Hx of esophagogastroduodenoscopy) Allergies: Allergies Allergy/AdvReac Type Severity Reaction Status Date / Time fish oil [FISH OIL] Allergy Unknown Unknown Verified 04/23/22 14:51 Iodinated Contrast Media Allergy Unknown Unknown Verified 04/23/22 14:51 [IODINATED CONTRAST- ORAL AND IV DYE] pollen extracts Allergy Unknown Unknown Verified 04/23/22 14:51 shellfish derived Allergy Unknown Unknown Verified 04/23/22 14:51 Review of Systems Sugical H&P ROS: Negative: Constitution, Cardiovascular, Respiratory, Neurological, Psychiatric, Hem-Onc, Allergic/Immunologic, Gastrointestinal, Genitourinary, Musculoskeletal, Integumentary, Endocrine and Eyes/Ears/Nose/Throat Exam Surgical H&P Exam: Normal: HEENT, Normal: Heart, Normal: Lungs, Normal: Extremities, Normal: Abdomen, Normal: Skin and Normal: Neurological Plan Diagnosis/Plan: Unchanged I have reviewed the history and physical and performed a pertinent physical examination on my patient. No changes have occurred unless specified.
--- NOTE | 2022-04-28 14:30 | W.PM.OPN ---
Operative Note Operative Note Date of Service: 04/28/22 Narrative: Procedure Description: EGD Indication: dysphagia Anesthesia: MAC FLEXIBLE TRANSORAL UPPER GASTROINTESTINAL ENDOSCOPY UPPER ENDOSCOPY Consent: Indications for the procedure and potential complications of bleeding, perforation, reaction to medications and missed diagnosis were discussed with the patient and informed consent was obtained. Instrument: Olympus GIF H 190 J mid size upper endoscope Monitoring: Vital signs and clinical assessment, continuous EKG monitoring, Pulse oximetry, Carbon Dioxide monitoring and blood pressure monitoring were done throughout the procedure. Procedure: The patient was placed in the left lateral decubitis position and pre-procedure medications were administered and a bite block was placed. The endoscope was inserted into the mouth and advanced under direct vision to the third part of duodenum. A careful inspection was made as the upper endoscope was withdrawn including a retroflexed examination of the proximal stomach; Findings and interventions are described below. Findings: Larynx:normal Esophagus: GE junction at 37? cm, diaphragm hiatus at 43 cm, consistent with 6 cm hiatal hernia. Erosive esophagitis LA grade B at GEJ with tight junction and stricture at GEJ, ballon dilation to 19 mm with superficial tear noted at GEJ Stomach: Patchy erythema. Grade 2 flap valve on retroflexed examination of the cardia. hiatal hernia noted. Duodenum: Normal bulb and descending duodenum, bx taken Intervention: dilation of esophageal stricture with 19 mm balloon Impression/Findings: GEJ stricture esophagitis PLAN: cont with PPI if ongoing stricture then can repeat dilation and do kenalog injection called HCP and given update
[2022-04-28] MEDS: Lactated Ringers 1,000 ML 100 ML IVCONT (14:31)
[2022-04-28 14:32] VITALS: BP 119/88; PULSE 79; RESP 18; TEMP 36.6; O2SAT 100
[2022-04-28 15:04] VITALS: BP 101/68; PULSE 70; RESP 14; TEMP 36.3; O2SAT 100
[2022-04-28 15:19] VITALS: BP 103/62; PULSE 63; RESP 14; O2SAT 99
[2022-04-28 15:34] VITALS: BP 109/67; PULSE 61; RESP 16; TEMP 36.1; O2SAT 100
[2022-04-29 04:38] LABS: Glucose, Whole Blood 80 mg/dL (60-115)
== END 2022-04-28 15:52 | disposition home or self-care (01) ==
PROVIDERS: Visit Provider Internal Medicine Gastroenterology
PROC: 0DJ08ZZ Inspection of Upper Intestinal Tract, Via Natural or Artificial Opening Endoscopic (ICD-10-PCS; CPT 43235; principal; 2022-04-28 15:00)
DX: K22.2 Esophageal obstruction (principal); K20.80 Other esophagitis without bleeding; K44.9 Diaphragmatic hernia without obstruction or gangrene; K21.9 Gastro-esophageal reflux disease without esophagitis; D64.9 Anemia, unspecified; I10 Essential (primary) hypertension; E03.9 Hypothyroidism, unspecified; N40.0 Benign prostatic hyperplasia without lower urinary tract symptoms; G93.40 Encephalopathy, unspecified; J30.9 Allergic rhinitis, unspecified; F25.9 Schizoaffective disorder, unspecified; F60.9 Personality disorder, unspecified; E11.9 Type 2 diabetes mellitus without complications; Z79.899 Other long term (current) drug therapy; Z91.041 Radiographic dye allergy status; Z86.16 Personal history of COVID-19
CPT/HCPCS: 43249; 82947; C1726

== ENCOUNTER → 2022-06-24 10:52 | Outpatient (BNVA) | payer MEDICARE, MEDICAID, SELFPAY | PROVIDERS: PCP Hospitalist; Referring Provider Hospitalist; Visit Provider Nurse Practitioner Family | DX: D50.9 Iron deficiency anemia, unspecified (principal); K21.00 Gastro-esophageal reflux disease with esophagitis, without bleeding; R13.10 Dysphagia, unspecified | CPT/HCPCS: 99212 ==

== ENCOUNTER 2022-09-15 12:01 | Day surgery (SDC) | payer MEDICARE, MEDICAID, SELFPAY ==
[2022-09-10 09:55] VITALS: BMI 16.0
--- NOTE | 2022-09-15 12:29 | PC.NURSE ---
PATIENT AGITATED. HAS TWO STAFF MEMBERS BY HIS SIDE. CALLED AND SPOKE TO COLLEEN AND SAMINA NURSES AT [facility] AND I WAS TOLD HES BEEN NPO. DRANK ALL THE PREP. UNKNOWN OUTPUT AND WAS GIVEN ATIVAN 1MG IM AT 1100AM. NEEDS TO BE REDIRECTED MULTIPLE TIMES
[2022-09-15 12:50] VITALS: BP 123/88; PULSE 95; RESP 18; TEMP 36.2; O2SAT 97
[2022-09-15] MEDS: Lactated Ringers 1,000 ML 50 ML IVCONT (12:51)
--- NOTE | 2022-09-15 14:22 | MHC.SHP ---
Pre-Procedural Eval Section A Date of Service: 09/15/22 Section B Chief Complaint: Dysphagia,anemia, Relevant Family History (Specify if Yes): No Relevant Social History: None Present Medications: see Short Stay Collaborative assessment Medical History: Significant History ( Allergic rhinitis Anemia BPH (benign prostatic hyperplasia) Diabetes Dysphagia Encephalopathy Esophageal obstruction GERD (gastroesophageal reflux disease) GI bleed History of COVID-19 HTN (hypertension) Hydronephrosis Hypothyroidism On beta elmer at home Personality disorder Presbyopia Resides i) History of Previous Operations: Relevant previous surgery/procedure and date(s) (Hx of colonoscopy Hx of esophagogastroduodenoscopy Surgical history unknown) Allergies: Allergies Allergy/AdvReac Type Severity Reaction Status Date / Time fish oil [FISH OIL] Allergy Unknown Unknown Verified 06/24/22 11:04 Iodinated Contrast Media Allergy Unknown Unknown Verified 06/24/22 11:04 [IODINATED CONTRAST- ORAL AND IV DYE] pollen extracts Allergy Unknown Unknown Verified 06/24/22 11:04 shellfish derived Allergy Unknown Unknown Verified 06/24/22 11:04 Review of Systems Sugical H&P ROS: Negative: Constitution, Cardiovascular, Respiratory, Neurological, Psychiatric, Hem-Onc, Allergic/Immunologic, Gastrointestinal, Genitourinary, Musculoskeletal, Integumentary, Endocrine and Eyes/Ears/Nose/Throat Exam Surgical H&P Exam: Normal: HEENT, Normal: Heart, Normal: Lungs, Normal: Extremities, Normal: Abdomen, Normal: Skin and Normal: Neurological Exam Comment: abnormal affect, pressure of speech Plan Diagnosis/Plan: Unchanged I have reviewed the history and physical and performed a pertinent physical examination on my patient. No changes have occurred unless specified. Time Spent With Patient Time: Total time managing care of this patient today ____ minutes.
--- NOTE | 2022-09-15 14:23 | W.PM.OPN ---
Operative Note Operative Note Date of Service: 09/15/22 Narrative: Operative Information Procedure Description: EGD, Colonoscopy Indication: dysphagia, anemia Anesthesia: MAC FLEXIBLE TRANSORAL UPPER GASTROINTESTINAL ENDOSCOPY AND COLONOSCOPY PROCEDURE NOTE UPPER ENDOSCOPY Consent: Indications for the procedure and potential complications of bleeding, perforation, reaction to medications and missed diagnosis were discussed with the patient and informed consent was obtained. Instrument: Olympus GIF H 190 J mid size upper endoscope Monitoring: Vital signs and clinical assessment, continuous EKG monitoring, Pulse oximetry, Carbon Dioxide monitoring and blood pressure monitoring were done throughout the procedure. Procedure: The patient was placed in the left lateral decubitis position and pre-procedure medications were administered and a bite block was placed. The endoscope was inserted into the mouth and advanced under direct vision to the third part of duodenum. A careful inspection was made as the upper endoscope was withdrawn including a retroflexed examination of the proximal stomach; Findings and interventions are described below. Findings: Findings: Larynx:normal Esophagus: GE junction at 37? cm, diaphragm hiatus at 43 cm, consistent with 6 cm hiatal hernia. Tight junction and stricture at GEJ, ballon dilation to 19 mm with superficial tear noted at GEJ, 40 units of kenalog then injected around the GEJ area to reduce scar tissue formation. the UES was also tight and dilated to 19 mm without any tear noted. Stomach: Patchy erythema.? Grade 2 flap valve on retroflexed examination of the cardia. hiatal hernia noted. Duodenum: Normal bulb and descending duodenum, Intervention: dilation of esophageal stricture with 19 mm balloon and kenalog injection Impression/Findings: COLONOSCOPY Instrument: as above Colonoscopy Monitoring: Vital signs and clinical assessment, continuous EKG monitoring, Pulse oximetry, Carbon Dioxide monitoring and blood pressure monitoring were done throughout the procedure. Procedure: The patient was placed in the left lateral decubitis position and pre-procedure medications were administered. After a digital rectal examination of the ano-rectum, the video colonoscope was inserted into the rectum and advanced through the colon to the descending colon The colonoscope was slowly withdrawn in a retrograde panoramic fashion and the colon mucosa was carefully examined Findings and interventions are described below. Procedure Difficulty: easy Findings: There was solid stool balls in the left colon and I could only navigate to the descending colon. In the sigmoid a 10 mm sessile polyp was noted and removed with a cold snare. The procedure was then aborted. Anorectum - normal Colon preparation: unprepared Impression and Post Procedure Diagnosis: Endoscopy Findings: GEJ stricture esophagitis hiatal hernia Colonoscopy Findings: colon polyp Plan: Await Pathology results Repeat Colonoscopy in 6-12 month or earlier if clinically indicated, try to use enemas and supervise patient actually taking the prep repeat esophgeal dilation prn, can have normal diet as tolerated from tomorrow, soft diet today Above findings were reviewed with the patient and relevant handouts were provided if indicated.
[2022-09-15 14:36] VITALS: BP 104/74; PULSE 68; RESP 16; TEMP 36.2; O2SAT 93
[2022-09-15 14:51] VITALS: BP 109/76; PULSE 71; RESP 16; O2SAT 100
[2022-09-15 15:06] VITALS: BP 125/90; PULSE 64; RESP 18; O2SAT 100
[2022-09-15 15:21] VITALS: BP 130/82; PULSE 64; RESP 18; TEMP 36.2; O2SAT 100
== END 2022-09-15 16:00 | disposition home or self-care (01) ==
PROVIDERS: Visit Provider Internal Medicine Gastroenterology
PROC: (CPT 45338; principal; 2022-09-15 13:30)
DX: D50.9 Iron deficiency anemia, unspecified (principal); D12.5 Benign neoplasm of sigmoid colon; K64.0 First degree hemorrhoids; N40.0 Benign prostatic hyperplasia without lower urinary tract symptoms; K21.00 Gastro-esophageal reflux disease with esophagitis, without bleeding; R13.10 Dysphagia, unspecified; K22.2 Esophageal obstruction; K29.50 Unspecified chronic gastritis without bleeding; K44.9 Diaphragmatic hernia without obstruction or gangrene; I10 Essential (primary) hypertension; F25.9 Schizoaffective disorder, unspecified; F60.9 Personality disorder, unspecified; G93.40 Encephalopathy, unspecified; E11.9 Type 2 diabetes mellitus without complications; J30.9 Allergic rhinitis, unspecified; Z87.820 Personal history of traumatic brain injury; Z79.899 Other long term (current) drug therapy; Z91.040 Latex allergy status; Z86.16 Personal history of COVID-19
CPT/HCPCS: 45338; 43249; 43236; 88305; C1726; J3301

== ENCOUNTER → 2022-10-07 14:02 | Outpatient (BNVA) | payer MEDICARE, MEDICAID, SELFPAY | PROVIDERS: Visit Provider Nurse Practitioner Family | DX: K58.1 Irritable bowel syndrome with constipation (principal); K21.9 Gastro-esophageal reflux disease without esophagitis; D36.9 Benign neoplasm, unspecified site | CPT/HCPCS: 99212 ==

== ENCOUNTER 2023-03-10 14:39 | Emergency (ER) | payer MEDICARE, MEDICAID, SELFPAY ==
--- NOTE | ~2023-03-10 | CT_ITS ---
EXAMINATION: CT HEAD WITHOUT CONTRAST CT CERVICAL SPINE WITHOUT CONTRAST CLINICAL INFORMATION: Trauma. Pain. COMPARISON: 05/22/2021 TECHNIQUE: Contiguous axial imaging was performed through the head and cervical spine without intravenous administration of contrast. Sagittal and coronal reformatted images also obtained. This CT examination was performed using dose optimization techniques as appropriate, variously including the following: *Automated exposure control *Adjustment of mA and/or kV according to patient size (this includes techniques or standardized protocols for targeted exams where dose is matched to indication/reason for exam; i.e. extremities or head) *Use of iterative reconstruction technique DLP: 971 mGy-cm FINDINGS: The lateral, third and fourth ventricles are normally outlined. The cortical sulci and basal cisterns are normally outlined as well. There is no acute territorial defect, hemorrhage or midline shift. The extra-axial spaces are unremarkable. Cervical spine: The alignment is within normal limits. There is mild diffuse cervical disc degenerative change with loss of disc space, endplate change and posterior osteophytes associated with diffuse facet osteoarthritic hypertrophic change with minimal multilevel spinal canal and neuroforaminal narrowing. There are stable areas of sclerosis T2 and T3 vertebral body. Vertebral body There is no fracture. The prevertebral soft tissues are unremarkable. Biapical pleural thickening. CT/CT head/brain wo IV con IMPRESSION: No acute intracranial abnormality. Cervical disc degenerative change. No fracture.
--- NOTE | ~2023-03-10 | CT_ITS ---
EXAMINATION: CT HEAD WITHOUT CONTRAST CT CERVICAL SPINE WITHOUT CONTRAST CLINICAL INFORMATION: Trauma. Pain. COMPARISON: 05/22/2021 TECHNIQUE: Contiguous axial imaging was performed through the head and cervical spine without intravenous administration of contrast. Sagittal and coronal reformatted images also obtained. This CT examination was performed using dose optimization techniques as appropriate, variously including the following: *Automated exposure control *Adjustment of mA and/or kV according to patient size (this includes techniques or standardized protocols for targeted exams where dose is matched to indication/reason for exam; i.e. extremities or head) *Use of iterative reconstruction technique DLP: 971 mGy-cm FINDINGS: The lateral, third and fourth ventricles are normally outlined. The cortical sulci and basal cisterns are normally outlined as well. There is no acute territorial defect, hemorrhage or midline shift. The extra-axial spaces are unremarkable. Cervical spine: The alignment is within normal limits. There is mild diffuse cervical disc degenerative change with loss of disc space, endplate change and posterior osteophytes associated with diffuse facet osteoarthritic hypertrophic change with minimal multilevel spinal canal and neuroforaminal narrowing. There are stable areas of sclerosis T2 and T3 vertebral body. Vertebral body There is no fracture. The prevertebral soft tissues are unremarkable. Biapical pleural thickening. CT/CT cervical spine wo IV con IMPRESSION: No acute intracranial abnormality. Cervical disc degenerative change. No fracture.
[2023-03-10 14:52] VITALS: BP 141/92; BP 160/90; PULSE 70; PULSE 90; RESP 19; TEMP 36.9; O2SAT 100; BMI 15.7
--- NOTE | 2023-03-10 14:55 | PHA.MEDREC ---
Pharmacy Consult ? Medication Reconciliation Pharmacy has completed the medication reconciliation. Patient came from [facility] with med list. Socorro Motley, PaulD
--- NOTE | 2023-03-10 17:33 | MHC.EDTECH ---
THIS PCT ASSUMED CARE OF PT AT 1500 ,PT WAS INCONTINENT OF URINE ,CARE GIVEN ,PT IS QUIET AND IS HAVING SOME COKE A COLA .
[2023-03-10 18:00] VITALS: BP 155/108; PULSE 78; RESP 16; TEMP 36.9; O2SAT 100
--- NOTE | 2023-03-10 19:28 | ED_ITS ---
HPI - Fall General Chief Complaint: Fall Stated Complaint: FALL FROM STANDING @ SNF PER EMS Time Seen by Provider: 03/10/23 15:53 Source: EMS Mode of arrival: EMS Limitations: altered mental status History of Present Illness HPI Narrative: Patient comes to the emergency room after sustaining a fall. According to the staff, patient was walking and slipped and putting, hit his head. Patient has a small laceration to the left eyebrow. Patient has history of traumatic brain injury and cannot give history. Related Data Home Medications Medication Instructions Recorded Confirmed acetaminophen 325 mg tablet 650 mg PO Q6H PRN Fever Or Pain 09/23/20 03/10/23 diphenhydramine HCl 25 mg capsule 25 mg PO Q6H PRN Itching 09/23/20 03/10/23 (Benadryl) docusate sodium 100 mg capsule 100 mg PO BID 09/23/20 03/10/23 lactulose 10 gram/15 mL (15 mL) 60 ml PO TID 09/23/20 03/10/23 oral solution sodium bicarbonate 650 mg tablet 650 mg PO DAILY 09/23/20 03/10/23 tamsulosin 0.4 mg capsule 0.4 mg PO DAILY 09/23/20 03/10/23 multivitamin with minerals 1 tab PO DAILY 11/25/20 03/10/23 sennosides 8.6 mg tablet (senna) 8.6 mg PO DAILY PRN Constipation 01/23/21 03/10/23 ascorbic acid (vitamin C) 500 mg 500 mg PO DAILY 04/23/22 03/10/23 tablet clozapine 50 mg tablet 1 tab PO BEDTIME 04/23/22 03/10/23 ferrous sulfate 325 mg (65 mg 325 mg PO DAILY 04/23/22 03/10/23 iron) tablet hydroxyzine HCl 50 mg tablet 1 tab PO TID PRN Agitation 04/23/22 03/10/23 metoprolol succinate 50 mg 1 tab PO BID 04/23/22 03/10/23 tablet,extended release 24 hr levothyroxine 88 mcg tablet 88 mcg PO DAILY 03/10/23 03/10/23 sennosides 8.6 mg tablet (senna) 17.2 mg PO DAILY 03/10/23 03/10/23 Previous Rx's Medication Instructions Recorded pantoprazole 40 mg tablet,delayed 40 mg PO DAILY #90 tabs 10/07/22 release sucralfate 100 mg/mL oral 10 ml PO BEDTIME #400 mL 10/07/22 suspension (Carafate) Allergies Allergy/AdvReac Type Severity Reaction Status Date / Time fish oil [FISH OIL] Allergy Unknown Unknown Verified 03/10/23 14:52 Iodinated Contrast Media Allergy Unknown Unknown Verified 03/10/23 14:52 [IODINATED CONTRAST- ORAL AND IV DYE] pollen extracts Allergy Unknown Unknown Verified 03/10/23 14:52 shellfish derived Allergy Unknown Unknown Verified 03/10/23 14:52 Review of Systems Review of Systems: Yes Unobtainable due to mental condition [facility] Past Medical History Medical History Tubular adenoma Allergic rhinitis Esophageal obstruction Hydronephrosis On beta el[place] at home History of COVID-19 Resides in shelter facility [place] Personality disorder Hypothyroidism GERD (gastroesophageal reflux disease) Anemia Encephalopathy GI bleed BPH (benign prostatic hyperplasia) HTN (hypertension) Dysphagia Diabetes Schizoaffective disorder TBI (traumatic brain injury) Surgical History Hx of colonoscopy Hx of esophagogastroduodenoscopy Social History Social History Household Members: Other Household Members Other:: resides @ [facility] Housing: [facility] Housing Other:: [facility] [place]-[phone] Are you a primary primary care md to a significant other at home: No Do you presently have visiting nurse or other home services: Yes (as above noted) Unable to assess alcohol history related to: Unknown Alcohol intake: unknown Patient Tobacco Use Status: Never used Tobacco Smoked in Last 30 Days: No Use of substances other than those prescribed or required for medical reasons: Unknown Advance Directives: Yes Advance Directives on File: Yes Advance Directives Date on File: 02/12/22 service: No Current occupational status: disabled Physical Exam Vital Signs: Vital Signs: Last Vital Signs Temp 98.4 F 03/10/23 18:00 Pulse 78 03/10/23 18:00 Resp 16 03/10/23 18:00 BP 155/108 H 03/10/23 18:00 Pulse Ox 100 03/10/23 18:00 O2 Del Method Room Air 03/10/23 18:00 BMI result Body Mass Index 15.7 Const: Other: Appearance: Alert. No acute distress Eyes: Pupils equal, round and reactive to light. ENT: Pharynx normal. Neck: Normal inspection. Neck supple. No lymph nodes noted. No crepitus CVS: Normal heart rate and rhythm. Pulses normal. Normal S1 and S2 Respiratory: No respiratory distress. Breath sounds normal. No Wheezing. No rales Abdomen: Soft and nontender. No rigidity. No distention. Skin: Patient has a laceration to the left eyebrow, 0.5 cm, bleeding controlled Extremities: No lower extremity edema. No Lacerations. No Rash Neuro: Unable to participating cranial nerve assessment Psych: calm, cooperative, normal affect Medical Decision Making Medical Decision Making MDM Narrative: -my interpretation of CT scan of the head: No intracranial bleed. -patient has a small laceration to the left eyebrow, the injury was cleaned and skin glue was applied -mental status remains unchanged -vitals stable, blood pressure 141/92, heart rate 70, oxygen 100% room air. Differential Diagnosis Differential Diagnoses: The differential diagnosis associated with the presentation includes (Head contusion, concussion, intracranial bleed) Admission/Observation Consideration of admission/observation: Escalation of care including admission/observation considered Independent Interpretation I performed an independent interpretation of an: CT Scan Radiology Impression Discussion of test interpretation with radiology: I have reviewed the radiologist's reading. Radiologist Impression: FINDINGS: The lateral, third and fourth ventricles are normally outlined. The cortical sulci and basal cisterns are normally outlined as well. There is no acute territorial defect, hemorrhage or midline shift. The extra-axial spaces are unremarkable. Cervical spine: The alignment is within normal limits. There is mild diffuse cervical disc degenerative change with loss of disc space, endplate change and posterior osteophytes associated with diffuse facet osteoarthritic hypertrophic change with minimal multilevel spinal canal and neuroforaminal narrowing. There are stable areas of sclerosis T2 and T3 vertebral body. Vertebral body There is no fracture. The prevertebral soft tissues are unremarkable. Biapical pleural thickening. CT/CT head/brain wo IV con IMPRESSION: No acute intracranial abnormality. Cervical disc degenerative change. No fracture. Critical Care Time Critical Care Time Critical Care Time: Yes Total Critical Care Time: 30 Attestation: I have personally provided critical care time. Time includes review of lab data, radiology results, discussion with consultants, and monitoring for potential decompensation. Intervention performed as documented. Discharge Plan Discharge Clinical Impression: Fall, Forehead laceration Patient Disposition: Home, Self-Care Instructions: Fall Prevention for Older Adults (ED) Additional Instructions: Please follow-up with your primary care physician tomorrow. If you have any worsening or new symptoms, please return to the emergency room or call 911 Prescriptions: No Action tamsulosin 0.4 mg capsule 0.4 mg PO DAILY acetaminophen 325 mg Tablet 650 mg PO Q6H PRN (Reason: Fever Or Pain) Rx Instructions: not to exceed 3000mg/day sodium bicarbonate 650 mg Tablet 650 mg PO DAILY diphenhydramine HCl [Benadryl] 25 mg Capsule 25 mg PO Q6H PRN (Reason: Itching) docusate sodium 100 mg Capsule 100 mg PO BID lactulose 10 gram/15 mL (15 mL) Solution 60 ml PO TID multivitamin with minerals Tablet 1 tab PO DAILY sennosides [senna] 8.6 mg Tablet 8.6 mg PO DAILY PRN (Reason: Constipation) metoprolol succinate 50 mg tablet extended release 24 hr 1 tab PO BID hydroxyzine HCl 50 mg tablet 1 tab PO TID PRN (Reason: Agitation) ascorbic acid (vitamin C) 500 mg Tablet 500 mg PO DAILY ferrous sulfate 325 mg (65 mg iron) Tablet 325 mg PO DAILY clozapine 50 mg tablet 1 tab PO BEDTIME levothyroxine 88 mcg tablet 88 mcg PO DAILY sennosides [senna] 8.6 mg tablet 17.2 mg PO DAILY sucralfate [Carafate] 100 mg/mL suspension 10 ml PO BEDTIME Qty: 400 2RF pantoprazole 40 mg tablet,delayed release (DR/EC) 40 mg PO DAILY Qty: 90 1RF
--- NOTE | 2023-03-10 19:30 | PC.NURSE ---
Assumed care of pt. Pt lying on stretcher, no acute distress at this time. Per MD Nagel, plan to DC pt back to [facility] given negative CT findings.
[2023-03-10 19:44] VITALS: BP 143/94; PULSE 68; RESP 16; TEMP 37.2; O2SAT 100
== END 2023-03-10 20:18 | disposition skilled nursing facility (03) ==
PROVIDERS: Emergency Provider Emergency Medicine; PCP Hospitalist
DX: S01.81XA Laceration without foreign body of other part of head, initial encounter (principal); M54.2 Cervicalgia; R51.9 Headache, unspecified; W01.10XA Fall on same level from slipping, tripping and stumbling with subsequent striking against unspecified object, initial encounter; Y93.9 Activity, unspecified; Y92.9 Unspecified place or not applicable; Y99.9 Unspecified external cause status
CPT/HCPCS: 12011; 70450; 72125; 99284; 99285

== ENCOUNTER 2023-04-07 13:34 | Outpatient (AMB) | payer MEDICARE, MEDICAID, SELFPAY ==
--- NOTE | 2023-04-07 13:38 | A.OFFVIS_ITS ---
Intake Vital Signs 04/07/23 13:39 Height 5 ft 11 in Weight 111 lb 1.808 oz BMI 15.5 BP 113/71 Blood Pressure Location Lt brachial Position Sitting Pulse 70 Pulse Source Pulse Oximeter Pulse Oximetry (%) 100 Oxygen Delivery Method Room Air Intake Visit Reasons: 6 month fu Intake Note: Pt presents to the office today for a 6 month follow up with his DATABASE MANAGEMENT SPECIALIST. Pts nurse stated on the paper that was brought in that Levar has been spitting up and has had weight loss. Allergies fish oil [FISH OIL] Allergy (Unknown, Verified 04/07/23 13:41) Unknown Iodinated Contrast Media [IODINATED CONTRAST- ORAL AND IV DYE] Allergy (Unknown, Verified 04/07/23 13:41) Unknown pollen extracts Allergy (Unknown, Verified 04/07/23 13:41) Unknown shellfish derived Allergy (Unknown, Verified 04/07/23 13:41) Unknown HPI 6 month fu HPI0 Details LAST VISIT Tubular adenoma Tubular adenoma without high-grade dysplasia or carcinoma found. Patient will need to report for colonoscopy in 6-12 months due to suboptimal prep. Please make sure that we will get a consent prior to come in for the procedure GERD (gastroesophageal reflux disease) Continue current management with pantoprazole. Start sucralfate at bedtime only. Discussed with the staff member about trying to avoid dietary triggers for patient. Avoid giving him snack late at night. IBS (irritable bowel syndrome) Discussed with staff about the avoiding dietary triggers. Patient is in [facility] which is residential and the meals are prep for everyone. Trying to avoid certain food and making sure that patient is actually emptying his bowels completely periods his symptoms could be related to constipation and gas trapping pain. Currently patient is doing well. Continue current treatment and diet. I will see him in 6 months, sooner on as needed basis. shelter staff is agreeable to this plan and verbalizes understanding of instructions. They were given the opportunity to ask questions and all questions answered. ? TODAY'S VISIT Patient colonoscopy had to be canceled as patient was making food the day before the procedure. Patient will need to be 1:1 day before the procedure. Patient is [facility] and mentally he has been doing worse. Patient is getting more agitated to the point where he needs to constantly redirected. Patient has a colonoscopy scheduled on June 15. Patient denies any chest pain or shortness of breath. No issues with anesthesia in the past. Patient is not on any anticoagulation medication. [facility] Medical History Tubular adenoma Allergic rhinitis Esophageal obstruction Hydronephrosis On beta elmer at home History of COVID-19 Resides in [facility] facility Presbyopia Personality disorder Hypothyroidism GERD (gastroesophageal reflux disease) Anemia Encephalopathy GI bleed BPH (benign prostatic hyperplasia) HTN (hypertension) Dysphagia Diabetes Schizoaffective disorder TBI (traumatic brain injury) Surgical History Hx of colonoscopy Hx of esophagogastroduodenoscopy Social History Household Members: Other Household Members Other:: resides @ [facility] Housing: Custodial Housing Other:: [phone] Are you a primary rental boats caretaker to a significant other at home: No Do you presently have visiting nurse or other home services: Yes (as above note d) Unable to assess alcohol history related to: Unknown Alcohol intake: unknown Patient Tobacco Use Status: Never used Tobacco Advance Directives Date on File: 02/12/22 service: No Current occupational status: disabled Review of Systems Const Denies weight gain and Denies weight loss ENT Reports no additional complaints, Denies dysphagia and Denies odynophagia Card Reports no additional complaints Resp Reports no additional complaints GI Denies abdominal pain, Denies belching, Denies melena, Denies bloating, Denies change in bowel habits, Denies dysphagia, Denies excessive flatus, Denies dyspepsia, Denies heartburn, Denies diarrhea, Denies loose stools, Denies nausea, Denies odynophagia and Denies vomiting Reports no additional complaints Musc Reports no additional complaints Neuro Reports no additional complaints Psych Reports no additional complaints Endo Reports no additional complaints Physical Exam Vital Signs: Last Vital Signs Pulse 70 04/07/23 13:39 BP 113/71 04/07/23 13:39 Pulse Ox 100 04/07/23 13:39 Oxygen Delivery Method Room Air 04/07/23 13:39 BMI result Body Mass Index 15.5 Const General: no acute distress and anxious Nutritional Appearance: underweight Orientation/consciousness: patient oriented x3 Limitations: altered mental status and behavioral limitations HEENT Head: Yes normocephalic and Yes atraumatic Face and sinus: Yes normal facial exam Eyes General: appearance normal, both eyes and all related structures Neck Neck: Yes normal visual inspection and Yes trachea midline Thyroid: Thyroid normal Resp Effort & Inspection: normal respiratory effort, able to speak in complete sentences, no tracheal deviation and symmetric chest movement Auscultation: clear to auscultation bilaterally Cardio Rate: regular rate Heart sounds: S1 normal heart sound present and S2 normal heart sound present GI Inspection: Yes normal to inspection and No distended Palpation (GI): Soft to palpation, not firm, nontender and No hepatosplenomegaly present Auscultation: normal bowel sounds General: Yes no CVA tenderness Back/Spine/Pelvis Back: no CVA tenderness Skin General skin exam: elasticity normal, turgor normal and dry skin Neuro General: patient oriented x3 Psych Appearance: grossly normal Speech and movement: Psychomotor agitation in speech present (at times) Assessment & Plan Assessment & Plan (1) Tubular adenoma: Code(s): D36.9 - Benign neoplasm, unspecified site (2) GERD (gastroesophageal reflux disease): Code(s): K21.9 - Gastro-esophageal reflux disease without esophagitis Qualifiers: Esophagitis presence: esophagitis presence not specified Qualified Code(s): K21.9 - Gastro-esophageal reflux disease without esophagitis (3) IBS (irritable bowel syndrome): Code(s): K58.9 - Irritable bowel syndrome without diarrhea Qualifiers: Irritable bowel syndrome type: with both diarrhea and constipation Qualified Code(s): K58.2 - Mixed irritable bowel syndrome Plan Patient has a colonoscopy is scheduled. Went over the prep with facility staff. Directions given to them. Patient will need to be 1 on 1 in order to comply with the prep and clearing his bowels. I will see patient after the procedure, sooner on as needed basis. Medications: New bisacodyl (Dulcolax (bisacodyl)) Start taking 2 tablet every night 7 days before the procedure and 1 day before procedure take 4 tablets at noon time followed by MiraLax prep 10 mg (2 x 5 mg) PO BEDTIME PRN 16 tabs 0RF constipation Z12.11 - Encounter for screening for malignant neoplasm of colon polyethylene glycol 3350 (Miralax) As directed by gastroenterology department at [facility] 238 grams PO ONCE 238 grams 0RF Z12.11 - Encounter for screening for malignant neoplasm of colon Coding Level of Care Code Est Pt Level 3 (65233) Diagnoses Tubular adenoma D36.9 Gastroesophageal reflux disease, unspecified whether esophagitis present K21.9 Esophagitis presence: esophagitis presence not specified Irritable bowel syndrome with both constipation and diarrhea K58.2 Irritable bowel syndrome type: with both diarrhea and constipation Time Spent (min) 25 Comment 15 minutes spent with patient and additional 10 minutes spent reviewing his records
[2023-04-07 13:39] VITALS: BP 113/71; PULSE 70; O2SAT 100; BMI 15.5
== END 2023-04-07 14:49 | disposition home or self-care (01) ==
PROVIDERS: Visit Provider Nurse Practitioner Family
DX: D36.9 Benign neoplasm, unspecified site (principal); K21.9 Gastro-esophageal reflux disease without esophagitis; K58.2 Mixed irritable bowel syndrome
CPT/HCPCS: 99213

== ENCOUNTER → 2023-04-07 13:34 | Outpatient (BNVA) | payer MEDICARE, MEDICAID, SELFPAY | PROVIDERS: Visit Provider Nurse Practitioner Family | DX: K21.9 Gastro-esophageal reflux disease without esophagitis (principal); K58.2 Mixed irritable bowel syndrome; D36.9 Benign neoplasm, unspecified site | CPT/HCPCS: 99212 ==

== ENCOUNTER 2023-05-18 15:58 | Emergency (ER) | payer MEDICARE, MEDICAID, SELFPAY ==
--- NOTE | ~2023-05-18 | CT_ITS ---
EXAMINATION: CT ABDOMEN AND PELVIS WITHOUT CONTRAST CLINICAL INFORMATION: Dysuria. Pain. COMPARISON: Previous CT of the abdomen and pelvis most recent March 2021 TECHNIQUE: Multidetector volumetric imaging was performed from the superior aspect of the liver through the pubic symphysis. Sagittal and coronal reformatted images were obtained on the technologist's workstation. This CT examination was performed using dose optimization techniques as appropriate, variously including the following: *Automated exposure control *Adjustment of mA and/or kV according to patient size (this includes techniques or standardized protocols for targeted exams where dose is matched to indication/reason for exam; i.e. extremities or head) *Use of iterative reconstruction technique DLP: 592 mGy-cm FINDINGS: Exam is limited due to little fat and lack of oral and IV contrast. LUNG BASES: Subsegmental atelectasis at the right lung base.. LIVER, GALLBLADDER, AND BILIARY TREE: The liver is normal in size, shape, and attenuation. No focal hepatic lesion or biliary ductal dilatation is present. The gallbladder is unremarkable with no evidence of radiopaque gallstones, gallbladder wall thickening, or obvious pericholecystic inflammatory changes. PANCREAS: Unremarkable. SPLEEN: Unremarkable. ADRENAL GLANDS: Unremarkable. KIDNEYS AND URETERS: The left kidney is larger than the right by the right knee centimeters in length. There are right renal hilum low-attenuation densities cysts. There are small stones in the lower pole right kidney. There is a small cyst in the upper pole of the left kidney. There is a small stone in the lower pole of the left kidney. No hydronephrosis. BLADDER: The bladder wall is diffusely thickened. There is a 1 cm bladder stone area there is a right-sided bladder diverticulum containing a 6 x 8 stones. GASTROINTESTINAL TRACT: Small esophageal hernia. Surgical clips in the GE junction. Stool throughout the colon suggestive of constipation. Is not seen. ABDOMINAL WALL: Evidence of low abdominal wall and left lateral abdominal wall hernia repair air. LYMPH NODES: Normal. VASCULAR: Atherosclerotic disease. PELVIC VISCERA: Slightly enlarged prostate gland measuring 3.5 0.7 cm. OSSEOUS STRUCTURES: Mild degenerative changes of the spine and hip joints. CT/CT abdomen pelvis wo IV con IMPRESSION: Limited exam. Diffuse bladder wall thickening. 1 cm bladder stone. 6 x 8 mm stone in a right-sided bladder diverticulum. Slightly enlarged prostate gland. Small bilateral renal stones. Small esophageal hernia. Fleischner guidelines were followed.
[2023-05-18 16:21] VITALS: BP 111/77; PULSE 83; RESP 16; TEMP 36.8; O2SAT 98; BMI 10.9
--- NOTE | 2023-05-18 16:50 | ED.MALEGU ---
HPI - Male Genitourinary General Chief complaint: Urogenital-Male Stated complaint: painful urination Time Seen by Provider: 05/18/23 16:07 Source: patient, EMS and RN notes reviewed Mode of arrival: EMS Limitations: physical limitation History of Present Illness HPI Narrative: 67-year-old male presents emergency department via EMS from [facility] facility with reports of dysuria. It is difficult to obtain a history from patient, he does report yes to having pain with urination evidently since yesterday. Related Data Home Medications Medication Instructions Recorded Confirmed acetaminophen 325 mg tablet 650 mg PO Q6H PRN Fever Or Pain 09/23/20 03/10/23 diphenhydramine HCl 25 mg capsule 25 mg PO Q6H PRN Itching 09/23/20 03/10/23 (Benadryl) docusate sodium 100 mg capsule 100 mg PO BID 09/23/20 03/10/23 lactulose 10 gram/15 mL (15 mL) 60 ml PO TID 09/23/20 03/10/23 oral solution sodium bicarbonate 650 mg tablet 650 mg PO DAILY 09/23/20 03/10/23 tamsulosin 0.4 mg capsule 0.4 mg PO DAILY 09/23/20 03/10/23 multivitamin with minerals 1 tab PO DAILY 11/25/20 03/10/23 sennosides 8.6 mg tablet (senna) 8.6 mg PO DAILY PRN Constipation 01/23/21 03/10/23 ascorbic acid (vitamin C) 500 mg 500 mg PO DAILY 04/23/22 03/10/23 tablet clozapine 50 mg tablet 1 tab PO BEDTIME 04/23/22 03/10/23 ferrous sulfate 325 mg (65 mg 325 mg PO DAILY 04/23/22 03/10/23 iron) tablet hydroxyzine HCl 50 mg tablet 1 tab PO TID PRN Agitation 04/23/22 03/10/23 metoprolol succinate 50 mg 1 tab PO BID 04/23/22 03/10/23 tablet,extended release 24 hr levothyroxine 88 mcg tablet 88 mcg PO DAILY 03/10/23 03/10/23 sennosides 8.6 mg tablet (senna) 17.2 mg PO DAILY 03/10/23 03/10/23 Previous Rx's Medication Instructions Recorded pantoprazole 40 mg tablet,delayed 40 mg PO DAILY #90 tabs 10/07/22 release sucralfate 100 mg/mL oral 10 ml PO BEDTIME #400 mL 10/07/22 suspension (Carafate) bisacodyl 5 mg tablet,delayed 10 mg (2 x 5 mg) PO BEDTIME PRN 04/07/23 release (Dulcolax (bisacodyl)) constipation #16 tabs polyethylene glycol 3350 17 238 g PO ONCE #238 grams 04/07/23 gram/dose oral powder (Miralax) cefuroxime axetil 500 mg tablet 500 mg PO BID #13 tabs 05/18/23 Allergies Allergy/AdvReac Type Severity Reaction Status Date / Time fish oil [FISH OIL] Allergy Unknown Unknown Verified 04/07/23 13:41 Iodinated Contrast Media Allergy Unknown Unknown Verified 04/07/23 13:41 [IODINATED CONTRAST- ORAL AND IV DYE] pollen extracts Allergy Unknown Unknown Verified 04/07/23 13:41 shellfish derived Allergy Unknown Unknown Verified 04/07/23 13:41 Review of Systems Review of Systems: Yes Unobtainable due to mental status PMFSH Past Medical History Attestation statement: The following information was validated with the patient. Source: old records reviewed Medical History Tubular adenoma Allergic rhinitis Esophageal obstruction Hydronephrosis On beta elmer at home History of COVID-19 Resides in [facility] facility Presbyopia Personality disorder Hypothyroidism GERD (gastroesophageal reflux disease) Anemia Encephalopathy GI bleed BPH (benign prostatic hyperplasia) HTN (hypertension) Dysphagia Diabetes Schizoaffective disorder TBI (traumatic brain injury) Surgical History Hx of colonoscopy Hx of esophagogastroduodenoscopy Social History Social History Household Members: Other Household Members Other:: resides @ [facility] Unit Housing: [facility] Housing Other:: [facility]-[phone] Are you a primary career coordinator to a significant other at home: No Do you presently have visiting nurse or other home services: Yes (as above noted) Unable to assess alcohol history related to: Unknown Alcohol intake: unknown 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, 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 No acute distress.? Eyes: Pupils equal, round and reactive to light.? ENT: Pharynx normal.?? Neck: Normal inspection.? Neck supple.?? CVS: Heart sounds normal. Normal heart rate and rhythm.? Pulses normal.?? Respiratory: No respiratory distress.? Lung sounds clear to auscultation bilaterally?? Abdomen: Soft, noted to be wincing upon palpation of the bilateral CVA. No rigidity. No guarding. Normoactive bowel sounds. Skin: Skin warm and dry.? Normal skin color.? Extremities: No lower extremity edema.? Neuro: Moves all extremities spontaneously. Sensation intact bilaterally. Course Reevaluation(s) Reevaluation #1: uti Time: 18:35 Medications Administered Discontinued Medications Generic Name Dose Route Start Last Admin Trade Name Freq PRN Reason Stop Dose Admin Cefuroxime Axetil 500 mg 05/18/23 18:59 05/18/23 19:18 Cefuroxime Axetil 500 Mg Tablet PO 05/18/23 19:00 500 mg ONCE ONE Administration Haloperidol 5 mg 05/18/23 16:58 05/18/23 17:26 Haloperidol 5 Mg Tablet PO 05/18/23 16:59 5 mg ONCE ONE Administration Medical Decision Making Medical Decision Making MDM Narrative: Patient is a 67-year-old male with past medical history of BPH, hydronephrosis, nephrolithiasis, anemia, diabetes mellitus type 2, dysphagia encephalopathy, GERD, GI bleed, hypertension, hypothyroidism, schizoaffective disorder, ADHD, autism, coming from [facility] via EMS with dysuria since yesterday. Reviewed notes obtained from staff at facility, which indicates a straight catheterization having been performed and also mention of hematuria. Plan to obtain serum labs, urinalysis, CT AP, nursing staff having difficulty getting patient to participate in care; obtaining vital signs and serum labs, patient to receive Haldol 5 mg p.o. Differential Diagnosis Differential Diagnoses: The differential diagnosis associated with the presentation includes (Urinary tract infection, pyelonephritis, ureteral calculi, nephrolithiasis, hydronephrosis. No penile lesions, balanitis. Less likely appendicitis, colitis, diverticulitis, obstruction) Admission/Observation Consideration of admission/observation: Escalation of care including admission/observation considered (See narrative above and course narrative for further detail) Lab Data MDM Lab Attestation statement: I reviewed the patient's lab results. (See course narrative for further details) 05/18/23 17:35 05/18/23 17:35 Labs: Lab Results 05/18/23 Range/Units 17:35 WBC 6.9 (4.8-10.8) X10*3/uL RBC 3.98 L (4.60-5.80) X10*6/uL Hgb 11.4 L D (14.0-18.0) g/dl Hct 34.9 L D (42.0-52.0) % MCV 87.7 (80.0-98.0) fL MCH 28.6 (27.0-33.0) pg MCHC 32.7 (31.0-36.0) g/dl RDW 14.1 (11.0-16.0) % Plt Count 351 (160-400) X10*3/uL MPV 9.4 (9.4-12.4) fL Immature Gran % (Auto) 0.4 (0.0-0.4) % Neut % (Auto) 67.1 (45-73) % Lymph % (Auto) 23.0 (20-40) % [place] % (Auto) 7.7 (2-11) % Eos % (Auto) 0.4 (0-4) % Baso % (Auto) 1.4 (0-2) % Lymph # (Auto) 1.6 (1.2-4.9) X10*3/uL [place] # (Auto) 0.5 (0.1-1.2) X10*3/uL Eos # (Auto) 0.0 (0.0-0.4) X10*3/uL Baso # (Auto) 0.1 (0.0-0.2) X10*3/uL Abs Immat Gran (auto) 0.03 (0.00-0.03) X10*3/uL Absolute Neuts (auto) 4.6 (2.0-8.3) x10*3/uL Absolute Nucleated RBC 0.000 (0.0-0.012) X10*3/uL Nucleated RBC % (auto) 0.0 (0.0-0.2) /100WBC PT 11.9 (11.1-13.3) SEC INR 1.0 (0.9-1.1) Sodium 140 (135-145) mmol/L Potassium 4.1 (3.3-5.1) mmol/L Chloride 106 (96-108) mmol/L Carbon Dioxide 27 (22-29) mmol/L Anion Gap 11 L (12-20) BUN 33 H (9-16) mg/dL Creatinine 0.85 (0.5-1.4) mg/dL Estim Creat Clear Calc 43.5 Estimated GFR > 60 Random Glucose 102 (60-115) mg/dL Calcium 9.0 (8.4-10.2) mg/dL Total Bilirubin 0.2 (0.0-1.0) mg/dL AST 18 (5-37) U/L ALT 23 (0-40) U/L Alkaline Phosphatase 115 (39-117) U/L Total Protein 6.4 L (6.5-8.0) g/dL Albumin 3.6 (3.5-5.0) g/dL Urine Color Yellow Urine Appearance Hazy Urine pH 7.5 (5.0-9.0) Ur Specific [place] 1.015 (1.005-1.025) Urine Protein 300 (3+) H (Neg-Trace) mg/dL Urine Glucose (UA) Negative (Negative) mg/dL Urine Ketones Negative (Negative) mg/dL Urine Blood Large (3+) H (Negative) Urine Nitrite Negative (Negative) Ur Leukocyte Esterase Large (3+) H (Negative) Urine RBC >20 H (0-2) /HPF Urine WBC >50 H (0-5) /HPF Ur Squamous Epith Cells 0-2 (0-2) /HPF Urine Bacteria 4+ (None Seen) Hyaline Casts 0-2 (0-2) /LPF Independent Interpretation I performed an independent interpretation of an: CT Scan Radiology Impression Discussion of test interpretation with radiology: I have reviewed the radiologist's reading. Independent Historian Clinical information obtained from an independent historian. History obtained from or confirmed by: EMS and Other (As noted above) External Record Review External record reviewed: Outpatient record Discharge Plan Discharge Clinical Impression: Urinary tract infection Patient Disposition: Xfer SNF Transfer Details: [facility] Additional Instructions: Contact urology to schedule a follow-up visit regarding stone in the bladder diverticum CT/CT abdomen pelvis wo IV con IMPRESSION: Limited exam. Diffuse bladder wall thickening. 1 cm bladder stone. 6 x 8 mm stone in a right-sided bladder diverticulum. Slightly enlarged prostate gland. Small bilateral renal stones. Small esophageal hernia. Prescriptions: New cefuroxime axetil 500 mg tablet 500 mg PO BID Qty: 13 0RF No Action tamsulosin 0.4 mg capsule 0.4 mg PO DAILY acetaminophen 325 mg Tablet 650 mg PO Q6H PRN (Reason: Fever Or Pain) Rx Instructions: not to exceed 3000mg/day sodium bicarbonate 650 mg Tablet 650 mg PO DAILY diphenhydramine HCl [Benadryl] 25 mg Capsule 25 mg PO Q6H PRN (Reason: Itching) docusate sodium 100 mg Capsule 100 mg PO BID lactulose 10 gram/15 mL (15 mL) Solution 60 ml PO TID multivitamin with minerals Tablet 1 tab PO DAILY sennosides [senna] 8.6 mg Tablet 8.6 mg PO DAILY PRN (Reason: Constipation) metoprolol succinate 50 mg tablet extended release 24 hr 1 tab PO BID hydroxyzine HCl 50 mg tablet 1 tab PO TID PRN (Reason: Agitation) ascorbic acid (vitamin C) 500 mg Tablet 500 mg PO DAILY ferrous sulfate 325 mg (65 mg iron) Tablet 325 mg PO DAILY clozapine 50 mg tablet 1 tab PO BEDTIME levothyroxine 88 mcg tablet 88 mcg PO DAILY sennosides [senna] 8.6 mg tablet 17.2 mg PO DAILY sucralfate [Carafate] 100 mg/mL suspension 10 ml PO BEDTIME Qty: 400 2RF pantoprazole 40 mg tablet,delayed release (DR/EC) 40 mg PO DAILY Qty: 90 1RF bisacodyl [Dulcolax (bisacodyl)] 5 mg tablet,delayed release (DR/EC) 10 mg PO BEDTIME PRN (Reason: constipation) Qty: 16 0RF Rx Instructions: Start taking 2 tablet every night 7 days before the procedure and 1 day before procedure take 4 tablets at noon time followed by MiraLax prep polyethylene glycol 3350 [Miralax] 17 gram/dose powder 238 g PO ONCE Qty: 238 0RF Rx Instructions: As directed by gastroenterology department at [facility] Referrals: Maria Esther Lamar MD [Physician] - Interventions: ED Discharge Assessment Last Done: 05/18/23 19:41 Discharge Date/Time: 05/18/23 19:53
[2023-05-18] MEDS: HaloperidoL 5 MG TABLET PO (17:26)
[2023-05-18 17:42] LABS: MANUAL DIFF FLAG NO
[2023-05-18 17:43] LABS: Basophils Absolute Auto 0.1 X10*3/uL (0.0-0.2); Basophils Percent Auto 1.4 % (0-2); Eosinophils Percent Auto 0.4 % (0-4); Hematocrit 34.9 % (42.0-52.0); Hemoglobin 11.4 g/dl (14.0-18.0); Imm Gran Abs Auto 0.03 X10*3/uL (0.00-0.03); Imm Gran Pct Auto 0.4 % (0.0-0.4); Lymphocytes Absolute Auto 1.6 X10*3/uL (1.2-4.9); Mean Corpuscular HGB Conc 32.7 g/dl (31.0-36.0); Mean Corpuscular Hemoglobin 28.6 pg (27.0-33.0); Mean Corpuscular Volume 87.7 fL (80.0-98.0); Mean Platelet Volume 9.4 fL (9.4-12.4); Monocytes Absolute Auto 0.5 X10*3/uL (0.1-1.2); Monocytes Percent Auto 7.7 % (2-11); Neutrophils Absolute Auto 4.6 x10*3/uL (2.0-8.3); Neutrophils Percent Auto 67.1 % (45-73); Platelet Count 351 X10*3/uL (160-400); Red Blood Count 3.98 X10*6/uL (4.60-5.80); Red Cell Distribution Width 14.1 % (11.0-16.0); White Blood Count 6.9 X10*3/uL (4.8-10.8)
[2023-05-18 17:45] LABS: Appearance Urine Hazy; Color Urine Yellow; Glucose Urine UA Negative (Negative); Leukocyte Esterase Urine Large (3+) (Negative); Nitrite Urine Negative (Negative); PH 7.5 (5.0-9.0); Specific Gravity - Urine 1.015 (1.005-1.025); UMIC TRIGGER UACC YES; Urine Blood Large (3+) (Negative); Urine Ketones Negative (Negative); Urine Protein 300 (3+) mg/dL (Neg-Trace)
[2023-05-18 17:53] LABS: Bacteria Urine 4+ (None Seen); Hyaline Casts Urine 0-2 /LPF (0-2); RBC Urine >20 /HPF (0-2); Squamous Epithelial Cell Urine 0-2 /HPF (0-2); UACC Culture Trigger YES; WBC Urine >50 /HPF (0-5)
[2023-05-18 17:56] LABS: Alanine Aminotransferase 23 U/L (0-40); Albumin Level 3.6 g/dL (3.5-5.0); Alkaline Phosphatase 115 U/L (39-117); Anion Gap 11 (12-20); Aspartate Amino Transferase 18 U/L (5-37); Bilirubin Total 0.2 mg/dL (0.0-1.0); Blood Urea Nitrogen 33 mg/dL (9-16); Carbon Dioxide 27 mmol/L (22-29); Chloride 106 mmol/L (96-108); Creatinine Clr Calc Pharmacy 43.5; Estimated Glomerular Filt Rate > 60; Glucose Random 102 mg/dL (60-115); Potassium 4.1 mmol/L (3.3-5.1); Prothrombin Time 11.9 SEC (11.1-13.3); Sodium 140 mmol/L (135-145); Total Protein 6.4 g/dL (6.5-8.0)
[2023-05-18] MEDS: cefuroxime axetiL 500 MG TABLET PO (19:18)
[2023-05-18 19:52] VITALS: BP 122/78; PULSE 74; RESP 16; O2SAT 100
== END 2023-05-18 19:53 | disposition skilled nursing facility (03) ==
PROVIDERS: Nurse Practitioner Family; Emergency Provider Student in an Organized Health Care Education/Training Program
DX: N39.0 Urinary tract infection, site not specified (principal); R30.0 Dysuria; R10.2 Pelvic and perineal pain; Z79.899 Other long term (current) drug therapy
CPT/HCPCS: 36415; 51701; 74176; 80053; 81001; 85025; 85610; 87086; 99283; 99284

== ENCOUNTER → 2023-06-15 07:45 | Day surgery (SDC) | payer MEDICARE, MEDICAID, SELFPAY ==
--- NOTE | 2023-03-29 12:05 | HO.ANESPROP2 ---
HPI - Anesthesia Eval Consult details Narrative: 67yo M for Colonoscopy [facility] Active Problems Active Problems: All Active Problems (Updated 03/11/23 @ 00:03 by Kel Enamorado) Tubular adenoma (Acute) Toxic encephalopathy (Acute) Iron deficiency anemia (Acute) Heme positive stool (Acute) Past Medical History Medical History Tubular adenoma Allergic rhinitis Esophageal obstruction Hydronephrosis On beta elmer at home History of COVID-19 Resides in [facility] facility [place] Personality disorder Hypothyroidism GERD (gastroesophageal reflux disease) Anemia Encephalopathy GI bleed BPH (benign prostatic hyperplasia) HTN (hypertension) Dysphagia Diabetes Schizoaffective disorder TBI (traumatic brain injury) Family History Family history of problems with anesthesia: No Surgical History Surgical History Hx of colonoscopy Hx of esophagogastroduodenoscopy History of Problems with Anesthesia: No Social History Social History Household Members: Other Household Members Other:: resides @ [facility] Housing: [facility] Housing Other:: [facility]-[phone] Are you a primary career center director to a significant other at home: No Do you presently have visiting nurse or other home services: Yes (as above noted) Unable to assess alcohol history related to: Unknown Alcohol intake: unknown Patient Tobacco Use Status: Never used Tobacco Smoked in Last 30 Days: No Use of substances other than those prescribed or required for medical reasons: Unknown Advance Directives: Yes Advance Directives on File: Yes Advance Directives Date on File: 02/12/22 service: No Current occupational status: disabled Meds Allergies Allergy/AdvReac Type Severity Reaction Status Date / Time fish oil [FISH OIL] Allergy Unknown Unknown Verified 03/10/23 14:52 Iodinated Contrast Media Allergy Unknown Unknown Verified 03/10/23 14:52 [IODINATED CONTRAST- ORAL AND IV DYE] pollen extracts Allergy Unknown Unknown Verified 03/10/23 14:52 shellfish derived Allergy Unknown Unknown Verified 03/10/23 14:52 Home Medications Medication Instructions Recorded Confirmed Last Taken Type acetaminophen 325 mg tablet 650 mg PO Q6H PRN Fever Or Pain 09/23/20 03/10/23 09/23/20 History diphenhydramine HCl 25 mg capsule 25 mg PO Q6H PRN Itching 09/23/20 03/10/23 Unknown History (Benadryl) docusate sodium 100 mg capsule 100 mg PO BID 09/23/20 03/10/23 09/23/20 History lactulose 10 gram/15 mL (15 mL) 60 ml PO TID 09/23/20 03/10/23 09/23/20 History oral solution sodium bicarbonate 650 mg tablet 650 mg PO DAILY 09/23/20 03/10/23 09/23/20 History tamsulosin 0.4 mg capsule 0.4 mg PO DAILY 09/23/20 03/10/23 09/22/20 History multivitamin with minerals 1 tab PO DAILY 11/25/20 03/10/23 Unknown History sennosides 8.6 mg tablet (senna) 8.6 mg PO DAILY PRN Constipation 01/23/21 03/10/23 Unknown History ascorbic acid (vitamin C) 500 mg 500 mg PO DAILY 04/23/22 03/10/23 Unknown History tablet clozapine 50 mg tablet 1 tab PO BEDTIME 04/23/22 03/10/23 Unknown History ferrous sulfate 325 mg (65 mg 325 mg PO DAILY 04/23/22 03/10/23 Unknown History iron) tablet hydroxyzine HCl 50 mg tablet 1 tab PO TID PRN Agitation 04/23/22 03/10/23 Unknown History metoprolol succinate 50 mg 1 tab PO BID 04/23/22 03/10/23 Unknown History tablet,extended release 24 hr levothyroxine 88 mcg tablet 88 mcg PO DAILY 03/10/23 03/10/23 Unknown History sennosides 8.6 mg tablet (senna) 17.2 mg PO DAILY 03/10/23 03/10/23 Unknown History Exam Exam Date and Time: March 29, 2023 120 Assessment and Plan Assessment Anesthesia Assessment: Chart Reviewed Final Anesthetic Review Family History of Problems with Anesthesia: No History of Problems with Anesthesia: No
--- NOTE | 2023-06-11 09:58 | HO.ANESPROP2 ---
Documented by User: Ange Spence NP 06/11/23 10:00 HPI - Anesthesia Eval Consult details Narrative: 67yo M for Colonoscopy TBI [facility] resident Guardian for consent [facility] Active Problems Active Problems: All Active Problems (Updated 06/11/23 @ 06:59 by Vicki Gray, RUFUS) Heme positive stool (Acute) Iron deficiency anemia (Acute) Toxic encephalopathy (Acute) Tubular adenoma (Acute) Past Medical History Medical History (Updated 06/11/23 @ 06:59 by Vicki Gray RN) Repeated falls Disturbances of salivary secretion Autistic disorder ADHD (attention deficit hyperactivity disorder) Metabolic encephalopathy Adult failure to thrive Erysipelas COVID-19 Cellulitis Muscle weakness (generalized) Osteoarthritis Kidney cyst, acquired Vomiting and diarrhea Emphysema of lung Bronchitis Tubular adenoma Allergic rhinitis Esophageal obstruction Hydronephrosis On beta elmer at home History of COVID-19 Resides in intermediate facility Presbyopia Personality disorder Hypothyroidism GERD (gastroesophageal reflux disease) Anemia Encephalopathy GI bleed BPH (benign prostatic hyperplasia) HTN (hypertension) Dysphagia Diabetes Schizoaffective disorder TBI (traumatic brain injury) Family History Family history of problems with anesthesia: No Surgical History Surgical History Hx of colonoscopy Hx of esophagogastroduodenoscopy History of Problems with Anesthesia: No Social History Social History Household Members: Other Household Members Other:: resides @ [facility] Housing: Care Home Housing Other:: 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 Patient Tobacco Use Status: Never used Tobacco Advance Directives: No Advance Directives Information Provided: Yes Advance Directives Date on File: 02/12/22 service: No Current occupational status: disabled Meds Allergies Allergy/AdvReac Type Severity Reaction Status Date / Time fish oil [FISH OIL] Allergy Unknown Unknown Verified 04/07/23 13:41 Iodinated Contrast Media Allergy Unknown Unknown Verified 04/07/23 13:41 [IODINATED CONTRAST- ORAL AND IV DYE] pollen extracts Allergy Unknown Unknown Verified 04/07/23 13:41 shellfish derived Allergy Unknown Unknown Verified 04/07/23 13:41 Home Medications Medication Instructions Recorded Confirmed Last Taken Type acetaminophen 325 mg tablet 650 mg PO Q6H PRN Fever Or Pain 09/23/20 06/11/23 09/23/20 History diphenhydramine HCl 25 mg capsule 25 mg PO Q6H PRN Itching 09/23/20 06/11/23 Unknown History (Benadryl) docusate sodium 100 mg capsule 100 mg PO BID 09/23/20 06/11/23 09/23/20 History lactulose 10 gram/15 mL (15 mL) 60 ml PO TID 09/23/20 06/11/23 09/23/20 History oral solution sodium bicarbonate 650 mg tablet 650 mg PO DAILY 09/23/20 06/11/23 09/23/20 History tamsulosin 0.4 mg capsule 0.4 mg PO DAILY 09/23/20 06/11/23 09/22/20 History multivitamin with minerals 1 tab PO DAILY 11/25/20 06/11/23 Unknown History ascorbic acid (vitamin C) 500 mg 500 mg PO DAILY 04/23/22 06/11/23 Unknown History tablet clozapine 50 mg tablet 1 tab PO BEDTIME 04/23/22 06/11/23 Unknown History ferrous sulfate 325 mg (65 mg 325 mg PO DAILY 04/23/22 06/11/23 Unknown History iron) tablet hydroxyzine HCl 50 mg tablet 1 tab PO TID PRN Agitation 04/23/22 06/11/23 Unknown History metoprolol succinate 50 mg 1 tab PO BID 04/23/22 06/11/23 Unknown History tablet,extended release 24 hr sennosides 8.6 mg tablet (senna) 17.2 mg PO DAILY 03/10/23 06/11/23 Unknown History bisacodyl 10 mg rectal suppository 10 mg NH DAILY PRN Constipation 06/11/23 06/11/23 Unknown History levothyroxine 100 mcg tablet 100 mcg PO DAILY 06/11/23 06/11/23 Unknown History magnesium hydroxide 400 mg/5 mL 30 ml PO BEDTIME 06/11/23 06/11/23 Unknown History oral suspension (Milk of Magnesia) sucralfate 100 mg/mL oral 10 ml PO DAILY 06/11/23 06/11/23 Unknown History suspension (Carafate) Exam Pertinent Lab Results Pertinent Lab Results: Laboratory Tests 05/18/23 17:35 WBC 6.9 Hgb 11.4 L D Hct 34.9 L D Plt Count 351 Sodium 140 Potassium 4.1 Chloride 106 Carbon Dioxide 27 BUN 33 H Creatinine 0.85 Assessment and Plan Assessment Anesthesia Assessment: Chart Reviewed Final Anesthetic Review Family History of Problems with Anesthesia: No History of Problems with Anesthesia: No Documented by User: Pricilla Clark MD 06/15/23 08:04 [facility] Past Medical History Medical History (Updated 06/11/23 @ 06:59 by Vicki Gray RN) Repeated falls Disturbances of salivary secretion Autistic disorder ADHD (attention deficit hyperactivity disorder) Metabolic encephalopathy Adult failure to thrive Erysipelas COVID-19 Cellulitis Muscle weakness (generalized) Osteoarthritis Kidney cyst, acquired Vomiting and diarrhea Emphysema of lung Bronchitis Tubular adenoma Allergic rhinitis Esophageal obstruction Hydronephrosis On beta elmer at home History of COVID-19 Resides in intermediate facility Presbyopia Personality disorder Hypothyroidism GERD (gastroesophageal reflux disease) Anemia Encephalopathy GI bleed BPH (benign prostatic hyperplasia) HTN (hypertension) Dysphagia Diabetes Schizoaffective disorder TBI (traumatic brain injury) Surgical History Surgical History Hx of colonoscopy Hx of esophagogastroduodenoscopy Social History Social History Household Members: Other Household Members Other:: resides @ [facility] Housing: [facility] Housing Other:: [facility] [place]-[phone] Are you a primary intensive care unit registered nurse to a significant other at home: No Do you presently have visiting nurse or other home services: Yes (as above noted) Unable to assess alcohol history related to: Unknown Alcohol intake: unknown 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, 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 Patient Tobacco Use Status: Never used Tobacco Advance Directives: No Advance Directives Information Provided: Yes Advance Directives Date on File: 02/12/22 service: No Current occupational status: disabled Meds Allergies Allergy/AdvReac Type Severity Reaction Status Date / Time fish oil [FISH OIL] Allergy Unknown Unknown Verified 04/07/23 13:41 Iodinated Contrast Media Allergy Unknown Unknown Verified 04/07/23 13:41 [IODINATED CONTRAST- ORAL AND IV DYE] pollen extracts Allergy Unknown Unknown Verified 04/07/23 13:41 shellfish derived Allergy Unknown Unknown Verified 04/07/23 13:41 Home Medications Medication Instructions Recorded Confirmed Last Taken Type acetaminophen 325 mg tablet 650 mg PO Q6H PRN Fever Or Pain 09/23/20 06/11/23 09/23/20 History diphenhydramine HCl 25 mg capsule 25 mg PO Q6H PRN Itching 09/23/20 06/11/23 Unknown History (Benadryl) docusate sodium 100 mg capsule 100 mg PO BID 09/23/20 06/11/23 09/23/20 History lactulose 10 gram/15 mL (15 mL) 60 ml PO TID 09/23/20 06/11/23 09/23/20 History oral solution sodium bicarbonate 650 mg tablet 650 mg PO DAILY 09/23/20 06/11/23 09/23/20 History tamsulosin 0.4 mg capsule 0.4 mg PO DAILY 09/23/20 06/11/23 09/22/20 History multivitamin with minerals 1 tab PO DAILY 11/25/20 06/11/23 Unknown History ascorbic acid (vitamin C) 500 mg 500 mg PO DAILY 04/23/22 06/11/23 Unknown History tablet clozapine 50 mg tablet 1 tab PO BEDTIME 04/23/22 06/11/23 Unknown History ferrous sulfate 325 mg (65 mg 325 mg PO DAILY 04/23/22 06/11/23 Unknown History iron) tablet hydroxyzine HCl 50 mg tablet 1 tab PO TID PRN Agitation 04/23/22 06/11/23 Unknown History metoprolol succinate 50 mg 1 tab PO BID 04/23/22 06/11/23 Unknown History tablet,extended release 24 hr sennosides 8.6 mg tablet (senna) 17.2 mg PO DAILY 03/10/23 06/11/23 Unknown History bisacodyl 10 mg rectal suppository 10 mg NH DAILY PRN Constipation 06/11/23 06/11/23 Unknown History levothyroxine 100 mcg tablet 100 mcg PO DAILY 06/11/23 06/11/23 Unknown History magnesium hydroxide 400 mg/5 mL 30 ml PO BEDTIME 06/11/23 06/11/23 Unknown History oral suspension (Milk of Magnesia) sucralfate 100 mg/mL oral 10 ml PO DAILY 06/11/23 06/11/23 Unknown History suspension (Carafate) Exam Airway Mallampati Class: Patient Non-Cooperative Heart: rrr Lungs: cta Assessment and Plan Assessment Anesthesia Assessment: Anesthesia Plan Discussed Final Anesthetic Review NPO: Yes ASA Class: III Final Preanesthetic Review: No Changes in Pt Med Stat, Meds/Allgs Chart Reviewed, Consent Obtained/Reviewed and Anes Risks/Benef Reviewed Patient Risk: Intermediate Procedure Risk: Intermediate Anesthetic Plan Anesthetic Plan: MAC: Disposition: Standard PACU
[2023-06-15 08:06] VITALS: BP 115/86; PULSE 77; RESP 18; TEMP 35.8; O2SAT 100
== END ==
PROVIDERS: PCP Hospitalist; Visit Provider Internal Medicine Gastroenterology
DX: D36.9 Benign neoplasm, unspecified site (principal); Z53.29 Procedure and treatment not carried out because of patient's decision for other reasons; F84.0 Autistic disorder; Z87.820 Personal history of traumatic brain injury; Z91.041 Radiographic dye allergy status

== ENCOUNTER 2023-08-12 23:37 | Emergency (ER) | payer MEDICARE, MEDICAID, SELFPAY ==
--- NOTE | ~2023-08-12 | CT_ITS ---
EXAMINATION: CT head/brain wo IV con, CT cervical spine wo IV con INDICATION INFORMATION: Reason for Exam Fall COMPARISON: CT head and cervical spine 03/10/2023., CT cervical spine 05/22/2021 TECHNIQUE: Separate noncontrast CT examinations of the head and cervical spine were performed. Coronal and sagittal images were created for each examination at the technologist workstation. This CT examination was performed using dose optimization techniques as appropriate, variously including the following: *Automated exposure control *Adjustment of mA and/or kV according to patient size (this includes techniques or standardized protocols for targeted exams where dose is matched to indication/reason for exam; i.e. extremities or head) *Use of iterative reconstruction technique DLP: 1000.45 mGy-cm FINDINGS: Head: No acute osseous or soft tissue abnormality. The mastoid air cells and visualized portions of the paranasal sinuses are well aerated. Multiple dental. There are periapical lucencies. There is no evidence of acute intracranial hemorrhage or territorial infarction. No abnormal mass effect or midline shift is seen. Newell to white matter differentiation is well preserved. No extra-axial fluid collections are identified. No hydrocephalus. No significant volume loss. There is no abnormal attenuation within the brain parenchyma. Cervical spine: There is no evidence of acute cervical spine fracture. Chronic mild compression deformity involving the C7 superior endplate Vertebral bodies remain normal in height. Exaggerated cervical lordosis. No significant spondylolisthesis. Multilevel degenerative changes of the cervical spine. No pre- or paravertebral soft tissue abnormality is identified. Nonspecific sclerotic lesions involving the T2 and T3 vertebral bodies, stable since 2020. Biapical pulmonary scarring. The thyroid gland is unremarkable. CT/CT cervical spine wo IV con IMPRESSION: 1. No acute intracranial abnormality. 2. No cervical spine fracture or traumatic malalignment.
[2023-08-12 23:49] VITALS: BP 95/70; BP 98/62; PULSE 94; PULSE 97; RESP 16; TEMP 37.2; O2SAT 95; BMI 15.3
--- NOTE | 2023-08-12 23:54 | ECG_ITS ---
Test Reason : FALL Blood Pressure : / mmHG Vent. Rate : 095 BPM Atrial Rate : 095 BPM P-R Int : 170 ms QRS Dur : 080 ms QT Int : 364 ms P-R-T Axes : 083 -15 070 degrees QTc Int : 457 ms Normal sinus rhythm Low voltage QRS miild ST elevation in Inferior leads Abnormal ECG When compared with ECG of 22-MAY-2021 21:50, mild ST elevation noted in inferior leds. Referred By: Generic ED Physician Electronically Signed By:ANT MARTIN
[2023-08-13 00:18] LABS: MANUAL DIFF FLAG NO
[2023-08-13 00:21] LABS: Basophils Absolute Auto 0.1 X10*3/uL (0.0-0.2); Eosinophils Percent Auto 0.3 % (0-4); Hematocrit 41.6 % (42.0-52.0); Hemoglobin 13.6 g/dl (14.0-18.0); Imm Gran Abs Auto 0.09 X10*3/uL (0.00-0.03); Lymphocytes Absolute Auto 1.9 X10*3/uL (1.2-4.9); Lymphocytes Percent Auto 20.2 % (20-40); Mean Corpuscular HGB Conc 32.7 g/dl (31.0-36.0); Mean Corpuscular Hemoglobin 27.4 pg (27.0-33.0); Mean Corpuscular Volume 83.7 fL (80.0-98.0); Mean Platelet Volume 10.2 fL (9.4-12.4); Monocytes Absolute Auto 0.7 X10*3/uL (0.1-1.2); Monocytes Percent Auto 7.9 % (2-11); Neutrophils Absolute Auto 6.5 x10*3/uL (2.0-8.3); Neutrophils Percent Auto 69.6 % (45-73); Platelet Count 413 X10*3/uL (160-400); Red Blood Count 4.97 X10*6/uL (4.60-5.80); Red Cell Distribution Width 14.9 % (11.0-16.0); White Blood Count 9.4 X10*3/uL (4.8-10.8)
[2023-08-13 00:27] VITALS: BP 102/64; PULSE 97; RESP 14; TEMP 37.2; O2SAT 98
[2023-08-13 00:30] LABS: INTERNATIONAL NORM RATIO 1.1 (0.9-1.1); Prothrombin Time 13.4 SEC (11.1-13.3)
[2023-08-13 00:35] LABS: Alanine Aminotransferase 33 U/L (0-40); Alkaline Phosphatase 125 U/L (39-117); Anion Gap 12 (12-20); Aspartate Amino Transferase 18 U/L (5-37); Bilirubin Total 0.4 mg/dL (0.0-1.0); Blood Urea Nitrogen 34 mg/dL (9-16); Calcium 9.8 mg/dL (8.4-10.2); Carbon Dioxide 29 mmol/L (22-29); Chloride 109 mmol/L (96-108); Creatinine Clr Calc Pharmacy 39.5; Estimated Glomerular Filt Rate 55; Glucose Random 102 mg/dL (60-115); Potassium 4.2 mmol/L (3.3-5.1); Sodium 146 mmol/L (135-145)
[2023-08-13 00:42] LABS: Troponin-I High Sensitivity < 2.7 ng/L (<3.5-35.0)
--- NOTE | 2023-08-13 01:12 | ED.FALL ---
HPI - Fall General Chief Complaint: Fall Stated Complaint: fall, weakness Time Seen by Provider: 08/12/23 23:58 Source: patient and EMS Mode of arrival: EMS History of Present Illness HPI Narrative: 67-year-old male is brought in by ambulance from [facility] for an evaluation after he fell. Patient states that he tripped and fell and reports falling onto his but and according to his triage note it says that he had a positive head strike but patient denies this and also denies any loss of consciousness. Related Data Home Medications Medication Instructions Recorded Confirmed acetaminophen 325 mg tablet 650 mg PO Q6H PRN Fever Or Pain 09/23/20 06/11/23 diphenhydramine HCl 25 mg capsule 25 mg PO Q6H PRN Itching 09/23/20 06/11/23 (Benadryl) docusate sodium 100 mg capsule 100 mg PO BID 09/23/20 06/11/23 lactulose 10 gram/15 mL (15 mL) 60 ml PO TID 09/23/20 06/11/23 oral solution sodium bicarbonate 650 mg tablet 650 mg PO DAILY 09/23/20 06/11/23 tamsulosin 0.4 mg capsule 0.4 mg PO DAILY 09/23/20 06/11/23 multivitamin with minerals 1 tab PO DAILY 11/25/20 06/11/23 ascorbic acid (vitamin C) 500 mg 500 mg PO DAILY 04/23/22 06/11/23 tablet clozapine 50 mg tablet 1 tab PO BEDTIME 04/23/22 06/11/23 ferrous sulfate 325 mg (65 mg 325 mg PO DAILY 04/23/22 06/11/23 iron) tablet hydroxyzine HCl 50 mg tablet 1 tab PO TID PRN Agitation 04/23/22 06/11/23 metoprolol succinate 50 mg 1 tab PO BID 04/23/22 06/11/23 tablet,extended release 24 hr sennosides 8.6 mg tablet (senna) 17.2 mg PO DAILY 03/10/23 06/11/23 bisacodyl 10 mg rectal suppository 10 mg MO DAILY PRN Constipation 06/11/23 06/11/23 levothyroxine 100 mcg tablet 100 mcg PO DAILY 06/11/23 06/11/23 magnesium hydroxide 400 mg/5 mL 30 ml PO BEDTIME 06/11/23 06/11/23 oral suspension (Milk of Magnesia) sucralfate 100 mg/mL oral 10 ml PO DAILY 06/11/23 06/11/23 suspension (Carafate) Previous Rx's Medication Instructions Recorded pantoprazole 40 mg tablet,delayed 40 mg PO DAILY #90 tabs 10/07/22 release polyethylene glycol 3350 17 238 g PO ONCE #238 grams 04/07/23 gram/dose oral powder (Miralax) bisacodyl 5 mg tablet,delayed 10 mg (2 x 5 mg) PO ONCE #16 tabs 07/16/23 release (Dulcolax (bisacodyl)) polyethylene glycol 3350 17 238 g PO ONCE 1 day #238 grams 07/16/23 gram/dose oral powder (Miralax) Allergies Allergy/AdvReac Type Severity Reaction Status Date / Time fish oil [FISH OIL] Allergy Unknown Unknown Verified 08/12/23 23:49 Iodinated Contrast Media Allergy Unknown Unknown Verified 08/12/23 23:49 [IODINATED CONTRAST- ORAL AND IV DYE] pollen extracts Allergy Unknown Unknown Verified 08/12/23 23:49 shellfish derived Allergy Unknown Unknown Verified 08/12/23 23:49 Review of Systems Review of Systems: Pertinent positives and negatives as stated in [facility]PI [facility] Past Medical History Source: nursing notes reviewed Medical History Repeated falls Disturbances of salivary secretion Autistic disorder ADHD (attention deficit hyperactivity disorder) Metabolic encephalopathy Adult failure to thrive Erysipelas COVID-19 Cellulitis Muscle weakness (generalized) Osteoarthritis Kidney cyst, acquired Vomiting and diarrhea Emphysema of lung Bronchitis Tubular adenoma Allergic rhinitis Esophageal obstruction Hydronephrosis On beta elmer at home History of COVID-19 Resides in [facility] facility Presbyopia Personality disorder Hypothyroidism GERD (gastroesophageal reflux disease) Anemia Encephalopathy GI bleed BPH (benign prostatic hyperplasia) HTN (hypertension) Dysphagia Diabetes Schizoaffective disorder TBI (traumatic brain injury) Surgical History Hx of colonoscopy Hx of esophagogastroduodenoscopy Social History Social History Household Members: Other Household Members Other:: resides @ [facility] Housing: [facility] Housing Other:: [facility] [place]-[phone] Are you a primary lead care manager to a significant other at home: No Do you presently have visiting nurse or other home services: Yes (as above noted) Unable to assess alcohol history related to: Unknown Alcohol intake: unknown 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, 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 GENERAL: Well developed, well nourished, in no acute distress. HEAD: Normocephalic/atraumatic EYES: PERRLA, EOMI EARS: Ext canals without abnormality NOSE: Nares patent bilateral OROPHARYNX: no oral lesions noted, posterior pharynx clear NECK: Supple, no adenopathy LUNGS: Normal breath sounds. No adventitious sounds or accessory muscle use. SpO2<98> CARDIOVASCULAR: Regular rate and rhythm without noted murmurs ABDOMEN: Soft, non-tender, non-distended with bowel sounds. MUSCULOSKELETAL: No tenderness, deformities, or effusions noted on gross inspection. EXTREMITIES: No cyanosis, clubbing or edema. SKIN: Inspection of the skin reveals no rashes NEUROLOGIC: Alert and oriented x 2. Strength and sensation to light touch were grossly intact x 4. Medical Decision Making Medical Decision Making MDM Narrative: This is a 67-year-old male with history and clinical presentation, DDX: Mechanical fall, will rule out intracranial hemorrhage/mass effect, will also rule out cervical spine fractures, no clinical suspicion for pelvic or spine pathologies at this time. I have reviewed all investigations and hematologic indices are negative for leukocytosis or left shift, there is a stable and chronic normocytic anemia and a slight elevation in platelet count. Coagulation studies are within normal limits. Chemistry indices demonstrate a borderline sodium level which is consistent with chloride level in suspicious for patient having received some IV fluids, otherwise no SARAH or electrolyte/liver enzyme derangements. I sensitivity troponin is undetectable and there are no acute changes on EKG. CT of the head negative for intracranial hemorrhage or mass effect in cervical spine is negative for fracture or subluxation. My interpretation is patient suffered a mechanical fall without loss of consciousness, no evidence to suggest occult infection and patient is otherwise discharged back to the facility. Differential Diagnosis Differential Diagnoses: The differential diagnosis associated with the presentation includes Please see the discussion above Admission/Observation Consideration of admission/observation: Escalation of care including admission/observation considered Please see the discussion above Lab Data MDM Lab Attestation statement: I reviewed the patient's lab results. Please see the discussion above 08/13/23 00:05 08/13/23 00:05 Labs: Lab Results 08/13/23 Range/Units 00:05 WBC 9.4 (4.8-10.8) X10*3/uL RBC 4.97 D (4.60-5.80) X10*6/uL Hgb 13.6 L (14.0-18.0) g/dl Hct 41.6 L (42.0-52.0) % MCV 83.7 (80.0-98.0) fL MCH 27.4 (27.0-33.0) pg MCHC 32.7 (31.0-36.0) g/dl RDW 14.9 (11.0-16.0) % Plt Count 413 H (160-400) X10*3/uL MPV 10.2 (9.4-12.4) fL Immature Gran % (Auto) 1.0 H (0.0-0.4) % Neut % (Auto) 69.6 (45-73) % Lymph % (Auto) 20.2 (20-40) % Dane % (Auto) 7.9 (2-11) % Eos % (Auto) 0.3 (0-4) % Baso % (Auto) 1.0 (0-2) % Lymph # (Auto) 1.9 (1.2-4.9) X10*3/uL Dane # (Auto) 0.7 (0.1-1.2) X10*3/uL Eos # (Auto) 0.0 (0.0-0.4) X10*3/uL Baso # (Auto) 0.1 (0.0-0.2) X10*3/uL Abs Immat Gran (auto) 0.09 H (0.00-0.03) X10*3/uL Absolute Neuts (auto) 6.5 (2.0-8.3) x10*3/uL Absolute Nucleated RBC 0.000 (0.0-0.012) X10*3/uL Nucleated RBC % (auto) 0.0 (0.0-0.2) /100WBC PT 13.4 H (11.1-13.3) SEC INR 1.1 (0.9-1.1) Sodium 146 H (135-145) mmol/L Potassium 4.2 (3.3-5.1) mmol/L Chloride 109 H (96-108) mmol/L Carbon Dioxide 29 (22-29) mmol/L Anion Gap 12 (12-20) BUN 34 H (9-16) mg/dL Creatinine 1.31 (0.5-1.4) mg/dL Estim Creat Clear Calc 39.5 Estimated GFR 55 Random Glucose 102 (60-115) mg/dL Calcium 9.8 D (8.4-10.2) mg/dL Total Bilirubin 0.4 (0.0-1.0) mg/dL AST 18 (5-37) U/L ALT 33 (0-40) U/L Alkaline Phosphatase 125 H (39-117) U/L Troponin I High Sens < 2.7 (<3.5-35.0) ng/L Total Protein 7.0 (6.5-8.0) g/dL Albumin 4.0 (3.5-5.0) g/dL Independent Interpretation I performed an independent interpretation of an: EKG Interpretation: Normal sinus rhythm, HR-95, no STEMI, MO/QRS/QTC is within normal limits. Radiology Impression Discussion of test interpretation with radiology: I have reviewed the radiologist's reading. Radiologist Impression: Please see the discussion above External Record Review External record reviewed: Outpatient record and Prior outpatient labs Critical Care Time Critical Care Time Critical Care Time: Yes Total Critical Care Time: 45 Attestation: I personally attest to this time spent taking care of the patient. Discharge Plan Discharge Clinical Impression: Fall Patient Disposition: Xfer Other Instructions: Fall Prevention for Older Adults (ED) Additional Instructions: Follow-up with primary care doctor in the next 1-2 days. Prescriptions: No Action bisacodyl [Dulcolax (bisacodyl)] 5 mg tablet,delayed release (DR/EC) 10 mg PO ONCE Qty: 16 0RF Rx Instructions: Start taking 2 tablet every night 7 days before the procedure and 1 day before procedure take 4 tablets at noon time followed by MiraLax prep polyethylene glycol 3350 [Miralax] 17 gram/dose powder 238 g PO ONCE 1 Days Qty: 238 0RF Rx Instructions: Take as directed by mouth the day before your procedure. tamsulosin 0.4 mg capsule 0.4 mg PO DAILY acetaminophen 325 mg Tablet 650 mg PO Q6H PRN (Reason: Fever Or Pain) Rx Instructions: not to exceed 3000mg/day sodium bicarbonate 650 mg Tablet 650 mg PO DAILY diphenhydramine HCl [Benadryl] 25 mg Capsule 25 mg PO Q6H PRN (Reason: Itching) docusate sodium 100 mg Capsule 100 mg PO BID lactulose 10 gram/15 mL (15 mL) Solution 60 ml PO TID multivitamin with minerals Tablet 1 tab PO DAILY metoprolol succinate 50 mg tablet extended release 24 hr 1 tab PO BID hydroxyzine HCl 50 mg tablet 1 tab PO TID PRN (Reason: Agitation) ascorbic acid (vitamin C) 500 mg Tablet 500 mg PO DAILY ferrous sulfate 325 mg (65 mg iron) Tablet 325 mg PO DAILY clozapine 50 mg tablet 1 tab PO BEDTIME levothyroxine 100 mcg tablet 100 mcg PO DAILY magnesium hydroxide [Milk of Magnesia] 400 mg/5 mL Suspension 30 ml PO BEDTIME bisacodyl 10 mg Suppository 10 mg MO DAILY PRN (Reason: Constipation) sucralfate [Carafate] 100 mg/mL suspension 10 ml PO DAILY sennosides [senna] 8.6 mg tablet 17.2 mg PO DAILY pantoprazole 40 mg tablet,delayed release (DR/EC) 40 mg PO DAILY Qty: 90 1RF polyethylene glycol 3350 [Miralax] 17 gram/dose powder 238 g PO ONCE Qty: 238 0RF Rx Instructions: As directed by gastroenterology department at [facility]
[2023-08-13 03:21] LABS: Appearance Urine Cloudy; Color Urine BROWN; Glucose Urine UA Negative (Negative); Leukocyte Esterase Urine Large (3+) (Negative); Nitrite Urine Positive (Negative); PH >= 9.0 (5.0-9.0); Specific Gravity - Urine <= 1.005 (1.005-1.025); UMIC TRIGGER UACC YES; Urine Blood Moderate (2+) (Negative); Urine Ketones 15 mg/dL (Negative); Urine Protein 300 (3+) mg/dL (Neg-Trace)
[2023-08-13] MEDS: cefuroxime axetiL 500 MG TABLET PO (04:17)
[2023-08-13 04:28] VITALS: BP 107/71; PULSE 83; RESP 16; TEMP 37.2; O2SAT 96
[2023-08-13 04:55] LABS: Bacteria Urine 4+ (None Seen); Other Crystals Urine Present; RBC Urine >20 /HPF (0-2); UACC Culture Trigger YES
== END 2023-08-13 04:34 ==
PROVIDERS: Emergency Provider Student in an Organized Health Care Education/Training Program; PCP Hospitalist
DX: Z04.3 Encounter for examination and observation following other accident (principal); I10 Essential (primary) hypertension; E11.9 Type 2 diabetes mellitus without complications; Z91.81 History of falling
CPT/HCPCS: 36415; 70450; 72125; 80053; 81001; 81003; 84484; 85025; 85610; 87086; 93005; 99284; 99285

== ENCOUNTER → 2023-08-12 23:54 | Outpatient (BNV) | payer MEDICARE, MEDICAID, SELFPAY | PROVIDERS: Emergency Provider Student in an Organized Health Care Education/Training Program; PCP Hospitalist; Visit Provider Internal Medicine | DX: R53.1 Weakness (principal) | CPT/HCPCS: 93010 ==

== ENCOUNTER 2023-08-27 12:21 | Observation (INO) | payer MEDICARE, MEDICAID, SELFPAY ==
[2023-08-27] VITALS (8 sets, daily range): BP systolic 102–186; BP diastolic 71–110; PULSE 55–96; RESP 14–18; TEMP 36.2–37; O2SAT 96–100; BMI 16.3; BMI 15.1
--- NOTE | 2023-08-27 12:47 | ECG_ITS ---
Test Reason : TACHYCARDIA Blood Pressure : / mmHG Vent. Rate : 066 BPM Atrial Rate : 066 BPM P-R Int : 170 ms QRS Dur : 078 ms QT Int : 420 ms P-R-T Axes : 086 026 064 degrees QTc Int : 440 ms Normal sinus rhythm Low voltage QRS Borderline ECG When compared with ECG of 12-AUG-2023 23:54, Criteria for Inferior infarct are no longer Present Referred By: Generic ED Physician Electronically Signed By:RAND WARD MD
--- NOTE | 2023-08-27 13:16 | ED.GENADULT ---
HPI - General Adult General Chief complaint: General Medical Stated complaint: NOT EATING Time Seen by Provider: 08/27/23 13:15 History of Present Illness HPI narrative: Patient is a 67-year-old male with a history of schizoaffective disorder, autistic lives in a shelter presented today with having difficulty eating drooling for the last 3 days. Patient had had a previous endoscopy done in 2021 at that time had a esophageal stricture. Was seen by GI at that time. There is no fever no chills noted. Patient unable to provide detailed history was sent by [address] for further evaluation Related Data Home Medications Medication Instructions Recorded Confirmed acetaminophen 325 mg tablet 650 mg PO Q6H PRN Fever Or Pain 09/23/20 06/11/23 diphenhydramine HCl 25 mg capsule 25 mg PO Q6H PRN Itching 09/23/20 06/11/23 (Benadryl) docusate sodium 100 mg capsule 100 mg PO BID 09/23/20 06/11/23 lactulose 10 gram/15 mL (15 mL) 60 ml PO TID 09/23/20 06/11/23 oral solution sodium bicarbonate 650 mg tablet 650 mg PO DAILY 09/23/20 06/11/23 tamsulosin 0.4 mg capsule 0.4 mg PO DAILY 09/23/20 06/11/23 multivitamin with minerals 1 tab PO DAILY 11/25/20 06/11/23 ascorbic acid (vitamin C) 500 mg 500 mg PO DAILY 04/23/22 06/11/23 tablet clozapine 50 mg tablet 1 tab PO BEDTIME 04/23/22 06/11/23 ferrous sulfate 325 mg (65 mg 325 mg PO DAILY 04/23/22 06/11/23 iron) tablet hydroxyzine HCl 50 mg tablet 1 tab PO TID PRN Agitation 04/23/22 06/11/23 metoprolol succinate 50 mg 1 tab PO BID 04/23/22 06/11/23 tablet,extended release 24 hr sennosides 8.6 mg tablet (senna) 17.2 mg PO DAILY 03/10/23 06/11/23 bisacodyl 10 mg rectal suppository 10 mg [place] DAILY PRN Constipation 06/11/23 06/11/23 levothyroxine 100 mcg tablet 100 mcg PO DAILY 06/11/23 06/11/23 magnesium hydroxide 400 mg/5 mL 30 ml PO BEDTIME 06/11/23 06/11/23 oral suspension (Milk of Magnesia) sucralfate 100 mg/mL oral 10 ml PO DAILY 06/11/23 06/11/23 suspension (Carafate) Previous Rx's Medication Instructions Recorded pantoprazole 40 mg tablet,delayed 40 mg PO DAILY #90 tabs 10/07/22 release polyethylene glycol 3350 17 238 g PO ONCE #238 grams 04/07/23 gram/dose oral powder (Miralax) bisacodyl 5 mg tablet,delayed 10 mg (2 x 5 mg) PO ONCE #16 tabs 07/16/23 release (Dulcolax (bisacodyl)) polyethylene glycol 3350 17 238 g PO ONCE 1 day #238 grams 07/16/23 gram/dose oral powder (Miralax) cefdinir 300 mg capsule 300 mg PO BID 5 days #10 caps 08/13/23 Allergies Allergy/AdvReac Type Severity Reaction Status Date / Time fish oil [FISH OIL] Allergy Unknown Unknown Verified 08/12/23 23:49 Iodinated Contrast Media Allergy Unknown Unknown Verified 08/12/23 23:49 [IODINATED CONTRAST- ORAL AND IV DYE] pollen extracts Allergy Unknown Unknown Verified 08/12/23 23:49 shellfish derived Allergy Unknown Unknown Verified 08/12/23 23:49 Review of Systems Review of Systems: Unable to obtain review of systems secondary to patient's condition [facility] Past Medical History Attestation statement: The following information was validated with the patient. Medical History Repeated falls Disturbances of salivary secretion Autistic disorder ADHD (attention deficit hyperactivity disorder) Metabolic encephalopathy Adult failure to thrive Erysipelas COVID-19 Cellulitis Muscle weakness (generalized) Osteoarthritis Kidney cyst, acquired Vomiting and diarrhea Emphysema of lung Bronchitis Tubular adenoma Allergic rhinitis Esophageal obstruction Hydronephrosis On beta elmer at home History of COVID-19 Resides in [facility] facility Presbyopia Personality disorder Hypothyroidism GERD (gastroesophageal reflux disease) Anemia Encephalopathy GI bleed BPH (benign prostatic hyperplasia) HTN (hypertension) Dysphagia Diabetes Schizoaffective disorder TBI (traumatic brain injury) Surgical History Hx of colonoscopy Hx of esophagogastroduodenoscopy Social History Social History Household Members: Other Household Members Other:: [facility] Housing: [facility] Housing Other:: [place]-[phone] Are you a primary career development director to a significant other at home: No Do you presently have visiting nurse or other home services: Yes (as above noted) Unable to assess alcohol history related to: Unknown Alcohol intake: unknown 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 Oriented times x 0 No acute distress. Eyes: Pupils equal, round and reactive to light. ENT: Pharynx normal. Neck: Normal inspection. Neck supple. No lymph nodes noted. No crepitus CVS: Normal heart rate and rhythm. Pulses normal. Normal S1 and S2 Respiratory: No respiratory distress. Breath sounds normal. No Wheezing. No rales Abdomen: Soft and nontender. No rigidity. No distention. good BS x4 Skin: Skin warm and dry. Normal skin color. Normal skin turgor. Extremities: No lower extremity edema. Neurovascular intact to all extremities. No Lacerations. No Rash Neuro: Oriented X 0. No motor deficit. No sensory deficit. Moving all extermities. No slurred speech Medications Administered Discontinued Medications Generic Name Dose Route Start Last Admin Trade Name Freq PRN Reason Stop Dose Admin Olanzapine 5 mg 08/27/23 15:07 08/27/23 15:21 Olanzapine 10 Mg Vial IM 08/27/23 15:08 5 mg STAT STA Administration Ondansetron HCl 4 mg 08/27/23 13:39 08/27/23 15:21 Ondansetron Hcl 4 Mg/2 Ml Vial IVPUSH 08/27/23 13:40 4 mg ONCE ONE Administration Medical Decision Making Medical Decision Making MDM Narrative: Patient's labs consistent with dehydration. Had a history of GE junction stricture dilated back in 2021. Patient's case discussed with GI. Will take patient to the endoscopy suite. Once patient to be admitted overnight for observation. IV fluid was started. Case discussed with the hospitalist team. Patient going to the GI suite Differential Diagnosis Differential Diagnoses: The differential diagnosis associated with the presentation includes Dehydration, esophageal stricture Consult Healthcare Provider Management of the patient was discussed with: Hospitalist and Training And Development Head (GI) Lab Data MDM Lab Attestation statement: I reviewed the patient's lab results. 08/27/23 15:13 08/27/23 15:13 Labs: Lab Results 08/27/23 08/27/23 Range/Units 15:13 15:14 WBC 9.6 (4.8-10.8) X10*3/uL RBC 5.04 (4.60-5.80) X10*6/uL Hgb 13.6 L (14.0-18.0) g/dl Hct 43.7 (42.0-52.0) % MCV 86.7 (80.0-98.0) fL MCH 27.0 (27.0-33.0) pg MCHC 31.1 (31.0-36.0) g/dl RDW 15.2 (11.0-16.0) % Plt Count 521 H D (160-400) X10*3/uL MPV 8.9 L (9.4-12.4) fL Immature Gran % (Auto) 0.6 H (0.0-0.4) % Neut % (Auto) 68.7 (45-73) % Lymph % (Auto) 22.6 (20-40) % [place] % (Auto) 6.2 (2-11) % Eos % (Auto) 0.6 (0-4) % Baso % (Auto) 1.3 (0-2) % Lymph # (Auto) 2.2 (1.2-4.9) X10*3/uL [place] # (Auto) 0.6 (0.1-1.2) X10*3/uL Eos # (Auto) 0.1 (0.0-0.4) X10*3/uL Baso # (Auto) 0.1 (0.0-0.2) X10*3/uL Abs Immat Gran (auto) 0.06 H (0.00-0.03) X10*3/uL Absolute Neuts (auto) 6.6 (2.0-8.3) x10*3/uL Absolute Nucleated RBC 0.000 (0.0-0.012) X10*3/uL Nucleated RBC % (auto) 0.0 (0.0-0.2) /100WBC PT 13.6 H (11.1-13.3) SEC INR 1.1 (0.9-1.1) Sodium 149 H (135-145) mmol/L Potassium 5.1 D (3.3-5.1) mmol/L Chloride 110 H (96-108) mmol/L Carbon Dioxide 26 (22-29) mmol/L Anion Gap 18 (12-20) BUN 26 H (9-16) mg/dL Creatinine 0.94 (0.5-1.4) mg/dL Estim Creat Clear Calc 54.5 Estimated GFR > 60 Random Glucose 89 (60-115) mg/dL Calcium 10.1 (8.4-10.2) mg/dL Total Bilirubin 0.3 (0.0-1.0) mg/dL Direct Bilirubin 0.1 (0.0-0.5) mg/dL AST 15 (5-37) U/L ALT 14 (0-40) U/L Alkaline Phosphatase 121 H (39-117) U/L Total Protein 7.4 (6.5-8.0) g/dL Albumin 3.9 (3.5-5.0) g/dL Lipase 14 (8-78) U/L External Record Review External record reviewed: Inpatient record Chronic Conditions Autism, dementia, schizoaffective disorder Social Determinants Patient?s care significantly limited by Social Determinants of Health including: Problems related to primary support group Discharge Plan Discharge Clinical Impression: Acute dehydration, Stricture esophagus Patient Disposition: Admitted As Inpatient Prescriptions: No Action bisacodyl [Dulcolax (bisacodyl)] 5 mg tablet,delayed release (DR/EC) 10 mg PO ONCE Qty: 16 0RF Rx Instructions: Start taking 2 tablet every night 7 days before the procedure and 1 day before procedure take 4 tablets at noon time followed by MiraLax prep polyethylene glycol 3350 [Miralax] 17 gram/dose powder 238 g PO ONCE 1 Days Qty: 238 0RF Rx Instructions: Take as directed by mouth the day before your procedure. tamsulosin 0.4 mg capsule 0.4 mg PO DAILY acetaminophen 325 mg Tablet 650 mg PO Q6H PRN (Reason: Fever Or Pain) Rx Instructions: not to exceed 3000mg/day sodium bicarbonate 650 mg Tablet 650 mg PO DAILY diphenhydramine HCl [Benadryl] 25 mg Capsule 25 mg PO Q6H PRN (Reason: Itching) docusate sodium 100 mg Capsule 100 mg PO BID lactulose 10 gram/15 mL (15 mL) Solution 60 ml PO TID multivitamin with minerals Tablet 1 tab PO DAILY metoprolol succinate 50 mg tablet extended release 24 hr 1 tab PO BID hydroxyzine HCl 50 mg tablet 1 tab PO TID PRN (Reason: Agitation) ascorbic acid (vitamin C) 500 mg Tablet 500 mg PO DAILY ferrous sulfate 325 mg (65 mg iron) Tablet 325 mg PO DAILY clozapine 50 mg tablet 1 tab PO BEDTIME levothyroxine 100 mcg tablet 100 mcg PO DAILY magnesium hydroxide [Milk of Magnesia] 400 mg/5 mL Suspension 30 ml PO BEDTIME bisacodyl 10 mg Suppository 10 mg NH DAILY PRN (Reason: Constipation) sucralfate [Carafate] 100 mg/mL suspension 10 ml PO DAILY cefdinir 300 mg capsule 300 mg PO BID 5 Days Qty: 10 0RF sennosides [senna] 8.6 mg tablet 17.2 mg PO DAILY pantoprazole 40 mg tablet,delayed release (DR/EC) 40 mg PO DAILY Qty: 90 1RF polyethylene glycol 3350 [Miralax] 17 gram/dose powder 238 g PO ONCE Qty: 238 0RF Rx Instructions: As directed by gastroenterology department at [facility]
--- NOTE | 2023-08-27 13:53 | PC.NURSE ---
Pt unable to answer assessment questions, and baseline confusion per EMS with notable jerky movements. Sent for difficulty swallowing and per paperwork pt usually gets esophageal dilation q 4-6 months, however worsening issues worsening and facility req faster procedure as October was soonest available. Pt noted with jerky movements, baseline for pt per ems. Cleaned for urine and stool incontinence on arrival.
--- NOTE | 2023-08-27 15:15 | PC.NURSE ---
Pt increasingly agitated, spitting and yelling at staff. Pt attempted to be calmed and redirected by multiple RNs with no success. Pt medicated via IM injection with help of security, per AUG. IV access established in the right AC 20G. Pt with 1:1 sitter at this time. Appears more calm.
[2023-08-27 15:18] LABS: MANUAL DIFF FLAG NO
[2023-08-27] MEDS: ondansetron HCL 4 MG/2 ML VIAL IVPUSH (15:21)
[2023-08-27] MEDS: OLANZapine 10 MG VIAL 5 MG IM (15:21)
[2023-08-27 15:22] LABS: Basophils Absolute Auto 0.1 X10*3/uL (0.0-0.2); Basophils Percent Auto 1.3 % (0-2); Eosinophils Absolute Auto 0.1 X10*3/uL (0.0-0.4); Eosinophils Percent Auto 0.6 % (0-4); Hematocrit 43.7 % (42.0-52.0); Hemoglobin 13.6 g/dl (14.0-18.0); Imm Gran Abs Auto 0.06 X10*3/uL (0.00-0.03); Imm Gran Pct Auto 0.6 % (0.0-0.4); Lymphocytes Absolute Auto 2.2 X10*3/uL (1.2-4.9); Lymphocytes Percent Auto 22.6 % (20-40); Mean Corpuscular HGB Conc 31.1 g/dl (31.0-36.0); Mean Corpuscular Volume 86.7 fL (80.0-98.0); Mean Platelet Volume 8.9 fL (9.4-12.4); Monocytes Absolute Auto 0.6 X10*3/uL (0.1-1.2); Monocytes Percent Auto 6.2 % (2-11); Neutrophils Absolute Auto 6.6 x10*3/uL (2.0-8.3); Neutrophils Percent Auto 68.7 % (45-73); Platelet Count 521 X10*3/uL (160-400); Red Blood Count 5.04 X10*6/uL (4.60-5.80); Red Cell Distribution Width 15.2 % (11.0-16.0); White Blood Count 9.6 X10*3/uL (4.8-10.8)
[2023-08-27 15:29] LABS: INTERNATIONAL NORM RATIO 1.1 (0.9-1.1); Prothrombin Time 13.6 SEC (11.1-13.3)
[2023-08-27 15:40] LABS: Alanine Aminotransferase 14 U/L (0-40); Albumin Level 3.9 g/dL (3.5-5.0); Alkaline Phosphatase 121 U/L (39-117); Anion Gap 18 (12-20); Aspartate Amino Transferase 15 U/L (5-37); Bilirubin Direct 0.1 mg/dL (0.0-0.5); Bilirubin Total 0.3 mg/dL (0.0-1.0); Blood Urea Nitrogen 26 mg/dL (9-16); Calcium 10.1 mg/dL (8.4-10.2); Carbon Dioxide 26 mmol/L (22-29); Chloride 110 mmol/L (96-108); Creatinine Clr Calc Pharmacy 54.5; Estimated Glomerular Filt Rate > 60; Glucose Random 89 mg/dL (60-115); Lipase 14 U/L (8-78); Potassium 5.1 mmol/L (3.3-5.1); Sodium 149 mmol/L (135-145); Total Protein 7.4 g/dL (6.5-8.0)
--- NOTE | 2023-08-27 15:40 | PC.NURSE ---
GI and bedside and report given to PACU verbally.
--- NOTE | 2023-08-27 15:44 | PC.NURSE ---
Pt transported to PACU
[2023-08-27] MEDS: 0.9 % Sodium Chloride 1,000 ML 999 ML IV (15:49)
--- NOTE | 2023-08-27 15:54 | PM.GICN ---
History of Present Illness Data of Consult Service Date: 08/27/23 Requesting physician: Pallavi Lee Primary Care Provider: Swapnil Vazquez DO HPI Reason for consult: Dysphagia 67 YM with schizoaffective disorder, autistic lives in a intermediate presented to [facility] today with difficulty eating and drooling for the past 3 days. He has not taken any of his medications since then There is no fever no chills noted. Patient unable to provide detailed history and was sent by [facility] intermediate for further evaluation PAST GI HISTORY BY REVIEW OF MEDICAL RECORDS: 09/15/22 EGD AND COLONOSCOPY WERE PERFORMED BY DR. RAYMOND Larynx:normal Esophagus: GE junction at 37? cm, diaphragm hiatus at 43 cm, consistent with 6 cm hiatal hernia. Tight junction and stricture at GEJ, ballon dilation to 19 mm with superficial tear noted at GEJ, 40 units of kenalog then injected around the GEJ area to reduce scar tissue formation. the UES was also tight and dilated to 19 mm without any tear noted. Stomach: Patchy erythema.? Grade 2 flap valve on retroflexed examination of the cardia. hiatal hernia noted. Duodenum: Normal bulb and descending duodenum, Intervention: dilation of esophageal stricture with 19 mm balloon and kenalog injection Impression/Findings: COLONOSCOPY Findings: There was solid stool balls in the left colon and I could only navigate to the descending colon. In the sigmoid a 10 mm sessile polyp was noted and removed with a cold snare. The procedure was then aborted. Anorectum - normal Colon preparation: unprepared Impression and Post Procedure Diagnosis: Endoscopy Findings: GEJ stricture esophagitis hiatal hernia Colonoscopy Findings: colon polyp Plan: Await Pathology results Repeat Colonoscopy in 6-12 month or earlier if clinically indicated, try to use enemas and supervise patient actually taking the prep repeat esophgeal dilation prn, can have normal diet as tolerated from tomorrow, soft diet today Review of Systems Review of Systems: Unable to obtain review of systems secondary to patient's condition Neurologic: Reports confusion Psychiatric: Psychiatric: Reports confusion PMFSH Past Medical History Medical History (Updated 08/27/23 @ 16:02 by Olga Alexander MD) Repeated falls Disturbances of salivary secretion Autistic disorder ADHD (attention deficit hyperactivity disorder) Metabolic encephalopathy Adult failure to thrive Erysipelas COVID-19 Cellulitis Muscle weakness (generalized) Osteoarthritis Kidney cyst, acquired Vomiting and diarrhea Emphysema of lung Bronchitis Tubular adenoma Allergic rhinitis Esophageal obstruction Hydronephrosis On beta elmer at home History of COVID-19 Resides in group home facility Presbyopia Personality disorder Hypothyroidism GERD (gastroesophageal reflux disease) Anemia Encephalopathy GI bleed BPH (benign prostatic hyperplasia) HTN (hypertension) Dysphagia Diabetes Schizoaffective disorder TBI (traumatic brain injury) Surgical History Surgical History Hx of colonoscopy Hx of esophagogastroduodenoscopy Social History Social History Household Members: Other Household Members Other:: resides @ [facility] Housing: Long Term Housing Other:: 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 Patient Tobacco Use Status: Former Tobacco user Use of substances other than those prescribed or required for medical reasons: No Are you DNR?: No Advance Directives: No Advance Directives Date on File: 02/12/22 service: No Current occupational status: disabled Meds Allergies Allergy/AdvReac Type Severity Reaction Status Date / Time fish oil [FISH OIL] Allergy Unknown Unknown Verified 08/12/23 23:49 Iodinated Contrast Media Allergy Unknown Unknown Verified 08/12/23 23:49 [IODINATED CONTRAST- ORAL AND IV DYE] pollen extracts Allergy Unknown Unknown Verified 08/12/23 23:49 shellfish derived Allergy Unknown Unknown Verified 08/12/23 23:49 Home Medications Medication Instructions Recorded Confirmed Last Taken Type acetaminophen 325 mg tablet 650 mg PO Q6H PRN Fever Or Pain 09/23/20 08/27/23 09/23/20 History diphenhydramine HCl 25 mg capsule 25 mg PO Q6H PRN Itching 09/23/20 08/27/23 Unknown History (Benadryl) docusate sodium 100 mg capsule 100 mg PO BID 09/23/20 08/27/23 08/26/23 History lactulose 10 gram/15 mL (15 mL) 60 ml PO TID 09/23/20 08/27/23 08/26/23 History oral solution sodium bicarbonate 650 mg tablet 650 mg PO DAILY 09/23/20 08/27/23 08/26/23 History tamsulosin 0.4 mg capsule 0.4 mg PO DAILY 09/23/20 08/27/23 08/26/23 History multivitamin with minerals 1 tab PO DAILY 11/25/20 08/27/23 08/26/23 History ascorbic acid (vitamin C) 500 mg 500 mg PO DAILY 04/23/22 08/27/23 08/26/23 History tablet clozapine 50 mg tablet 1 tab PO BEDTIME 04/23/22 08/27/23 08/26/23 History ferrous sulfate 325 mg (65 mg 325 mg PO DAILY 04/23/22 08/27/23 08/26/23 History iron) tablet hydroxyzine HCl 50 mg tablet 1 tab PO TID PRN Agitation 04/23/22 08/27/23 Unknown History metoprolol succinate 50 mg 1 tab PO BID 04/23/22 08/27/23 08/26/23 History tablet,extended release 24 hr sennosides 8.6 mg tablet (senna) 17.2 mg PO DAILY 03/10/23 08/27/23 08/26/23 History bisacodyl 10 mg rectal suppository 10 mg OR DAILY PRN Constipation 06/11/23 08/27/23 Unknown History levothyroxine 100 mcg tablet 100 mcg PO DAILY 06/11/23 08/27/23 08/26/23 History magnesium hydroxide 400 mg/5 mL 30 ml PO BEDTIME 06/11/23 08/27/23 08/26/23 History oral suspension (Milk of Magnesia) sucralfate 100 mg/mL oral 10 ml PO DAILY 06/11/23 08/27/23 08/26/23 History suspension (Carafate) clomipramine 50 mg capsule 50 mg PO BEDTIME 08/27/23 08/27/23 Unknown History Physical Exam Vital Signs: Vital Signs: Last Vital Signs Temp 97.5 F 08/27/23 13:00 Pulse 86 08/27/23 13:00 Resp 18 08/27/23 13:00 BP 186/110 H 08/27/23 13:00 Pulse Ox 96 08/27/23 13:00 O2 Del Method Room Air 08/27/23 13:00 BMI result Body Mass Index 15.1 Const: General: no acute distress and confusion Nutritional Appearance: underweight Orientation/consciousness: confusion Limitations: behavioral limitations HEENT: Head: Yes normal to inspection Ears: hearing grossly normal bilaterally Eyes: Sclerae: sclerae normal Pupils: Equal, round and reactive pupils present Neck: Neck: Yes normal visual inspection Chest: Chest palpation & inspection: normal inspection of the chest Resp: Effort & Inspection: normal respiratory effort Auscultation: clear to auscultation bilaterally Cardio: Palpation: normal PMI Rate: regular rate Rhythm: regular rhythm Heart sounds: S1 normal heart sound present, S2 normal heart sound present and no murmurs GI: Palpation (GI): Soft to palpation, nontender and No hepatosplenomegaly present Auscultation: normal bowel sounds Rectal Exam - Male: Yes deferred Skin: General skin exam: no rashes or lesions noted Neuro: General: moves all extremities and confusion Cranial nerves: Yes Equal, round and reactive pupils present Psych: Appearance: grossly normal Mental Status: mental status grossly normal Results Labs 08/27/23 15:13 08/27/23 15:13 Labs: Short CBC 08/27/23 Range/Units 15:13 WBC 9.6 (4.8-10.8) X10*3/uL Hgb 13.6 L (14.0-18.0) g/dl Hct 43.7 (42.0-52.0) % Plt Count 521 H D (160-400) X10*3/uL BMP 08/27/23 15:13 Sodium 149 H Potassium 5.1 D Chloride 110 H Carbon Dioxide 26 BUN 26 H Creatinine 0.94 Calcium 10.1 Liver Function 08/27/23 Range/Units 15:13 Total Bilirubin 0.3 (0.0-1.0) mg/dL Direct Bilirubin 0.1 (0.0-0.5) mg/dL AST 15 (5-37) U/L ALT 14 (0-40) U/L Alkaline Phosphatase 121 H (39-117) U/L Albumin 3.9 (3.5-5.0) g/dL Assessment and Plan (1) Stricture esophagus: Status: Acute (2) Dysphagia: Status: Acute Plan 67 YM with schizoaffective disorder, autistic lives in a intermediate presented to [facility] today with difficulty eating and drooling for the past 3 days. He has not taken any of his medications since then There is no fever no chills noted. Patient unable to provide detailed history and was sent by [facility] intermediate for further evaluation He has a known hx of esophageal stricture on previous EGD. Pt is suspected to have a food impaction. He is likely dehydrated from lack of PO intake for the past 3 days RECOMMENDATIONS: 1. Proceed with urgent EGD today. Procedure and potential complications including bleeding, perforation, reaction to anesthetic and aspiration were reviewed with patient's legal guardian and Step Dad, Kenny Arredondo at [phone], and informed verbal consent was obtained over the phone. Procedures Date of Service Date of Service: 08/27/23
--- NOTE | 2023-08-27 16:09 | P.CONAN_ITS ---
HPI - Anesthesia Eval Consult details Narrative: for EGD bec of impacted food bolus Patient is a resident of [facility]. Schizoaffective disorder, TBI. FORMERLY [facility] Active Problems Active Problems: All Active Problems (Updated 08/27/23 @ 16:02 by Olga Alexander MD) Dysphagia (Acute) Stricture esophagus (Acute) Acute dehydration (Acute) Heme positive stool (Acute) Iron deficiency anemia (Acute) Toxic encephalopathy (Acute) Tubular adenoma (Acute) Past Medical History Medical History (Updated 08/27/23 @ 16:02 by Olga Alexander MD) Repeated falls Disturbances of salivary secretion Autistic disorder ADHD (attention deficit hyperactivity disorder) Metabolic encephalopathy Adult failure to thrive Erysipelas COVID-19 Cellulitis Muscle weakness (generalized) Osteoarthritis Kidney cyst, acquired Vomiting and diarrhea Emphysema of lung Bronchitis Tubular adenoma Allergic rhinitis Esophageal obstruction Hydronephrosis On beta elmer at home History of COVID-19 Resides in intermediate facility Presbyopia Personality disorder Hypothyroidism GERD (gastroesophageal reflux disease) Anemia Encephalopathy GI bleed BPH (benign prostatic hyperplasia) HTN (hypertension) Dysphagia Diabetes Schizoaffective disorder TBI (traumatic brain injury) Family History Family history of problems with anesthesia: No Surgical History Surgical History Hx of colonoscopy Hx of esophagogastroduodenoscopy History of Problems with Anesthesia: No Social History Social History Household Members: Other Household Members Other:: resides @ [facility] Housing: Skilled Nursing Housing Other:: [facility]-[phone] Are you a primary resident care provider to a significant other at home: No Do you presently have visiting nurse or other home services: Yes (as above noted) Unable to assess alcohol history related to: Unknown Alcohol intake: unknown 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, 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 Patient Tobacco Use Status: Never used Tobacco Use of substances other than those prescribed or required for medical reasons: Unknown Advance Directives: No Advance Directives Date on File: 02/12/22 service: No Current occupational status: disabled Meds Allergies Allergy/AdvReac Type Severity Reaction Status Date / Time fish oil [FISH OIL] Allergy Unknown Unknown Verified 08/12/23 23:49 Iodinated Contrast Media Allergy Unknown Unknown Verified 08/12/23 23:49 [IODINATED CONTRAST- ORAL AND IV DYE] pollen extracts Allergy Unknown Unknown Verified 08/12/23 23:49 shellfish derived Allergy Unknown Unknown Verified 08/12/23 23:49 Active Medications: Current Medications Acetaminophen (Acetaminophen 325 Mg Tablet) 650 mg PO Q6H PRN PRN Reason: Pain, Mild (Pain Scale 1-3) Enoxaparin Sodium (Enoxaparin Sodium 40 Mg/0.4 Ml Syringe) 40 mg SUBCUT Q24H [facility] Ondansetron HCl (Ondansetron Hcl 4 Mg/2 Ml Vial) 4 mg IVPUSH Q8H PRN PRN Reason: Nausea and Vomiting Senna (Sennosides 8.6 Mg Tablet) 17.2 mg PO BEDTIME PRN PRN Reason: Constipation Sodium Chloride (0.9 % Sodium Chloride Flush 3 Ml Syringe) 3 ml IVFLUSH QSHIFT [facility] Home Medications Medication Instructions Recorded Confirmed Last Taken Type acetaminophen 325 mg tablet 650 mg PO Q6H PRN Fever Or Pain 09/23/20 06/11/23 09/23/20 History diphenhydramine HCl 25 mg capsule 25 mg PO Q6H PRN Itching 09/23/20 06/11/23 Unknown History (Benadryl) docusate sodium 100 mg capsule 100 mg PO BID 09/23/20 06/11/23 09/23/20 History lactulose 10 gram/15 mL (15 mL) 60 ml PO TID 09/23/20 06/11/23 09/23/20 History oral solution sodium bicarbonate 650 mg tablet 650 mg PO DAILY 09/23/20 06/11/23 09/23/20 History tamsulosin 0.4 mg capsule 0.4 mg PO DAILY 09/23/20 06/11/23 09/22/20 History multivitamin with minerals 1 tab PO DAILY 11/25/20 06/11/23 Unknown History ascorbic acid (vitamin C) 500 mg 500 mg PO DAILY 04/23/22 06/11/23 Unknown History tablet clozapine 50 mg tablet 1 tab PO BEDTIME 04/23/22 06/11/23 Unknown History ferrous sulfate 325 mg (65 mg 325 mg PO DAILY 04/23/22 06/11/23 Unknown History iron) tablet hydroxyzine HCl 50 mg tablet 1 tab PO TID PRN Agitation 04/23/22 06/11/23 Unknown History metoprolol succinate 50 mg 1 tab PO BID 04/23/22 06/11/23 Unknown History tablet,extended release 24 hr sennosides 8.6 mg tablet (senna) 17.2 mg PO DAILY 03/10/23 06/11/23 Unknown History bisacodyl 10 mg rectal suppository 10 mg ID DAILY PRN Constipation 06/11/23 06/11/23 Unknown History levothyroxine 100 mcg tablet 100 mcg PO DAILY 06/11/23 06/11/23 Unknown History magnesium hydroxide 400 mg/5 mL 30 ml PO BEDTIME 06/11/23 06/11/23 Unknown History oral suspension (Milk of Magnesia) sucralfate 100 mg/mL oral 10 ml PO DAILY 06/11/23 06/11/23 Unknown History suspension (Carafate) clomipramine 50 mg capsule 50 mg PO BEDTIME 08/27/23 08/27/23 Unknown History Exam Height,Weight and Vital Signs: Height 6 ft Weight 50.53 kg Last Vital Signs Temp 97.5 F 08/27/23 13:00 Pulse 86 08/27/23 13:00 Resp 18 08/27/23 13:00 BP 186/110 H 08/27/23 13:00 Pulse Ox 96 08/27/23 13:00 O2 Del Method Room Air 08/27/23 13:00 Pertinent Lab Results Pertinent Lab Results: Laboratory Tests 08/27/23 08/27/23 15:13 15:14 WBC 9.6 RBC 5.04 Hgb 13.6 L Hct 43.7 MCV 86.7 MCH 27.0 MCHC 31.1 RDW 15.2 Plt Count 521 H D MPV 8.9 L Immature Gran % (Auto) 0.6 H Neut % (Auto) 68.7 Lymph % (Auto) 22.6 [place] % (Auto) 6.2 Eos % (Auto) 0.6 Baso % (Auto) 1.3 Lymph # (Auto) 2.2 [place] # (Auto) 0.6 Eos # (Auto) 0.1 Baso # (Auto) 0.1 Abs Immat Gran (auto) 0.06 H Absolute Neuts (auto) 6.6 Absolute Nucleated RBC 0.000 Nucleated RBC % (auto) 0.0 PT 13.6 H INR 1.1 Sodium 149 H Potassium 5.1 D Chloride 110 H Carbon Dioxide 26 Anion Gap 18 BUN 26 H Creatinine 0.94 Estim Creat Clear Calc 54.5 Estimated GFR > 60 Random Glucose 89 Calcium 10.1 Total Bilirubin 0.3 Direct Bilirubin 0.1 AST 15 ALT 14 Alkaline Phosphatase 121 H Total Protein 7.4 Albumin 3.9 Lipase 14 Airway Mallampati Class: II (or better) TM Dist: >3cm Neck ROM: Full Loose/Missing/Broken Teeth: Yes, Upper and Lower Heart: ok Lungs: ok Assessment and Plan Assessment Anesthesia Assessment: Anesthesia Plan Discussed and Chart Reviewed Final Anesthetic Review Family History of Problems with Anesthesia: No History of Problems with Anesthesia: No NPO: Yes ASA Class: III Final Preanesthetic Review: No Changes in Pt Med Stat, Meds/Allgs Chart Reviewed, Consent Obtained/Reviewed and Anes Risks/Benef Reviewed Patient Risk: Intermediate Procedure Risk: Intermediate Anesthetic Plan Anesthetic Plan: GA and Agree w/ Assess. and Plan Disposition: Standard PACU
--- NOTE | 2023-08-27 16:12 | PC.NURSE ---
Patient arrived to preop with PRN angio #20 in Right Forearm. Area wrapped well and secured with gauze, site asymptomatic, flushed well.
--- NOTE | 2023-08-27 16:12 | PM.IMHP ---
History of Present Illness Date of Service: 08/27/23 Attending physician on admission: [facility] Chief Complaint: poor po intake, drooling 67 year old male with history of phj-bfpuidc-jygunwfgr type 2 diabetes, hypertension, schizoaffective disorder, autism order, COPD, dysphagia with history of esophageal stricture, iron deficiency anemia, hypothyroidism, and failure to thrive presented to the ED from [facility] where he resides for evaluation of poor p.o. intake. Per nursing staff at facility, patient has been having difficulty eating and has been noted to be drooling over the last 3 days. No fevers or chills. Patient unable to provide history. On arrival, vital signs stable. There is no leukocytosis. Renal function baseline. Mild hypernatremia of 149, potassium 5.1. EKG shows NSR, rate 66, no acute ischemic changes. In the ED, given 1 L IV NS, 5 mg Zyprexa, and ondansetron. He was evaluated by Gastroenterology and has been taken to endoscopy suite for EGD to evaluate for esophageal stricture. Patient will be observed overnight for acute dehydration secondary to presumed esophageal stricture resulting in poor p.o. intake. Review of Systems Review of Systems: Yes Unobtainable due to mental status [facility] Medical History Repeated falls Disturbances of salivary secretion Autistic disorder ADHD (attention deficit hyperactivity disorder) Metabolic encephalopathy Adult failure to thrive Erysipelas COVID-19 Cellulitis Muscle weakness (generalized) Osteoarthritis Kidney cyst, acquired Vomiting and diarrhea Emphysema of lung Bronchitis Tubular adenoma Allergic rhinitis Esophageal obstruction Hydronephrosis On beta elmer at home History of COVID-19 Resides in [facility] facility Presbyopia Personality disorder Hypothyroidism GERD (gastroesophageal reflux disease) Anemia Encephalopathy GI bleed BPH (benign prostatic hyperplasia) HTN (hypertension) Dysphagia Diabetes Schizoaffective disorder TBI (traumatic brain injury) Surgical History Hx of colonoscopy Hx of esophagogastroduodenoscopy Social History Household Members: Other Household Members Other:: resides @ [facility] Housing: [facility] Housing Other:: [facility] [address]-[phone] Are you a primary associate director career services to a significant other at home: No Do you presently have visiting nurse or other home services: Yes (as above noted) Unable to assess alcohol history related to: Unknown Alcohol intake: unknown Comment: 1:1 sitter Patient Tobacco Use Status: Former Tobacco user Use of substances other than those prescribed or required for medical reasons: No Currently Displaying Signs/Symptoms of Drug Intoxication Withdrawal: No Are you DNR?: No Advance Directives: No Advance Directives Information Provided: No Advance Directives Date on File: 02/12/22 service: No Current occupational status: disabled Meds Allergies Allergy/AdvReac Type Severity Reaction Status Date / Time fish oil [FISH OIL] Allergy Unknown Unknown Verified 08/12/23 23:49 Iodinated Contrast Media Allergy Unknown Unknown Verified 08/12/23 23:49 [IODINATED CONTRAST- ORAL AND IV DYE] pollen extracts Allergy Unknown Unknown Verified 08/12/23 23:49 shellfish derived Allergy Unknown Unknown Verified 08/12/23 23:49 Active Medications: Current Medications Acetaminophen (Acetaminophen 325 Mg Tablet) 650 mg PO Q6H PRN PRN Reason: Pain, Mild (Pain Scale 1-3) Enoxaparin Sodium (Enoxaparin Sodium 40 Mg/0.4 Ml Syringe) 40 mg SUBCUT Q24H [facility] Ondansetron HCl (Ondansetron Hcl 4 Mg/2 Ml Vial) 4 mg IVPUSH Q8H PRN PRN Reason: Nausea and Vomiting Senna (Sennosides 8.6 Mg Tablet) 17.2 mg PO BEDTIME PRN PRN Reason: Constipation Sodium Chloride (0.9 % Sodium Chloride Flush 3 Ml Syringe) 3 ml IVFLUSH QSHIFT [facility] Home Medications Medication Instructions Recorded Confirmed Last Taken Type acetaminophen 325 mg tablet 650 mg PO Q6H PRN Fever Or Pain 09/23/20 08/27/23 09/23/20 History diphenhydramine HCl 25 mg capsule 25 mg PO Q6H PRN Itching 09/23/20 08/27/23 Unknown History (Benadryl) docusate sodium 100 mg capsule 100 mg PO BID 09/23/20 08/27/23 08/26/23 History lactulose 10 gram/15 mL (15 mL) 60 ml PO TID 09/23/20 08/27/23 08/26/23 History oral solution sodium bicarbonate 650 mg tablet 650 mg PO DAILY 09/23/20 08/27/23 08/26/23 History tamsulosin 0.4 mg capsule 0.4 mg PO DAILY 09/23/20 08/27/23 08/26/23 History multivitamin with minerals 1 tab PO DAILY 11/25/20 08/27/23 08/26/23 History ascorbic acid (vitamin C) 500 mg 500 mg PO DAILY 04/23/22 08/27/23 08/26/23 History tablet clozapine 50 mg tablet 1 tab PO BEDTIME 04/23/22 08/27/23 08/26/23 History ferrous sulfate 325 mg (65 mg 325 mg PO DAILY 04/23/22 08/27/23 08/26/23 History iron) tablet hydroxyzine HCl 50 mg tablet 1 tab PO TID PRN Agitation 04/23/22 08/27/23 Unknown History metoprolol succinate 50 mg 1 tab PO BID 04/23/22 08/27/23 08/26/23 History tablet,extended release 24 hr sennosides 8.6 mg tablet (senna) 17.2 mg PO DAILY 03/10/23 08/27/23 08/26/23 History bisacodyl 10 mg rectal suppository 10 mg HI DAILY PRN Constipation 06/11/23 08/27/23 Unknown History levothyroxine 100 mcg tablet 100 mcg PO DAILY 06/11/23 08/27/23 08/26/23 History magnesium hydroxide 400 mg/5 mL 30 ml PO BEDTIME 06/11/23 08/27/23 08/26/23 History oral suspension (Milk of Magnesia) sucralfate 100 mg/mL oral 10 ml PO DAILY 06/11/23 08/27/23 08/26/23 History suspension (Carafate) clomipramine 50 mg capsule 50 mg PO BEDTIME 08/27/23 08/27/23 Unknown History Physical Exam Vital Signs and Narrative: Vital Signs: Last Vital Signs Temp 97.8 F 08/27/23 16:03 Pulse 96 08/27/23 16:03 Resp 16 08/27/23 16:03 BP 117/85 08/27/23 16:03 Pulse Ox 99 08/27/23 16:03 O2 Del Method Room Air 08/27/23 16:03 BMI result Body Mass Index 15.1 Constitutional - Awake and Alert, No apparent distress Eyes - PERRLA, EOMI Cardiovascular - S1S2, RRR, No edema Respiratory - Normal lung expansion, Normal respiratory effort, No respiratory distress, CTA bilaterally Gastrointestinal - NT / ND; +BS; No rebound or guarding Extremities - no calf tenderness bilaterally, no swelling Skin - Warm/Dry Neurological - Alert & oriented x3 Psychological - Appropriate affect Results Labs 08/27/23 15:13 08/28/23 06:27 Labs: Laboratory Results - last 24 hr 08/27/23 08/27/23 15:13 15:14 MCV 86.7 MCH 27.0 MCHC 31.1 RDW 15.2 Plt Count 521 H D MPV 8.9 L Immature Gran % (Auto) 0.6 H Neut % (Auto) 68.7 Lymph % (Auto) 22.6 [place] % (Auto) 6.2 Eos % (Auto) 0.6 Baso % (Auto) 1.3 Lymph # (Auto) 2.2 [place] # (Auto) 0.6 Eos # (Auto) 0.1 Baso # (Auto) 0.1 Abs Immat Gran (auto) 0.06 H Absolute Neuts (auto) 6.6 Absolute Nucleated RBC 0.000 Nucleated RBC % (auto) 0.0 PT 13.6 H INR 1.1 Anion Gap 18 Estim Creat Clear Calc 54.5 Estimated GFR > 60 Random Glucose 89 Calcium 10.1 Total Bilirubin 0.3 Direct Bilirubin 0.1 AST 15 ALT 14 Alkaline Phosphatase 121 H Total Protein 7.4 Albumin 3.9 Lipase 14 Assessment and Plan (1) Dysphagia: Status: Acute (2) Erosive esophagitis: Status: Acute Plan 67 year old male with history of [id number]-[id number] type 2 diabetes, hypertension, schizoaffective disorder, autism order, COPD, dysphagia with history of esophageal stricture, iron deficiency anemia, hypothyroidism, and failure to thrive to be observed for poor po intake due to suspected esophageal stricture. #Poor po intake due to esophageal motility disorder -egd shows tortuous esophagus with severe erosive esophagitis and large hiatal hernia, no stricture. esophagus dilated -soft diet per GI. ENGINEERING PSYCHOLOGIST eval pending -IV PPI tonight, transition to po pantroprazole, increase to BID, in am. Continue sucralfate #Acute hypernatremia -due to dehydration -free water deficit -0.7L -Give 1L d5w @100ml/hr x 1 L -follow lytes #Yky-czkvtxr-dkfmlctox type 2 diabetes without hyperglycemia -POC glucose, diabetic diet -Humalog on sliding scale # hypothyroidism -continue levothyroxine # COPD -no acute exacerbation -albuterol p.r.n. # GERD -PPI # hypertension -continue metoprolol # schizoaffective disorder -continue Clozaril, clomipramine #Chronic JOEL -h/h baseline -continue ferrous sulfate DVT prophylaxis- lovenox Full code Quality Stroke Does the patient have a stroke diagnosis?: No VTE Prior VTE?: No VTE Risk Level:: Medical - moderate - high VTE Device Contraindication: Treatment Not Indicated VTE Drug Contraindication: N/A - Med Ordered
--- NOTE | 2023-08-27 16:16 | PHA.MEDREC ---
Pharmacy Consult ? Medication Reconciliation Pharmacy has completed the medication reconciliation. Last clozapine dose given 08/26/2023
--- NOTE | 2023-08-27 16:34 | PC.NURSE ---
Patient arrived to Preop via stretcher, saying hello to staff. VS obtained with no issues, IV line flushed. Patient sitting and quickly became agitated, screaming paper and pen . Patient given paper on clipboard with pen. Patient sat in stretcher calmly writing and drawing for remainder of preop period. Report given to OR nurse Marlin.
--- NOTE | 2023-08-27 17:00 | W.PM.OPN ---
Operative Note Operative Note Date of Service: 08/27/23 Narrative: FLEXIBLE TRANSORAL UPPER GASTROINTESTINAL ENDOSCOPY Pre-op diagnosis: dysphagia, suspected food impaction Post-op diagnosis: Severe erosive esophagitis, large hiatal hernia Endoscopist:? Olga Alexander MD Anesthesia:?MAC (Dr Flores) UPPER ENDOSCOPY Consent:?Indications for the procedure and potential complications of bleeding, perforation, reaction to medications and missed diagnosis were discussed with the patient's legal guardian and Step Dad, Kenny Arredondo at [phone] and informed verbal consent was obtained over the telephone. Instrument:?Olympus GIF H 190 mid size upper endoscope Monitoring: Vital signs and clinical assessment, continuous EKG monitoring, Pulse oximetry, Carbon Dioxide monitoring and blood pressure monitoring were done throughout the procedure. Procedure:?The patient was placed in the left lateral decubitis position and pre-procedure medications were administered and a bite block was placed. The endoscope was inserted into the mouth and advanced under direct vision to the third part of duodenum. A careful inspection was made as the upper endoscope was withdrawn including a retroflexed examination of the proximal stomach; Findings and interventions are described below. Findings: Larynx:? Normal Esophagus:? GE junction at 37 cms, large hiatal hernia 37 to 43 cms. Severe erosive esophagitis (LA Grade D) from 33 to 37 cms with 1-2 cms ulcers and erosions. No food bolus was present. Mild stricture at GE junction and a mid size upper endoscope was passed into the stomach with minimal resistance Esophageal Balloon dilation was not performed due to esophageal inflammation. Stomach:?Normal gastric mucosa. Grade 4 flap valve on retroflexed examination of the cardia. Duodenum:?Normal bulb and descending duodenum.? Intervention:?None needed Esophageal Balloon dilation was not performed due to esophageal inflammation. Impression and Post Procedure Diagnosis: Endoscopy Findings: ESOPHAGUS: GE junction at 37 cms, large hiatal hernia 37 to 43 cms. Severe erosive esophagitis (LA Grade D) from 33 to 37 cms with 1-2 cms ulcers and erosions. No food bolus was present. Mild stricture at GE junction and a mid size upper endoscope was passed into the stomach with minimal resistance Esophageal Balloon dilation was not performed due to esophageal inflammation. Dysphagia is likely due to esophageal inflammation. Pt is on Pantoprazole 40 mg daily and sucralfate - unclear if he has been getting these medications Plan: Advise IV hydration and PPI IV BID x 24 hours. Start a soft diet tonight and switch to PO Pantoprazole 40 mg twice daily in and continue indefinitely. Patient has an appointment on 11/10/23 in the GI Clinic withBina Hickey NP. Repeat EGD in 3-4 months to confirm esophagitis has healed and for dilation if needed. Above findings were reviewed with patient's legal guardian and Step Dad, Kenny Arredondo at [phone].
--- NOTE | 2023-08-27 18:03 | MHC.SLORD ---
Speech Language Pathology Order Status: PHOTOGRAPHIC LABORATORY SUPERVISOR consult ordered. Pt reportedly has a hx of dysphagia with severe erosive esophagitis. Reportedly was on NDD2 at [facility]. PHOTOGRAPHIC LABORATORY SUPERVISOR attempted to see patient in ED this evening after leaving PACU. Per RN, patient not appropriate to participate in evaluation at this time. PHOTOGRAPHIC LABORATORY SUPERVISOR operations advisor via Switchboard Sat & Sun 9a-11a if needed.
[2023-08-27 21:04] LABS: Glucose, Whole Blood 151 mg/dL (60-115)
[2023-08-27] MEDS: Metoprolol Succinate ER 50 MG TAB.ER.24H PO (21:43)
[2023-08-27] MEDS: cloZAPine 25 MG TABLET 50 MG PO (21:43)
[2023-08-27] MEDS: Lactulose 20 GM/30 ML SOLUTION 40 GM PO (21:43)
[2023-08-27] MEDS: 0.9 % Sodium Chloride Flush 3 ML SYRINGE IVFLUSH (21:44)
[2023-08-27] MEDS: Milk of Magnesia 30 ML ORAL.SUSP PO (21:44)
[2023-08-27] MEDS: Docusate Sodium 100 MG CAPSULE PO (21:56)
[2023-08-28 02:26] VITALS: BMI 15.1
[2023-08-28 04:00] VITALS: BP 159/98; PULSE 82; RESP 16; O2SAT 97
[2023-08-28] MEDS: Levothyroxine Sodium 100 MCG TABLET PO (06:15)
[2023-08-28] MEDS: Omeprazole 20 MG CAPSULE.DR PO (06:15)
[2023-08-28 07:05] LABS: Blood Urea Nitrogen 26 mg/dL (9-16); Calcium 9.1 mg/dL (8.4-10.2); Creatinine Clr Calc Pharmacy 51.2; Estimated Glomerular Filt Rate > 60; Glucose Random 85 mg/dL (60-115)
[2023-08-28 07:06] VITALS: BP 125/91; PULSE 86; RESP 17; TEMP 36.4; O2SAT 97
[2023-08-28 07:24] LABS: Anion Gap 15 (12-20); Carbon Dioxide 24 mmol/L (22-29); Chloride 111 mmol/L (96-108); Potassium 3.9 mmol/L (3.3-5.1); Sodium 146 mmol/L (135-145)
[2023-08-28 07:39] LABS: Glucose, Whole Blood 87 mg/dL (60-115)
[2023-08-28] MEDS: Ascorbic Acid 500 MG TABLET PO (08:57)
[2023-08-28] MEDS: Sodium Bicarbonate 650 MG TABLET PO (08:57)
[2023-08-28] MEDS: Sucralfate Oral Suspension 1 GM/10 ML ORAL.SUSP PO (08:57)
[2023-08-28] MEDS: Tamsulosin HCL 0.4 MG CAPSULE PO (08:57)
[2023-08-28] MEDS: Docusate Sodium 100 MG CAPSULE PO (08:57)
[2023-08-28] MEDS: Metoprolol Succinate ER 50 MG TAB.ER.24H PO (08:57)
[2023-08-28] MEDS: Ferrous Sulfate 324 MG TABLET.DR PO (08:58)
[2023-08-28] MEDS: Multivitamin TABLET 1 TAB PO (08:58)
[2023-08-28] MEDS: Sennosides 8.6 MG TABLET 17.2 MG PO (08:58)
--- NOTE | 2023-08-28 10:19 | PM.DS ---
DS: Providers Provider Date of Service: 08/28/23 Date of admission: 08/27/23 16:02 Primary care physician: Swapnil Vazquez DO Consults: 08/27/23 19:05 Consult to Gastroenterology Routine Consulting Provider: Olga Alexander Reason for consultation: dysphagia Has provider been notified: Yes DS: Diagnosis Discharge Diagnosis (1) Dysphagia: Status: Acute (2) Erosive esophagitis: Status: Acute DS: Summary Hospital Course Hospital Course: admission hpi 67 year old male with history of suq-[id number] type 2 diabetes, hypertension, schizoaffective disorder, autism order, COPD, dysphagia with history of esophageal stricture, iron deficiency anemia, hypothyroidism, and failure to thrive presented to the ED from [facility] where he resides for evaluation of poor p.o. intake. Per nursing staff at facility, patient has been having difficulty eating and has been noted to be drooling over the last 3 days. No fevers or chills. Patient unable to provide history. On arrival, vital signs stable. There is no leukocytosis. Renal function baseline. Mild hypernatremia of 149, potassium 5.1. EKG shows NSR, rate 66, no acute ischemic changes. In the ED, given 1 L IV NS, 5 mg Zyprexa, and ondansetron. He was evaluated by Gastroenterology and has been taken to endoscopy suite for EGD to evaluate for esophageal stricture. Patient will be observed overnight for acute dehydration secondary to presumed esophageal stricture resulting in poor p.o. intake. Hospital course: 1. Dysphagia Patient was evaluated by the Court Administrator and underwent urgent EGD with the following inding and recommendation. ESOPHAGUS: GE junction at 37 cms, large hiatal hernia 37 to 43 cms. Severe erosive esophagitis (LA Grade D) from 33 to 37 cms with 1-2 cms ulcers and erosions. No food bolus was present. Mild stricture at GE junction and a mid size upper endoscope was passed into the stomach with minimal resistance Esophageal Balloon dilation was not performed due to esophageal inflammation. Dysphagia is likely due to esophageal inflammation. Pt is on Pantoprazole 40 mg daily and sucralfate - unclear if he has been getting these medications Plan: Advise IV hydration and PPI IV BID x 24 hours. Start a soft diet tonight and switch to PO Pantoprazole 40 mg twice daily in and continue indefinitely. Patient has an appointment on 11/10/23 in the GI Clinic with?Connie Hiceky NP. Repeat EGD in 3-4 months to confirm esophagitis has healed and for dilation if needed 2. Hypernatremia/Dehdyration--Sodidium level was 149 and following hydration it is 146 and should return to normal upon drinking enough water.. Unfortunately the patient is refusing to take meds and to eat at this time due to not cooperating, and will proably do better at SNF where he knows the staff and more likely to respond to them to that effect, I have discussed it with the facility director and upon returning, if he continues to refuse meds, eat then a consideration should be made for a PEG. Time Attestation Discharge Coordination Time (in mins): 35 Quality: Safe Use of Opioids Does Pt have an Active Cancer Diagnosis on the Problem List?: No Quality: Stroke Does the patient have a stroke diagnosis?: No Physical Exam Vital Signs: Vital Signs: Last Vital Signs Temp 97.5 F 08/28/23 07:06 Pulse 86 08/28/23 07:06 Resp 17 08/28/23 07:06 BP 125/91 H 08/28/23 07:06 Pulse Ox 97 08/28/23 07:06 O2 Del Method Room Air 08/28/23 07:06 BMI result Body Mass Index 15.1 DS: Data Data Completed and Pending Completed studies during hospitalization [Text1]: Procedures Extirpation of Matter from Rectum, Via Natural or Artificial Opening (11/23/20) Labs on day of discharge: Laboratory Results - last 24 hr 08/27/23 08/27/23 08/27/23 15:13 15:14 21:00 WBC 9.6 RBC 5.04 Hgb 13.6 L Hct 43.7 MCV 86.7 MCH 27.0 MCHC 31.1 RDW 15.2 Plt Count 521 H D MPV 8.9 L Immature Gran % (Auto) 0.6 H Neut % (Auto) 68.7 Lymph % (Auto) 22.6 Cuming % (Auto) 6.2 Eos % (Auto) 0.6 Baso % (Auto) 1.3 Lymph # (Auto) 2.2 Cuming # (Auto) 0.6 Eos # (Auto) 0.1 Baso # (Auto) 0.1 Abs Immat Gran (auto) 0.06 H Absolute Neuts (auto) 6.6 Absolute Nucleated RBC 0.000 Nucleated RBC % (auto) 0.0 Hold Purple Top PT 13.6 H INR 1.1 Sodium 149 H Potassium 5.1 D Chloride 110 H Carbon Dioxide 26 Anion Gap 18 BUN 26 H Creatinine 0.94 Estim Creat Clear Calc 54.5 Estimated GFR > 60 POC Glucose 151 H Random Glucose 89 Calcium 10.1 Total Bilirubin 0.3 Direct Bilirubin 0.1 AST 15 ALT 14 Alkaline Phosphatase 121 H Total Protein 7.4 Albumin 3.9 Lipase 14 08/28/23 08/28/23 06:27 07:12 WBC RBC Hgb Hct MCV MCH MCHC RDW Plt Count MPV Immature Gran % (Auto) Neut % (Auto) Lymph % (Auto) Cuming % (Auto) Eos % (Auto) Baso % (Auto) Lymph # (Auto) Cuming # (Auto) Eos # (Auto) Baso # (Auto) Abs Immat Gran (auto) Absolute Neuts (auto) Absolute Nucleated RBC Nucleated RBC % (auto) Hold Purple Top SEE NOTE PT INR Sodium 146 H Potassium 3.9 D Chloride 111 H Carbon Dioxide 24 Anion Gap 15 BUN 26 H Creatinine 1.00 Estim Creat Clear Calc 51.2 Estimated GFR > 60 POC Glucose 87 Random Glucose 85 Calcium 9.1 D Total Bilirubin Direct Bilirubin AST ALT Alkaline Phosphatase Total Protein Albumin Lipase Discharge Plan Discharge Anticipated Discharge Date/Time: 08/28/23 10:16 Patient Disposition: Xfer SNF Discharge Diagnosis: Esophageal stricuture, Dysphagia, Dehydration Referrals: Swapnil Vazquez DO [Primary Care Provider] - 1 Week Discharge Medications: Continued tamsulosin 0.4 mg capsule 0.4 mg PO DAILY acetaminophen 325 mg Tablet 650 mg PO Q6H PRN (Reason: Fever Or Pain) Rx Instructions: not to exceed 3000mg/day sodium bicarbonate 650 mg Tablet 650 mg PO DAILY diphenhydramine HCl [Benadryl] 25 mg Capsule 25 mg PO Q6H PRN (Reason: Itching) docusate sodium 100 mg Capsule 100 mg PO BID lactulose 10 gram/15 mL (15 mL) Solution 60 ml PO TID multivitamin with minerals Tablet 1 tab PO DAILY metoprolol succinate 50 mg tablet extended release 24 hr 1 tab PO BID hydroxyzine HCl 50 mg tablet 1 tab PO TID PRN (Reason: Agitation) ascorbic acid (vitamin C) 500 mg Tablet 500 mg PO DAILY ferrous sulfate 325 mg (65 mg iron) Tablet 325 mg PO DAILY clozapine 50 mg tablet 1 tab PO BEDTIME levothyroxine 100 mcg tablet 100 mcg PO DAILY magnesium hydroxide [Milk of Magnesia] 400 mg/5 mL Suspension 30 ml PO BEDTIME bisacodyl 10 mg Suppository 10 mg [place] DAILY PRN (Reason: Constipation) sucralfate [Carafate] 100 mg/mL suspension 10 ml PO DAILY sennosides [senna] 8.6 mg tablet 17.2 mg PO DAILY clomipramine 50 mg capsule 50 mg PO BEDTIME pantoprazole 40 mg tablet,delayed release (DR/EC) 40 mg PO DAILY Qty: 90 1RF Discharge Orders: Discharge Order (Routine); Ordered 08/28/23 Ordered By: Mert Bach Diet: Advance to usual diet Activity on Discharge: As tolerated Stand Alone Forms: Patient Portal Discharge page Care Plan Goals: recovery from dysphagia Health Concerns: dysphagia esophageal stricture dehydrate Plan of Treatment: To eat with observation, to drink plenty of water, to have going swallowing and speech assessment. recommendation is for soft diet check bmp in 2 to 3 days. Assessment: See above
[2023-08-28] MEDS: Pantoprazole Sodium 40 MG/10 ML VIAL IVPUSH (10:57)
--- NOTE | 2023-08-28 10:57 | PC.NURSE ---
Pt accepting IV Protonix with assistance from
[2023-08-28 11:48] LABS: Glucose, Whole Blood 103 mg/dL (60-115)
[2023-08-28 12:00] VITALS: BP 159/91; PULSE 71; RESP 18; TEMP 36.2; O2SAT 100
--- NOTE | 2023-08-28 13:55 | MHC.CM.PN ---
Addendum entered by Grace Pierce 08/28/23 16:10: [facility] LIAISON MESSAGED THAT SHE NEVER RECEIVED A RESPONSE FROM PTS FACILITY, HOWEVER PT IS LTC AND A BED HOLD RYLEE INFORMED HER PT WAS BEING PICKED UP BY [facility] AT THIS TIME RYLEE ATTEMPTED TO CALL PTS SNF ALONG WITH RN SO THAT A WARM HAND OFF COULD BE GIVEN, CALL WAS TRANSFERRED TO UNIT HOWEVER NO ONE ANSWERED. RYLEE FAXED PTS DCS ALONG WITH NOTICE OF DC TO [facility] AT [phone] OF NOTE: HOSPITALIST SPOKE TO [facility] EXTRAS CASTING DIRECTOR, DR VELOZ, AND HE IS AWARE OF PTS RETURN TODAY Original Note: PT IS A LTC RESIDENT OF [facility] RYLEE SPOKE TO PTS LEGAL GUARDIAN, BOB RAINER [phone] HE WAS AWARE OF PTS ADMISSION AND THAT HE WILL DC TODAY OBSERVATION NOTICE DELIVERED AND A COPY WILL BE MAILED TO HIM RYLEE ATTEMPTED TO BOOK BLS TRANSPORT VIA [place] MEDICAID RYLEE SPOKE TO MULTIPLE REPS, AND AFTER SEVERAL HOURS, PATIENCE CALLED BACK AND SAID THEY WERE UNABLE TO FIND A COMPANY THAT COULD ACCOMMODATE SHE DID SAY [facility] WAS ON THEIR LIST CONTRACTED BUT THAT THEY WERE UNABLE TO REACH THEM CM BOOKED TRANSPORT WITH [facility] FOR 1530 HOURS
[2023-08-28 15:00] VITALS: BP 131/92; PULSE 70; RESP 18; TEMP 36.2; O2SAT 98
--- NOTE | 2023-08-28 15:15 | HO.POSTANES ---
Post Anesthesia Evaluation Post Anesthesia Evaluation Date of Service: 08/28/23 Vital Signs: Vital Signs Temp Pulse Resp BP Pulse Ox O2 Del Method 08/28/23 15:00 97.2 F 70 18 131/92 H 98 Room Air 08/28/23 12:00 97.2 F 71 18 159/91 H 100 Room Air 08/28/23 07:06 97.5 F 86 17 125/91 H 97 Room Air 08/28/23 04:00 82 16 159/98 H 97 Room Air Anesthesia: TIVA Mental Status: Awake Pain Control: Satisfactory Nausea/Vomiting: None Hydration: Adequate Anesthesia-Related Issues: No Anes. Related Issues
[2023-08-28 16:04] LABS: Glucose, Whole Blood 80 mg/dL (60-115)
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
== END 2023-08-28 16:30 | disposition skilled nursing facility (03) ==
LOC: HO.ED 15:45 → HO.SSS 15:58 → HO.EDOVER 17:26 → HO.S3 17:36
PROVIDERS: Internal Medicine Gastroenterology; Admitting Provider Physician Assistant; Emergency Provider Emergency Medicine Emergency Medical Services; PCP Hospitalist; Visit Provider Internal Medicine
PROC: 0DJ08ZZ Inspection of Upper Intestinal Tract, Via Natural or Artificial Opening Endoscopic (ICD-10-PCS; CPT 43235; principal; 2023-08-27 17:00)
DX: K22.2 Esophageal obstruction (principal); R13.10 Dysphagia, unspecified; E86.0 Dehydration; K22.10 Ulcer of esophagus without bleeding; F84.0 Autistic disorder; I10 Essential (primary) hypertension; E11.9 Type 2 diabetes mellitus without complications; E03.9 Hypothyroidism, unspecified; E87.0 Hyperosmolality and hypernatremia; J44.9 Chronic obstructive pulmonary disease, unspecified; D50.9 Iron deficiency anemia, unspecified; K21.9 Gastro-esophageal reflux disease without esophagitis; Z87.820 Personal history of traumatic brain injury
CPT/HCPCS: 43235; 36415; 80048; 80076; 82947; 83690; 85025; 85610; 93005; 96361; 96372; 96374; 96375; 99221; 99285; C9113; J2359; J2405; J2704; J3010

== ENCOUNTER → 2023-08-27 12:47 | Outpatient (BNV) | payer MEDICARE, MEDICAID, SELFPAY | PROVIDERS: Admitting Provider Physician Assistant; Emergency Provider Emergency Medicine Emergency Medical Services; PCP Hospitalist; Visit Provider Internal Medicine Cardiovascular Disease | DX: R00.0 Tachycardia, unspecified (principal) | CPT/HCPCS: 93010 ==

== ENCOUNTER → 2023-08-27 15:58 | Outpatient (BNV) | payer MEDICARE, MEDICAID, SELFPAY | PROVIDERS: Emergency Provider Emergency Medicine Emergency Medical Services; PCP Hospitalist; Visit Provider Internal Medicine Gastroenterology | DX: R13.10 Dysphagia, unspecified (principal); K20.90 Esophagitis, unspecified without bleeding | CPT/HCPCS: 43235; 99222 ==

== ENCOUNTER → 2023-08-27 16:02 | Outpatient (BNV) | payer MEDICARE, MEDICAID, SELFPAY | PROVIDERS: Admitting Provider Physician Assistant; Emergency Provider Emergency Medicine Emergency Medical Services; PCP Hospitalist; Visit Provider Physician Assistant | DX: R13.10 Dysphagia, unspecified (principal); K22.10 Ulcer of esophagus without bleeding | CPT/HCPCS: 99223; 99239 ==

== ENCOUNTER 2023-09-29 11:33 | Emergency (ER) | payer MEDICARE, MEDICAID, SELFPAY ==
--- NOTE | ~2023-09-29 | CT_ITS ---
EXAMINATION: CT ABDOMEN AND PELVIS WITHOUT CONTRAST CLINICAL INFORMATION: Abdominal pain COMPARISON: 05/19/2023 TECHNIQUE: Multidetector volumetric imaging was performed from the superior aspect of the liver through the pubic symphysis. Sagittal and coronal reformatted images were obtained on the technologist's workstation. This CT examination was performed using dose optimization techniques as appropriate, variously including the following: *Automated exposure control *Adjustment of mA and/or kV according to patient size (this includes techniques or standardized protocols for targeted exams where dose is matched to indication/reason for exam; i.e. extremities or head) *Use of iterative reconstruction technique DLP: 358 mGy-cm FINDINGS: CONTACT LENS POLISHER: Debris-filled stomach. Fecal retention. Pelvic herniorrhaphy material. LUNG BASES: Study limited by respiratory motion. Increasing bilateral atelectasis. In the right lower lobe, partially visualized consolidation not excluded. Nonenlarged heart. No pericardial effusion. Moderately large hiatal hernia with degenerative clips again seen. LIVER, GALLBLADDER, AND BILIARY TREE: The liver is normal in size, shape, and attenuation. No focal hepatic lesion or biliary ductal dilatation is present. The gallbladder is unremarkable with no evidence of radiopaque gallstones, gallbladder wall thickening, or obvious pericholecystic inflammatory changes. PANCREAS: Unremarkable. SPLEEN: Unremarkable. ADRENAL GLANDS: Unremarkable. KIDNEYS AND URETERS: Unchanged tiny nonobstructing renal calculi, largest 2 mm hyperdense 1.7 cm right renal hyperattenuating lesion and simple appearing renal cysts are unchanged. Left renal hypodensities are unchanged. The right kidney is atrophic. The kidneys are normal in size, shape, and attenuation. No hydronephrosis or hydroureter. No perinephric stranding. BLADDER: 2.5 cm bladder calculus previously measured 1.5 cm. Bladder sotelo are diffusely thickened. Redemonstration right bladder diverticulum with stone(s). GASTROINTESTINAL TRACT: Moderately large hiatal hernia with junction anastomotic suture line. Moderately distended stomach with ingested contents. No CT evidence of small bowel obstruction. Appendix not identified with certainty. Severe fecal retention/constipation. ABDOMINAL WALL: Anterior pelvic herniorrhaphy material again identified. LYMPH NODES: Normal. VASCULAR: Atherosclerotic calcifications nonaneurysmal aorta. PELVIC VISCERA: Unremarkable. Prostate calcification. Phleboliths. OSSEOUS STRUCTURES: Unremarkable. CT/CT abdomen pelvis wo IV con IMPRESSION: Severe constipation. Study significantly limited IV or oral contrast. If there is clinical concern for other intra-abdominal or pelvic pathology, especially gastrointestinal, study be repeated with oral and IV contrast. Atrophic right kidney. Right hemorrhagic simple renal cysts. Likely unchanged left renal cysts. Nonobstructing right renal calculi. Slight enlargement urinary bladder calculus, now 2.5 cm. Bladder wall thickening, right bladder diverticulum with stone(s). Increasing bibasilar atelectasis, right lower lobe consolidation not excluded. Consider chest radiograph. Fleischner guidelines were followed.
[2023-09-29 11:44] VITALS: BMI 24.3
--- NOTE | 2023-09-29 11:53 | ED_ITS ---
HPI - Male Genitourinary General Chief complaint: Urogenital-Male Stated complaint: Urine retention-abd pain from SNF Time Seen by Provider: 09/29/23 11:50 Source: patient Mode of arrival: ambulatory Limitations: no limitations History of Present Illness HPI Narrative: 67-year-old male history of schizoaffective disorder, autism living in a nursing home facility, iron deficiency anemia, toxic encephalopathy, dysphagia, esophagitis presenting with worsening aggression/altered mental status and urinary retention, abdominal discomfort and dysuria since this morning. Patient unable to provide me with history review of systems Related Data Home Medications ?Medication ?Instructions ?Recorded ?Confirmed acetaminophen 325 mg tablet 650 mg PO Q6H PRN Fever Or Pain 09/23/20 08/27/23 diphenhydramine HCl 25 mg capsule 25 mg PO Q6H PRN Itching 09/23/20 08/27/23 (Benadryl) docusate sodium 100 mg capsule 100 mg PO BID 09/23/20 08/27/23 lactulose 10 gram/15 mL (15 mL) 60 ml PO TID 09/23/20 08/27/23 oral solution sodium bicarbonate 650 mg tablet 650 mg PO DAILY 09/23/20 08/27/23 tamsulosin 0.4 mg capsule 0.4 mg PO DAILY 09/23/20 08/27/23 multivitamin with minerals 1 tab PO DAILY 11/25/20 08/27/23 ascorbic acid (vitamin C) 500 mg 500 mg PO DAILY 04/23/22 08/27/23 tablet clozapine 50 mg tablet 1 tab PO BEDTIME 04/23/22 08/27/23 ferrous sulfate 325 mg (65 mg 325 mg PO DAILY 04/23/22 08/27/23 iron) tablet hydroxyzine HCl 50 mg tablet 1 tab PO TID PRN Agitation 04/23/22 08/27/23 metoprolol succinate 50 mg 1 tab PO BID 04/23/22 08/27/23 tablet,extended release 24 hr sennosides 8.6 mg tablet (senna) 17.2 mg PO DAILY 03/10/23 08/27/23 bisacodyl 10 mg rectal suppository 10 mg KS DAILY PRN Constipation 06/11/23 08/27/23 levothyroxine 100 mcg tablet 100 mcg PO DAILY 06/11/23 08/27/23 magnesium hydroxide 400 mg/5 mL 30 ml PO BEDTIME 06/11/23 08/27/23 oral suspension (Milk of Magnesia) clomipramine 50 mg capsule 50 mg PO BEDTIME 08/27/23 08/27/23 Previous Rx's ?Medication ?Instructions ?Recorded pantoprazole 40 mg tablet,delayed 40 mg PO BID #90 tabs 08/28/23 release sucralfate 100 mg/mL oral 10 ml PO BID #420 mL 08/28/23 suspension (Carafate) cefuroxime axetil 250 mg tablet 250 mg PO BID 7 days #14 tabs 09/29/23 Allergies Allergy/AdvReac Type Severity Reaction Status Date / Time fish oil [FISH OIL] Allergy Unknown Unknown Verified 09/29/23 11:45 Iodinated Contrast Media Allergy Unknown Unknown Verified 09/29/23 11:45 [IODINATED CONTRAST- ORAL AND IV DYE] pollen extracts Allergy Unknown Unknown Verified 09/29/23 11:45 shellfish derived Allergy Unknown Unknown Verified 09/29/23 11:45 Review of Systems 2 Review of Systems: Yes all other systems are reviewed and are negative [facility] Past Medical History Source: old records reviewed and nursing notes reviewed Medical History Repeated falls Disturbances of salivary secretion Autistic disorder ADHD (attention deficit hyperactivity disorder) Metabolic encephalopathy Adult failure to thrive Erysipelas COVID-19 Cellulitis Muscle weakness (generalized) Osteoarthritis Kidney cyst, acquired Vomiting and diarrhea Emphysema of lung Bronchitis Tubular adenoma Allergic rhinitis Esophageal obstruction Hydronephrosis On beta elmer at home History of COVID-19 Resides in nursing home facility Presbyopia Personality disorder Hypothyroidism GERD (gastroesophageal reflux disease) Anemia Encephalopathy GI bleed BPH (benign prostatic hyperplasia) HTN (hypertension) Dysphagia Diabetes Schizoaffective disorder TBI (traumatic brain injury) Surgical History Hx of colonoscopy Hx of esophagogastroduodenoscopy Social History Social History Household Members: Other Household Members Other:: resides @ [facility] Housing: Long Term Housing Other:: [facility]-[phone] Are you a primary care aide to a significant other at home: No Do you presently have visiting nurse or other home services: Yes (as above noted) Unable to assess alcohol history related to: Unknown Alcohol intake: unknown Comment: 1:1 sitter Patient Tobacco Use Status: Former Tobacco user Advance Directives: Yes Advance Directives on File: Yes Advance Directives Date on File: 02/12/22 service: No Current occupational status: disabled Physical Exam 2 Vital Signs: Vital Signs: Last Vital Signs Temp 97.1 F 09/29/23 16:51 Pulse 89 09/29/23 16:51 Resp 16 09/29/23 16:51 BP 152/92 H 09/29/23 16:51 Pulse Ox 98 09/29/23 16:51 O2 Del Method Room Air 09/29/23 16:51 BMI result Body Mass Index 24.3 vss Appearance: Awake, alert, shouting. Does not answer questions appropriately however this is his baseline. Head: Normocephalic, atraumatic, no step-offs or deformities Eyes: Pupils equal, round and reactive to light.? Neck: Normal inspection.? Neck supple.? CVS: Normal heart rate and rhythm.? Pulses normal.? Respiratory: No respiratory distress.? Breath sounds normal.? Abdomen: Soft and nontender.? Skin: Skin warm and dry.? Normal skin color.? Normal skin turgor.? Extremities:5/5 strength to bilateral upper and lower extremities Back: No midline tenderness, no C-spine tenderness, full range of motion, no CVA tenderness bilaterally Neuro: Awake, alert, shouting. Does not answer questions appropriately however this is his baseline. Course Reevaluation(s) Reevaluation #1: Bladder scan 18 cc no need for begum will do straight cath to obtain urine. Labs, ct scan pending. Time: 11:58 Reevaluation #2: CBC appears to be around patient's baseline with a normocytic anemia. Chemistry no acute electrolyte abnormalities requiring intervention. Slightly elevated BUN and creatinine at baseline. CT abdomen severe constipation, atrophic kidney right hemorrhagic simple renal cysts likely unchanged left renal cyst. Nonobstructing right renal calculi. Slight enlargement of the urinary bladder calculus now 2.5 cm. Bladder wall thickening and right bladder diverticulum with stones. Increasing bibasilar atelectasis, right lower lobe consolidation not excluded, no upper respiratory symptoms I do not suspect pneumonia. Patient was given a soapsuds enema with significant relief of symptoms patient had a bowel movement, shortly after. Time: 15:50 Reevaluation #3: Patient incontinent of stool in urine after enema. Unable to get a urine at this time. Will discharge with Ceftin for suspected UTI. Will try to get a urine before he leaves. Primary care provider aware. Time: 16:00 Additional Reevaluation(s): Sign out to Talha 17:48 patient received in sign-out at change of shift pending UA to send for culture. Nursing at a hard time getting past the prostate. I was attempting to assist using a coude catheter. Dr. Vazquez, the patient's PCP came bedside and recommended aborting attempt for straight catheter as the patient is uncomfortable and uncooperative. He recommends treating the patient with Ceftin b.i.d. x7 days which will be done. Unfortunately no UA was obtained to send for culture Medications Administered Discontinued Medications Generic Name Dose Route Start Last Admin Trade Name Freq PRN Reason Stop Dose Admin Olanzapine 5 mg 09/29/23 11:56 09/29/23 12:00 Olanzapine 5 Mg Tablet PO 09/29/23 11:57 5 mg ONCE ONE Administration Medical Decision Making Medical Decision Making [facility] Narrative: 1155 67-year-old male presents with worsening aggression and altered mental status from nursing home facility with urinary symptoms since this morning. On exam patient shouting, awake. Does not appear to be in acute distress. Remainder of exam unremarkable History and physical exam concerning for UTI versus cystitis versus possible kidney stone. Unlikely metabolic derangements, acute abdomen, appendicitis, cholecystitis, diverticulitis, obstruction, pancreatitis. No associated trauma unlikely intracranial hemorrhage, stroke, posterior stroke. Plan labs, imaging, urine. Differential Diagnosis Differential Diagnoses: The differential diagnosis associated with the presentation includes History and physical exam concerning for UTI versus cystitis versus possible kidney stone. Unlikely metabolic derangements, acute abdomen, appendicitis, cholecystitis, diverticulitis, obstruction, pancreatitis. No associated trauma unlikely intracranial hemorrhage, stroke, posterior stroke. Admission/Observation Consideration of admission/observation: Escalation of care including admission/observation considered Lab Data [facility] Lab Attestation statement: I reviewed the patient's lab results. 09/29/23 13:44 09/29/23 13:44 Labs: Lab Results 09/29/23 Range/Units 13:44 WBC 9.8 (4.8-10.8) X10*3/uL RBC 4.52 L (4.60-5.80) X10*6/uL Hgb 12.6 L (14.0-18.0) g/dl Hct 39.2 L (42.0-52.0) % MCV 86.7 (80.0-98.0) fL MCH 27.9 (27.0-33.0) pg MCHC 32.1 (31.0-36.0) g/dl RDW 16.3 H (11.0-16.0) % Plt Count 321 D (160-400) X10*3/uL MPV 9.4 (9.4-12.4) fL Immature Gran % (Auto) 0.3 (0.0-0.4) % Neut % (Auto) 73.4 H (45-73) % Lymph % (Auto) 17.5 L (20-40) % Ballard % (Auto) 7.0 (2-11) % Eos % (Auto) 0.8 (0-4) % Baso % (Auto) 1.0 (0-2) % Lymph # (Auto) 1.7 (1.2-4.9) X10*3/uL Ballard # (Auto) 0.7 (0.1-1.2) X10*3/uL Eos # (Auto) 0.1 (0.0-0.4) X10*3/uL Baso # (Auto) 0.1 (0.0-0.2) X10*3/uL Abs Immat Gran (auto) 0.03 (0.00-0.03) X10*3/uL Absolute Neuts (auto) 7.2 (2.0-8.3) x10*3/uL Absolute Nucleated RBC 0.000 (0.0-0.012) X10*3/uL Nucleated RBC % (auto) 0.0 (0.0-0.2) /100WBC Sodium 141 (135-145) mmol/L Potassium 4.1 (3.3-5.1) mmol/L Chloride 109 H (96-108) mmol/L Carbon Dioxide 26 (22-29) mmol/L Anion Gap 10 L (12-20) BUN 30 H (9-16) mg/dL Creatinine 0.99 (0.5-1.4) mg/dL Estim Creat Clear Calc 70.0 Estimated GFR > 60 Random Glucose 132 H (60-115) mg/dL Calcium 9.1 (8.4-10.2) mg/dL Magnesium 2.3 (1.6-2.6) mg/dL Total Bilirubin 0.2 (0.0-1.0) mg/dL AST 15 (5-37) U/L ALT 14 (0-40) U/L Alkaline Phosphatase 117 (39-117) U/L Total Protein 6.5 (6.5-8.0) g/dL Albumin 3.6 (3.5-5.0) g/dL Independent Interpretation I performed an independent interpretation of an: CT Scan Radiology Impression Discussion of test interpretation with radiology: I have reviewed the radiologist's reading. External Record Review External record reviewed: Inpatient record, Office record, Outpatient record, Prior outpatient labs, Prior outpatient radiology, Primary care record and Outside ED record Chronic Conditions Patient?s care impacted by: Other (autism, encephalopathy ) Critical Care Time Critical Care Time Critical Care Time: No Discharge Plan Discharge Clinical Impression: Acute UTI, Agitation Patient Disposition: Home, Self-Care Instructions: Urinary Tract Infection in Men (ED) Additional Instructions: Take your medications as prescribed. If you were prescribed antibiotics today, it is important that you take your medication to their entirety, do not skip any doses, do not finish them early. Follow-up with your primary care provider this week. Return to the emergency department with new or worsening symptoms. Such as fevers, chills, chest pain, shortness of breath, nausea, vomiting, dizziness, headache, vision changes, lethargy In case of emergency call 911 CT/CT abdomen pelvis wo IV con IMPRESSION: Severe constipation. Study significantly limited IV or oral contrast. If there is clinical concern for other intra-abdominal or pelvic pathology, especially gastrointestinal, study be repeated with oral and IV contrast. Atrophic right kidney. Right hemorrhagic simple renal cysts. Likely unchanged left renal cysts. Nonobstructing right renal calculi. Slight enlargement urinary bladder calculus, now 2.5 cm. Bladder wall thickening, right bladder diverticulum with stone(s). Increasing bibasilar atelectasis, right lower lobe consolidation not excluded. Consider chest radiograph. Fleischner guidelines were followed. Prescriptions: New cefuroxime axetil 250 mg tablet 250 mg PO BID 7 Days Qty: 14 0RF No Action tamsulosin 0.4 mg capsule 0.4 mg PO DAILY acetaminophen 325 mg Tablet 650 mg PO Q6H PRN (Reason: Fever Or Pain) Rx Instructions: not to exceed 3000mg/day sodium bicarbonate 650 mg Tablet 650 mg PO DAILY diphenhydramine HCl [Benadryl] 25 mg Capsule 25 mg PO Q6H PRN (Reason: Itching) docusate sodium 100 mg Capsule 100 mg PO BID lactulose 10 gram/15 mL (15 mL) Solution 60 ml PO TID multivitamin with minerals Tablet 1 tab PO DAILY metoprolol succinate 50 mg tablet extended release 24 hr 1 tab PO BID hydroxyzine HCl 50 mg tablet 1 tab PO TID PRN (Reason: Agitation) ascorbic acid (vitamin C) 500 mg Tablet 500 mg PO DAILY ferrous sulfate 325 mg (65 mg iron) Tablet 325 mg PO DAILY clozapine 50 mg tablet 1 tab PO BEDTIME levothyroxine 100 mcg tablet 100 mcg PO DAILY magnesium hydroxide [Milk of Magnesia] 400 mg/5 mL Suspension 30 ml PO BEDTIME bisacodyl 10 mg Suppository 10 mg KS DAILY PRN (Reason: Constipation) sennosides [senna] 8.6 mg tablet 17.2 mg PO DAILY clomipramine 50 mg capsule 50 mg PO BEDTIME sucralfate [Carafate] 100 mg/mL suspension 10 ml PO BID Qty: 420 0RF pantoprazole 40 mg tablet,delayed release (DR/EC) 40 mg PO BID Qty: 90 1RF Referrals: Swapnil Vazquez DO [Primary Care Provider] - 2 days Print Language: Serbian
[2023-09-29 11:55] VITALS: BP 122/81; PULSE 91; RESP 16; TEMP 36; O2SAT 100
[2023-09-29] MEDS: OLANZapine 5 MG TABLET PO (12:00)
--- NOTE | 2023-09-29 12:15 | PC.NURSE ---
[facility] d/t dysuria/urinary retention/abd pain. pt is alert and oriented to self only. pt is impulsive/yelling out incomprehensible statements to ED staff. vss and up to date. abd nontender upon palpation. pre-void bladder scan displayed as 18mL. medication administered per provider order. pt to CT at this time. plan of care ongoing. call gonzalez placed within reach.
--- NOTE | 2023-09-29 13:45 | PC.NURSE ---
labs obtained/sent to lab.
[2023-09-29 13:47] LABS: MANUAL DIFF FLAG NO
[2023-09-29 13:51] LABS: Basophils Absolute Auto 0.1 X10*3/uL (0.0-0.2); Eosinophils Absolute Auto 0.1 X10*3/uL (0.0-0.4); Eosinophils Percent Auto 0.8 % (0-4); Hematocrit 39.2 % (42.0-52.0); Hemoglobin 12.6 g/dl (14.0-18.0); Imm Gran Abs Auto 0.03 X10*3/uL (0.00-0.03); Imm Gran Pct Auto 0.3 % (0.0-0.4); Lymphocytes Absolute Auto 1.7 X10*3/uL (1.2-4.9); Lymphocytes Percent Auto 17.5 % (20-40); Mean Corpuscular HGB Conc 32.1 g/dl (31.0-36.0); Mean Corpuscular Hemoglobin 27.9 pg (27.0-33.0); Mean Corpuscular Volume 86.7 fL (80.0-98.0); Mean Platelet Volume 9.4 fL (9.4-12.4); Monocytes Absolute Auto 0.7 X10*3/uL (0.1-1.2); Neutrophils Absolute Auto 7.2 x10*3/uL (2.0-8.3); Neutrophils Percent Auto 73.4 % (45-73); Platelet Count 321 X10*3/uL (160-400); Red Blood Count 4.52 X10*6/uL (4.60-5.80); Red Cell Distribution Width 16.3 % (11.0-16.0); White Blood Count 9.8 X10*3/uL (4.8-10.8)
[2023-09-29 14:00] VITALS: RESP 16
[2023-09-29 14:17] LABS: Alanine Aminotransferase 14 U/L (0-40); Albumin Level 3.6 g/dL (3.5-5.0); Alkaline Phosphatase 117 U/L (39-117); Anion Gap 10 (12-20); Aspartate Amino Transferase 15 U/L (5-37); Bilirubin Total 0.2 mg/dL (0.0-1.0); Blood Urea Nitrogen 30 mg/dL (9-16); Calcium 9.1 mg/dL (8.4-10.2); Carbon Dioxide 26 mmol/L (22-29); Chloride 109 mmol/L (96-108); Estimated Glomerular Filt Rate > 60; Glucose Random 132 mg/dL (60-115); Magnesium 2.3 mg/dL (1.6-2.6); Potassium 4.1 mmol/L (3.3-5.1); Sodium 141 mmol/L (135-145); Total Protein 6.5 g/dL (6.5-8.0)
--- NOTE | 2023-09-29 14:36 | PC.NURSE ---
This RN instilled 750cc of enema, pt tolerated well, pt then yelled and shot poop nuggest x8 across the room, soft brown nuggets noted. no blood noted. PA aware.
--- NOTE | 2023-09-29 16:00 | PC.NURSE ---
pt removed all of clothing and was incontinent of a large amount of feces on the bed. pt then got up out of bed - attempted to throw large amounts of feces at this RN. pt then obtained padding from bed and swung feces filled padding around the room spreading across bed/curtain/floor and pt himself. pt cleaned. environmental called/room cleaned. pt placed back into bed now resting in no apparent distress. plan of care ongoing at this time.
[2023-09-29 16:51] VITALS: BP 152/92; PULSE 89; RESP 16; TEMP 36.2; O2SAT 98
--- NOTE | 2023-09-29 17:51 | PC.NURSE ---
this RN made two attempts at straight catheterizing pt to obtain urine and send sample to the lab. both attempts were not successful. BELLO Palencia bedside attempting to perform catheterization as well but was unsuccessful. dr. oconnor bedside and aware that multiple attempts have been made. per dr. oconnor - straight cath not needed at this time and pt can be d[facility]c'd back to [facility]. plan of care ongoing. call gonzalez placed within reach.
[2023-09-29 19:20] VITALS: BP 152/92; PULSE 89; RESP 16; TEMP 36.2
--- NOTE | 2023-09-29 19:23 | PC.NURSE ---
report given to carrie HOOPER at [facility] as well as victorina capps. pt leaving facility via EMS at this time.
== END 2023-09-29 19:23 | disposition home or self-care (01) ==
PROVIDERS: Physician Assistant; Emergency Provider Emergency Medicine; PCP Hospitalist
DX: N39.0 Urinary tract infection, site not specified (principal); R33.9 Retention of urine, unspecified; R10.9 Unspecified abdominal pain; R45.1 Restlessness and agitation; Z79.899 Other long term (current) drug therapy
CPT/HCPCS: 36415; 51701; 51798; 74176; 80053; 83735; 85025; 99284

== ENCOUNTER 2023-10-22 13:08 | Outpatient (REF) | payer MEDICARE, MEDICAID, SELFPAY | END 2023-10-22 13:09 | disposition home or self-care (01) | LOC: HO.LNP 13:08 | PROVIDERS: PCP Hospitalist; Visit Provider Nurse Practitioner Family | DX: N39.0 Urinary tract infection, site not specified (principal); N20.0 Calculus of kidney; N21.0 Calculus in bladder | CPT/HCPCS: 81003; 87086; 99202 ==

== ENCOUNTER 2023-10-22 13:08 | Outpatient (AMB) | payer MEDICARE, MEDICAID, SELFPAY ==
--- NOTE | 2023-10-22 13:09 | A.OFFVIS_ITS ---
Intake Visit Reasons: Nephrolithiasis/UTI Intake Note: New Patient presents for initial visit for Hematuria Urology Medications: Tamsulosin Blood Thinner: none Accompanied by: AIRCRAFT ORDNANCE TECHNICIAN Allergies fish oil [FISH OIL] Allergy (Unknown, Verified 10/22/23 13:55) Unknown Iodinated Contrast Media [IODINATED CONTRAST- ORAL AND IV DYE] Allergy (Unknown, Verified 10/22/23 13:55) Unknown pollen extracts Allergy (Unknown, Verified 10/22/23 13:55) Unknown shellfish derived Allergy (Unknown, Verified 10/22/23 13:55) Unknown Medication List - Last Reconciled 10/22/23 by JUSTYN Cannon acetaminophen 650 mg PO Q6H PRN ascorbic acid (vitamin C) 500 mg PO DAILY bisacodyl 10 mg SC DAILY PRN clomipramine 50 mg PO BEDTIME clozapine 1 tab PO BEDTIME diphenhydramine HCl (Benadryl) 25 mg PO Q6H PRN docusate sodium 100 mg PO BID ferrous sulfate 325 mg PO DAILY hydroxyzine HCl 1 tab PO TID PRN lactulose 60 mL PO TID levothyroxine 100 mcg PO DAILY magnesium hydroxide (Milk of Magnesia) 30 mL PO BEDTIME metoprolol succinate ER 1 tab PO BID multivitamin with minerals 1 tab PO DAILY pantoprazole 40 mg PO BID sennosides (senna) 17.2 mg PO DAILY sodium bicarbonate 650 mg PO DAILY sucralfate (Carafate) 10 mL PO BID sulfamethoxazole-trimethoprim 800-160 mg (Bactrim DS) 1 tab PO BID 7 days tamsulosin 0.4 mg PO DAILY HPI Comments Details: Levar is a 67-year-old male patient of Dr. Vazquez was accompanied by one of the care attendants at [facility] where the patient resides. He has a past medical history of TBI, ADHD, metabolic encephalopathy, osteoarthritis, renal cysts, esophageal obstruction, personality disorder, hypothyroidism, GERD, anemia, encephalopathy, GI, BPH, hypertension, diabetes, and schizoaffective disorder. He presents to the office today as a new patient for gross hematuria. Unable to discussed plan of care and or review of systems with the patient today as he continues to yell out. He was escorted out by hospital security. Call to [facility] to discuss plan of care with patient's nurse Kuortney. Discussed urinalysis today with 3+ leukocytes negative nitrates will send for urine culture. CT results reviewed. Unchanged tiny nonobstructing renal calculi, largest 2 mm hyperdense 1.7 cm right renal hyperattenuating lesion and simple appearing renal cysts are unchanged. Left renal hypodensities are unchanged. The right kidney is atrophic. The kidneys are normal in size, shape, and attenuation. No hydronephrosis or hydroureter. No perinephric stranding. 2.5 cm bladder calculus previously measured 1.5 cm. Bladder sotelo are diffusely thickened. Redemonstration right bladder diverticulum with stones. Discussed further treatment options with surgical intervention as patient with gross hematuria and recurrent urinary tract infections. In review of patient's chart it appears patient seeked emergency room care approximately 2 months ago for acute UTI at which time he was prescribed cefuroxime. In discussion with Kourtney today she reports patient has since completed this antibiotic. She discusses prior to patient's appointment today he was medicated however throughout todays assessement patient continuously yelling out and pacing. [facility] Medical History Repeated falls Disturbances of salivary secretion Autistic disorder ADHD (attention deficit hyperactivity disorder) Metabolic encephalopathy Adult failure to thrive Erysipelas COVID-19 Cellulitis Muscle weakness (generalized) Osteoarthritis Kidney cyst, acquired Vomiting and diarrhea Emphysema of lung Bronchitis Tubular adenoma Allergic rhinitis Esophageal obstruction Hydronephrosis On beta elmer at home History of COVID-19 Resides in halfway facility [place] Personality disorder Hypothyroidism GERD (gastroesophageal reflux disease) Anemia Encephalopathy GI bleed BPH (benign prostatic hyperplasia) HTN (hypertension) Dysphagia Diabetes Schizoaffective disorder TBI (traumatic brain injury) Surgical History Hx of colonoscopy Hx of esophagogastroduodenoscopy Social History Household Members: Other Household Members Other:: resides @ [facility] Housing: Detention Housing Other:: [facility]-[phone] Are you a primary director career to a significant other at home: No Do you presently have visiting nurse or other home services: Yes (as above noted) Unable to assess alcohol history related to: Unknown Alcohol intake: unknown Comment: 1:1 sitter Patient Tobacco Use Status: Former Tobacco user Advance Directives Date on File: 02/12/22 service: No Current occupational status: disabled Review of Systems Const Unobtainable due to mental condition and Unobtainable due to mental status Physical Exam Const General: no acute distress, well developed, alert and awake Nutritional Appearance: thin Orientation/consciousness: oriented to person Limitations: no limitations Neuro General: oriented to person Psych Appearance: well kempt Speech and movement: Psychomotor agitation in speech present and Restless speech present Affect: Irritable affect present Thought process: Normal thought process present and Word salad present (speech) Thought content: Compulsions present (thought content) Insight: Limited insight present (Psych) and Poor insight present (Psych) Judgement: Limited judgement present (Psych) and Poor judgement present (Psych) Results AMB Urinalysis, Automated UA Leukoctes 500 Odilia/uL Last Edit by [employer] on 10/22/23 13:34 UA Nitrite Negative Last Edit by [employer] on 10/22/23 13:34 UA Urobilinogen 0.2 mg/dL Last Edit by [employer] on 10/22/23 13:34 UA Protein 300 mg/dL Last Edit by [employer] on 10/22/23 13:34 UA pH 8.5 Last Edit by [employer] on 10/22/23 13:34 UA Blood 200 Doug/uL Last Edit by [employer] on 10/22/23 13:34 UA Specific [place] 1.005 Last Edit by [employer] on 10/22/23 13:34 UA Ketone Positive Last Edit by [employer] on 10/22/23 13:34 UA Bilirubin 1 mg/dL Last Edit by [employer] on 10/22/23 13:34 UA Glucose 0 mg/dL Last Edit by [employer] on 10/22/23 13:34 Results Reviewed Results Reviewed: Laboratory Last Values Urine pH (Auto) 8.5 10/22/23 13:30 Specific [place] (Auto) 1.005 10/22/23 13:30 Urine Protein (Auto) 300 mg/dL 10/22/23 13:30 Glucose (UA)(Auto) 0 mg/dL 10/22/23 13:30 Urine Ketones (Auto) Positive 10/22/23 13:30 Urine Blood (Auto) 200 Doug/uL 10/22/23 13:30 Urine Nitrite (Auto) Negative 10/22/23 13:30 Urine Bilirubin (Auto) 1 mg/dL 10/22/23 13:30 Urine Urobilinogen (Auto) 0.2 mg/dL 10/22/23 13:30 Leukocyte Esterase (Auto) 500 Odilia/uL 10/22/23 13:30 Date of Service: 09/29/23 EXAMINATION: CT ABDOMEN AND PELVIS WITHOUT CONTRAST FINDINGS: RESIDENT CARE ASSOCIATE: Debris-filled stomach. Fecal retention. Pelvic herniorrhaphy material. LUNG BASES: Study limited by respiratory motion. Increasing bilateral atelectasis. In the right lower lobe, partially visualized consolidation not excluded. Nonenlarged heart. No pericardial effusion. Moderately large hiatal hernia with degenerative clips again seen. LIVER, GALLBLADDER, AND BILIARY TREE: The liver is normal in size, shape, and attenuation. No focal hepatic lesion or biliary ductal dilatation is present. The gallbladder is unremarkable with no evidence of radiopaque gallstones, gallbladder wall thickening, or obvious pericholecystic inflammatory changes. PANCREAS: Unremarkable. SPLEEN: Unremarkable. ADRENAL GLANDS: Unremarkable. KIDNEYS AND URETERS: Unchanged tiny nonobstructing renal calculi, largest 2 mm hyperdense 1.7 cm right renal hyperattenuating lesion and simple appearing renal cysts are unchanged. Left renal hypodensities are unchanged. The right kidney is atrophic. The kidneys are normal in size, shape, and attenuation. No hydronephrosis or hydroureter. No perinephric stranding. BLADDER: 2.5 cm bladder calculus previously measured 1.5 cm. Bladder sotelo are diffusely thickened. Redemonstration right bladder diverticulum with stone(s). GASTROINTESTINAL TRACT: Moderately large hiatal hernia with junction anastomotic suture line. Moderately distended stomach with ingested contents. No CT evidence of small bowel obstruction. Appendix not identified with certainty. Severe fecal retention/constipation. ABDOMINAL WALL: Anterior pelvic herniorrhaphy material again identified. LYMPH NODES: Normal. VASCULAR: Atherosclerotic calcifications nonaneurysmal aorta. PELVIC VISCERA: Unremarkable. Prostate calcification. Phleboliths. OSSEOUS STRUCTURES: Unremarkable. IMPRESSION: Severe constipation. Study significantly limited IV or oral contrast. If there is clinical concern for other intra-abdominal or pelvic pathology, especially gastrointestinal, study be repeated with oral and IV contrast. Atrophic right kidney. Right hemorrhagic simple renal cysts. Likely unchanged left renal cysts. Nonobstructing right renal calculi. Slight enlargement urinary bladder calculus, now 2.5 cm. Bladder wall thickening, right bladder diverticulum with stone(s). Increasing bibasilar atelectasis, right lower lobe consolidation not excluded. Consider chest radiograph. Fleischner guidelines were followed. Assessment & Plan Assessment & Plan (1) Nephrolithiasis: Code(s): N20.0 - Calculus of kidney Category: Medical (2) Bladder calculus: Code(s): N21.0 - Calculus in bladder Category: Medical Plan: Risks, benefits and alternatives to therapy were discussed. These include but are not limited to infection, bleeding, damage to local organs and tissues, need for further interventions. ? Anesthetic risks regarding cardiac arrhythmia, blood clots, and potential mortality were discussed. The patient understands the typical recovery time and the outpatient nature of the procedure. After consideration of these risks the patient gives full informed consent and they wish to move ahead with the procedure. Plan In office urinalysis results reviewed with patients nurse at [facility]; 3+ leukocytes; will send for urine culture. Start Bactrim as discussed and prescribed. Recent CT results reviewed with nursing today; as noted above. Discussed surgical intervention of bladder stone as well as green light laser of the prostate. Discussed, educated, and stressed the importance of increasing fluid intake. Will schedule for surgical procedure as discussed. Nursing will call if symptoms arise or seek medical treatment. CT results and plan of care reviewed with Dr. Kamara. Will schedule for GreenLight laser of the prostate and laser of bladder stone with Dr. Kamara. Orders: Orders AMB Urinalysis Automated 10/22/23 Z13.9 - Encounter for screening, unspecified Urine Culture 10/22/23 N39.0 - Urinary tract infection, site not specified Medications: New sulfamethoxazole-trimethoprim 800-160 mg (Bactrim DS) 1 tab PO BID 14 tabs 0RF 7 days N32.81 - Overactive bladder Discontinued cefuroxime axetil Discontinued Reason: Doctor's Order 250 mg PO BID 7 days 14 tabs 0RF Patient Instructions: The patient had an opportunity to ask questions regarding the treatment plan. All questions were answered. Physical exam, labs, and imaging were discussed and reviewed in detail. As well as risks, benefits, and discussion of treatment choices. No major barriers to understanding were identified. The patient expressed understanding and agreement with the above treatment plan. The patient was made aware they should contact our office by phone for worsening of their current condition, the appearance of new symptoms, or with any questions or concerns. Compliance is encouraged with any medications and follow up testing that is ordered. It is a privilege to be allowed the opportunity to participate in? your urological care.? Again, if you have any questions or concerns If you have any questions or concerns please do not hesitate to contact me. The office is [phone]. This note is constructed using voice recognition software. While every effort has been made to ensure accuracy bevel polisher errors may have been included. Yours sincerely, JUSTYN Cannon Coding Level of Care Code New Pt Level 4 (38390) Diagnoses Nephrolithiasis N20.0 Bladder calculus N21.0
== END 2023-10-22 13:32 | disposition home or self-care (01) ==
PROVIDERS: PCP Hospitalist; Visit Provider Nurse Practitioner Family
DX: N20.0 Calculus of kidney (principal); N21.0 Calculus in bladder
CPT/HCPCS: 99204; 99214

== ENCOUNTER 2023-10-28 11:08 | Day surgery (SDC) | payer MEDICARE, MEDICAID, SELFPAY ==
--- NOTE | 2023-10-27 08:42 | HO.ANESPROP2 ---
Documented by User: Ange Spence NP 10/27/23 08:46 HPI - Anesthesia Eval Consult details Narrative: 67yo M for Upper Endoscopy and Colonoscopy s/p EGD for food bolus 08/2023 with TIVA Patient is a resident of [facility]. Schizoaffective disorder, TBI. [facility] Active Problems Active Problems: All Active Problems Bladder calculus (Acute) Nephrolithiasis (Acute) Erosive esophagitis (Acute) Heme positive stool (Acute) Iron deficiency anemia (Acute) Toxic encephalopathy (Acute) Tubular adenoma (Acute) Past Medical History Medical History Repeated falls Disturbances of salivary secretion Autistic disorder ADHD (attention deficit hyperactivity disorder) Metabolic encephalopathy Adult failure to thrive Erysipelas COVID-19 Cellulitis Muscle weakness (generalized) Osteoarthritis Kidney cyst, acquired Vomiting and diarrhea Emphysema of lung Bronchitis Tubular adenoma Allergic rhinitis Esophageal obstruction Hydronephrosis On beta elmer at home History of COVID-19 Resides in jail facility [place] Personality disorder Hypothyroidism GERD (gastroesophageal reflux disease) Anemia Encephalopathy GI bleed BPH (benign prostatic hyperplasia) HTN (hypertension) Dysphagia Diabetes Schizoaffective disorder TBI (traumatic brain injury) Family History Family history of problems with anesthesia: No Surgical History Surgical History Hx of colonoscopy Hx of esophagogastroduodenoscopy History of Problems with Anesthesia: No Social History Social History Household Members: Other Household Members Other:: resides @ [facility] Housing: [facility] Housing Other:: [facility]-[phone] Are you a primary critical care nurse to a significant other at home: No Do you presently have visiting nurse or other home services: Yes (as above noted) Unable to assess alcohol history related to: Unknown Alcohol intake: unknown Comment: 1:1 sitter Patient Tobacco Use Status: Former Tobacco user Use of substances other than those prescribed or required for medical reasons: No Are you DNR?: No Advance Directives: No Advance Directives Information Provided: Yes Advance Directives Date on File: 02/12/22 service: No Current occupational status: disabled Meds Allergies Allergy/AdvReac Type Severity Reaction Status Date / Time fish oil [FISH OIL] Allergy Unknown Unknown Verified 10/22/23 13:55 Iodinated Contrast Media Allergy Unknown Unknown Verified 10/22/23 13:55 [IODINATED CONTRAST- ORAL AND IV DYE] pollen extracts Allergy Unknown Unknown Verified 10/22/23 13:55 shellfish derived Allergy Unknown Unknown Verified 10/22/23 13:55 Home Medications ?Medication ?Instructions ?Recorded ?Confirmed ?Last Taken ?Type acetaminophen 325 mg tablet 650 mg PO Q6H PRN Fever Or Pain 09/23/20 10/22/23 09/23/20 History diphenhydramine HCl 25 mg capsule 25 mg PO Q6H PRN Itching 09/23/20 10/22/23 Unknown History (Benadryl) docusate sodium 100 mg capsule 100 mg PO BID 09/23/20 10/22/23 08/26/23 History lactulose 10 gram/15 mL (15 mL) 60 ml PO TID 09/23/20 10/22/23 08/26/23 History oral solution sodium bicarbonate 650 mg tablet 650 mg PO DAILY 09/23/20 10/22/23 08/26/23 History tamsulosin 0.4 mg capsule 0.4 mg PO DAILY 09/23/20 10/22/23 08/26/23 History multivitamin with minerals 1 tab PO DAILY 11/25/20 10/22/23 08/26/23 History ascorbic acid (vitamin C) 500 mg 500 mg PO DAILY 04/23/22 10/22/23 08/26/23 History tablet clozapine 50 mg tablet 1 tab PO BEDTIME 04/23/22 10/22/23 08/26/23 History ferrous sulfate 325 mg (65 mg 325 mg PO DAILY 04/23/22 10/22/23 08/26/23 History iron) tablet hydroxyzine HCl 50 mg tablet 1 tab PO TID PRN Agitation 04/23/22 10/22/23 Unknown History metoprolol succinate 50 mg 1 tab PO BID 04/23/22 10/22/23 08/26/23 History tablet,extended release 24 hr sennosides 8.6 mg tablet (senna) 17.2 mg PO DAILY 03/10/23 10/22/23 08/26/23 History bisacodyl 10 mg rectal suppository 10 mg HI DAILY PRN Constipation 06/11/23 10/22/23 Unknown History levothyroxine 100 mcg tablet 100 mcg PO DAILY 06/11/23 10/22/23 08/26/23 History magnesium hydroxide 400 mg/5 mL 30 ml PO BEDTIME 06/11/23 10/22/23 08/26/23 History oral suspension (Milk of Magnesia) clomipramine 50 mg capsule 50 mg PO BEDTIME 08/27/23 10/22/23 Unknown History Exam Pertinent Lab Results Pertinent Lab Results: Laboratory Tests 09/29/23 13:44 WBC 9.8 Hgb 12.6 L Hct 39.2 L Plt Count 321 D Sodium 141 Potassium 4.1 Chloride 109 H Carbon Dioxide 26 BUN 30 H Creatinine 0.99 Narrative Narrative: EKG 08/2023 Vent. Rate : 066 BPM Atrial Rate : 066 BPM P-R Int : 170 ms QRS Dur : 078 ms QT Int : 420 ms P-R-T Axes : 086 026 064 degrees QTc Int : 440 ms Normal sinus rhythm Low voltage QRS Borderline ECG When compared with ECG of 12-AUG-2023 23:54, Criteria for Inferior infarct are no longer Present Assessment and Plan Assessment Anesthesia Assessment: Chart Reviewed Final Anesthetic Review Family History of Problems with Anesthesia: No History of Problems with Anesthesia: No Documented by User: Lukas Flores MD 10/28/23 12:24 [facility] Past Medical History Medical History Repeated falls Disturbances of salivary secretion Autistic disorder ADHD (attention deficit hyperactivity disorder) Metabolic encephalopathy Adult failure to thrive Erysipelas COVID-19 Cellulitis Muscle weakness (generalized) Osteoarthritis Kidney cyst, acquired Vomiting and diarrhea Emphysema of lung Bronchitis Tubular adenoma Allergic rhinitis Esophageal obstruction Hydronephrosis On beta elmer at home History of COVID-19 Resides in jail facility [place] Personality disorder Hypothyroidism GERD (gastroesophageal reflux disease) Anemia Encephalopathy GI bleed BPH (benign prostatic hyperplasia) HTN (hypertension) Dysphagia Diabetes Schizoaffective disorder TBI (traumatic brain injury) Surgical History Surgical History Hx of colonoscopy Hx of esophagogastroduodenoscopy Social History Social History Household Members: Other Household Members Other:: resides @ [facility] Housing: [facility] Housing Other:: [facility]-[phone] Are you a primary critical care nurse to a significant other at home: No Do you presently have visiting nurse or other home services: Yes (as above noted) Unable to assess alcohol history related to: Unknown Alcohol intake: unknown Comment: 1:1 sitter Patient Tobacco Use Status: Former Tobacco user Use of substances other than those prescribed or required for medical reasons: No Are you DNR?: No Advance Directives: No Advance Directives Information Provided: Yes Advance Directives Date on File: 02/12/22 service: No Current occupational status: disabled Meds Allergies Allergy/AdvReac Type Severity Reaction Status Date / Time fish oil [FISH OIL] Allergy Unknown Unknown Verified 10/22/23 13:55 Iodinated Contrast Media Allergy Unknown Unknown Verified 10/22/23 13:55 [IODINATED CONTRAST- ORAL AND IV DYE] pollen extracts Allergy Unknown Unknown Verified 10/22/23 13:55 shellfish derived Allergy Unknown Unknown Verified 10/22/23 13:55 Home Medications ?Medication ?Instructions ?Recorded ?Confirmed ?Last Taken ?Type acetaminophen 325 mg tablet 650 mg PO Q6H PRN Fever Or Pain 09/23/20 10/22/23 09/23/20 History diphenhydramine HCl 25 mg capsule 25 mg PO Q6H PRN Itching 09/23/20 10/22/23 Unknown History (Benadryl) docusate sodium 100 mg capsule 100 mg PO BID 09/23/20 10/22/23 08/26/23 History lactulose 10 gram/15 mL (15 mL) 60 ml PO TID 09/23/20 10/22/23 08/26/23 History oral solution sodium bicarbonate 650 mg tablet 650 mg PO DAILY 09/23/20 10/22/23 08/26/23 History tamsulosin 0.4 mg capsule 0.4 mg PO DAILY 09/23/20 10/22/23 08/26/23 History multivitamin with minerals 1 tab PO DAILY 11/25/20 10/22/23 08/26/23 History ascorbic acid (vitamin C) 500 mg 500 mg PO DAILY 04/23/22 10/22/23 08/26/23 History tablet clozapine 50 mg tablet 1 tab PO BEDTIME 04/23/22 10/22/23 08/26/23 History ferrous sulfate 325 mg (65 mg 325 mg PO DAILY 04/23/22 10/22/23 08/26/23 History iron) tablet hydroxyzine HCl 50 mg tablet 1 tab PO TID PRN Agitation 04/23/22 10/22/23 Unknown History metoprolol succinate 50 mg 1 tab PO BID 04/23/22 10/22/23 08/26/23 History tablet,extended release 24 hr sennosides 8.6 mg tablet (senna) 17.2 mg PO DAILY 03/10/23 10/22/23 08/26/23 History bisacodyl 10 mg rectal suppository 10 mg HI DAILY PRN Constipation 06/11/23 10/22/23 Unknown History levothyroxine 100 mcg tablet 100 mcg PO DAILY 06/11/23 10/22/23 08/26/23 History magnesium hydroxide 400 mg/5 mL 30 ml PO BEDTIME 06/11/23 10/22/23 08/26/23 History oral suspension (Milk of Magnesia) clomipramine 50 mg capsule 50 mg PO BEDTIME 08/27/23 10/22/23 Unknown History Exam Airway Mallampati Class: II TM Dist: >3cm Neck ROM: Full Partial: Upper and Lower Heart: ok Lungs: ok Assessment and Plan Assessment Anesthesia Assessment: Anesthesia Plan Discussed Final Anesthetic Review NPO: Yes ASA Class: IV Final Preanesthetic Review: No Changes in Pt Med Stat, Meds/Allgs Chart Reviewed, Consent Obtained/Reviewed and Anes Risks/Benef Reviewed Patient Risk: High Procedure Risk: Intermediate Anesthetic Plan Anesthetic Plan: Agree w/ Assess. and Plan and TIVA Disposition: Standard PACU
--- NOTE | 2023-10-28 11:16 | MHC.SHP ---
Pre-Procedural Eval Section A - 24 Hr Update-Section A only Date of Service: 10/28/23 Section B - Complete if H&P > 30 days Chief Complaint: Benign neoplasm, unspecified site, Dysphagia, unsp Relevant Family History (Specify if Yes): No Relevant Social History: None Present Medications: see Short Stay Collaborative assessment Medical History: Significant History (Tubular adenoma Allergic rhinitis Esophageal obstruction Hydronephrosis On beta elmer at home History of COVID-19 Resides in correction facility [place] Personality disorder Hypothyroidism GERD (gastroesophageal reflux disease) Anemia Encephalopathy GI bleed BPH (benign prostatic hyperplas) History of Previous Operations: Relevant previous surgery/procedure and date(s) (Hx of colonoscopy Hx of esophagogastroduodenoscopy) Allergies: Allergies Allergy/AdvReac Type Severity Reaction Status Date / Time fish oil [FISH OIL] Allergy Unknown Unknown Verified 10/22/23 13:55 Iodinated Contrast Media Allergy Unknown Unknown Verified 10/22/23 13:55 [IODINATED CONTRAST- ORAL AND IV DYE] pollen extracts Allergy Unknown Unknown Verified 10/22/23 13:55 shellfish derived Allergy Unknown Unknown Verified 10/22/23 13:55 Review of Systems Sugical H&P ROS: Negative: Constitution, Cardiovascular, Respiratory, Neurological, Psychiatric, Hem-Onc, Allergic/Immunologic, Gastrointestinal, Genitourinary, Musculoskeletal, Integumentary, Endocrine and Eyes/Ears/Nose/Throat Exam Surgical H&P Exam: Normal: HEENT, Normal: Heart, Normal: Lungs, Normal: Extremities, Normal: Abdomen, Normal: Skin and Normal: Neurological Plan Diagnosis/Plan: Unchanged I have reviewed the history and physical and performed a pertinent physical examination on my patient. No changes have occurred unless specified. upper scope for re eval of esophagitis and possible balloon dilation Time Spent With Patient Time: Total time managing care of this patient today ____ minutes.
[2023-10-28 11:38] VITALS: BMI 15.5
--- NOTE | 2023-10-28 11:49 | PC.NURSE ---
SPOKE TO NURSE QIANA AND STATED THE OUTOUT WAS LIGHT DASILVA,YELLOW,NO FOOD. NURSES ALSO STATED HE DID NOT EAT. PATIENT REMAINS CALM AND COOPERATIVE.
[2023-10-28] MEDS: Lactated Ringers 1,000 ML 100 ML IVCONT (12:18)
--- NOTE | 2023-10-28 12:22 | P.OPN-COLO_ITS ---
Colonoscopy Operative Note Operative Note Date of Service: 10/28/23 Narrative: Operative Information Procedure Description: EGD, Colonoscopy Indication: esophagitis, screening Anesthesia: MAC FLEXIBLE TRANSORAL UPPER GASTROINTESTINAL ENDOSCOPY AND COLONOSCOPY PROCEDURE NOTE UPPER ENDOSCOPY Consent: Indications for the procedure and potential complications of bleeding, perforation, reaction to medications and missed diagnosis were discussed with the patient and informed consent was obtained. Instrument: Olympus GIF H 190 J mid size upper endoscope Monitoring: Vital signs and clinical assessment, continuous EKG monitoring, Pulse oximetry, Carbon Dioxide monitoring and blood pressure monitoring were done throughout the procedure. Procedure: The patient was placed in the left lateral decubitis position and pre-procedure medications were administered and a bite block was placed. The endoscope was inserted into the mouth and advanced under direct vision to the third part of duodenum. A careful inspection was made as the upper endoscope was withdrawn including a retroflexed examination of the proximal stomach; Findings and interventions are described below. Findings: Larynx:normal Esophagus: GE junction at 38 cm, diaphragm hiatus at 44 cm, consistent with 6 cm fixed hiatal hernia. Esophagitis and stricture noted at GEJ, dilated with 15 mm balloon with heme noted, then UES also dilated to 16 mm, no tear seen Stomach: Normal mucosa. Biopsies were obtained. Grade 2 flap valve on retroflexed examination of the cardia. Duodenum: Normal bulb and descending duodenum, Intervention: balloon dilation COLONOSCOPY Instrument: Olympus variable stiffness pediatric scope 190L Colonoscopy Monitoring: Vital signs and clinical assessment, continuous EKG monitoring, Pulse oximetry, Carbon Dioxide monitoring and blood pressure monitoring were done throughout the procedure. Colon withdrawal time was 10 minutes. Procedure: The patient was placed in the left lateral decubitis position and pre-procedure medications were administered. After a digital rectal examination of the ano-rectum, the video colonoscope was inserted into the rectum and advanced through the colon to the cecum/TI. The colonoscope was slowly withdrawn in a retrograde panoramic fashion and the colon mucosa was carefully examined including a retroflexed view of the rectum. Findings and interventions are described below. Procedure Difficulty:moderate Findings: Terminal Ileum-not intubated Cecum:normal Ascending Colon: normal Transverse Colon -normal Descending Colon:normal Sigmoid Colon: normal Rectum: Retroflexion with small internal hemorrhoids, grade I Anorectum - normal Colon preparation: [place] Bowel Preparation Scale Right colon; 1 Transverse colon: 1-2 Left colon; 1 (0 = Unprepared colon segment with mucosa not seen due to solid stool that cannot be cleared. 1 = Portion of mucosa of the colon segment seen, but other areas of the colon segment not well seen due to staining, residual stool and/or opaque liquid. 2 = Minor amount of residual staining, small fragments of stool and/or opaque liquid, but mucosa of colon segment seen well. 3 = Entire mucosa of colon segment seen well with no residual staining, small fragments of stool or opaque liquid) Impression and Post Procedure Diagnosis: Endoscopy Findings: esophagitis hiatal hernia esophageal stricture Colonoscopy Findings: internal hemorrhoids Plan: Await Pathology results Repeat Colonoscopy in 1 year or earlier if clinically indicated High fiber diet leaflet avoid straining at stool, epsom salts and sitz bath, anusol supps or cream repeat EGD in 3-6 months for possibel re dilation, maybe kenalo injection GERD precautions, high dose PPI BID and carafate Above findings were reviewed with the patient and relevant handouts were provided if indicated.
[2023-10-28 13:08] VITALS: BP 98/61; PULSE 78; RESP 18; TEMP 36.1; O2SAT 100
[2023-10-28 13:23] VITALS: BP 138/77; PULSE 70; RESP 18; TEMP 36.4; O2SAT 100
--- NOTE | 2023-10-28 13:34 | PC.NURSE ---
2 staff members present from [facility] to dress patient and review discharge instructions.
[2023-10-28 13:38] VITALS: BP 132/78; PULSE 72; RESP 18; TEMP 36.4; O2SAT 100
--- NOTE | 2023-10-28 13:48 | PC.NURSE ---
Shellie and other staff member verbalized understanding of all discharge instructions and left with copies. aware of f/u egd in 3-6months and next colonoscopy in one year unless indicated sooner.
== END 2023-10-28 13:38 | disposition home or self-care (01) ==
PROVIDERS: PCP Hospitalist; Visit Provider Internal Medicine Gastroenterology
PROC: (CPT 43249; principal; 2023-10-28 12:40)
DX: Z12.11 Encounter for screening for malignant neoplasm of colon (principal); K64.0 First degree hemorrhoids; Z86.010 Personal history of colon polyps; K22.2 Esophageal obstruction; K21.00 Gastro-esophageal reflux disease with esophagitis, without bleeding; K44.9 Diaphragmatic hernia without obstruction or gangrene; I10 Essential (primary) hypertension; E11.9 Type 2 diabetes mellitus without complications; K58.2 Mixed irritable bowel syndrome
CPT/HCPCS: 43249; 43239; G0105; C1726; J2704

== ENCOUNTER → 2023-10-28 11:08 | Outpatient (BNV) | payer MEDICARE, MEDICAID, SELFPAY | PROVIDERS: PCP Hospitalist; Visit Provider Internal Medicine Gastroenterology | DX: Z12.11 Encounter for screening for malignant neoplasm of colon (principal); K64.0 First degree hemorrhoids; K20.90 Esophagitis, unspecified without bleeding; K22.2 Esophageal obstruction | CPT/HCPCS: 43239; 43249; G0121 ==

== ENCOUNTER 2023-11-01 13:51 | Day surgery (SDC) | payer MEDICARE, MEDICAID, SELFPAY ==
[2023-11-01] VITALS (9 sets, daily range): BP systolic 123–165; BP diastolic 84–105; PULSE 65–83; RESP 13–19; TEMP 36.1–36.3; O2SAT 98–100; BMI 15.0
[2023-11-01 14:37] LABS: Glucose, Whole Blood 77 mg/dL (60-115)
--- NOTE | 2023-11-01 14:45 | P.CONAN_ITS ---
[facility] Active Problems Active Problems: All Active Problems Bladder calculus (Acute) Nephrolithiasis (Acute) Erosive esophagitis (Acute) Heme positive stool (Acute) Iron deficiency anemia (Acute) Toxic encephalopathy (Acute) Tubular adenoma (Acute) Past Medical History Medical History Repeated falls Disturbances of salivary secretion Autistic disorder ADHD (attention deficit hyperactivity disorder) Metabolic encephalopathy Adult failure to thrive Erysipelas COVID-19 Cellulitis Muscle weakness (generalized) Osteoarthritis Kidney cyst, acquired Vomiting and diarrhea Emphysema of lung Bronchitis Tubular adenoma Allergic rhinitis Esophageal obstruction Hydronephrosis On beta elmer at home History of COVID-19 Resides in shelter facility [place] Personality disorder Hypothyroidism GERD (gastroesophageal reflux disease) Anemia Encephalopathy GI bleed BPH (benign prostatic hyperplasia) HTN (hypertension) Dysphagia Diabetes Schizoaffective disorder TBI (traumatic brain injury) Family History Family history of problems with anesthesia: No Surgical History Surgical History Hx of colonoscopy Hx of esophagogastroduodenoscopy History of Problems with Anesthesia: No Social History Social History Household Members: Other Household Members Other:: resides @ [facility] Housing: Detention Housing Other:: [facility] ([place], [place])-[phone] Are you a primary care partner to a significant other at home: No Do you presently have visiting nurse or other home services: Yes (as above noted) Unable to assess alcohol history related to: Unknown Alcohol intake: unknown Comment: 1:1 sitter Patient Tobacco Use Status: Former Tobacco user Use of substances other than those prescribed or required for medical reasons: No Are you DNR?: No Advance Directives: No Advance Directives Information Provided: Yes Advance Directives Date on File: 02/12/22 service: No Current occupational status: disabled Meds Allergies Allergy/AdvReac Type Severity Reaction Status Date / Time fish oil [FISH OIL] Allergy Unknown Unknown Verified 10/22/23 13:55 Iodinated Contrast Media Allergy Unknown Unknown Verified 10/22/23 13:55 [IODINATED CONTRAST- ORAL AND IV DYE] pollen extracts Allergy Unknown Unknown Verified 10/22/23 13:55 shellfish derived Allergy Unknown Unknown Verified 10/22/23 13:55 Active Medications: Current Medications Lactated Ringer's (Lr) 1,000 mls @ 50 mls/hr IVCONT .Q20H KIMBER Home Medications ?Medication ?Instructions ?Recorded ?Confirmed ?Last Taken ?Type acetaminophen 325 mg tablet 650 mg PO Q6H PRN Fever Or Pain 09/23/20 10/22/23 09/23/20 History diphenhydramine HCl 25 mg capsule 25 mg PO Q6H PRN Itching 09/23/20 10/22/23 Unknown History (Benadryl) docusate sodium 100 mg capsule 100 mg PO BID 09/23/20 10/22/23 08/26/23 History lactulose 10 gram/15 mL (15 mL) 60 ml PO TID 09/23/20 10/22/23 08/26/23 History oral solution sodium bicarbonate 650 mg tablet 650 mg PO DAILY 09/23/20 10/22/23 08/26/23 History tamsulosin 0.4 mg capsule 0.4 mg PO DAILY 09/23/20 10/22/23 08/26/23 History multivitamin with minerals 1 tab PO DAILY 11/25/20 10/22/23 08/26/23 History ascorbic acid (vitamin C) 500 mg 500 mg PO DAILY 04/23/22 10/22/23 08/26/23 History tablet clozapine 50 mg tablet 1 tab PO BEDTIME 04/23/22 10/22/23 08/26/23 History ferrous sulfate 325 mg (65 mg 325 mg PO DAILY 04/23/22 10/22/23 08/26/23 History iron) tablet hydroxyzine HCl 50 mg tablet 1 tab PO TID PRN Agitation 04/23/22 10/22/23 Unknown History metoprolol succinate 50 mg 1 tab PO BID 04/23/22 10/22/23 08/26/23 History tablet,extended release 24 hr sennosides 8.6 mg tablet (senna) 17.2 mg PO DAILY 03/10/23 10/22/23 08/26/23 History bisacodyl 10 mg rectal suppository 10 mg IN DAILY PRN Constipation 06/11/23 10/22/23 Unknown History levothyroxine 100 mcg tablet 100 mcg PO DAILY 06/11/23 10/22/23 08/26/23 History magnesium hydroxide 400 mg/5 mL 30 ml PO BEDTIME 06/11/23 10/22/23 08/26/23 History oral suspension (Milk of Magnesia) clomipramine 50 mg capsule 50 mg PO BEDTIME 08/27/23 10/22/23 Unknown History Exam Height,Weight and Vital Signs: Height 6 ft 2 in Weight 53.161 kg Last Vital Signs Temp 97.1 F 11/01/23 14:14 Pulse 83 11/01/23 14:14 Resp 18 11/01/23 14:14 BP 123/84 11/01/23 14:14 Pulse Ox 98 11/01/23 14:14 O2 Del Method Room Air 11/01/23 14:14 Pertinent Lab Results Pertinent Lab Results: Laboratory Tests 11/01/23 14:23 POC Glucose 77 Airway Mallampati Class: II TM Dist: >3cm Neck ROM: Full Heart: RRR Lungs: CTA Assessment and Plan Assessment Anesthesia Assessment: Anesthesia Plan Discussed and Chart Reviewed Final Anesthetic Review Family History of Problems with Anesthesia: No History of Problems with Anesthesia: No NPO: Yes ASA Class: III Final Preanesthetic Review: Meds/Allgs Chart Reviewed, Consent Obtained/Reviewed and Anes Risks/Benef Reviewed Patient Risk: Intermediate Procedure Risk: Intermediate Anesthetic Plan Anesthetic Plan: GA Disposition: Standard PACU
[2023-11-01 15:12] LABS: Glucose, Whole Blood 93 mg/dL (60-115)
--- NOTE | 2023-11-01 15:53 | P.CONAN_ITS ---
[facility] Active Problems Active Problems: All Active Problems Bladder calculus (Acute) Nephrolithiasis (Acute) Erosive esophagitis (Acute) Heme positive stool (Acute) Iron deficiency anemia (Acute) Toxic encephalopathy (Acute) Tubular adenoma (Acute) Past Medical History Medical History Repeated falls Disturbances of salivary secretion Autistic disorder ADHD (attention deficit hyperactivity disorder) Metabolic encephalopathy Adult failure to thrive Erysipelas COVID-19 Cellulitis Muscle weakness (generalized) Osteoarthritis Kidney cyst, acquired Vomiting and diarrhea Emphysema of lung Bronchitis Tubular adenoma Allergic rhinitis Esophageal obstruction Hydronephrosis On beta elmer at home History of COVID-19 Resides in [place] [facility] Presbyopia Personality disorder Hypothyroidism GERD (gastroesophageal reflux disease) Anemia Encephalopathy GI bleed BPH (benign prostatic hyperplasia) HTN (hypertension) Dysphagia Diabetes Schizoaffective disorder TBI (traumatic brain injury) Family History Family history of problems with anesthesia: No Surgical History Surgical History Hx of colonoscopy Hx of esophagogastroduodenoscopy History of Problems with Anesthesia: No Social History Social History Household Members: Other Household Members Other:: resides @ [facility] Housing: Retirement Housing Other:: [facility]-[phone] Are you a primary long term care phlebotomist to a significant other at home: No Do you presently have visiting nurse or other home services: Yes (as above noted) Unable to assess alcohol history related to: Unknown Alcohol intake: unknown Comment: 1:1 sitter Patient Tobacco Use Status: Former Tobacco user Use of substances other than those prescribed or required for medical reasons: No Are you DNR?: No Advance Directives: No Advance Directives Information Provided: Yes Advance Directives Date on File: 02/12/22 service: No Current occupational status: disabled Meds Allergies Allergy/AdvReac Type Severity Reaction Status Date / Time fish oil [FISH OIL] Allergy Unknown Unknown Verified 10/22/23 13:55 Iodinated Contrast Media Allergy Unknown Unknown Verified 10/22/23 13:55 [IODINATED CONTRAST- ORAL AND IV DYE] pollen extracts Allergy Unknown Unknown Verified 10/22/23 13:55 shellfish derived Allergy Unknown Unknown Verified 10/22/23 13:55 Active Medications: Current Medications Fentanyl (Fentanyl Citrate/Pf 100 Mcg/2 Ml Vial) 25 mcg IVPUSH Q5M PRN; Protocol PRN Reason: Pain, Moderate(Pain Scale 4-6) Stop: 11/01/23 20:46 Lactated Ringer's (Lr) 1,000 mls @ 50 mls/hr IVCONT .Q20H KIMBER Dextrose (D5w) 100 mls @ 0 mls/hr IV .Q0M PRN PRN Reason: Per Protocol Levofloxacin (Levaquin) 500 mg in 100 mls @ 100 mls/hr IV PREOP ONE Stop: 11/01/23 16:00 Ondansetron HCl (Ondansetron Hcl 4 Mg/2 Ml Vial) 4 mg IVPUSH ONCE PRN PRN Reason: Nausea and Vomiting Stop: 11/01/23 20:46 Home Medications ?Medication ?Instructions ?Recorded ?Confirmed ?Last Taken ?Type acetaminophen 325 mg tablet 650 mg PO Q6H PRN Fever Or Pain 09/23/20 10/22/23 09/23/20 History diphenhydramine HCl 25 mg capsule 25 mg PO Q6H PRN Itching 09/23/20 10/22/23 Unknown History (Benadryl) docusate sodium 100 mg capsule 100 mg PO BID 09/23/20 10/22/23 08/26/23 History lactulose 10 gram/15 mL (15 mL) 60 ml PO TID 09/23/20 10/22/23 08/26/23 History oral solution sodium bicarbonate 650 mg tablet 650 mg PO DAILY 09/23/20 10/22/23 08/26/23 History tamsulosin 0.4 mg capsule 0.4 mg PO DAILY 09/23/20 10/22/23 08/26/23 History multivitamin with minerals 1 tab PO DAILY 11/25/20 10/22/23 08/26/23 History ascorbic acid (vitamin C) 500 mg 500 mg PO DAILY 04/23/22 10/22/23 08/26/23 History tablet clozapine 50 mg tablet 1 tab PO BEDTIME 04/23/22 10/22/23 08/26/23 History ferrous sulfate 325 mg (65 mg 325 mg PO DAILY 04/23/22 10/22/23 08/26/23 History iron) tablet hydroxyzine HCl 50 mg tablet 1 tab PO TID PRN Agitation 04/23/22 10/22/23 Unknown History metoprolol succinate 50 mg 1 tab PO BID 04/23/22 10/22/23 08/26/23 History tablet,extended release 24 hr sennosides 8.6 mg tablet (senna) 17.2 mg PO DAILY 03/10/23 10/22/23 08/26/23 History bisacodyl 10 mg rectal suppository 10 mg HI DAILY PRN Constipation 06/11/23 10/22/23 Unknown History levothyroxine 100 mcg tablet 100 mcg PO DAILY 06/11/23 10/22/23 08/26/23 History magnesium hydroxide 400 mg/5 mL 30 ml PO BEDTIME 06/11/23 10/22/23 08/26/23 History oral suspension (Milk of Magnesia) clomipramine 50 mg capsule 50 mg PO BEDTIME 08/27/23 10/22/23 Unknown History Exam Height,Weight and Vital Signs: Height 6 ft 2 in Weight 53.161 kg Last Vital Signs Temp 97.1 F 11/01/23 14:14 Pulse 83 11/01/23 14:14 Resp 18 11/01/23 14:14 BP 123/84 11/01/23 14:14 Pulse Ox 98 11/01/23 14:14 O2 Del Method Room Air 11/01/23 14:14 Pertinent Lab Results Pertinent Lab Results: Laboratory Tests 11/01/23 11/01/23 14:23 15:07 POC Glucose 77 93 Airway Mallampati Class: II TM Dist: >3cm Neck ROM: Full Assessment and Plan Final Anesthetic Review Family History of Problems with Anesthesia: No History of Problems with Anesthesia: No NPO: Yes ASA Class: III Final Preanesthetic Review: No Changes in Pt Med Stat, Meds/Allgs Chart Reviewed, Consent Obtained/Reviewed and Anes Risks/Benef Reviewed Patient Risk: Intermediate Procedure Risk: Low Anesthetic Plan Anesthetic Plan: GA Disposition: Standard PACU
--- NOTE | 2023-11-01 15:56 | P.CONAN_ITS ---
[facility] Active Problems Active Problems: All Active Problems (Updated 10/22/23 @ 13:47 by Ghada Nieves [facility]) Bladder calculus (Acute) Nephrolithiasis (Acute) Erosive esophagitis (Acute) Heme positive stool (Acute) Iron deficiency anemia (Acute) Toxic encephalopathy (Acute) Tubular adenoma (Acute) Past Medical History Medical History Repeated falls Disturbances of salivary secretion Autistic disorder ADHD (attention deficit hyperactivity disorder) Metabolic encephalopathy Adult failure to thrive Erysipelas COVID-19 Cellulitis Muscle weakness (generalized) Osteoarthritis Kidney cyst, acquired Vomiting and diarrhea Emphysema of lung Bronchitis Tubular adenoma Allergic rhinitis Esophageal obstruction Hydronephrosis On beta elmer at home History of COVID-19 Resides in [facility] facility Presbyopia Personality disorder Hypothyroidism GERD (gastroesophageal reflux disease) Anemia Encephalopathy GI bleed BPH (benign prostatic hyperplasia) HTN (hypertension) Dysphagia Diabetes Schizoaffective disorder TBI (traumatic brain injury) Family History Family history of problems with anesthesia: No Surgical History Surgical History Hx of colonoscopy Hx of esophagogastroduodenoscopy History of Problems with Anesthesia: No Social History Social History Household Members: Other Household Members Other:: resides @ [facility] Housing: Long-Term Housing Other:: [facility]-[phone] Are you a primary acute care clinical nurse specialist to a significant other at home: No Do you presently have visiting nurse or other home services: Yes (as above noted) Unable to assess alcohol history related to: Unknown Alcohol intake: unknown Comment: 1:1 sitter Patient Tobacco Use Status: Former Tobacco user Use of substances other than those prescribed or required for medical reasons: No Are you DNR?: No Advance Directives: No Advance Directives Information Provided: Yes Advance Directives Date on File: 02/12/22 service: No Current occupational status: disabled Meds Allergies Allergy/AdvReac Type Severity Reaction Status Date / Time fish oil [FISH OIL] Allergy Unknown Unknown Verified 10/22/23 13:55 Iodinated Contrast Media Allergy Unknown Unknown Verified 10/22/23 13:55 [IODINATED CONTRAST- ORAL AND IV DYE] pollen extracts Allergy Unknown Unknown Verified 10/22/23 13:55 shellfish derived Allergy Unknown Unknown Verified 10/22/23 13:55 Active Medications: Current Medications Fentanyl (Fentanyl Citrate/Pf 100 Mcg/2 Ml Vial) 25 mcg IVPUSH Q5M PRN; Protocol PRN Reason: Pain, Moderate(Pain Scale 4-6) Stop: 11/01/23 20:46 Fentanyl (Fentanyl Citrate/Pf 100 Mcg/2 Ml Vial) 50 mcg IVPUSH Q5M PRN; Protocol PRN Reason: Pain, Severe (Pain Scale 7-10) Stop: 11/01/23 21:52 Lactated Ringer's (Lr) 1,000 mls @ 50 mls/hr IVCONT .Q20H KIMBER Dextrose (D5w) 100 mls @ 0 mls/hr IV .Q0M PRN PRN Reason: Per Protocol Levofloxacin (Levaquin) 500 mg in 100 mls @ 100 mls/hr IV PREOP ONE Stop: 11/01/23 16:00 Ondansetron HCl (Ondansetron Hcl 4 Mg/2 Ml Vial) 4 mg IVPUSH ONCE PRN PRN Reason: Nausea and Vomiting Stop: 11/01/23 20:46 Ondansetron HCl (Ondansetron Hcl 4 Mg/2 Ml Vial) 4 mg IVPUSH ONCE PRN PRN Reason: Nausea and Vomiting Stop: 11/01/23 21:53 Home Medications ?Medication ?Instructions ?Recorded ?Confirmed ?Last Taken ?Type acetaminophen 325 mg tablet 650 mg PO Q6H PRN Fever Or Pain 09/23/20 10/22/23 09/23/20 History diphenhydramine HCl 25 mg capsule 25 mg PO Q6H PRN Itching 09/23/20 10/22/23 Unknown History (Benadryl) docusate sodium 100 mg capsule 100 mg PO BID 09/23/20 10/22/23 08/26/23 History lactulose 10 gram/15 mL (15 mL) 60 ml PO TID 09/23/20 10/22/23 08/26/23 History oral solution sodium bicarbonate 650 mg tablet 650 mg PO DAILY 09/23/20 10/22/23 08/26/23 History tamsulosin 0.4 mg capsule 0.4 mg PO DAILY 04/06/0310/22/23 08/26/23 History multivitamin with minerals 1 tab PO DAILY 11/25/20 10/22/23 08/26/23 History ascorbic acid (vitamin C) 500 mg 500 mg PO DAILY 04/23/22 10/22/23 08/26/23 History tablet clozapine 50 mg tablet 1 tab PO BEDTIME 04/23/22 10/22/23 08/26/23 History ferrous sulfate 325 mg (65 mg 325 mg PO DAILY 04/23/22 10/22/23 08/26/23 History iron) tablet hydroxyzine HCl 50 mg tablet 1 tab PO TID PRN Agitation 04/23/22 10/22/23 Unknown History metoprolol succinate 50 mg 1 tab PO BID 04/23/22 10/22/23 08/26/23 History tablet,extended release 24 hr sennosides 8.6 mg tablet (senna) 17.2 mg PO DAILY 03/10/23 10/22/23 08/26/23 History bisacodyl 10 mg rectal suppository 10 mg SC DAILY PRN Constipation 06/11/23 10/22/23 Unknown History levothyroxine 100 mcg tablet 100 mcg PO DAILY 06/11/23 10/22/23 08/26/23 History magnesium hydroxide 400 mg/5 mL 30 ml PO BEDTIME 06/11/23 10/22/23 08/26/23 History oral suspension (Milk of Magnesia) clomipramine 50 mg capsule 50 mg PO BEDTIME 08/27/23 10/22/23 Unknown History Exam Height,Weight and Vital Signs: Height 6 ft 2 in Weight 53.161 kg Last Vital Signs Temp 97.1 F 11/01/23 14:14 Pulse 83 11/01/23 14:14 Resp 18 11/01/23 14:14 BP 123/84 11/01/23 14:14 Pulse Ox 98 11/01/23 14:14 O2 Del Method Room Air 11/01/23 14:14 Pertinent Lab Results Pertinent Lab Results: Laboratory Tests 11/01/23 11/01/23 14:23 15:07 POC Glucose 77 93 Airway Mallampati Class: III TM Dist: >3cm Neck ROM: Full Loose/Missing/Broken Teeth: Yes, Upper and Lower Assessment and Plan Assessment Anesthesia Assessment: Anesthesia Plan Discussed and Chart Reviewed Final Anesthetic Review Family History of Problems with Anesthesia: No History of Problems with Anesthesia: No NPO: Yes ASA Class: III Final Preanesthetic Review: No Changes in Pt Med Stat, Meds/Allgs Chart Reviewed, Consent Obtained/Reviewed and Anes Risks/Benef Reviewed Patient Risk: Intermediate Procedure Risk: Low Anesthetic Plan Anesthetic Plan: GA Disposition: Standard PACU
--- NOTE | 2023-11-01 16:07 | MHC.SHP ---
Pre-Procedural Eval Section A - 24 Hr Update-Section A only Date of Service: 11/01/23 The patient is an INPATIENT: No Changes since office visit: No Cold of Flu in the past 2 weeks, No New Medical Problems, No Changes in Medication and No Patient answered all questions The patient has been examined within 24 hours of the surgical procedure. The History & Physical has been completed within 30 days and I have reviewed it.: Yes Section B - Complete if H&P > 30 days Chief Complaint: Bladder calculus Details of Present Illness: Bladder calculus with hematuria and recurrent UTI Relevant Family History (Specify if Yes): No Relevant Social History: None Present Medications: see Short Stay Collaborative assessment Medical History: Significant History History of Previous Operations: No relevant previous surgery Allergies: Allergies Allergy/AdvReac Type Severity Reaction Status Date / Time fish oil [FISH OIL] Allergy Unknown Unknown Verified 10/22/23 13:55 Iodinated Contrast Media Allergy Unknown Unknown Verified 10/22/23 13:55 [IODINATED CONTRAST- ORAL AND IV DYE] pollen extracts Allergy Unknown Unknown Verified 10/22/23 13:55 shellfish derived Allergy Unknown Unknown Verified 10/22/23 13:55 Review of Systems Sugical H&P ROS: Negative: Constitution, Cardiovascular, Respiratory, Neurological, Psychiatric, Hem-Onc, Allergic/Immunologic, Gastrointestinal, Genitourinary, Musculoskeletal, Integumentary, Endocrine and Eyes/Ears/Nose/Throat Exam Surgical H&P Exam: Normal: HEENT, Normal: Heart, Normal: Lungs, Normal: Extremities, Normal: Abdomen, Normal: Skin and Normal: Neurological Plan Diagnosis/Plan: Unchanged (Cystoscopy, laser bladder stone, laser incision prostate.) I have reviewed the history and physical and performed a pertinent physical examination on my patient. No changes have occurred unless specified. Time Spent With Patient Time: Total time managing care of this patient today ____ minutes.
--- NOTE | 2023-11-01 17:15 | P.OP_ITS ---
Operative Note Operative Note Date of Service: 11/01/23 Narrative: PreOperative Diagnosis: Bladder Stone, Bladder Outlet Obstruction Post Operative Diagnosis: Bladder Stone, Bladder Outlet Obstruction Procedure: 1) Cystoscopy 2) Bladder Stone Laser 3) Laser bladder neck Surgeon: Dr Dain Kamara Anesthesia: LMA Indications for procedure: Recurrent UTI with hematuria. Imaging shows 2.5 cm bladder stone Procedure: After informed consent was verified the patient was brought to the operating room and placed in a supine position. Anesthesia was administered per protocol. The patient was placed in modified dorsal lithotomy position and prepped and draped in a sterile fashion. Safety pause time-out was performed. Antibiotics being given. Cystoscopy was performed. Meatus dilated. Laser bridge resectoscope placed. No abnormality noted of anterior-posterior urethra. Small prostate. Bladder entered. Large stone as previously documented on imaging was seen. Bladder irritation. Using a 980nm holmium laser with bladder stones settings the stone was slowly broken into small pieces. The small pieces were irrigated from the bladder. This continued for approximately 15-20 minutes to break the stone. At this point decision was made to perform 2 small incisions in the bladder neck in order to allow better drainage. Laser was switched to soft tissue settings. On soft tissue settings incisions were made at 5 and 07:00 o'clock. Upon completion the resectoscope was removed. A 22 [place] Asher catheter with 30 cc balloon was placed. The catheter was irrigated with clear irrigant. Clamp was placed tight in balloon against prostate. Will be released in recovery area. The patient tolerated the procedure well. They were extubated in operating room and transferred in stable conditions recovery area. Pathology: Bladder Stones Drains: 22 Fr 30cc balloon
[2023-11-01 17:53] LABS: Glucose, Whole Blood 95 mg/dL (60-115)
== END 2023-11-01 19:03 | disposition home or self-care (01) ==
PROVIDERS: PCP Hospitalist; Visit Provider Urology
PROC: 0TCB8ZZ Extirpation of Matter from Bladder, Via Natural or Artificial Opening Endoscopic (ICD-10-PCS; CPT 52352; principal; 2023-11-01 15:30)
DX: N40.1 Benign prostatic hyperplasia with lower urinary tract symptoms (principal); N32.0 Bladder-neck obstruction; N21.0 Calculus in bladder; N39.0 Urinary tract infection, site not specified; R31.9 Hematuria, unspecified; N20.0 Calculus of kidney; N28.1 Cyst of kidney, acquired; N13.30 Unspecified hydronephrosis; F25.9 Schizoaffective disorder, unspecified; F90.9 Attention-deficit hyperactivity disorder, unspecified type; E11.9 Type 2 diabetes mellitus without complications; I10 Essential (primary) hypertension; G93.41 Metabolic encephalopathy; Z87.820 Personal history of traumatic brain injury; Z79.899 Other long term (current) drug therapy; Z91.041 Radiographic dye allergy status; Z87.891 Personal history of nicotine dependence
CPT/HCPCS: 52318; 52276; 82947; 88300; J1100; J1956; J2250; J2371; J2405; J2704; J3010

== ENCOUNTER → 2023-11-01 13:51 | Outpatient (BNV) | payer MEDICARE, SELFPAY | PROVIDERS: PCP Hospitalist; Visit Provider Urology | DX: N21.0 Calculus in bladder (principal); N32.0 Bladder-neck obstruction | CPT/HCPCS: 52214; 52317 ==

== ENCOUNTER 2023-11-10 11:55 | Outpatient (AMB) | payer MEDICARE, MEDICAID, SELFPAY ==
--- NOTE | 2023-11-10 12:08 | A.OFFVIS_ITS ---
Vital Signs 11/10/23 12:10 Height 6 ft BP 138/78 Blood Pressure Location Lt brachial Position Sitting Intake Visit Reasons: s/p colon Intake Note: Patient follow up for Colonoscopy results Patient cc: abdominal pain, acid reflex and swallowing problems, denies any other GI issues. 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 Went over the prep with facility staff. Directions given to them. Patient will need to be 1 on 1 in order to comply with the prep and clearing his bowels. I will see patient after the procedure, sooner on as needed basis. Medications New bisacodyl (Dulcolax (bisacodyl)) Start taking 2 tablet every night 7 days before the procedure and 1 day before procedure take 4 tablets at noon time followed by MiraLax prep 10 mg (2 x 5 mg) PO BEDTIME PRN 16 tabs 0RF constipation Z12.11 polyethylene glycol 3350 (Miralax) As directed by gastroenterology department at [facility] 238 grams PO ONCE 238 grams 0RF Z12.11 COLONOSCOPY AND UPPER ENDOSCOPY Findings: Larynx:normal Esophagus: GE junction at 38 cm, diaphragm hiatus at 44 cm, consistent with 6 cm fixed hiatal hernia. Esophagitis and stricture noted at GEJ, dilated with 15 mm balloon with heme noted, then UES also dilated to 16 mm, no tear seen Stomach: Normal mucosa. Biopsies were obtained. Grade 2 flap valve on retroflexed examination of the cardia. Duodenum: Normal bulb and descending duodenum, Intervention: balloon dilation COLONOSCOPY Instrument: Olympus variable stiffness pediatric scope 190L Colonoscopy Monitoring: Vital signs and clinical assessment, continuous EKG monitoring, Pulse oximetry, Carbon Dioxide monitoring and blood pressure monitoring were done throughout the procedure. Colon withdrawal time was 10 minutes. Procedure: The patient was placed in the left lateral decubitis position and pre-procedure medications were administered. After a digital rectal examination of the ano-rectum, the video colonoscope was inserted into the rectum and advanced through the colon to the cecum/TI. The colonoscope was slowly withdrawn in a retrograde panoramic fashion and the colon mucosa was carefully examined including a retroflexed view of the rectum. Findings and interventions are described below. Procedure Difficulty:moderate Findings: Terminal Ileum-not intubated Cecum:normal Ascending Colon: normal Transverse Colon -normal Descending Colon:normal Sigmoid Colon: normal Rectum: Retroflexion with small internal hemorrhoids, grade I Anorectum - normal Colon preparation: [place] Bowel Preparation Scale Right colon; 1 Transverse colon: 1-2 Left colon; 1 (0 = Unprepared colon segment with mucosa not seen due to solid stool that cannot be cleared. 1 = Portion of mucosa of the colon segment seen, but other areas of the colon segment not well seen due to staining, residual stool and/or opaque liquid. 2 = Minor amount of residual staining, small fragments of stool and/or opaque liquid, but mucosa of colon segment seen well. 3 = Entire mucosa of colon segment seen well with no residual staining, small fragments of stool or opaque liquid) Impression and Post Procedure Diagnosis: Endoscopy Findings: esophagitis hiatal hernia esophageal stricture Colonoscopy Findings: internal hemorrhoids Plan: Await Pathology results Repeat Colonoscopy in 1 year or earlier if clinically indicated High fiber diet leaflet avoid straining at stool, epsom salts and sitz bath, anusol supps or cream repeat EGD in 3-6 months for possibel re dilation, maybe kenalo injection GERD precautions, high dose PPI BID and carafate TODAY'S VISIT Patient is here today for follow-up. He is accompanied by 2 staff members from [facility] facility. Patient answers questions when asked. Denies any trouble swallowing. Status post esophageal dilation. Recommendation was made for patient to return for dilation in 3-6 months. Colonoscopy was suboptimal prep and need to be repeated in 1 year. No polyps found. Patient has good appetite even though he is very thin. Moves his bowels well without any issues. Patient denies any symptoms. Denies melena or hematochezia. Patient was admitted back in August for acute dehydration. Patient was not able to eat or drink anything. Was brought to ED for drooling. Was found to have a distal esophageal stricture that was dilated up to 19 mm. Procedure was done by Dr. Alexander. Patient then had repeat endoscopy with colonoscopy. Dilation was performed then as well as mentioned above. [facility] Medical History Repeated falls Disturbances of salivary secretion Autistic disorder ADHD (attention deficit hyperactivity disorder) Metabolic encephalopathy Adult failure to thrive Erysipelas COVID-19 Cellulitis Muscle weakness (generalized) Osteoarthritis Kidney cyst, acquired Vomiting and diarrhea Emphysema of lung Bronchitis Tubular adenoma Allergic rhinitis Esophageal obstruction Hydronephrosis On beta elmer at home History of COVID-19 Resides in correction facility Presbyopia Personality disorder Hypothyroidism GERD (gastroesophageal reflux disease) Anemia Encephalopathy GI bleed BPH (benign prostatic hyperplasia) HTN (hypertension) Dysphagia Diabetes Schizoaffective disorder TBI (traumatic brain injury) Surgical History Hx of colonoscopy Hx of esophagogastroduodenoscopy Social History Household Members: Other Household Members Other:: resides @ [facility] Housing: Group Home Housing Other:: [facility]-[phone] Are you a primary wound care physician to a significant other at home: No Do you presently have visiting nurse or other home services: Yes (as above noted) Unable to assess alcohol history related to: Unknown Alcohol intake: unknown Comment: 1:1 sitter Patient Tobacco Use Status: Former Tobacco user Advance Directives Date on File: 02/12/22 service: No Current occupational status: disabled Review of Systems Const Denies weight gain and Denies weight loss ENT Reports no additional complaints, Denies dysphagia and Denies odynophagia Card Reports no additional complaints Resp Reports no additional complaints GI Denies abdominal pain, Denies belching, Denies melena, Denies bloating, Denies change in bowel habits, Denies dysphagia, Denies excessive flatus, Denies dyspepsia, Denies heartburn, Denies diarrhea, Denies loose stools, Denies nausea, Denies odynophagia and Denies vomiting Reports no additional complaints Musc Reports no additional complaints Neuro Reports no additional complaints Psych Reports no additional complaints Endo Reports no additional complaints Physical Exam Const General: no acute distress and anxious Nutritional Appearance: underweight Limitations: altered mental status and behavioral limitations Resp Effort & Inspection: normal respiratory effort, able to speak in complete sentences, no tracheal deviation and symmetric chest movement Auscultation: clear to auscultation bilaterally Cardio Rate: regular rate Heart sounds: S1 normal heart sound present and S2 normal heart sound present GI Inspection: Yes normal to inspection and No distended Palpation (GI): Soft to palpation, not firm, nontender and No hepatosplenomegaly present Auscultation: normal bowel sounds General: Yes no CVA tenderness Back/Spine/Pelvis Back: no CVA tenderness Skin General skin exam: elasticity normal, turgor normal and dry skin Psych Appearance: grossly normal Speech and movement: Psychomotor agitation in speech present (at times) Assessment & Plan Assessment & Plan (1) Tubular adenoma: Code(s): D36.9 - Benign neoplasm, unspecified site Category: Medical (2) GERD (gastroesophageal reflux disease): Code(s): K21.9 - Gastro-esophageal reflux disease without esophagitis Qualifiers: Esophagitis presence: without esophagitis Qualified Code(s): K21.9 - Gastro-esophageal reflux disease without esophagitis (3) IBS (irritable bowel syndrome): Code(s): K58.9 - Irritable bowel syndrome without diarrhea Qualifiers: Irritable bowel syndrome type: without diarrhea Qualified Code(s): K58.9 - Irritable bowel syndrome without diarrhea (4) Dysphagia: Code(s): R13.10 - Dysphagia, unspecified Qualifiers: Dysphagia type: esophageal phase Qualified Code(s): R13.19 - Other dysphagia Plan Patient will return for upper endoscopy for possible dilation. Continue current PPI therapy with pantoprazole twice a day. Continue sucralfate. Avoid dietary triggers and late night snacking. Staying upright for minimum 3 hours after meals discussed with patient and staff. Instruct staff to monitor patient when eating to avoid choking and getting food stuck. Eating food that is soft and bland. I will see him after the procedure, sooner on as needed basis. Coding Level of Care Code Est Pt Level 4 (18991) Diagnoses Tubular adenoma D36.9 Gastroesophageal reflux disease without esophagitis K21.9 Esophagitis presence: without esophagitis Irritable bowel syndrome without diarrhea K58.9 Irritable bowel syndrome type: without diarrhea Esophageal dysphagia R13.19 Dysphagia type: esophageal phase Time Spent (min) 35 Comment 20 minutes spent with patient and additional 15 minutes spent reviewing his records
[2023-11-10 12:10] VITALS: BP 138/78
== END 2023-11-10 12:35 | disposition home or self-care (01) ==
PROVIDERS: Visit Provider Nurse Practitioner Family
DX: D36.9 Benign neoplasm, unspecified site (principal); K21.9 Gastro-esophageal reflux disease without esophagitis; K58.9 Irritable bowel syndrome, unspecified; R13.19 Other dysphagia
CPT/HCPCS: 99214

== ENCOUNTER → 2023-11-10 11:55 | Outpatient (BNVA) | payer MEDICARE, MEDICAID, SELFPAY | PROVIDERS: Visit Provider Nurse Practitioner Family | DX: D36.9 Benign neoplasm, unspecified site (principal); K21.9 Gastro-esophageal reflux disease without esophagitis; K58.9 Irritable bowel syndrome, unspecified; R13.19 Other dysphagia | CPT/HCPCS: 99212 ==

== ENCOUNTER 2023-12-09 10:11 | Emergency (ER) | payer MEDICARE, MEDICAID, SELFPAY ==
--- NOTE | ~2023-12-09 | CT_ITS ---
EXAMINATION: CT HEAD WITHOUT CONTRAST CT MAXILLOFACIAL BONES WITHOUT CONTRAST CT CERVICAL SPINE WITHOUT CONTRAST CLINICAL INFORMATION: Fall with head strike. COMPARISON: CT imaging from 08/13/2023. CT cervical spine from 05/22/2021. TECHNIQUE: Contiguous axial imaging was performed from the skullbase to vertex without intravenous administration of contrast. Multidetector helical imaging was performed through the cervical spine. Helical imaging acquired through the maxillofacial bones. This CT examination was performed using dose optimization techniques as appropriate, variously including the following: *Automated exposure control *Adjustment of mA and/or kV according to patient size (this includes techniques or standardized protocols for targeted exams where dose is matched to indication/reason for exam; i.e. extremities or head) *Use of iterative reconstruction technique DLP: 1300 mGy-cm. FINDINGS: HEAD: There is no evidence of acute intracranial hemorrhage or territorial infarction. No abnormal mass effect or midline shift is seen. Newell to white matter differentiation is well preserved. No extra-axial fluid collections are identified. Generalized brain parenchymal volume loss is stable with very mild chronic white matter microangiopathic changes. The osseous structures and soft tissues are normal. The mastoid air cells are well aerated. Soft tissue fills the deep portions of the external auditory canals bilaterally, possibly representing impacted cerumen. MAXILLOFACIAL: Limited study due to patient motion. Significant dental caries with periodontal and periapical lucencies visible in the dentition. There is a fracture through the palatal root of the right first maxillary molar. Very mild mucosal thickening along the floors of the maxillary sinuses. The remaining paranasal sinuses are fairly well aerated. Bilateral nasal bone fractures are visible which are age-indeterminate. No paranasal soft tissue inflammatory changes are otherwise seen. Significant leftward nasal septal deviation noted with nasal septal spurring distorting the left-sided turbinates and contacting the left lateral nasal wall. The orbits are normal in appearance bilaterally. CERVICAL SPINE: No acute fracture or new subluxation is identified in the cervical spine. The atlantoaxial articulation is normally maintained. There is ankylosis of the right C2-C3 facet joint. Multilevel hypertrophic facet arthropathy noted. There is a rightward curvature of the cervical spine. Significant disc space narrowing with vacuum disc phenomenon noted at the C5-C6 level. Chronic mild superior endplate compression deformity and C7 again visible without osseous retropulsion. Moderate spondylosis at C6-C7 again noted. Right-sided aerated external laryngocele again visible. Chronic sclerotic foci in the partially visualized T2 and T3 vertebral bodies are stable, presumed to represent bone islands. The paraspinal soft tissues are normal. The lung apices are clear with subpleural scarring, more so on the right side. CT/CT cervical spine wo IV con IMPRESSION: 1. No acute intracranial pathology. Mild chronic white matter microangiopathy. 2. No evidence of acute cervical spine traumatic injury. Stable multilevel cervical spondylosis. Mild chronic superior endplate compression fracture deformity at C7. 3. Age indeterminate bilateral nasal bone fractures. No paranasal soft tissue swelling visible. Correlate with findings on direct visual inspection. Limited imaging of the mandible due to patient motion artifacts. 4. Significant periapical and periodontal disease in the dentition with dental caries, more so affecting the right maxillary and mandibular molars. Fracture through the palatal root of the right first maxillary molar.
[2023-12-09 10:18] VITALS: BP 100/62; BP 90/60; PULSE 73; PULSE 74; RESP 16; TEMP 36.4; O2SAT 98; O2SAT 99; BMI 16.3
--- NOTE | 2023-12-09 10:28 | PC.NURSE ---
coming from [facility], laceration noted to left eyebrow - bleeding controlled. came in collared from EMS, patient removed collar on own. per EMS, patient had removed the collar several times. patient in room yelling for the doctor. incontinent of urine, patient changed into hospital attire.
--- NOTE | 2023-12-09 10:45 | ED.GENADULT ---
HPI - General Adult General Chief complaint: Fall Stated complaint: UNWIT FALL FROM SNF,FACE LAC,+CCOLL,UNCOOP PER EMS Time Seen by Provider: 12/09/23 10:43 Source: patient and EMS Mode of arrival: EMS Limitations: no limitations History of Present Illness ED Provider: Odalys Schaefer PA-C HPI narrative: Patient is a 67 year old assigned male at with a history of anemia and toxic encephalopathy presenting to the emergency department today after an unwitnessed fall. Patient is not a good historian, able to answer questions when asked but answers don't always make sense. Patient is unable to tell me what happened. Reviewing the patient's chart, this is his baseline and how he usually is at [facility], the facility he lives in. Patient denies any dizziness, lightheadedness, abdominal pain, nausea, vomiting, fever, chills, blurry vision, double vision, loss of vision, chest pain, difficulty breathing, shortness of breath, back pain, night sweats, pain with urination, increased urinary frequency, increased urinary urgency, blood in his urine or stool, syncope or a near syncopal episode, recent trauma or falls, bowel incontinence, bladder incontinence, or any other complaints at this time. Location: head and face Radiation: non-radiation Severity: mild Severity scale (1-10): 3 Relieving factors: none Exacerbating factors: none Associated symptoms: denies other symptoms Treatments prior to arrival: none Related Data Home Medications ?Medication ?Instructions ?Recorded ?Confirmed acetaminophen 325 mg tablet 650 mg PO Q6H PRN Fever Or Pain 09/23/20 10/22/23 diphenhydramine HCl 25 mg capsule 25 mg PO Q6H PRN Itching 09/23/20 10/22/23 (Benadryl) docusate sodium 100 mg capsule 100 mg PO BID 09/23/20 10/22/23 lactulose 10 gram/15 mL (15 mL) 60 ml PO TID 09/23/20 10/22/23 oral solution sodium bicarbonate 650 mg tablet 650 mg PO DAILY 09/23/20 10/22/23 tamsulosin 0.4 mg capsule 0.4 mg PO DAILY 09/23/20 10/22/23 multivitamin with minerals 1 tab PO DAILY 11/25/20 10/22/23 ascorbic acid (vitamin C) 500 mg 500 mg PO DAILY 04/23/22 10/22/23 tablet clozapine 50 mg tablet 1 tab PO BEDTIME 04/23/22 10/22/23 ferrous sulfate 325 mg (65 mg 325 mg PO DAILY 04/23/22 10/22/23 iron) tablet hydroxyzine HCl 50 mg tablet 1 tab PO TID PRN Agitation 04/23/22 10/22/23 metoprolol succinate 50 mg 1 tab PO BID 04/23/22 10/22/23 tablet,extended release 24 hr sennosides 8.6 mg tablet (senna) 17.2 mg PO DAILY 03/10/23 10/22/23 bisacodyl 10 mg rectal suppository 10 mg UT DAILY PRN Constipation 06/11/23 10/22/23 levothyroxine 100 mcg tablet 100 mcg PO DAILY 06/11/23 10/22/23 magnesium hydroxide 400 mg/5 mL 30 ml PO BEDTIME 06/11/23 10/22/23 oral suspension (Milk of Magnesia) clomipramine 50 mg capsule 50 mg PO BEDTIME 08/27/23 10/22/23 Previous Rx's ?Medication ?Instructions ?Recorded pantoprazole 40 mg tablet,delayed 40 mg PO BID #90 tabs 08/28/23 release sucralfate 100 mg/mL oral 10 ml PO BID #420 mL 08/28/23 suspension (Carafate) clindamycin HCl 300 mg capsule 300 mg PO TID 7 days #21 caps 10/25/23 sulfamethoxazole 400 1 tab PO DAILY #10 tabs 11/01/23 mg-trimethoprim 80 mg tablet (Bactrim) Allergies Allergy/AdvReac Type Severity Reaction Status Date / Time fish oil [FISH OIL] Allergy Unknown Unknown Verified 12/09/23 10:20 Iodinated Contrast Media Allergy Unknown Unknown Verified 12/09/23 10:20 [IODINATED CONTRAST- ORAL AND IV DYE] pollen extracts Allergy Unknown Unknown Verified 12/09/23 10:20 shellfish derived Allergy Unknown Unknown Verified 12/09/23 10:20 Review of Systems Review of Systems: Yes Other (patient is a poor historian at baseline) Constitutional: Constitutional: Reports no additional constitutional complaints, Denies chills, Denies fever(s), Reports headache(s) and Denies night sweats Eyes: Eyes: Reports no additional eye complaints, Denies blurry vision, Denies change in vision, Denies diplopia, Denies eye discharge, Denies loss of vision and Denies eye pain ENT: Denies dizziness and Reports headache(s) Cardiovascular: Cardiovascular: Reports no additional cardiovascular complaints, Denies chest pain, Denies lightheadedness, Denies Loss of Consciousness and Denies dyspnea Respiratory: Respiratory: Reports no additional respiratory complaints and Denies dyspnea Gastrointestinal: Gastrointestinal: Reports no additional gastrointestinal complaints, Denies abdominal pain, Denies melena, Denies hematochezia, Denies change in bowel habits and Denies change in stool character Genitourinary: Genitourinary: Reports no additional male genitourinary complaints, Denies hematuria, Denies oliguria, Denies difficulty urinating, Denies dysuria, Denies urinary frequency, Denies urinary hesitancy, Denies urinary incontinence and Denies urinary urgency Musculoskeletal: Musculoskeletal: Reports no additional musculoskeletal complaints, Denies numbness and Denies tingling Neurologic: Denies dizziness, Reports headache(s), Denies loss of vision, Denies numbness and Denies tingling Psychiatric: Psychiatric: Reports no additional psychiatric complaints Endocrine: Endocrine: Reports no additional endocrine complaints Hematologic/Lymphatic: Hematologic/Lymphatic: Reports no additional hematologic/lymphatic complaints Allergic/Immunologic: Allergic/Immunologic: Reports no additional allergic/immunologic complaints [facility] Past Medical History Attestation statement: The following information was validated with the patient. (all information validated with the [facility] staff) Source: old records reviewed, nursing notes reviewed and other ([facility] staff provided additional history) Medical History Repeated falls Disturbances of salivary secretion Autistic disorder ADHD (attention deficit hyperactivity disorder) Metabolic encephalopathy Adult failure to thrive Erysipelas COVID-19 Cellulitis Muscle weakness (generalized) Osteoarthritis Kidney cyst, acquired Vomiting and diarrhea Emphysema of lung Bronchitis Tubular adenoma Allergic rhinitis Esophageal obstruction Hydronephrosis On beta elmer at home History of COVID-19 Resides [facility] [place] Presbyopia Personality disorder Hypothyroidism GERD (gastroesophageal reflux disease) Anemia Encephalopathy GI bleed BPH (benign prostatic hyperplasia) HTN (hypertension) Dysphagia Diabetes Schizoaffective disorder TBI (traumatic brain injury) Surgical History Hx of colonoscopy Hx of esophagogastroduodenoscopy Social History Social History Household Members: Other Household Members Other:: resides @ [facility] Housing: [facility] Housing Other:: [place] Hoffman-[phone] Are you a primary child care leader to a significant other at home: No Do you presently have visiting nurse or other home services: Yes (as above noted) Unable to assess alcohol history related to: Unknown Alcohol intake: unknown Comment: 1:1 sitter Patient Tobacco Use Status: Former Tobacco user Advance Directives: Yes Advance Directives on File: Yes Advance Directives Date on File: 02/12/22 Do you have a plan to hurt others: No Plan service: No Current occupational status: disabled Physical Exam ED Vital Signs: Vital Signs - 24 hr 12/09/23 10:18 12/09/23 12:00 Temperature 97.6 F 97.7 F Pulse Rate 73 68 Respiratory Rate 16 17 Blood Pressure 90/60 99/72 Pulse Oximetry 99 100 Oxygen Delivery Method Room Air Room Air BMI result Body Mass Index 16.3 Const General: cooperative, no acute distress, alert and awake Nutritional Appearance: well nourished Orientation/consciousness: oriented to person Limitations: no limitations [facility] Head images: 1. laceration, no active bleeding, no gaping Ears: hearing grossly normal bilaterally and external ears normal General nose exam: Normal external nose present, no nasal discharge noted and no epistaxis Face and sinus: Yes normal facial exam, No abrasion and No laceration Mouth: Normal oral and palatal mucosa present, no drooling and no muffled voice Eyes General: appearance normal, both eyes and all related structures Periorbital: periorbital findings normal Eyelids: Yes eyelids normal Conjunctivae: conjunctivae normal Pupils: Equal, round and reactive pupils present EOM: EOMs intact bilaterally Neck Neck: Yes normal visual inspection, Yes full ROM and Yes no lymphadenopathy Chest Chest palpation & inspection: normal inspection of the chest Resp Effort & Inspection: normal respiratory effort and able to speak in complete sentences GI Inspection: Yes normal to inspection Neuro General: oriented to person and moves all extremities Cranial nerves: Yes Equal, round and reactive pupils present Extrem General: Yes normal to inspection, Yes full ROM and Yes capillary refill normal Medications Administered Discontinued Medications Generic Name Dose Route Start Last Admin Trade Name Freq PRN Reason Stop Dose Admin Olanzapine 5 mg 12/09/23 10:56 12/09/23 11:04 Olanzapine 5 Mg Tablet PO 12/09/23 10:57 5 mg ONCE ONE Administration Medical Decision Making Medical Decision Making MDM Narrative: Patient is a 67 year old assigned male at with a history of anemia, toxic encephalopathy, and being a poor historian presenting to the emergency department today after a fall. Patient's physical exam was as noted in the physical exam portion of this note. Patient's CT head and c-spine showed no acute process. I explained my physical exam findings as well as all test results to the patient. I answered all questions asked by the patient. I stressed the importance of the patient taking his medication as directed (either prescribed or as the over the counter packaging recommends). I stressed the importance of the patient following up with his primary care provider. I stressed the importance of the patient returning to the emergency department immediately if his symptoms were to worsen or if he were to develop any dizziness, shortness of breath, difficulty breathing, chest pain, blurry vision, loss of vision, nausea, vomiting, abdominal pain, fever, chills, back pain, or any other complaints. Patient verbalized agreement and understanding with this treatment plan and discharge. Differential Diagnosis Differential Diagnoses: The differential diagnosis associated with the presentation includes Fall Head strike Head abrasion Admission/Observation Consideration of admission/observation: Escalation of care including admission/observation considered Patient would have been admitted to the hospital had his work up had any findings where hospital admission was appropriate and his clinical presentation warranted hospital admission. Independent Interpretation I performed an independent interpretation of an: CT Scan Interpretation: My interpretation is in agreement with the radiologist's impression of these imaging studies. EXAMINATION: CT HEAD WITHOUT CONTRAST CT MAXILLOFACIAL BONES WITHOUT CONTRAST CT CERVICAL SPINE WITHOUT CONTRAST CLINICAL INFORMATION: Fall with head strike. COMPARISON: CT imaging from 08/13/2023. CT cervical spine from 05/22/2021. TECHNIQUE: Contiguous axial imaging was performed from the skullbase to vertex without intravenous administration of contrast. Multidetector helical imaging was performed through the cervical spine. Helical imaging acquired through the maxillofacial bones. This CT examination was performed using dose optimization techniques as appropriate, variously including the following: *Automated exposure control *Adjustment of mA and/or kV according to patient size (this includes techniques or standardized protocols for targeted exams where dose is matched to indication/reason for exam; i.e. extremities or head) *Use of iterative reconstruction technique DLP: 1300 mGy-cm. FINDINGS: HEAD: There is no evidence of acute intracranial hemorrhage or territorial infarction. No abnormal mass effect or midline shift is seen. Newell to white matter differentiation is well preserved. No extra-axial fluid collections are identified. Generalized brain parenchymal volume loss is stable with very mild chronic white matter microangiopathic changes. The osseous structures and soft tissues are normal. The mastoid air cells are well aerated. Soft tissue fills the deep portions of the external auditory canals bilaterally, possibly representing impacted cerumen. MAXILLOFACIAL: Limited study due to patient motion. Significant dental caries with periodontal and periapical lucencies visible in the dentition. There is a fracture through the palatal root of the right first maxillary molar. Very mild mucosal thickening along the floors of the maxillary sinuses. The remaining paranasal sinuses are fairly well aerated. Bilateral nasal bone fractures are visible which are age-indeterminate. No paranasal soft tissue inflammatory changes are otherwise seen. Significant leftward nasal septal deviation noted with nasal septal spurring distorting the left-sided turbinates and contacting the left lateral nasal wall. The orbits are normal in appearance bilaterally. CERVICAL SPINE: No acute fracture or new subluxation is identified in the cervical spine. The atlantoaxial articulation is normally maintained. There is ankylosis of the right C2-C3 facet joint. Multilevel hypertrophic facet arthropathy noted. There is a rightward curvature of the cervical spine. Significant disc space narrowing with vacuum disc phenomenon noted at the C5-C6 level. Chronic mild superior endplate compression deformity and C7 again visible without osseous retropulsion. Moderate spondylosis at C6-C7 again noted. Right-sided aerated external laryngocele again visible. Chronic sclerotic foci in the partially visualized T2 and T3 vertebral bodies are stable, presumed to represent bone islands. The paraspinal soft tissues are normal. The lung apices are clear with subpleural scarring, more so on the right side. CT/CT head/brain wo IV con IMPRESSION: 1. No acute intracranial pathology. Mild chronic white matter microangiopathy. 2. No evidence of acute cervical spine traumatic injury. Stable multilevel cervical spondylosis. Mild chronic superior endplate compression fracture deformity at C7. 3. Age indeterminate bilateral nasal bone fractures. No paranasal soft tissue swelling visible. Correlate with findings on direct visual inspection. Limited imaging of the mandible due to patient motion artifacts. 4. Significant periapical and periodontal disease in the dentition with dental caries, more so affecting the right maxillary and mandibular molars. Fracture through the palatal root of the right first maxillary molar. Dictated By: FLORA DAUGHERTY MD Signed By: Electronically signed by FLORA DAUGHERTY MD 12/09/23 1863 Radiology Impression Discussion of test interpretation with radiology: I have reviewed the radiologist's reading. Independent Historian Clinical information obtained from an independent historian. History obtained from or confirmed by: EMS (EMS provided additional history and confirmed the history provided by the patient) and Other ([facility] staff provided additional history and confirmed the history provided by the patient.) Discharge Plan Discharge Clinical Impression: Fall Patient Disposition: Xfer SNF Transfer Details: [facility] Instructions: Fall Prevention (ED) Additional Instructions: Follow up with your primary care provider. Return to the emergency department immediately if your symptoms worsen or if you develop any dizziness, shortness of breath, difficulty breathing, chest pain, blurry vision, loss of vision, nausea, vomiting, abdominal pain, fever, chills, back pain, or any other complaints. Prescriptions: No Action clindamycin HCl 300 mg capsule 300 mg PO TID 7 Days Qty: 21 0RF tamsulosin 0.4 mg capsule 0.4 mg PO DAILY acetaminophen 325 mg Tablet 650 mg PO Q6H PRN (Reason: Fever Or Pain) Rx Instructions: not to exceed 3000mg/day sodium bicarbonate 650 mg Tablet 650 mg PO DAILY diphenhydramine HCl [Benadryl] 25 mg Capsule 25 mg PO Q6H PRN (Reason: Itching) docusate sodium 100 mg Capsule 100 mg PO BID lactulose 10 gram/15 mL (15 mL) Solution 60 ml PO TID multivitamin with minerals Tablet 1 tab PO DAILY metoprolol succinate 50 mg tablet extended release 24 hr 1 tab PO BID hydroxyzine HCl 50 mg tablet 1 tab PO TID PRN (Reason: Agitation) ascorbic acid (vitamin C) 500 mg Tablet 500 mg PO DAILY ferrous sulfate 325 mg (65 mg iron) Tablet 325 mg PO DAILY clozapine 50 mg tablet 1 tab PO BEDTIME levothyroxine 100 mcg tablet 100 mcg PO DAILY magnesium hydroxide [Milk of Magnesia] 400 mg/5 mL Suspension 30 ml PO BEDTIME bisacodyl 10 mg Suppository 10 mg UT DAILY PRN (Reason: Constipation) sulfamethoxazole-trimethoprim [Bactrim] 400-80 mg tablet 1 tab PO DAILY Qty: 10 0RF sennosides [senna] 8.6 mg tablet 17.2 mg PO DAILY clomipramine 50 mg capsule 50 mg PO BEDTIME sucralfate [Carafate] 100 mg/mL suspension 10 ml PO BID Qty: 420 0RF pantoprazole 40 mg tablet,delayed release (DR/EC) 40 mg PO BID Qty: 90 1RF Referrals: Swapnil Vazquez DO [Primary Care Provider] - Print Language: Kazakh
[2023-12-09] MEDS: OLANZapine 5 MG TABLET PO (11:04)
[2023-12-09 12:00] VITALS: BP 99/72; PULSE 68; RESP 17; TEMP 36.5; O2SAT 100
--- NOTE | 2023-12-09 16:00 | PC.NURSE ---
Called RN to RN report to [facility], spoke to Lulu, all questions answered. Patient to transferred back to [facility] via ambulance at 1730.
[2023-12-09 16:06] VITALS: BP 130/80; PULSE 79; RESP 18; O2SAT 97
[2023-12-09 19:18] VITALS: BP 130/80; PULSE 79; RESP 18; TEMP 36.6; O2SAT 97
== END 2023-12-09 19:00 | disposition skilled nursing facility (03) ==
PROVIDERS: Emergency Provider Emergency Medicine; PCP Hospitalist
DX: R51.9 Headache, unspecified (principal); R29.6 Repeated falls; Z91.81 History of falling; I10 Essential (primary) hypertension; E11.9 Type 2 diabetes mellitus without complications; Z87.891 Personal history of nicotine dependence; Z79.899 Other long term (current) drug therapy
CPT/HCPCS: 70450; 70486; 72125; 99284

== ENCOUNTER 2023-12-24 10:55 | Outpatient (AMB) | payer MEDICARE, SELFPAY ==
--- NOTE | 2023-12-24 11:16 | A.OFFVIS_ITS ---
Intake Visit Reasons: POSTOP/PVR Intake Note: Patient presents for post op follow up on: Greenlight, nephrolithiasis, bladder stone Urology Medications: Tamsulosin Blood Thinner: none PVR: 0ml's Television Analyzer Required: No Accompanied by: FUEL MANAGER Allergies fish oil [FISH OIL] Allergy (Unknown, Verified 12/24/23 11:45) Unknown Iodinated Contrast Media [IODINATED CONTRAST- ORAL AND IV DYE] Allergy (Unknown, Verified 12/24/23 11:45) Unknown pollen extracts Allergy (Unknown, Verified 12/24/23 11:45) Unknown shellfish derived Allergy (Unknown, Verified 12/24/23 11:45) Unknown Medication List - Last Reconciled 12/25/23 by JUSTYN Cannon acetaminophen 650 mg PO Q6H PRN ascorbic acid (vitamin C) 500 mg PO DAILY bisacodyl 10 mg SC DAILY PRN clomipramine 50 mg PO BEDTIME clozapine 1 tab PO BEDTIME diphenhydramine HCl (Benadryl) 25 mg PO Q6H PRN docusate sodium 100 mg PO BID ferrous sulfate 325 mg PO DAILY hydroxyzine HCl 1 tab PO TID PRN lactulose 60 mL PO TID levothyroxine 100 mcg PO DAILY magnesium hydroxide (Milk of Magnesia) 30 mL PO BEDTIME metoprolol succinate ER 1 tab PO BID multivitamin with minerals 1 tab PO DAILY pantoprazole 40 mg PO BID sennosides (senna) 17.2 mg PO DAILY sodium bicarbonate 650 mg PO DAILY sucralfate (Carafate) 10 mL PO BID tamsulosin 0.4 mg PO DAILY HPI Comments Details: Levar is a 68-year-old male patient of Dr. Vazquez was accompanied by one of the care attendants at [facility] where the patient resides. He has a past medical history of TBI, ADHD, metabolic encephalopathy, osteoarthritis, renal cysts, esophageal obstruction, personality disorder, hypothyroidism, GERD, anemia, encephalopathy, GI, BPH, hypertension, diabetes, and schizoaffective disorder. He presents to the office today for follow-up. Of note, patient underwent cystoscopy, with laser of bladder neck and bladder stone with Dr. Kamara on 11/01/23. Postprocedure 22 Maced[place] Asher catheter with 30 cc balloon was placed in this has since been removed at [facility]. In discussion with the patient and patient patient care provider Kayla today patient has been voiding without any issues or concerns. Of note given patients medical history he is a poor historian however nursing staff offer no issues or urological concerns at this time. Unable to obtain urine for urinalysis however PVR 0 mL. [facility] Medical History Repeated falls Disturbances of salivary secretion Autistic disorder ADHD (attention deficit hyperactivity disorder) Metabolic encephalopathy Adult failure to thrive Erysipelas COVID-19 Cellulitis Muscle weakness (generalized) Osteoarthritis Kidney cyst, acquired Vomiting and diarrhea Emphysema of lung Bronchitis Tubular adenoma Allergic rhinitis Esophageal obstruction Hydronephrosis On beta emler at home History of COVID-19 Resides in retirement facility Presbyopia Personality disorder Hypothyroidism GERD (gastroesophageal reflux disease) Anemia Encephalopathy GI bleed BPH (benign prostatic hyperplasia) HTN (hypertension) Dysphagia Diabetes Schizoaffective disorder TBI (traumatic brain injury) Surgical History Hx of colonoscopy Hx of esophagogastroduodenoscopy Social History Household Members: Other Household Members Other:: resides @ [facility] Housing: Senior Living Housing Other:: [facility]-[phone] Are you a primary complex care nurse practitioner to a significant other at home: No Do you presently have visiting nurse or other home services: Yes (as above noted) Unable to assess alcohol history related to: Unknown Alcohol intake: unknown Comment: 1:1 sitter Patient Tobacco Use Status: Former Tobacco user Advance Directives Date on File: 02/12/22 service: No Current occupational status: disabled Review of Systems Const Unobtainable due to mental status Physical Exam Const General: cooperative, healthy appearing, comfortable, no acute distress, well developed, alert and awake Nutritional Appearance: thin Orientation/consciousness: oriented to person Limitations: no limitations Neuro General: oriented to person Psych Appearance: well kempt Speech and movement: Clear speech present Affect: Blunted affect present Attitude: cooperative Insight: Limited insight present (Psych) and Poor insight present (Psych) Judgement: Limited judgement present (Psych) and Poor judgement present (Psych) Office Procedures Post Void Residual Post Residual Void Post Void Residual (PVR): 0 [id number] Void Residual by ultrasound Assessment & Plan Assessment & Plan (1) Bladder calculus: Code(s): N21.0 - Calculus in bladder Category: Medical (2) Nephrolithiasis: Code(s): N20.0 - Calculus of kidney Category: Medical Plan Unable to obtain urine for urinalysis however PVR 0 mL. Patient has indwelling Asher has since been removed at [facility] and patient is voiding independently without any issues or concerns. Nursing staff and patient deny any bothersome urinary issues or concerns. Will obtain retroperitoneal ultrasound for further assessment evaluation. Continue Flomax as prescribed Follow-up in 1-3 months with imaging to be completed prior; or sooner with any issues, concerns, and or questions. Orders: Orders US retroperitoneal comp 12/24/23 N20.0 - Calculus of kidney, N21.0 - Calculus in bladder AMB Post Void Residual by ultrasound 12/24/23 N21.0 - Calculus in bladder Patient Instructions: The patient had an opportunity to ask questions regarding the treatment plan. All questions were answered. Physical exam, labs, and imaging were discussed and reviewed in detail. As well as risks, benefits, and discussion of treatment c hoices. No major barriers to understanding were identified. The patient expressed understanding and agreement with the above treatment plan. The patient was made aware they should contact our office by phone for worsening of their current condition, the appearance of new symptoms, or with any questions or concerns. Compliance is encouraged with any medications and follow up testing that is ordered. It is a privilege to be allowed the opportunity to participate in? your urological care.? Again, if you have any questions or concerns If you have any questions or concerns please do not hesitate to contact me. The office is [phone]. This note is constructed using voice recognition software. While every effort has been made to ensure accuracy life assurance representative errors may have been included. Yours sincerely, JUSTYN Cannon Coding Level of Care Code Est Pt Level 3 (30468) Complex EM visit Add On G2211 Diagnoses Bladder calculus N21.0 Nephrolithiasis N20.0 CPT Codes Post Residual Void - PVR CPT Code: 08494-[id number] Void Residual by ultrasound ([id number])
== END 2023-12-24 11:40 | disposition home or self-care (01) ==
PROVIDERS: PCP Hospitalist; Visit Provider Nurse Practitioner Family
DX: N21.0 Calculus in bladder (principal); N20.0 Calculus of kidney
CPT/HCPCS: 99213; G2211

== ENCOUNTER → 2023-12-24 10:55 | Outpatient (BNVA) | payer MEDICARE, MEDICAID, SELFPAY | PROVIDERS: PCP Hospitalist; Visit Provider Nurse Practitioner Family | DX: N21.0 Calculus in bladder (principal); N20.0 Calculus of kidney | CPT/HCPCS: 51798; 99212 ==

== ENCOUNTER 2024-03-14 09:48 | Outpatient (REF) | payer MEDICARE, MEDICAID, SELFPAY ==
--- NOTE | ~2024-03-14 | US_ITS ---
EXAMINATION: US RETROPERITONEAL COMPLETE (RENAL) CLINICAL INFORMATION: Calculus in bladder. COMPARISON: CT abdomen and pelvis 09/29/2023. X-ray abdomen KUB 11/25/2020. TECHNIQUE: Real-time imaging of the kidneys and bladder. FINDINGS: RIGHT KIDNEY: 6.5 x 2.7 x 4.5 cm (SAG x AP x TRV). The right kidney is small with increased echogenicity and cortical thinning. No renal calculi or hydronephrosis. Multiple benign Bosniak class I as well as Bosniak class II renal cysts are noted, the largest measuring 3.5 cm, which require no additional imaging or follow-up. No solid renal masses are seen. A lower pole cyst measuring 1.6 cm has a single septation. LEFT KIDNEY: 10.7 x 5.8 x 4.1 cm (SAG x AP x TRV). The kidney is normal in size, contour, and echogenicity. Renal cortical thickness is normal. No renal calculi or hydronephrosis. Multiple benign Bosniak class I renal cysts are noted, the largest in the mid kidney measuring 1.6 cm, which require no additional imaging or follow-up. No solid renal masses are seen. BLADDER: Bladder is decompressed. Bilateral ureteral jets are not demonstrated. Two (2) bladder calculi are seen measuring 4 and 6 mm in size. The anterior bladder wall is very thickened at 1.2 cm. Prostate not visualized. US/US retroperitoneal comp IMPRESSION: 1. Small right kidney with increased echogenicity and cortical thinning. 2. Bilateral benign Bosniak class I and Bosniak class II renal cysts which require no additional imaging or follow-up. 3. Bladder calculi with thickened anterior bladder wall. Electronically signed by: Gokul Miller MD 04/12/2024 01:07 AM EDT
== END 2024-03-14 09:49 | disposition home or self-care (01) ==
LOC: HO.US 09:48
PROVIDERS: Visit Provider Nurse Practitioner Family
DX: N20.0 Calculus of kidney (principal); N21.0 Calculus in bladder
CPT/HCPCS: 76770

== ENCOUNTER 2024-03-28 09:32 | Outpatient (AMB) | payer MEDICARE, SELFPAY ==
--- NOTE | 2024-03-28 09:37 | A.OFFVIS_ITS ---
Intake Visit Reasons: 3m/US(set) Intake Note: Patient presents for post op follow up on: nephrolithiasis, bladder stone, and ultrasound results Imaging Completed: 03/14/24 Urology Medications: Tamsulosin Blood Thinner: none Synthetic Plasterer Required: No Accompanied by: BROKER Allergies fish oil [FISH OIL] Allergy (Unknown, Verified 03/28/24 10:12) Unknown Iodinated Contrast Media [IODINATED CONTRAST- ORAL AND IV DYE] Allergy (Unknown, Verified 03/28/24 10:12) Unknown pollen extracts Allergy (Unknown, Verified 03/28/24 10:12) Unknown shellfish derived Allergy (Unknown, Verified 03/28/24 10:12) Unknown Medication List - Last Reconciled 03/28/24 by JUSTYN Cannon acetaminophen 650 mg PO Q6H PRN ascorbic acid (vitamin C) 500 mg PO DAILY bisacodyl [address] DAILY PRN clomipramine 50 mg PO BEDTIME clozapine 1 tab PO BEDTIME diphenhydramine HCl (Benadryl) 25 mg PO Q6H PRN docusate sodium 100 mg PO BID ferrous sulfate 325 mg PO DAILY hydroxyzine HCl 1 tab PO TID PRN lactulose 60 mL PO TID levothyroxine 100 mcg PO DAILY magnesium hydroxide (Milk of Magnesia) 30 mL PO BEDTIME metoprolol succinate ER 1 tab PO BID multivitamin with minerals 1 tab PO DAILY pantoprazole 40 mg PO BID sennosides (senna) 17.2 mg PO DAILY sodium bicarbonate 650 mg PO DAILY sucralfate (Carafate) 10 mL PO BID tamsulosin 0.4 mg PO DAILY HPI Comments Details: Levar is a 68-year-old male patient of Dr. Vazquez was accompanied by one of the care attendants at [facility] where the patient resides. He has a past medical history of TBI, ADHD, metabolic encephalopathy, osteoarthritis, renal cysts, esophageal obstruction, personality disorder, hypothyroidism, GERD, anemia, encephalopathy, GI, BPH, hypertension, diabetes, and schizoaffective disorder. He presents to the office today for follow-up. Of note, patient underwent cystoscopy, with laser of bladder neck and bladder stone with Dr. Kamara on 11/01/23. Recent retroperitoneal ultrasound results reviewed with the patient and staff today. Right kidney with small increased echogenicity and cortical thinning. No right renal calculi or hydronephrosis noted. Multiple benign Bosniak class 1 renal cyst as well as Bosniak class 2 renal cysts are noted, the largest measuring 3.5 cm which require no additional follow-up per radiology report. Left kidney is normal in size, contour, and echogenicity. No renal calculi or hydronephrosis noted. Multiple benign Bosniak class 1 renal cysts are noted the largest measuring 1.6 cm which require no additional follow- up imaging per radiology report. The bladder is decompressed there are 2 bladder calculi seen measuring 4 and 6 mm in size. The anterior bladder wall is thickened at 1.2 cm. Staff deny patient to have any bothersome urinary issues or concerns. Difficult to obtain information from patient as he continues to yell out during today's visit. He is easily redirectable. Unable to obtain urine for urinalysis and unable to obtain PVR as patient continues to decline PVR. In review of patient's MAR it appears he is compliant with Flomax as prescribed. He otherwise offers no other issues or concerns at this time. [facility] Medical History Repeated falls Disturbances of salivary secretion Autistic disorder ADHD (attention deficit hyperactivity disorder) Metabolic encephalopathy Adult failure to thrive Erysipelas COVID-19 Cellulitis Muscle weakness (generalized) Osteoarthritis Kidney cyst, acquired Vomiting and diarrhea Emphysema of lung Bronchitis Tubular adenoma Allergic rhinitis Esophageal obstruction Hydronephrosis On beta elmer at home History of COVID-19 Resides in retirement facility Presbyopia Personality disorder Hypothyroidism GERD (gastroesophageal reflux disease) Anemia Encephalopathy GI bleed BPH (benign prostatic hyperplasia) HTN (hypertension) Dysphagia Diabetes Schizoaffective disorder TBI (traumatic brain injury) Surgical History Hx of colonoscopy Hx of esophagogastroduodenoscopy Social History Household Members: Other Household Members Other:: resides @ [facility] Housing: Long Term Housing Other:: [facility]-[phone] Are you a primary care program director to a significant other at home: No Do you presently have visiting nurse or other home services: Yes (as above noted) Unable to assess alcohol history related to: Unknown Alcohol intake: unknown Comment: 1:1 sitter Patient Tobacco Use Status: Former Tobacco user Advance Directives Date on File: 02/12/22 service: No Current occupational status: disabled Review of Systems Const Unobtainable due to mental status Physical Exam Const General: cooperative, healthy appearing, comfortable, no acute distress, well developed, alert and awake Nutritional Appearance: thin Orientation/consciousness: oriented to person Limitations: no limitations Neuro General: oriented to person Psych Appearance: well kempt Speech and movement: Slurred speech present and Pressured speech present Affect: Blunted affect present Attitude: Other attitude/behavior findings present (Psych) Insight: Limited insight present (Psych) and Poor insight present (Psych) Judgement: Limited judgement present (Psych) and Poor judgement present (Psych) Results Reviewed Results Reviewed: Date of Service: 03/14/24 EXAMINATION: US RETROPERITONEAL COMPLETE (RENAL) FINDINGS: RIGHT KIDNEY: 6.5 x 2.7 x 4.5 cm (SAG x AP x TRV). The right kidney is small with increased echogenicity and cortical thinning. No renal calculi or hydronephrosis. Multiple benign Bosniak class I as well as Bosniak class II renal cysts are noted, the largest measuring 3.5 cm, which require no additional imaging or follow-up. No solid renal masses are seen. A lower pole cyst measuring 1.6 cm has a single septation. LEFT KIDNEY: 10.7 x 5.8 x 4.1 cm (SAG x AP x TRV). The kidney is normal in size, contour, and echogenicity. Renal cortical thickness is normal. No renal calculi or hydronephrosis. Multiple benign Bosniak class I renal cysts are noted, the largest in the mid kidney measuring 1.6 cm, which require no additional imaging or follow-up. No solid renal masses are seen. BLADDER: Bladder is decompressed. Bilateral ureteral jets are not demonstrated. Two (2) bladder calculi are seen measuring 4 and 6 mm in size. The anterior bladder wall is very thickened at 1.2 cm. Prostate not visualized. IMPRESSION: 1. Small right kidney with increased echogenicity and cortical thinning. 2. Bilateral benign Bosniak class I and Bosniak class II renal cysts which require no additional imaging or follow-up. 3. Bladder calculi with thickened anterior bladder wall. Assessment & Plan Assessment & Plan (1) Bladder calculus: Code(s): N21.0 - Calculus in bladder Category: Medical (2) Renal cyst: Code(s): N28.1 - Cyst of kidney, acquired Category: Medical Plan Unable to obtain urine for urinalysis and unable to obtain PVRs patient declines at this time. Recent retroperitoneal ultrasound results reviewed with the patient and staff today; as noted above. Staff decline patient to have any bothersome urinary issues or concerns. Continue Flomax as discussed and prescribed. Will continue with surveillance monitoring of renal cysts as well as bladder stones. Discussed, educated, and stressed the importance of adequate hydration in relation to these urological issues. Will obtain retroperitoneal ultrasound in 6 months. Follow-up in 6 months with imaging to be completed prior and PVR at next office visit; or sooner with any issues, concerns, and or questions. Orders: Orders US retroperitoneal comp 6 Months N21.0 - Calculus in bladder, N28.1 - Cyst of kidney, acquired Patient Instructions: The patient had an opportunity to ask questions regarding the treatment plan. All questions were answered. Physical exam, labs, and imaging were discussed and reviewed in detail. As well as risks, benefits, and discussion of treatment choices. No major barriers to understanding were identified. The patient expressed understanding and agreement with the above treatment plan. The patient was made aware they should contact our office by phone for worsening of their current condition, the appearance of new symptoms, or with any questions or concerns. Compliance is encouraged with any medications and follow up testing that is ordered. It is a privilege to be allowed the opportunity to participate in? your urological care.? Again, if you have any questions or concerns If you have any questions or concerns please do not hesitate to contact me. The office is [phone]. This note is constructed using voice recognition software. While every effort has been made to ensure accuracy superintendent mechanical errors may have been included. Yours sincerely, JUSTYN Cannon Coding Level of Care Code Est Pt Level 3 (54662) Complex EM visit Add On G2211 Diagnoses Bladder calculus N21.0 Renal cyst N28.1
== END 2024-03-28 09:58 | disposition home or self-care (01) ==
PROVIDERS: PCP Hospitalist; Visit Provider Nurse Practitioner Family
DX: N21.0 Calculus in bladder (principal); N28.1 Cyst of kidney, acquired
CPT/HCPCS: 99213; G2211

== ENCOUNTER → 2024-03-28 09:32 | Outpatient (BNVA) | payer MEDICARE, SELFPAY | PROVIDERS: PCP Hospitalist; Visit Provider Nurse Practitioner Family | DX: N21.0 Calculus in bladder (principal); N28.1 Cyst of kidney, acquired | CPT/HCPCS: 99212 ==

== ENCOUNTER 2024-04-20 19:04 | Emergency (ER) | payer MEDICARE, SELFPAY ==
--- NOTE | ~2024-04-20 | XR_ITS ---
EXAMINATION: XR CHEST CLINICAL INFORMATION: Shortness of breath. COMPARISON: Chest radiograph 11/15/2021. TECHNIQUE: Frontal view of the chest was obtained. FINDINGS: Limited examination secondary to rotation and overlying patient's chin. Curvilinear opacity projecting over the right lower lung field. Mild diffuse peribronchial thickening. No dense consolidation, pleural effusion or pneumothorax. Normal heart size. No displaced osseous fractures. EKG leads overlie the chest. XR/XR chest 1V IMPRESSION: 1. Limited examination secondary to rotation and overlying patient's chin. 2. Curvilinear opacity projecting over the right lower lung field could represent scarring and subsegmental atelectasis. Recommend short-term imaging follow-up. 3. Mild peribronchial thickening which could be seen with small airways disease. 4. Suspect background of emphysema. Electronically signed by: Shruthi Elias MD 04/20/2024 10:28 PM R[facility] ESCOBAR
--- NOTE | 2024-04-20 19:11 | ECG_ITS ---
Test Reason : shortness of breath Blood Pressure : / mmHG Vent. Rate : 071 BPM Atrial Rate : 071 BPM P-R Int : 184 ms QRS Dur : 082 ms QT Int : 428 ms P-R-T Axes : 088 047 077 degrees QTc Int : 465 ms Normal sinus rhythm Nonspecific ST elevation Abnormal ECG When compared with ECG of 27-AUG-2023 12:48, No significant change was found Referred By: Generic ED Physician Electronically Signed By:RAND WARD MD
[2024-04-20 19:18] VITALS: BP 123/72; PULSE 71; RESP 17; TEMP 36.6; O2SAT 100
[2024-04-20 19:23] VITALS: BP 123/72; BP 130/70; PULSE 70; PULSE 90; RESP 14; TEMP 36.8; O2SAT 100; O2SAT 88; BMI 22.1
[2024-04-20 19:36] LABS: MANUAL DIFF FLAG NO
--- NOTE | 2024-04-20 19:42 | PC.NURSE ---
Called [facility] and spoke with nurse Jannie who reports pt has not been taking his medications due to poor po intake and esophageal strictures. Pt is usually oriented to self and remembers staffs names. Janine also reports pt is usually verbal and enjoys talking a lot but is not coherent. Pt is also ambulatory and wonders off. At this time pt is not answering questions such as his name. Pending lab results.
[2024-04-20 19:52] LABS: Alanine Aminotransferase 15 U/L (0-40); Albumin Level 3.6 g/dL (3.5-5.0); Alkaline Phosphatase 99 U/L (39-117); Anion Gap 13 (12-20); Aspartate Amino Transferase 21 U/L (5-37); Bilirubin Total 0.2 mg/dL (0.0-1.0); Blood Urea Nitrogen 31 mg/dL (9-16); Calcium 8.8 mg/dL (8.4-10.2); Carbon Dioxide 25 mmol/L (22-29); Chloride 106 mmol/L (96-108); Creatinine Clr Calc Pharmacy 73.1; Estimated Glomerular Filt Rate > 60; Glucose Random 101 mg/dL (60-115); Potassium 4.1 mmol/L (3.3-5.1); Sodium 140 mmol/L (135-145); Total Protein 6.3 g/dL (6.5-8.0)
--- NOTE | 2024-04-20 19:55 | ED_ITS ---
HPI - General Adult General Chief complaint: General Medical Stated complaint: found unresponsive, responsive to verbal for ems Time Seen by Provider: 04/20/24 19:50 Source: patient, EMS and RN notes reviewed Mode of arrival: EMS Limitations: altered mental status History of Present Illness ED Provider: rylan HERRING narrative: Patient is 68 years old from [facility] with history of metabolic encephalopathy autistic disorder schizoaffective disorder TBI hypertension sent here from residential for change in mental status patient is usually more awake today more sleepy no chest pain no shortness a breath but odor to be saturating 88% at room air when he came Related Data Home Medications ?Medication ?Instructions ?Recorded ?Confirmed acetaminophen 325 mg tablet 650 mg PO Q6H PRN Fever Or Pain 09/23/20 03/28/24 diphenhydramine HCl 25 mg capsule 25 mg PO Q6H PRN Itching 09/23/20 03/28/24 (Benadryl) docusate sodium 100 mg capsule 100 mg PO BID 09/23/20 03/28/24 lactulose 10 gram/15 mL (15 mL) 60 ml PO TID 09/23/20 03/28/24 oral solution sodium bicarbonate 650 mg tablet 650 mg PO DAILY 09/23/20 03/28/24 tamsulosin 0.4 mg capsule 0.4 mg PO DAILY 09/23/20 03/28/24 multivitamin with minerals 1 tab PO DAILY 11/25/20 03/28/24 ascorbic acid (vitamin C) 500 mg 500 mg PO DAILY 04/23/22 03/28/24 tablet clozapine 50 mg tablet 1 tab PO BEDTIME 04/23/22 03/28/24 ferrous sulfate 325 mg (65 mg 325 mg PO DAILY 04/23/22 03/28/24 iron) tablet hydroxyzine HCl 50 mg tablet 1 tab PO TID PRN Agitation 04/23/22 03/28/24 metoprolol succinate 50 mg 1 tab PO BID 04/23/22 03/28/24 tablet,extended release 24 hr sennosides 8.6 mg tablet (senna) 17.2 mg PO DAILY 03/10/23 03/28/24 bisacodyl 10 mg rectal suppository 10 mg LA DAILY PRN Constipation 06/11/23 03/28/24 levothyroxine 100 mcg tablet 100 mcg PO DAILY 06/11/23 03/28/24 magnesium hydroxide 400 mg/5 mL 30 ml PO BEDTIME 06/11/23 03/28/24 oral suspension (Milk of Magnesia) clomipramine 50 mg capsule 50 mg PO BEDTIME 08/27/23 03/28/24 Previous Rx's ?Medication ?Instructions ?Recorded pantoprazole 40 mg tablet,delayed 40 mg PO BID #90 tabs 08/28/23 release sucralfate 100 mg/mL oral 10 ml PO BID #420 mL 08/28/23 suspension (Carafate) Allergies Allergy/AdvReac Type Severity Reaction Status Date / Time fish oil [FISH OIL] Allergy Unknown Unknown Verified 04/20/24 19:26 Iodinated Contrast Media Allergy Unknown Unknown Verified 04/20/24 19:26 [IODINATED CONTRAST- ORAL AND IV DYE] pollen extracts Allergy Unknown Unknown Verified 04/20/24 19:26 shellfish derived Allergy Unknown Unknown Verified 04/20/24 19:26 Review of Systems 2 Review of Systems: Yes Unobtainable due to mental status PMFSH Past Medical History Medical History Repeated falls Disturbances of salivary secretion Autistic disorder ADHD (attention deficit hyperactivity disorder) Metabolic encephalopathy Adult failure to thrive Erysipelas COVID-19 Cellulitis Muscle weakness (generalized) Osteoarthritis Kidney cyst, acquired Vomiting and diarrhea Emphysema of lung Bronchitis Tubular adenoma Allergic rhinitis Esophageal obstruction Hydronephrosis On beta elmer at home History of COVID-19 Resides in group home facility [place] Personality disorder Hypothyroidism GERD (gastroesophageal reflux disease) Anemia Encephalopathy GI bleed BPH (benign prostatic hyperplasia) HTN (hypertension) Dysphagia Diabetes Schizoaffective disorder TBI (traumatic brain injury) Surgical History Hx of colonoscopy Hx of esophagogastroduodenoscopy Social History Social History Household Members: Other Household Members Other:: resides @ [facility] Housing: Retirement Housing Other:: [facility]-[phone] Are you a primary home care aide to a significant other at home: No Do you presently have visiting nurse or other home services: Yes (as above noted) Unable to assess alcohol history related to: Unknown Alcohol intake: unknown Comment: 1:1 sitter Patient Tobacco Use Status: Former Tobacco user Advance Directives: Yes Advance Directives on File: Yes Advance Directives Date on File: 02/12/22 Do you have a plan to hurt others: No Plan service: No Current occupational status: disabled Physical Exam ED Vital Signs: Vital Signs - 24 hr 04/20/24 19:18 04/20/24 19:23 04/20/24 22:02 Temperature 97.8 F 98.2 F 97.8 F Pulse Rate 71 70 70 Respiratory Rate 17 14 14 Blood Pressure 123/72 123/72 143/85 H Pulse Oximetry 100 100 100 Oxygen Delivery Method Nasal Cannula with ETCO2 Nasal Cannula Nasal Cannula Oxygen Flow Rate 4 2 04/20/24 23:54 Temperature Pulse Rate 60 Respiratory Rate 16 Blood Pressure 104/68 Pulse Oximetry 99 Oxygen Delivery Method Room Air Oxygen Flow Rate BMI result Body Mass Index 22.1 Appearance: Alert. Oriented X3. No acute distress. Eyes: No pallor or icterus ENT: Pharynx normal. Oral Mucosa moist Neck: Normal inspection. Neck supple. CVS: Normal heart rate and rhythm. Pulses normal. Respiratory: No respiratory distress. Equal air entry bilateral, no wheezing/rales/rhonchi Abdomen: Soft and nontender. Bowel sounds are present, no mass palpable, no CVA tenderness Skin: Skin warm and dry. Normal skin color. Normal skin turgor. Extremities: No lower extremity edema. No calf tenderness Neuro: Oriented X 3. No motor deficit. Medical Decision Making Medical Decision Making [facility] Narrative: Patient has multiple past medical history with encephalopathy and schizophrenia came here for lethargy during stay in the ER patient is back to now having p.o. fluids cause of lethargic and not clear possible medication and schizophrenia patient's EKG was showing repolarization changes patient does not have any chest pain case discussed Dr. Pinon who saw the EKG agreed that is not cardiac 2 sets of cardiac enzymes were done which were negative Differential Diagnosis Differential Diagnoses: The differential diagnosis associated with the presentation includes Admission/Observation Consideration of admission/observation: Escalation of care including admission/observation considered Lab Data [facility] Lab Attestation statement: I reviewed the patient's lab results. 04/20/24 19:31 04/20/24 19:31 Labs: Lab Results 04/20/24 04/20/24 Range/Units 19:31 21:55 WBC 7.8 (4.8-10.8) X10*3/uL RBC 4.11 L (4.60-5.80) X10*6/uL Hgb 11.7 L (14.0-18.0) g/dl Hct 34.8 L (42.0-52.0) % MCV 84.7 (80.0-98.0) fL MCH 28.5 (27.0-33.0) pg MCHC 33.6 (31.0-36.0) g/dl RDW 14.8 (11.0-16.0) % Plt Count 363 (160-400) X10*3/uL MPV 10.0 (9.4-12.4) fL Immature Gran % (Auto) 0.4 (0.0-0.4) % Neut % (Auto) 70.9 (45-73) % Lymph % (Auto) 19.3 L (20-40) % Stephens % (Auto) 6.4 (2-11) % Eos % (Auto) 1.7 (0-4) % Baso % (Auto) 1.3 (0-2) % Lymph # (Auto) 1.5 (1.2-4.9) X10*3/uL Stephens # (Auto) 0.5 (0.1-1.2) X10*3/uL Eos # (Auto) 0.1 (0.0-0.4) X10*3/uL Baso # (Auto) 0.1 (0.0-0.2) X10*3/uL Abs Immat Gran (auto) 0.03 (0.00-0.03) X10*3/uL Absolute Neuts (auto) 5.6 (2.0-8.3) x10*3/uL Absolute Nucleated RBC 0.000 (0.0-0.012) X10*3/uL Nucleated RBC % (auto) 0.0 (0.0-0.2) /100WBC Sodium 140 (135-145) mmol/L Potassium 4.1 (3.3-5.1) mmol/L Chloride 106 (96-108) mmol/L Carbon Dioxide 25 (22-29) mmol/L Anion Gap 13 (12-20) BUN 31 H (9-16) mg/dL Creatinine 0.93 (0.5-1.4) mg/dL Estim Creat Clear Calc 73.1 Estimated GFR > 60 Random Glucose 101 (60-115) mg/dL Calcium 8.8 (8.4-10.2) mg/dL Total Bilirubin 0.2 (0.0-1.0) mg/dL AST 21 (5-37) U/L ALT 15 (0-40) U/L Alkaline Phosphatase 99 (39-117) U/L Troponin I High Sens 3.9 4.6 (<3.5-35.0) ng/L Total Protein 6.3 L (6.5-8.0) g/dL Albumin 3.6 (3.5-5.0) g/dL Independent Interpretation I performed an independent interpretation of an: EKG and Plain X-Ray Interpretation: Normal sinus rhythm heart rate 71 beats per minute earlier repolarization changes no ST depression no reciprocal changes no acute ischemia Radiology Impression Discussion of test interpretation with radiology: I have reviewed the radiologist's reading. Discharge Plan Discharge Clinical Impression: Weakness Patient Disposition: Home, Self-Care Instructions: Weakness (ED) Additional Instructions: Your blood report is stable no signs of infection noticed patient is back to baseline change in mental status likely from his medications and psych condition Prescriptions: No Action tamsulosin 0.4 mg capsule 0.4 mg PO DAILY acetaminophen 325 mg Tablet 650 mg PO Q6H PRN (Reason: Fever Or Pain) Rx Instructions: not to exceed 3000mg/day sodium bicarbonate 650 mg Tablet 650 mg PO DAILY diphenhydramine HCl [Benadryl] 25 mg Capsule 25 mg PO Q6H PRN (Reason: Itching) docusate sodium 100 mg Capsule 100 mg PO BID lactulose 10 gram/15 mL (15 mL) Solution 60 ml PO TID multivitamin with minerals Tablet 1 tab PO DAILY metoprolol succinate 50 mg tablet extended release 24 hr 1 tab PO BID hydroxyzine HCl 50 mg tablet 1 tab PO TID PRN (Reason: Agitation) ascorbic acid (vitamin C) 500 mg Tablet 500 mg PO DAILY ferrous sulfate 325 mg (65 mg iron) Tablet 325 mg PO DAILY clozapine 50 mg tablet 1 tab PO BEDTIME levothyroxine 100 mcg tablet 100 mcg PO DAILY magnesium hydroxide [Milk of Magnesia] 400 mg/5 mL Suspension 30 ml PO BEDTIME bisacodyl 10 mg Suppository 10 mg LA DAILY PRN (Reason: Constipation) sennosides [senna] 8.6 mg tablet 17.2 mg PO DAILY clomipramine 50 mg capsule 50 mg PO BEDTIME sucralfate [Carafate] 100 mg/mL suspension 10 ml PO BID Qty: 420 0RF pantoprazole 40 mg tablet,delayed release (DR/EC) 40 mg PO BID Qty: 90 1RF Print Language: Turkish
--- NOTE | 2024-04-20 19:57 | ECG_ITS ---
Test Reason : COMPARE TO LAST EKG Blood Pressure : / mmHG Vent. Rate : 071 BPM Atrial Rate : 071 BPM P-R Int : 190 ms QRS Dur : 080 ms QT Int : 434 ms P-R-T Axes : 090 025 081 degrees QTc Int : 471 ms Normal sinus rhythm Nonspecific ST elevation Abnormal ECG When compared with ECG of 20-APR-2024 19:44, No significant change was found Referred By: Pete Carter Electronically Signed By:RAND WARD MD
[2024-04-20 19:58] LABS: Troponin-I High Sensitivity 3.9 ng/L (<3.5-35.0)
[2024-04-20 20:24] LABS: Basophils Absolute Auto 0.1 X10*3/uL (0.0-0.2); Basophils Percent Auto 1.3 % (0-2); Eosinophils Absolute Auto 0.1 X10*3/uL (0.0-0.4); Eosinophils Percent Auto 1.7 % (0-4); Hematocrit 34.8 % (42.0-52.0); Hemoglobin 11.7 g/dl (14.0-18.0); Imm Gran Abs Auto 0.03 X10*3/uL (0.00-0.03); Imm Gran Pct Auto 0.4 % (0.0-0.4); Lymphocytes Absolute Auto 1.5 X10*3/uL (1.2-4.9); Lymphocytes Percent Auto 19.3 % (20-40); Mean Corpuscular HGB Conc 33.6 g/dl (31.0-36.0); Mean Corpuscular Hemoglobin 28.5 pg (27.0-33.0); Mean Corpuscular Volume 84.7 fL (80.0-98.0); Monocytes Absolute Auto 0.5 X10*3/uL (0.1-1.2); Monocytes Percent Auto 6.4 % (2-11); Neutrophils Absolute Auto 5.6 x10*3/uL (2.0-8.3); Neutrophils Percent Auto 70.9 % (45-73); Platelet Count 363 X10*3/uL (160-400); Red Blood Count 4.11 X10*6/uL (4.60-5.80); Red Cell Distribution Width 14.8 % (11.0-16.0); White Blood Count 7.8 X10*3/uL (4.8-10.8)
[2024-04-20 22:02] VITALS: BP 143/85; PULSE 70; RESP 14; TEMP 36.6; O2SAT 100
--- NOTE | 2024-04-20 22:09 | MHC.EDTECH ---
Patient inc therfore patient changed and repositioned
[2024-04-20 22:19] LABS: Troponin-I High Sensitivity 4.6 ng/L (<3.5-35.0)
--- NOTE | 2024-04-20 23:37 | PC.NURSE ---
Called [facility] and spoke to Janine regarding pts return to facility.
[2024-04-20 23:54] VITALS: BP 104/68; PULSE 60; RESP 16; O2SAT 99
[2024-04-21 00:44] VITALS: BP 104/68; PULSE 60; RESP 16; TEMP 36.6; O2SAT 99
== END 2024-04-21 00:45 | disposition home or self-care (01) ==
PROVIDERS: Emergency Provider Internal Medicine; PCP Hospitalist
DX: R40.4 Transient alteration of awareness (principal); R94.31 Abnormal electrocardiogram [ECG] [EKG]; R06.02 Shortness of breath; F20.9 Schizophrenia, unspecified; Z79.899 Other long term (current) drug therapy; Z87.891 Personal history of nicotine dependence
CPT/HCPCS: 36415; 71045; 80053; 84484; 85025; 93005; 99283; 99284

== ENCOUNTER → 2024-04-20 19:11 | Outpatient (BNV) | payer MEDICARE, SELFPAY | PROVIDERS: Emergency Provider Internal Medicine; PCP Hospitalist; Visit Provider Internal Medicine Cardiovascular Disease | DX: R06.02 Shortness of breath (principal) | CPT/HCPCS: 93010 ==

== ENCOUNTER 2024-05-10 08:19 | Outpatient (AMB) | payer MEDICARE, SELFPAY ==
--- NOTE | 2024-05-10 08:23 | A.OFFVIS_ITS ---
Vital Signs 05/10/24 08:31 Height 5 ft 9 in Weight 109 lb BMI 16.1 BP 153/63 H Blood Pressure Location Rt brachial Position Sitting Pulse 84 Intake Visit Reasons: Peg tube placement Intake Note: This patient presents for Peg tube placement. Pt c/o; Dysphagia. Plastics Spreading Machine Operator Required: No Accompanied by: SECURITY ADMINISTRATOR Allergies fish oil [FISH OIL] Allergy (Unknown, Verified 05/10/24 08:32) Unknown Iodinated Contrast Media [IODINATED CONTRAST- ORAL AND IV DYE] Allergy (Unknown, Verified 05/10/24 08:32) Unknown pollen extracts Allergy (Unknown, Verified 05/10/24 08:32) Unknown shellfish derived Allergy (Unknown, Verified 05/10/24 08:32) Unknown Medication List - Last Reconciled 05/10/24 by Billy Lawrence MD acetaminophen 650 mg PO Q6H PRN ascorbate calcium (vitamin C) 500 mg PO DAILY ascorbic acid (vitamin C) 500 mg PO DAILY bisacodyl 10 mg SD DAILY PRN clomipramine 50 mg PO BEDTIME clozapine 1 tab PO BEDTIME diphenhydramine HCl (Benadryl) 25 mg PO Q6H PRN docusate sodium 100 mg PO BID ferrous sulfate 325 mg PO DAILY glucagon HCl (Glucagon (HCl) Emergency Kit) 1 mg subcut Q20M PRN hydroxyzine HCl 1 tab PO TID PRN hydroxyzine HCl mg IM lactulose 60 mL PO TID levothyroxine 100 mcg PO DAILY magnesium hydroxide (Milk of Magnesia) 30 mL PO BEDTIME metoprolol succinate ER 1 tab PO BID multivitamin with minerals 1 tab PO DAILY pantoprazole 40 mg PO BID sennosides (senna) 17.2 mg PO DAILY sodium bicarbonate 650 mg PO DAILY sucralfate (Carafate) 10 mL PO BID tamsulosin 0.4 mg PO DAILY HPI HPI Peg tube placement: Details: 68-year-old male with multiple medical problems including schizoaffective disorder, hypertension, history of metabolic encephalopathy, or thyroiditis, referred to me for PEG tube placement. He has a resident of [facility]. He essentially is not competent mentally and has an assigned healthcare proxy. According to his caregiver, he has had problems with swallowing solid food for a long time now. He is on diet and is tolerating this. However, he does spit out food and often times refuses to eat. He has been noted to lose some weight because of this. He was therefore sent for PEG tube placement He ambulates in the alf. He often times does not communicate although he answers some questions once in a while. He has known traumatic brain injury on previous records. He had an EGD with Dr. Alexander last July 2023. 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 He also has a known hiatal hernia. Dr. Alexander was able to pass the endoscope without difficulty. [facility] Medical History (Updated 05/10/24 @ 09:02 by Billy Lawrence MD) Dysphagia Repeated falls Disturbances of salivary secretion Autistic disorder ADHD (attention deficit hyperactivity disorder) Metabolic encephalopathy Adult failure to thrive Erysipelas COVID-19 Cellulitis Muscle weakness (generalized) Osteoarthritis Kidney cyst, acquired Vomiting and diarrhea Emphysema of lung Bronchitis Tubular adenoma Allergic rhinitis Esophageal obstruction Hydronephrosis On beta elmre at home History of COVID-19 Resides in halfway facility [place] Personality disorder Hypothyroidism GERD (gastroesophageal reflux disease) Anemia Encephalopathy GI bleed BPH (benign prostatic hyperplasia) HTN (hypertension) Diabetes Schizoaffective disorder TBI (traumatic brain injury) Surgical History Hx of colonoscopy Hx of esophagogastroduodenoscopy Social History Household Members: Other Household Members Other:: resides @ [facility] Housing: Detention Housing Other:: [facility]-[phone] Are you a primary critical care nurse specialist to a significant other at home: No Do you presently have visiting nurse or other home services: Yes (as above noted) Unable to assess alcohol history related to: Unknown Alcohol intake: unknown Comment: 1:1 sitter Patient Tobacco Use Status: Former Tobacco user Advance Directives Date on File: 02/12/22 service: No Current occupational status: disabled Physical Exam Vital Signs: Last Vital Signs Pulse 84 05/10/24 08:31 BP 153/63 H 05/10/24 08:31 BMI result Body Mass Index 16.1 Const Other: Minimal verbal output although ambulating, awake General: comfortable and no acute distress Resp Effort & Inspection: normal respiratory effort Cardio Rate: regular rate GI Other: No obvious surgical scars Palpation (GI): Soft to palpation, not firm, nontender and no guarding Neuro Cognition (Neuro): abnormal cognition Assessment & Plan Assessment & Plan (1) Dysphagia: Code(s): R13.10 - Dysphagia, unspecified Category: Medical Plan: The patient is tolerating pureed diet but has had problems with solids in the past. He seems to refuse to eat periodically and according to his caregiver sometimes spits out food. He does have a long history of schizo affective disorder I have reviewed his EGD from July,. 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 He has a known hiatal hernia. His CAT scan images show this but most of the stomach is still in the abdomen and appears to be very accessible for PEG placement. I have discussed the technique of PEG tube placement with his healthcare proxy, Kenny Arredondo at [phone] and [phone]. I reviewed the risks including but not limited to bleeding, infections, injury to esophagus and bowel, tube dislodgement, tube leak, inherent risks of anesthesia, as well as the benefits and alternatives. He has given consent on the patient's behalf. I have reviewed the above with his primary care physician Dr. Swapnil Vazquez as well. Coding Level of Care Code New Pt Level 3 (26760) Diagnoses Dysphagia R13.10
[2024-05-10 08:31] VITALS: BP 153/63; PULSE 84; BMI 16.1
== END 2024-05-10 08:55 | disposition home or self-care (01) ==
PROVIDERS: PCP Hospitalist; Referring Provider Hospitalist; Visit Provider Surgery
DX: R13.10 Dysphagia, unspecified (principal)
CPT/HCPCS: 99203

== ENCOUNTER → 2024-05-10 08:19 | Outpatient (BNVA) | payer MEDICARE, SELFPAY | PROVIDERS: PCP Hospitalist; Referring Provider Hospitalist; Visit Provider Surgery | DX: R13.10 Dysphagia, unspecified (principal) | CPT/HCPCS: 99202 ==

== ENCOUNTER 2024-05-17 10:17 | Day surgery (SDC) | payer MEDICARE, SELFPAY ==
--- NOTE | 2024-05-16 14:08 | HO.ANESPROP2 ---
Documented by User: Ange Spence NP 05/16/24 14:21 HPI - Anesthesia Eval Consult details Narrative: 68yo M for Upper Endoscopy with Balloon Dilitation s/p EGD and Elnora with TIVA Patient is a resident of [facility]. Schizoaffective disorder, TBI. ? Also plan for PEG with gen surg. PMFSH Active Problems Active Problems: All Active Problems Renal cyst (Acute) Bladder calculus (Acute) Nephrolithiasis (Acute) Erosive esophagitis (Acute) Heme positive stool (Acute) Iron deficiency anemia (Acute) Toxic encephalopathy (Acute) Dysphagia (Acute) Tubular adenoma (Acute) Past Medical History Medical History Repeated falls Disturbances of salivary secretion Autistic disorder ADHD (attention deficit hyperactivity disorder) Metabolic encephalopathy Adult failure to thrive Erysipelas COVID-19 Cellulitis Muscle weakness (generalized) Osteoarthritis Kidney cyst, acquired Vomiting and diarrhea Emphysema of lung Bronchitis Tubular adenoma Allergic rhinitis Esophageal obstruction Hydronephrosis On beta elmer at home History of COVID-19 Resides in [facility] facility Presbyopia Personality disorder Hypothyroidism GERD (gastroesophageal reflux disease) Anemia Encephalopathy GI bleed BPH (benign prostatic hyperplasia) HTN (hypertension) Dysphagia Diabetes Schizoaffective disorder TBI (traumatic brain injury) Family History Family history of problems with anesthesia: No Surgical History Surgical History Hx of cystoscopy Hx of colonoscopy Hx of esophagogastroduodenoscopy History of Problems with Anesthesia: No Social History Social History Household Members: Other Household Members Other:: [facility] in [facility] Senior Care Housing: Senior Care Housing Other:: [facility] [place]-[phone] Are you a primary account executive healthcare to a significant other at home: No Do you presently have visiting nurse or other home services: No Unable to assess alcohol history related to: Unknown Alcohol intake: unknown Comment: 1:1 sitter Patient Tobacco Use Status: Former Tobacco user Use of substances other than those prescribed or required for medical reasons: No Are you DNR?: No Advance Directives: No Advance Directives Information Provided: Yes Advance Directives Date on File: 02/12/22 Recently lost weight without trying: Unsure service: No Current occupational status: disabled Meds Allergies Allergy/AdvReac Type Severity Reaction Status Date / Time fish oil [FISH OIL] Allergy Unknown Unknown Verified 05/10/24 08:32 Iodinated Contrast Media Allergy Unknown Unknown Verified 05/10/24 08:32 [IODINATED CONTRAST- ORAL AND IV DYE] pollen extracts Allergy Unknown Unknown Verified 05/10/24 08:32 shellfish derived Allergy Unknown Unknown Verified 05/10/24 08:32 Home Medications ?Medication ?Instructions ?Recorded ?Confirmed ?Last Taken ?Type acetaminophen 325 mg tablet 650 mg PO Q6H PRN Fever Or Pain 09/23/20 05/10/24 09/23/20 History diphenhydramine HCl 25 mg capsule 25 mg PO Q6H PRN Itching 09/23/20 05/10/24 Unknown History (Benadryl) docusate sodium 100 mg capsule 100 mg PO BID 09/23/20 05/10/24 08/26/23 History lactulose 10 gram/15 mL (15 mL) 60 ml PO TID 09/23/20 05/10/24 08/26/23 History oral solution sodium bicarbonate 650 mg tablet 650 mg PO DAILY 09/23/20 05/10/24 08/26/23 History tamsulosin 0.4 mg capsule 0.4 mg PO DAILY 09/23/20 05/10/24 08/26/23 History multivitamin with minerals 1 tab PO DAILY 11/25/20 05/10/24 08/26/23 History ascorbic acid (vitamin C) 500 mg 500 mg PO DAILY 04/23/22 05/10/24 08/26/23 History tablet clozapine 50 mg tablet 1 tab PO BEDTIME 04/23/22 05/10/24 08/26/23 History ferrous sulfate 325 mg (65 mg 325 mg PO DAILY 04/23/22 05/10/24 08/26/23 History iron) tablet hydroxyzine HCl 50 mg tablet 1 tab PO TID PRN Agitation 04/23/22 03/28/24 Unknown History metoprolol succinate 50 mg 1 tab PO BID 04/23/22 05/10/24 08/26/23 History tablet,extended release 24 hr sennosides 8.6 mg tablet (senna) 17.2 mg PO DAILY 03/10/23 05/10/24 08/26/23 History bisacodyl 10 mg rectal suppository 10 mg AR DAILY PRN Constipation 06/11/23 05/10/24 Unknown History levothyroxine 100 mcg tablet 100 mcg PO DAILY 06/11/23 05/10/24 08/26/23 History magnesium hydroxide 400 mg/5 mL 30 ml PO BEDTIME 06/11/23 05/10/24 08/26/23 History oral suspension (Milk of Magnesia) clomipramine 50 mg capsule 50 mg PO BEDTIME 08/27/23 05/10/24 Unknown History ascorbate calcium (vitamin C) 500 500 mg PO DAILY 05/10/24 05/10/24 Unknown History mg tablet glucagon HCl 1 mg solution for 1 mg subcut Q20M PRN 05/10/24 05/10/24 Unknown History injection (Glucagon (HCl) Emergency Kit) hydroxyzine HCl 50 mg/mL mg IM 05/10/24 05/10/24 Unknown History intramuscular solution Exam Pertinent Lab Results Pertinent Lab Results: Laboratory Tests 04/20/24 19:31 WBC 7.8 Hgb 11.7 L Hct 34.8 L Plt Count 363 Sodium 140 Potassium 4.1 Chloride 106 Carbon Dioxide 25 BUN 31 H Creatinine 0.93 Narrative Narrative: EKG 04/2024 Vent. Rate : 071 BPM Atrial Rate : 071 BPM P-R Int : 190 ms QRS Dur : 080 ms QT Int : 434 ms P-R-T Axes : 090 025 081 degrees QTc Int : 471 ms Normal sinus rhythm Nonspecific ST elevation Abnormal ECG When compared with ECG of 20-APR-2024 19:44, No significant change was found Assessment and Plan Assessment Anesthesia Assessment: Chart Reviewed Final Anesthetic Review Family History of Problems with Anesthesia: No History of Problems with Anesthesia: No Documented by User: Pricilla Clark MD 05/17/24 12:25 [facility] Past Medical History Medical History Repeated falls Disturbances of salivary secretion Autistic disorder ADHD (attention deficit hyperactivity disorder) Metabolic encephalopathy Adult failure to thrive Erysipelas COVID-19 Cellulitis Muscle weakness (generalized) Osteoarthritis Kidney cyst, acquired Vomiting and diarrhea Emphysema of lung Bronchitis Tubular adenoma Allergic rhinitis Esophageal obstruction Hydronephrosis On beta elmer at home History of COVID-19 Resides in [facility] facility Presbyopia Personality disorder Hypothyroidism GERD (gastroesophageal reflux disease) Anemia Encephalopathy GI bleed BPH (benign prostatic hyperplasia) HTN (hypertension) Dysphagia Diabetes Schizoaffective disorder TBI (traumatic brain injury) Surgical History Surgical History Hx of cystoscopy Hx of colonoscopy Hx of esophagogastroduodenoscopy Social History Social History Household Members: Other Household Members Other:: [facility] in [facility] Senior Care Housing: Senior Care Housing Other:: [facility] [place]-[phone] Are you a primary account executive healthcare to a significant other at home: No Do you presently have visiting nurse or other home services: No Unable to assess alcohol history related to: Unknown Alcohol intake: unknown Comment: 1:1 sitter Patient Tobacco Use Status: Former Tobacco user Use of substances other than those prescribed or required for medical reasons: No Are you DNR?: No Advance Directives: No Advance Directives Information Provided: Yes Advance Directives Date on File: 02/12/22 Recently lost weight without trying: Unsure service: No Current occupational status: disabled Meds Allergies Allergy/AdvReac Type Severity Reaction Status Date / Time fish oil [FISH OIL] Allergy Unknown Unknown Verified 05/10/24 08:32 Iodinated Contrast Media Allergy Unknown Unknown Verified 05/10/24 08:32 [IODINATED CONTRAST- ORAL AND IV DYE] pollen extracts Allergy Unknown Unknown Verified 05/10/24 08:32 shellfish derived Allergy Unknown Unknown Verified 05/10/24 08:32 Home Medications ?Medication ?Instructions ?Recorded ?Confirmed ?Last Taken ?Type acetaminophen 325 mg tablet 650 mg PO Q6H PRN Fever Or Pain 09/23/20 05/10/24 09/23/20 History diphenhydramine HCl 25 mg capsule 25 mg PO Q6H PRN Itching 09/23/20 05/10/24 Unknown History (Benadryl) docusate sodium 100 mg capsule 100 mg PO BID 09/23/20 05/10/24 08/26/23 History lactulose 10 gram/15 mL (15 mL) 60 ml PO TID 09/23/20 05/10/24 08/26/23 History oral solution sodium bicarbonate 650 mg tablet 650 mg PO DAILY 09/23/20 05/10/24 08/26/23 History tamsulosin 0.4 mg capsule 0.4 mg PO DAILY 09/23/20 05/10/24 08/26/23 History multivitamin with minerals 1 tab PO DAILY 11/25/20 05/10/24 08/26/23 History ascorbic acid (vitamin C) 500 mg 500 mg PO DAILY 04/23/22 05/10/24 08/26/23 History tablet clozapine 50 mg tablet 1 tab PO BEDTIME 04/23/22 05/10/24 08/26/23 History ferrous sulfate 325 mg (65 mg 325 mg PO DAILY 04/23/22 05/10/24 08/26/23 History iron) tablet hydroxyzine HCl 50 mg tablet 1 tab PO TID PRN Agitation 04/23/22 03/28/24 Unknown History metoprolol succinate 50 mg 1 tab PO BID 04/23/22 05/10/24 08/26/23 History tablet,extended release 24 hr sennosides 8.6 mg tablet (senna) 17.2 mg PO DAILY 03/10/23 05/10/24 08/26/23 History bisacodyl 10 mg rectal suppository 10 mg AR DAILY PRN Constipation 06/11/23 05/10/24 Unknown History levothyroxine 100 mcg tablet 100 mcg PO DAILY 06/11/23 05/10/24 08/26/23 History magnesium hydroxide 400 mg/5 mL 30 ml PO BEDTIME 06/11/23 05/10/24 08/26/23 History oral suspension (Milk of Magnesia) clomipramine 50 mg capsule 50 mg PO BEDTIME 08/27/23 05/10/24 Unknown History ascorbate calcium (vitamin C) 500 500 mg PO DAILY 05/10/24 05/10/24 Unknown History mg tablet glucagon HCl 1 mg solution for 1 mg subcut Q20M PRN 05/10/24 05/10/24 Unknown History injection (Glucagon (HCl) Emergency Kit) hydroxyzine HCl 50 mg/mL mg IM 05/10/24 05/10/24 Unknown History intramuscular solution Exam Airway Mallampati Class: Patient Non-Cooperative Heart: rrr Lungs: cta Assessment and Plan Assessment Anesthesia Assessment: Anesthesia Plan Discussed Final Anesthetic Review NPO: Yes ASA Class: III Final Preanesthetic Review: No Changes in Pt Med Stat, Meds/Allgs Chart Reviewed, Consent Obtained/Reviewed and Anes Risks/Benef Reviewed Patient Risk: Intermediate Procedure Risk: Low Anesthetic Plan Anesthetic Plan: GA and MAC: Disposition: Standard PACU
[2024-05-17 11:43] VITALS: BMI 14.6
[2024-05-17 11:53] VITALS: BP 131/83; PULSE 74; RESP 20; TEMP 36.6; O2SAT 100; BMI 14.6
[2024-05-17 12:12] LABS: Glucose, Whole Blood 82 mg/dL (60-115)
--- NOTE | 2024-05-17 12:13 | P.HPSUR_ITS ---
Pre-Procedural Eval Section A - 24 Hr Update-Section A only Date of Service: 05/17/24 Section B - Complete if H&P > 30 days Chief Complaint: Disease of esophagus, unspecified Relevant Family History (Specify if Yes): No Relevant Social History: None Present Medications: see Short Stay Collaborative assessment Medical History: Significant History (Repeated falls Disturbances of salivary secretion Autistic disorder ADHD (attention deficit hyperactivity disorder) Metabolic encephalopathy Adult failure to thrive Erysipelas COVID-19 Cellulitis Muscle weakness (generalized) Osteoarthritis Kidney cyst, acquired Vomiting and diarrhea Emphysema of rocio) History of Previous Operations: Relevant previous surgery/procedure and date(s) (Hx of cystoscopy Hx of colonoscopy Hx of esophagogastroduodenoscopy) Allergies: Allergies Allergy/AdvReac Type Severity Reaction Status Date / Time fish oil [FISH OIL] Allergy Unknown Unknown Verified 05/10/24 08:32 Iodinated Contrast Media Allergy Unknown Unknown Verified 05/10/24 08:32 [IODINATED CONTRAST- ORAL AND IV DYE] pollen extracts Allergy Unknown Unknown Verified 05/10/24 08:32 shellfish derived Allergy Unknown Unknown Verified 05/10/24 08:32 Review of Systems Sugical H&P ROS: Negative: Constitution, Cardiovascular, Respiratory, Neurological, Psychiatric, Hem-Onc, Allergic/Immunologic, Gastrointestinal, Genitourinary, Musculoskeletal, Integumentary, Endocrine and Eyes/Ears/Nose/Throat Exam Surgical H&P Exam: Normal: HEENT, Normal: Heart, Normal: Lungs, Normal: Extremities, Normal: Abdomen and Normal: Skin and Significant Findings: Neurolo gical (encephalopathy) Plan Diagnosis/Plan: Unchanged I have reviewed the history and physical and performed a pertinent physical examination on my patient. No changes have occurred unless specified. Time Spent With Patient Time: Total time managing care of this patient today ____ minutes.
[2024-05-17] MEDS: Lactated Ringers 1,000 ML 100 ML IVCONT (12:29)
--- NOTE | 2024-05-17 12:46 | W.PM.OPN ---
Operative Note Operative Note Date of Service: 05/17/24 Narrative: Procedure Description: EGD Indication: esophageal stricture Anesthesia: MAC FLEXIBLE TRANSORAL UPPER GASTROINTESTINAL ENDOSCOPY UPPER ENDOSCOPY Consent: Indications for the procedure and potential complications of bleeding, perforation, reaction to medications and missed diagnosis were discussed with the patient and informed consent was obtained. Instrument: Olympus GIF H 190 J mid size upper endoscope Monitoring: Vital signs and clinical assessment, continuous EKG monitoring, Pulse oximetry, Carbon Dioxide monitoring and blood pressure monitoring were done throughout the procedure. Procedure: The patient was placed in the left lateral decubitis position and pre-procedure medications were administered and a bite block was placed. The endoscope was inserted into the mouth and advanced under direct vision to the third part of duodenum. A careful inspection was made as the upper endoscope was withdrawn including a retroflexed examination of the proximal stomach; Findings and interventions are described below. Findings: Larynx:normal Esophagus: GE junction at 38 cm, diaphragm hiatus at 44 cm, consistent with 6 cm fixed hiatal hernia. Esophagitis and stricture noted at GEJ, dilated with 15 mm balloon with heme noted, then UES also dilated to 16 mm, no tear seen Stomach: Normal mucosa. Grade 2 flap valve on retroflexed examination of the cardia. Duodenum: Normal bulb and descending duodenum, Intervention: balloon dilation Impression and Post Procedure Diagnosis: Endoscopy Findings: esophagitis hiatal hernia esophageal stricture Plan: repeat EGD in 3-6 months for possible re dilation, maybe kenalog injection but apparently he may be getting a PEG tube so primary team can decide what they wish to do GERD precautions, high dose PPI BID and carafate
[2024-05-17 12:52] VITALS: BP 83/45; PULSE 75; RESP 16; TEMP 36.1; O2SAT 95
[2024-05-17 13:16] VITALS: BP 93/48; PULSE 75; RESP 16; TEMP 36.1; O2SAT 95
[2024-05-17 13:28] VITALS: BP 83/44; PULSE 73; RESP 16; TEMP 36.1; O2SAT 94
[2024-05-17 13:40] VITALS: BP 117/59; PULSE 80; RESP 16; TEMP 36.1; O2SAT 91
--- NOTE | 2024-05-17 14:25 | PC.NURSE ---
spoke with md higuera regarding pt o2 sat and is okay to dc [facility]/t o2 sat going back up to 97%.
[2024-05-17 14:28] VITALS: O2SAT 97
--- NOTE | 2024-05-17 14:44 | PC.NURSE ---
THIS RN CALLED BOB SPEAR (GUARDIAN) FOR CONSENT ON DISCHARGE PAPERS.
== END 2024-05-17 14:48 | disposition home or self-care (01) ==
PROVIDERS: PCP Hospitalist; Visit Provider Internal Medicine Gastroenterology
PROC: (CPT 43249; principal; 2024-05-17 12:50)
DX: K20.80 Other esophagitis without bleeding (principal); K22.2 Esophageal obstruction; K44.9 Diaphragmatic hernia without obstruction or gangrene; K22.9 Disease of esophagus, unspecified; K21.9 Gastro-esophageal reflux disease without esophagitis; E11.9 Type 2 diabetes mellitus without complications; I10 Essential (primary) hypertension; D50.9 Iron deficiency anemia, unspecified; E03.9 Hypothyroidism, unspecified; Z87.820 Personal history of traumatic brain injury
CPT/HCPCS: 43249; 82947; J1100; J1596; J2003; J2250; J2704

== ENCOUNTER → 2024-05-17 10:17 | Outpatient (BNV) | payer MEDICARE, SELFPAY | PROVIDERS: PCP Hospitalist; Visit Provider Internal Medicine Gastroenterology | DX: K22.2 Esophageal obstruction (principal); K20.90 Esophagitis, unspecified without bleeding | CPT/HCPCS: 43249 ==

== ENCOUNTER 2024-05-31 11:48 | Outpatient (AMB) | payer MEDICARE, SELFPAY ==
--- NOTE | 2024-05-31 11:52 | A.OFFVIS_ITS ---
Vital Signs 05/31/24 11:54 Height 5 ft 10 in Weight 104 lb 15.04 oz BMI 15.1 BP 110/74 Blood Pressure Location Rt brachial Position Sitting Pulse 88 Pulse Source Pulse Oximeter Pulse Oximetry (%) 100 Oxygen Delivery Method Room Air Intake Visit Reasons: s/p repeat egd Intake Note: ESTABLISHED PATIENT Levar presents in office today for a scheduled s/p FUV. Meds and Allergies reviewed? Y No recent or relevant surgeries? EGD w/ TH Any significant concerns or new changes? Pt is having a PEG tube placed in 2 days (06/02) according to [facility] notes. Pharmacy verified? [facility] has physician consult paperwork w/ them today. Allergies fish oil [FISH OIL] Allergy (Unknown, Verified 05/31/24 11:52) Unknown Iodinated Contrast Media [IODINATED CONTRAST- ORAL AND IV DYE] Allergy (Unknown, Verified 05/31/24 11:52) Unknown pollen extracts Allergy (Unknown, Verified 05/31/24 11:52) Unknown shellfish derived Allergy (Unknown, Verified 05/31/24 11:52) Unknown HPI HPI s/p repeat egd: Details: LAST VISIT Tubular adenoma GERD (gastroesophageal reflux disease) IBS (irritable bowel syndrome) Dysphagia Plan Patient will return for upper endoscopy for possible dilation. Continue current PPI therapy with pantoprazole twice a day. Continue sucralfate. Avoid dietary triggers and late night snacking. Staying upright for minimum 3 hours after meals discussed with patient and staff. Instruct staff to monitor patient when eating to avoid choking and getting food stuck. Eating food that is soft and bland. I will see him after the procedure, sooner on as needed basis. UPPER ENDOSCOPY Findings: Larynx:normal Esophagus: GE junction at 38 cm, diaphragm hiatus at 44 cm, consistent with 6 cm fixed hiatal hernia. Esophagitis and stricture noted at GEJ, dilated with 15 mm balloon with heme noted, then UES also dilated to 16 mm, no tear seen Stomach: Normal mucosa. Grade 2 flap valve on retroflexed examination of the cardia. Duodenum: Normal bulb and descending duodenum, Intervention: balloon dilation Impression and Post Procedure Diagnosis: Endoscopy Findings: esophagitis hiatal hernia esophageal stricture Plan: repeat EGD in 3-6 months for possible re dilation, maybe kenalog injection but apparently he may be getting a PEG tube so primary team can decide what they wish to do GERD precautions, high dose PPI BID and carafate TODAY'S VISIT: Patient is here today for follow-up, he use accompanied by [facility] staff member. Patient had no issues with upper endoscopy or with anesthesia. Staff reports that patient seems to be swallowing better. No notes send that would indicate otherwise. Patient is scheduled to go for PEG placement on the of this month with Dr. Lawrence. Patient is losing weight. Staff reports that patient does not eat food and mostly place with it. Patient will be fed and hopefully will gain weight. Currently unsure if he is going to be NPO and will receive everything through PEG tube or if he will continue to have snacks and medications by mouth. Unable to reach the nurse, tried calling couple times to see if that will be the case. Will write report and requests will be sent to surgical schedulers to call the nurse that will be in charge of the patient. Patient denies any GI concerning symptoms otherwise. [facility] Medical History Repeated falls Disturbances of salivary secretion Autistic disorder ADHD (attention deficit hyperactivity disorder) Metabolic encephalopathy Adult failure to thrive Erysipelas COVID-19 Cellulitis Muscle weakness (generalized) Osteoarthritis Kidney cyst, acquired Vomiting and diarrhea Emphysema of lung Bronchitis Tubular adenoma Allergic rhinitis Esophageal obstruction Hydronephrosis On beta elemr at home History of COVID-19 Resides in care home facility Presbyopia Personality disorder Hypothyroidism GERD (gastroesophageal reflux disease) Anemia Encephalopathy GI bleed BPH (benign prostatic hyperplasia) HTN (hypertension) Dysphagia Diabetes Schizoaffective disorder TBI (traumatic brain injury) Surgical History (Updated 05/31/24 @ 13:08 by Shameka Richard RN) History of esophagogastroduodenoscopy (EGD) (05/17/24) Hx of cystoscopy Hx of colonoscopy Hx of esophagogastroduodenoscopy Social History Household Members: Other Household Members Other:: Lives in [facility] Intermediate Housing: Intermediate Housing Other:: [facility] [place]-[phone] Are you a primary student career development specialist to a significant other at home: No Do you presently have visiting nurse or other home services: No Unable to assess alcohol history related to: Unknown Alcohol intake: unknown Comment: 1:1 sitter Patient Tobacco Use Status: Former Tobacco user Advance Directives Date on File: 02/12/22 service: No Current occupational status: disabled Review of Systems Const Denies weight gain and Denies weight loss ENT Reports no additional complaints, Denies dysphagia and Denies odynophagia Card Reports no additional complaints Resp Reports no additional complaints GI Denies abdominal pain, Denies belching, Denies melena, Denies bloating, Denies change in bowel habits, Denies dysphagia, Denies excessive flatus, Denies dyspepsia, Denies heartburn, Denies diarrhea, Denies loose stools, Denies nausea, Denies odynophagia and Denies vomiting Reports no additional complaints Musc Reports no additional complaints Neuro Reports no additional complaints Psych Reports no additional complaints Endo Reports no additional complaints Physical Exam Vital Signs: Last Vital Signs Pulse 88 05/31/24 11:54 BP 110/74 05/31/24 11:54 Pulse Ox 100 05/31/24 11:54 Oxygen Delivery Method Room Air 05/31/24 11:54 BMI result Body Mass Index 15.1 Const General: no acute distress and anxious Nutritional Appearance: underweight Limitations: altered mental status and behavioral limitations Resp Effort & Inspection: normal respiratory effort, able to speak in complete sentences, no tracheal deviation and symmetric chest movement Auscultation: clear to auscultation bilaterally Cardio Rate: regular rate GI Inspection: Yes normal to inspection and No distended Palpation (GI): Soft to palpation, not firm, nontender and No hepatosplenomegaly present Auscultation: normal bowel sounds General: Yes no CVA tenderness Back/Spine/Pelvis Back: no CVA tenderness Skin General skin exam: elasticity normal, turgor normal and dry skin Psych Appearance: grossly normal Speech and movement: Psychomotor agitation in speech present (at times) Assessment & Plan Assessment & Plan (1) GERD (gastroesophageal reflux disease): Code(s): K21.9 - Gastro-esophageal reflux disease without esophagitis Qualifiers: Esophagitis presence: without esophagitis Qualified Code(s): K21.9 - Gastro-esophageal reflux disease without esophagitis (2) IBS (irritable bowel syndrome): Code(s): K58.9 - Irritable bowel syndrome, unspecified Qualifiers: Irritable bowel syndrome type: without diarrhea Qualified Code(s): K58.9 - Irritable bowel syndrome, unspecified (3) Dysphagia: Code(s): R13.10 - Dysphagia, unspecified Qualifiers: Dysphagia type: other dysphagia Qualified Code(s): R13.19 - Other dysphagia Plan Plan is to book another endoscopy with plan for esophageal dilation if patient will be allowed to have p.o. intake. Peg Tube will be placed on the by Dr. Lawrence. Patient will need nutritional intake as he is not eating and only playing with food. Hopefully patient will be able to gain weight. Patient otherwise is doing well. No choking episodes, seems to be swallowing better. Message sent to surgical schedulers to call facility to book the procedure. If patient will be left NPO only the procedure can be canceled then. Please book procedure with Dr. Rivas for continuity. Patient will follow-up with us after the procedure. Thank you for allowing me to participate in his care Coding Level of Care Code Est Pt Level 4 (16319) Complex EM visit Add On G2211 Diagnoses Gastroesophageal reflux disease without esophagitis K21.9 Esophagitis presence: without esophagitis Irritable bowel syndrome without diarrhea K58.9 Irritable bowel syndrome type: without diarrhea Other dysphagia R13.19 Dysphagia type: other dysphagia Time Spent (min) 35 Comment 20 minutes spent with and additional 15 minutes spent reviewing his records
[2024-05-31 11:54] VITALS: BP 110/74; PULSE 88; O2SAT 100; BMI 15.1
== END 2024-05-31 12:26 | disposition home or self-care (01) ==
PROVIDERS: PCP Hospitalist; Visit Provider Nurse Practitioner Family
DX: K21.9 Gastro-esophageal reflux disease without esophagitis (principal); K58.9 Irritable bowel syndrome, unspecified; R13.19 Other dysphagia
CPT/HCPCS: 99214; G2211

== ENCOUNTER → 2024-05-31 11:48 | Outpatient (BNVA) | payer MEDICARE, SELFPAY | PROVIDERS: PCP Hospitalist; Visit Provider Nurse Practitioner Family | DX: K21.9 Gastro-esophageal reflux disease without esophagitis (principal); K58.9 Irritable bowel syndrome, unspecified; R13.19 Other dysphagia | CPT/HCPCS: 99212 ==

== ENCOUNTER 2024-06-02 08:57 | Day surgery (SDC) | payer MEDICARE, SELFPAY ==
--- NOTE | 2024-05-31 13:48 | P.CONAN_ITS ---
HPI - Anesthesia Eval Consult details Narrative: 68yo M for PEG Tube Placement s/p EGD with dilitation 05/17/2024 with TIVA Patient is a resident of [facility]. Schizoaffective disorder, TBI. ? Also plan for PEG with gen surg. [facility] Active Problems Active Problems: All Active Problems Renal cyst (Acute) Bladder calculus (Acute) Nephrolithiasis (Acute) Erosive esophagitis (Acute) Heme positive stool (Acute) Iron deficiency anemia (Acute) Toxic encephalopathy (Acute) Dysphagia (Acute) Tubular adenoma (Acute) Past Medical History Medical History Repeated falls Disturbances of salivary secretion Autistic disorder ADHD (attention deficit hyperactivity disorder) Metabolic encephalopathy Adult failure to thrive Erysipelas COVID-19 Cellulitis Muscle weakness (generalized) Osteoarthritis Kidney cyst, acquired Vomiting and diarrhea Emphysema of lung Bronchitis Tubular adenoma Allergic rhinitis Esophageal obstruction Hydronephrosis On beta elmer at home History of COVID-19 Resides in shelter facility [place] Personality disorder Hypothyroidism GERD (gastroesophageal reflux disease) Anemia Encephalopathy GI bleed BPH (benign prostatic hyperplasia) HTN (hypertension) Dysphagia Diabetes Schizoaffective disorder TBI (traumatic brain injury) Family History Family history of problems with anesthesia: No Surgical History Surgical History History of esophagogastroduodenoscopy (EGD) (05/17/24) Hx of cystoscopy Hx of colonoscopy Hx of esophagogastroduodenoscopy History of Problems with Anesthesia: No Social History Social History Household Members: Other Household Members Other:: [facility] Residential Housing: Residential Housing Other:: [facility]-[phone] Are you a primary customer care associate to a significant other at home: No Do you presently have visiting nurse or other home services: No Unable to assess alcohol history related to: Unknown Alcohol intake: unknown Comment: 1:1 sitter Patient Tobacco Use Status: Former Tobacco user Advance Directives Date on File: 02/12/22 service: No Current occupational status: disabled Meds Allergies Allergy/AdvReac Type Severity Reaction Status Date / Time fish oil [FISH OIL] Allergy Unknown Unknown Verified 06/12/24 07:37 Iodinated Contrast Media Allergy Unknown Unknown Verified 06/12/24 07:37 [IODINATED CONTRAST- ORAL AND IV DYE] pollen extracts Allergy Unknown Unknown Verified 06/12/24 07:37 shellfish derived Allergy Unknown Unknown Verified 06/12/24 07:37 Home Medications ?Medication ?Instructions ?Recorded ?Confirmed ?Last Taken ?Type acetaminophen 325 mg tablet 650 mg PO Q6H PRN Fever Or Pain 09/23/20 05/31/24 09/23/20 History diphenhydramine HCl 25 mg capsule 25 mg PO Q6H PRN Itching 09/23/20 05/31/24 Unknown History (Benadryl) docusate sodium 100 mg capsule 100 mg PO BID 09/23/20 05/31/24 08/26/23 History lactulose 10 gram/15 mL (15 mL) 60 ml PO TID 09/23/20 05/31/24 08/26/23 History oral solution sodium bicarbonate 650 mg tablet 650 mg PO DAILY 09/23/20 05/31/24 08/26/23 History tamsulosin 0.4 mg capsule 0.4 mg PO DAILY 09/23/20 05/31/24 08/26/23 History multivitamin with minerals 1 tab PO DAILY 11/25/20 05/31/24 08/26/23 History clozapine 50 mg tablet 1 tab PO BEDTIME 04/23/22 05/31/24 08/26/23 History ferrous sulfate 325 mg (65 mg 325 mg PO DAILY 04/23/22 05/31/24 08/26/23 History iron) tablet metoprolol succinate 50 mg 1 tab PO BID 04/23/22 05/31/24 08/26/23 History tablet,extended release 24 hr sennosides 8.6 mg tablet (senna) 17.2 mg PO DAILY 03/10/23 05/31/24 08/26/23 History bisacodyl 10 mg rectal suppository 10 mg CA DAILY PRN Constipation 06/11/23 05/31/24 Unknown History magnesium hydroxide 400 mg/5 mL 30 ml PO BEDTIME 06/11/23 05/31/24 08/26/23 History oral suspension (Milk of Magnesia) ascorbate calcium (vitamin C) 500 500 mg PO DAILY 05/10/24 05/31/24 Unknown History mg tablet glucagon HCl 1 mg solution for 1 mg subcut Q20M PRN Hypoglycemia 05/10/24 05/31/24 Unknown History injection (Glucagon (HCl) Emergency Kit) hydroxyzine HCl 50 mg/mL mg IM 05/10/24 05/10/24 Unknown History intramuscular solution clomipramine 25 mg capsule 100 mg PO BEDTIME 05/31/24 05/31/24 Unknown History levothyroxine 125 mcg tablet 125 mcg PO DAILY 05/31/24 05/31/24 Unknown History Exam Pertinent Lab Results Pertinent Lab Results: Laboratory Tests 04/20/24 19:31 WBC 7.8 Hgb 11.7 L Hct 34.8 L Plt Count 363 Sodium 140 Potassium 4.1 Chloride 106 Carbon Dioxide 25 BUN 31 H Creatinine 0.93 Narrative Narrative: EKG 04/2024 Vent. Rate : 071 BPM Atrial Rate : 071 BPM P-R Int : 190 ms QRS Dur : 080 ms QT Int : 434 ms P-R-T Axes : 090 025 081 degrees QTc Int : 471 ms Normal sinus rhythm Nonspecific ST elevation Abnormal ECG When compared with ECG of 20-APR-2024 19:44, No significant change was found Assessment and Plan Assessment Anesthesia Assessment: Chart Reviewed Final Anesthetic Review Family History of Problems with Anesthesia: No History of Problems with Anesthesia: No
[2024-06-02 09:20] VITALS: BMI 14.9
[2024-06-02] MEDS: Lactated Ringers 1,000 ML 100 ML IVCONT (10:00)
[2024-06-02 10:02] LABS: Glucose, Whole Blood 72 mg/dL (60-115)
[2024-06-02] MEDS: Dextrose 5 % 250 ML 999 ML IVCONT (10:15)
--- NOTE | 2024-06-02 10:20 | PC.NURSE ---
poc at 1000 =72. anes made aware and right after an order for d5w was given, indoor landscaper/gardener's called rn over. pt was drooling from mouth and spitting it out, nose reddened. pt pulled up, no need for suction. bp went up to 163/103, hr 73 o2 sat 100%. continued to monitor
--- NOTE | 2024-06-02 10:27 | PC.NURSE ---
bp recheck at 120/87, hr 71 o2 sat 100%
[2024-06-02 10:54] LABS: Glucose, Whole Blood 115 mg/dL (60-115)
--- NOTE | 2024-06-02 11:01 | P.CONAN_ITS ---
[facility] Active Problems Active Problems: All Active Problems Renal cyst (Acute) Bladder calculus (Acute) Nephrolithiasis (Acute) Erosive esophagitis (Acute) Heme positive stool (Acute) Iron deficiency anemia (Acute) Toxic encephalopathy (Acute) Dysphagia (Acute) Tubular adenoma (Acute) Past Medical History Medical History Repeated falls Disturbances of salivary secretion Autistic disorder ADHD (attention deficit hyperactivity disorder) Metabolic encephalopathy Adult failure to thrive Erysipelas COVID-19 Cellulitis Muscle weakness (generalized) Osteoarthritis Kidney cyst, acquired Vomiting and diarrhea Emphysema of lung Bronchitis Tubular adenoma Allergic rhinitis Esophageal obstruction Hydronephrosis On beta elmer at home History of COVID-19 Resides in [facility] facility [place] Personality disorder Hypothyroidism GERD (gastroesophageal reflux disease) Anemia Encephalopathy GI bleed BPH (benign prostatic hyperplasia) HTN (hypertension) Dysphagia Diabetes Schizoaffective disorder TBI (traumatic brain injury) Functional capacity: independent ambulation Family History Family history of problems with anesthesia: No Surgical History Surgical History History of esophagogastroduodenoscopy (EGD) (05/17/24) Hx of cystoscopy Hx of colonoscopy Hx of esophagogastroduodenoscopy History of Problems with Anesthesia: No Social History Social History Household Members: Other Household Members Other:: [facility] in [facility] Snf Housing: Snf Housing Other:: [facility]-[phone] Are you a primary director critical care to a significant other at home: No Do you presently have visiting nurse or other home services: No Unable to assess alcohol history related to: Unknown Alcohol intake: unknown Comment: 1:1 sitter Patient Tobacco Use Status: Former Tobacco user Use of substances other than those prescribed or required for medical reasons: No Are you DNR?: No Advance Directives: No Advance Directives Information Provided: Yes Advance Directives Date on File: 02/12/22 service: No Current occupational status: disabled Meds Allergies Allergy/AdvReac Type Severity Reaction Status Date / Time fish oil [FISH OIL] Allergy Unknown Unknown Verified 06/02/24 10:03 Iodinated Contrast Media Allergy Unknown Unknown Verified 06/02/24 10:03 [IODINATED CONTRAST- ORAL AND IV DYE] pollen extracts Allergy Unknown Unknown Verified 06/02/24 10:03 shellfish derived Allergy Unknown Unknown Verified 06/02/24 10:03 Active Medications: Current Medications Lactated Ringer's (Lr) 1,000 mls @ 100 mls/hr IVCONT .Q10H [facility] Last Admin: 06/02/24 10:00 Dose: 100 mls/hr Dextrose (D5w) 250 mls @ 999 mls/hr IVCONT .Q16M [facility] Last Admin: 06/02/24 10:15 Dose: 999 mls/hr Home Medications ?Medication ?Instructions ?Recorded ?Confirmed ?Last Taken ?Type acetaminophen 325 mg tablet 650 mg PO Q6H PRN Fever Or Pain 09/23/20 05/31/24 09/23/20 History diphenhydramine HCl 25 mg capsule 25 mg PO Q6H PRN Itching 09/23/20 05/31/24 Unknown History (Benadryl) docusate sodium 100 mg capsule 100 mg PO BID 09/23/20 05/31/24 08/26/23 History lactulose 10 gram/15 mL (15 mL) 60 ml PO TID 09/23/20 05/31/24 08/26/23 History oral solution sodium bicarbonate 650 mg tablet 650 mg PO DAILY 09/23/20 05/31/24 08/26/23 History tamsulosin 0.4 mg capsule 0.4 mg PO DAILY 09/23/20 05/31/24 08/26/23 History multivitamin with minerals 1 tab PO DAILY 11/25/20 05/31/24 08/26/23 History clozapine 50 mg tablet 1 tab PO BEDTIME 04/23/22 05/31/24 08/26/23 History ferrous sulfate 325 mg (65 mg 325 mg PO DAILY 04/23/22 05/31/24 08/26/23 History iron) tablet metoprolol succinate 50 mg 1 tab PO BID 04/23/22 05/31/24 08/26/23 History tablet,extended release 24 hr sennosides 8.6 mg tablet (senna) 17.2 mg PO DAILY 03/10/23 05/31/24 08/26/23 History bisacodyl 10 mg rectal suppository 10 mg IA DAILY PRN Constipation 06/11/23 05/31/24 Unknown History magnesium hydroxide 400 mg/5 mL 30 ml PO BEDTIME 06/11/23 05/31/24 08/26/23 History oral suspension (Milk of Magnesia) ascorbate calcium (vitamin C) 500 500 mg PO DAILY 05/10/24 05/31/24 Unknown History mg tablet glucagon HCl 1 mg solution for 1 mg subcut Q20M PRN Hypoglycemia 05/10/24 05/31/24 Unknown History injection (Glucagon (HCl) Emergency Kit) hydroxyzine HCl 50 mg/mL mg IM 05/10/24 05/10/24 Unknown History intramuscular solution clomipramine 25 mg capsule 100 mg PO BEDTIME 05/31/24 05/31/24 Unknown History levothyroxine 125 mcg tablet 125 mcg PO DAILY 05/31/24 05/31/24 Unknown History Exam Height,Weight and Vital Signs: Height 5 ft 10 in Weight 47.174 kg Pertinent Lab Results Pertinent Lab Results: Laboratory Tests 06/02/24 06/02/24 09:57 10:48 POC Glucose 72 115 Airway TM Dist: >3cm Neck ROM: Full Partial: Upper and Lower Heart: RRR Lungs: CTa Assessment and Plan Assessment Anesthesia Assessment: Chart Reviewed Final Anesthetic Review Family History of Problems with Anesthesia: No History of Problems with Anesthesia: No NPO: Yes ASA Class: III Final Preanesthetic Review: Meds/Allgs Chart Reviewed, Consent Obtained/Reviewed and Anes Risks/Benef Reviewed Patient Risk: Intermediate Procedure Risk: Low Anesthetic Plan Anesthetic Plan: GA Disposition: Standard PACU
--- NOTE | 2024-06-02 11:07 | MHC.SHP ---
Pre-Procedural Eval Section A - 24 Hr Update-Section A only Date of Service: 06/02/24 Section B - Complete if H&P > 30 days Chief Complaint: Dysphagia, unspecified Details of Present Illness: has hx of toxic encephalopathy, dysphagia Relevant Family History (Specify if Yes): No Relevant Social History: None Present Medications: see Short Stay Collaborative assessment Medical History: Significant History (Toxic encephalopathy) Allergies: Allergies Allergy/AdvReac Type Severity Reaction Status Date / Time fish oil [FISH OIL] Allergy Unknown Unknown Verified 06/02/24 10:03 Iodinated Contrast Media Allergy Unknown Unknown Verified 06/02/24 10:03 [IODINATED CONTRAST- ORAL AND IV DYE] pollen extracts Allergy Unknown Unknown Verified 06/02/24 10:03 shellfish derived Allergy Unknown Unknown Verified 06/02/24 10:03 Review of Systems Sugical H&P ROS: Negative: Cardiovascular and Respiratory and Yes, Specify: Gastrointestinal (Dysphagia) Exam Surgical H&P Exam: Normal: Heart, Normal: Lungs and Normal: Abdomen Plan Diagnosis/Plan: Unchanged I have reviewed the history and physical and performed a pertinent physical examination on my patient. No changes have occurred unless specified. Time Spent With Patient Time: Total time managing care of this patient today ____ minutes.
--- NOTE | 2024-06-02 11:36 | P.OP_ITS ---
Operative Note Operative Note Date of Service: 06/02/24 Narrative: Preop diagnosis: Dysphagia and failure to thrive Postop diagnosis: The same Procedure: PEG tube placement Surgeon: Billy Lawrence MD environmental services assistant: BELLO Kim The patient is a 68-year-old male history of toxic encephalopathy, here for a PEG tube placement. Consent was given by his healthcare proxy the healthcare proxy Kenny understood the technique of the planned procedure as was the risks, benefits, and alternatives. The patient was brought to the operating room placed supine under general anesthesia via endotracheal tube. A surgical time-out was done. The bite block was in position. The patient received cefazolin 2 g IV preoperatively. I inserted the Olympus gastroscope through the bite block into the oropharynx. The vocal cords were visualized. The esophageal slit was seen posterior to this. The esophageal slit was intubated. Scope was gently advanced through the entire length of the esophagus. We passed through a small hiatal hernia into the main body of the stomach. Transillumination was easily seen in the epigastric area. Indentation on the anterior stomach wall near the pylorus was also easily seen with pressure on this same spot with a finger We proceeded to then prepped and draped this area. Lidocaine 1% was used for local anesthesia. A short stab incision was made on the skin. The large bore needle with the cannula was inserted into the stomach lumen. The needle was removed. The guidewire inserted through the inner cannula. The guidewire was grasped with a snare. I pulled the guidewire with the snare in the endoscope out through the oral orifice. The guidewire was looped onto the feeding tube. The guidewire was then pulled back out through the abdominal wall along with the PEG tube until this felt snug. I reinserted the scope and examined the stomach lumen. The it was bolster was in good position. There was no bleeding. The scope was then removed The external bolster was positioned to make this snug on the skin. The appro priate attachments to the scope was then placed. The procedure was completed. The patient tolerated procedure well. There was minimal blood loss. The patient was extubated without difficulty and transferred to the recovery room with stable vital signs.
[2024-06-02 11:48] VITALS: BP 113/84; PULSE 90; RESP 16; TEMP 36.2; O2SAT 100
[2024-06-02 11:53] VITALS: BP 114/78; PULSE 93; RESP 12; O2SAT 99
[2024-06-02 11:58] VITALS: BP 122/77; PULSE 83; RESP 12; O2SAT 99
[2024-06-02 12:03] VITALS: BP 114/71; PULSE 83; RESP 12; O2SAT 99
[2024-06-02 12:18] VITALS: BP 116/85; PULSE 88; RESP 12; O2SAT 97
[2024-06-02 12:33] VITALS: BP 131/86; PULSE 71; RESP 16; TEMP 36.2; O2SAT 100
== END 2024-06-02 12:51 | disposition home or self-care (01) ==
PROVIDERS: PCP Hospitalist; Visit Provider Surgery
PROC: 0DH63UZ Insertion of Feeding Device into Stomach, Percutaneous Approach (ICD-10-PCS; CPT 43246; principal; 2024-06-02 11:10)
DX: R13.10 Dysphagia, unspecified (principal); R62.7 Adult failure to thrive; Z68.1 Body mass index [BMI] 19.9 or less, adult; K21.9 Gastro-esophageal reflux disease without esophagitis; F25.9 Schizoaffective disorder, unspecified; Z87.820 Personal history of traumatic brain injury; K44.9 Diaphragmatic hernia without obstruction or gangrene; K11.7 Disturbances of salivary secretion; I10 Essential (primary) hypertension; E11.9 Type 2 diabetes mellitus without complications; G93.41 Metabolic encephalopathy; R29.6 Repeated falls; A46 Erysipelas; Z79.899 Other long term (current) drug therapy; Z91.041 Radiographic dye allergy status; Z87.891 Personal history of nicotine dependence
CPT/HCPCS: 43246; 82947; J0690; J2003; J2250; J2704; J3010

== ENCOUNTER → 2024-06-02 08:57 | Outpatient (BNV) | payer MEDICARE, SELFPAY | PROVIDERS: PCP Hospitalist; Visit Provider Surgery | DX: R13.10 Dysphagia, unspecified (principal); R62.7 Adult failure to thrive | CPT/HCPCS: 43246 ==

== ENCOUNTER 2024-06-03 04:41 | Emergency (ER) | payer MEDICARE, SELFPAY ==
[2024-06-03 04:45] VITALS: BP 128/78; BP 139/85; PULSE 74; PULSE 75; RESP 17; TEMP 36.5; O2SAT 100; O2SAT 99; BMI 22.4
--- NOTE | 2024-06-03 04:57 | PC.NURSE ---
pt [facility], a&ox2 at baseline, respirations even and unlabored. per ems, pt ripped out his g-tube, pt reports he did not. pt noted to have open area where g-tube was removed. at this time, pt refusing to put on gown, pt given warm blanket. pt offers no other complaints.
--- NOTE | 2024-06-03 05:27 | PC.NURSE ---
provider at bedside, attempt to replace x1, unable. 20 syrian obtained, attempt to place that.
--- NOTE | 2024-06-03 05:43 | ED_ITS ---
HPI - General Adult General Chief complaint: General Medical Stated complaint: GTUBE PULLED OUT Time Seen by Provider: 06/03/24 04:56 Source: patient, EMS and old records reviewed Mode of arrival: EMS Limitations: other (cognitive impairment) History of Present Illness ED Provider: KEN HERRING narrative: 68 yo male with PMH of DM2, HTN, schizoaffective disorder, autism order, COPD, dysphagia with history of esophageal stricture, iron deficiency anemia, hypothyroidism, and failure to thrive s/p PEG tube with Dr. Lawrence on 06/02 apparently he doesn't know why but he pulled it out staff were notified by him and now he is here. He has no complaints he is very angry at times and doesn't understand what it is going on. No bleeding no pain no n/v MD complaint: pulled PEG tube Onset (ago): hour(s) (few) Location: abdomen Radiation: non-radiation Severity: mild Relieving factors: none Exacerbating factors: none Associated symptoms: denies other symptoms Treatments prior to arrival: none Related Data Home Medications ?Medication ?Instructions ?Recorded ?Confirmed acetaminophen 325 mg tablet 650 mg PO Q6H PRN Fever Or Pain 09/23/20 05/31/24 diphenhydramine HCl 25 mg capsule 25 mg PO Q6H PRN Itching 09/23/20 05/31/24 (Benadryl) docusate sodium 100 mg capsule 100 mg PO BID 09/23/20 05/31/24 lactulose 10 gram/15 mL (15 mL) 60 ml PO TID 09/23/20 05/31/24 oral solution sodium bicarbonate 650 mg tablet 650 mg PO DAILY 09/23/20 05/31/24 tamsulosin 0.4 mg capsule 0.4 mg PO DAILY 09/23/20 05/31/24 multivitamin with minerals 1 tab PO DAILY 11/25/20 05/31/24 clozapine 50 mg tablet 1 tab PO BEDTIME 04/23/22 05/31/24 ferrous sulfate 325 mg (65 mg 325 mg PO DAILY 04/23/22 05/31/24 iron) tablet metoprolol succinate 50 mg 1 tab PO BID 04/23/22 05/31/24 tablet,extended release 24 hr sennosides 8.6 mg tablet (senna) 17.2 mg PO DAILY 03/10/23 05/31/24 bisacodyl 10 mg rectal suppository 10 mg ID DAILY PRN Constipation 06/11/23 05/31/24 magnesium hydroxide 400 mg/5 mL 30 ml PO BEDTIME 06/11/23 05/31/24 oral suspension (Milk of Magnesia) ascorbate calcium (vitamin C) 500 500 mg PO DAILY 05/10/24 05/31/24 mg tablet glucagon HCl 1 mg solution for 1 mg subcut Q20M PRN Hypoglycemia 05/10/24 05/31/24 injection (Glucagon (HCl) Emergency Kit) hydroxyzine HCl 50 mg/mL mg IM 05/10/24 05/10/24 intramuscular solution clomipramine 25 mg capsule 100 mg PO BEDTIME 05/31/24 05/31/24 levothyroxine 125 mcg tablet 125 mcg PO DAILY 05/31/24 05/31/24 Previous Rx's ?Medication ?Instructions ?Recorded pantoprazole 40 mg tablet,delayed 40 mg PO BID #90 tabs 08/28/23 release sucralfate 100 mg/mL oral 10 ml PO BID #420 mL 08/28/23 suspension (Carafate) tramadol 50 mg tablet 50 mg PO Q6H PRN pain #10 tabs 06/02/24 Allergies Allergy/AdvReac Type Severity Reaction Status Date / Time fish oil [FISH OIL] Allergy Unknown Unknown Verified 06/03/24 04:48 Iodinated Contrast Media Allergy Unknown Unknown Verified 06/03/24 04:48 [IODINATED CONTRAST- ORAL AND IV DYE] pollen extracts Allergy Unknown Unknown Verified 06/03/24 04:48 shellfish derived Allergy Unknown Unknown Verified 06/03/24 04:48 Review of Systems Review of Systems: ROS unable to be obtained due to cognitive impairment [facility] Past Medical History Attestation statement: The following information was validated with the patient. Source: old records reviewed Medical History Repeated falls Disturbances of salivary secretion Autistic disorder ADHD (attention deficit hyperactivity disorder) Metabolic encephalopathy Adult failure to thrive Erysipelas COVID-19 Cellulitis Muscle weakness (generalized) Osteoarthritis Kidney cyst, acquired Vomiting and diarrhea Emphysema of lung Bronchitis Tubular adenoma Allergic rhinitis Esophageal obstruction Hydronephrosis On beta elmer at home History of COVID-19 Resides in long-term facility [place]byopia Personality disorder Hypothyroidism GERD (gastroesophageal reflux disease) Anemia Encephalopathy GI bleed BPH (benign prostatic hyperplasia) HTN (hypertension) Dysphagia Diabetes Schizoaffective disorder TBI (traumatic brain injury) Surgical History History of esophagogastroduodenoscopy (EGD) (05/17/24) Hx of cystoscopy Hx of colonoscopy Hx of esophagogastroduodenoscopy Social History Social History Household Members: Other Household Members Other:: [facility] in [facility] Correction Housing: Correction Housing Other:: [facility] [place]-[phone] Are you a primary medicare compliance auditor to a significant other at home: No Do you presently have visiting nurse or other home services: No Unable to assess alcohol history related to: Unknown Alcohol intake: unknown Comment: 1:1 sitter Patient Tobacco Use Status: Former Tobacco user Advance Directives: Yes Advance Directives on File: Yes Advance Directives Date on File: 02/12/22 Do you have a plan to hurt others: No Plan service: No Current occupational status: disabled Physical Exam ED Vital Signs: Vital Signs - 24 hr 06/03/24 04:45 Temperature 97.7 F Pulse Rate 74 Respiratory Rate 17 Blood Pressure 139/85 Pulse Oximetry 100 Oxygen Delivery Method Room Air BMI result Body Mass Index 22.4 Appearance: Alert. Oriented x 2. No acute distress. Eyes: Pupils equal, round and reactive to light. ENT: Pharynx normal. Neck: Normal inspection. Neck supple. CVS: Normal heart rate and rhythm. Pulses normal. Respiratory: No respiratory distress. Breath sounds normal. Abdomen: Soft and nontender. Site is c/d/i no bleeding he has no pain to palpation Skin: Skin warm and dry. Normal skin color. Normal skin turgor. Extremities: No lower extremity edema. No calf ttp Neuro: Oriented X 2. No motor deficit. No sensory deficit. Medical Decision Making Medical Decision Making MDM Narrative: 68 yo male with PMH of DM2, HTN, schizoaffective disorder, autism order, COPD, dysphagia with history of esophageal stricture, iron deficiency anemia, hypothyroidism, and failure to thrive s/p PEG tube with Dr. Lawrence on 06/02 now s/p pulling out a fresh tube and he has behavioral issues at this time I am going to obtain labs, consult surgery, start on IVF anticipate need for IM behavior control to get med work up he has benign abomen Differential Diagnosis Differential Diagnoses: The differential diagnosis associated with the presentation includes behavioral issue, dysphagia Admission/Observation Consideration of admission/observation: Escalation of care including admission/observation considered admit for further workup Consult Healthcare Provider Management of the patient was discussed with: Hospitalist (hospitalist aware will admit after labs 555am) and Automobile Locator Lillie aware will come up with plan she is concerned he is even appropriate for PEG tube Lab Data [facility] Lab Attestation statement: I reviewed the patient's lab results. External Record Review External record reviewed: Inpatient record and Outpatient record Discharge Plan Discharge Clinical Impression: Dysphagia Patient Disposition: Admitted As Inpatient Prescriptions: No Action tamsulosin 0.4 mg capsule 0.4 mg PO DAILY acetaminophen 325 mg Tablet 650 mg PO Q6H PRN (Reason: Fever Or Pain) Rx Instructions: not to exceed 3000mg/day sodium bicarbonate 650 mg Tablet 650 mg PO DAILY diphenhydramine HCl [Benadryl] 25 mg Capsule 25 mg PO Q6H PRN (Reason: Itching) docusate sodium 100 mg Capsule 100 mg PO BID lactulose 10 gram/15 mL (15 mL) Solution 60 ml PO TID multivitamin with minerals Tablet 1 tab PO DAILY metoprolol succinate 50 mg tablet extended release 24 hr 1 tab PO BID ferrous sulfate 325 mg (65 mg iron) Tablet 325 mg PO DAILY clozapine 50 mg tablet 1 tab PO BEDTIME magnesium hydroxide [Milk of Magnesia] 400 mg/5 mL Suspension 30 ml PO BEDTIME bisacodyl 10 mg Suppository 10 mg ID DAILY PRN (Reason: Constipation) sennosides [senna] 8.6 mg tablet 17.2 mg PO DAILY sucralfate [Carafate] 100 mg/mL suspension 10 ml PO BID Qty: 420 0RF pantoprazole 40 mg tablet,delayed release (DR/EC) 40 mg PO BID Qty: 90 1RF tramadol 50 mg tablet 50 mg PO Q6H PRN (Reason: pain) Qty: 10 0RF clomipramine 25 mg capsule 100 mg PO BEDTIME levothyroxine 125 mcg tablet 125 mcg PO DAILY hydroxyzine HCl 50 mg/mL solution IM glucagon HCl [Glucagon (HCl) Emergency Kit] 1 mg recon soln 1 mg subcut Q20M PRN (Reason: Hypoglycemia) Rx Instructions: until target blood sugar attained ascorbate calcium (vitamin C) 500 mg tablet 500 mg PO DAILY Print Language: Singaporean
[2024-06-03 05:47] LABS: MANUAL DIFF FLAG NO
[2024-06-03 05:49] LABS: Basophils Absolute Auto 0.1 X10*3/uL (0.0-0.2); Basophils Percent Auto 0.7 % (0-2); Eosinophils Absolute Auto 0.1 X10*3/uL (0.0-0.4); Eosinophils Percent Auto 0.5 % (0-4); Hematocrit 32.3 % (42.0-52.0); Hemoglobin 10.8 g/dl (14.0-18.0); Imm Gran Abs Auto 0.05 X10*3/uL (0.00-0.03); Imm Gran Pct Auto 0.4 % (0.0-0.4); Lymphocytes Percent Auto 8.5 % (20-40); Mean Corpuscular HGB Conc 33.4 g/dl (31.0-36.0); Mean Corpuscular Hemoglobin 27.2 pg (27.0-33.0); Mean Corpuscular Volume 81.4 fL (80.0-98.0); Mean Platelet Volume 9.2 fL (9.4-12.4); Monocytes Absolute Auto 0.5 X10*3/uL (0.1-1.2); Monocytes Percent Auto 4.3 % (2-11); Neutrophils Absolute Auto 10.1 x10*3/uL (2.0-8.3); Neutrophils Percent Auto 85.6 % (45-73); Platelet Count 450 X10*3/uL (160-400); Red Blood Count 3.97 X10*6/uL (4.60-5.80); Red Cell Distribution Width 14.3 % (11.0-16.0); White Blood Count 11.8 X10*3/uL (4.8-10.8)
--- NOTE | 2024-06-03 05:51 | PC.NURSE ---
attempted to obtain IV access x3 times, pt removed x3 IVs. labs obtained. pt refusing to change into gown and refusing new access. provider aware. refused po medications.
[2024-06-03] MEDS: OLANZapine 10 MG VIAL IM (06:00)
[2024-06-03 06:09] LABS: Alanine Aminotransferase 13 U/L (0-40); Albumin Level 3.2 g/dL (3.5-5.0); Alkaline Phosphatase 104 U/L (39-117); Anion Gap 14 (12-20); Aspartate Amino Transferase 40 U/L (5-37); Bilirubin Direct 0.1 mg/dL (0.0-0.5); Bilirubin Total 0.4 mg/dL (0.0-1.0); Blood Urea Nitrogen 27 mg/dL (9-16); Calcium 8.4 mg/dL (8.4-10.2); Carbon Dioxide 22 mmol/L (22-29); Chloride 110 mmol/L (96-108); Creatinine Clr Calc Pharmacy 91.2; Estimated Glomerular Filt Rate > 60; Glucose Random 95 mg/dL (60-115); Magnesium 1.9 mg/dL (1.6-2.6); Sodium 142 mmol/L (135-145); Total Protein 6.2 g/dL (6.5-8.0)
[2024-06-03 06:28] VITALS: BP 114/61; PULSE 78; RESP 16
[2024-06-03] MEDS: 0.9 % Sodium Chloride 1,000 ML 80 ML IVCONT (06:30)
--- NOTE | 2024-06-03 06:38 | PC.NURSE ---
22G placed in left forearm, wrapped with gauze for safety of pt.
--- NOTE | 2024-06-03 06:48 | PC.NURSE ---
pt calm and cooperative, resting in stretcher, no acute distress noted.
[2024-06-03 08:16] VITALS: BP 113/69; PULSE 80; RESP 16; TEMP 36.9; O2SAT 98
--- NOTE | 2024-06-03 08:16 | PC.NURSE ---
this RN resumed care of pt at 0645. unable to assess orientation as pt is able to state name and date but otherwise refusing to answers questions until i get a menu so i can order food and then i'll answer your stupid questions. vss and up to date at this time. pt more compliant w/ care at this time. nonstick abd pad applied to area where PEG was removed. no signs of infection noted - no redness/swelling/drainage/foul odor noted. pt remains afebrile. LR continues to infuse @ 80mls/hr into IV access that is wrapped w/ gauze for safety precautions. pt calm/cooperative at this time. pending GI consult. plan of care ongoing. call gonzalez placed within reach.
[2024-06-03 10:01] VITALS: TEMP 37.4
--- NOTE | 2024-06-03 10:15 | PC.NURSE ---
pt incontinent of urine and stool. clean hospital attire/pads/bedding applied. pt seemingly warm to the touch during currency exchange specialist - rectal temp obtained displaying 99.3. pt turned/repositioned to comfort. texas catheter now in place. plan of care ongoing.
--- NOTE | 2024-06-03 11:07 | PC.NURSE ---
shelby noted pt to have bright red tinged urine in texas catheter drainage bag - MD notified/aware. UA obtained/sent to lab by shelby.
[2024-06-03 11:30] LABS: Bacteria Urine 1+ (None Seen); Hyaline Casts Urine 0-2 /LPF (0-2); RBC Urine >20 /HPF (0-2); Squamous Epithelial Cell Urine 0-2 /HPF (0-2); WBC Urine >50 /HPF (0-5)
[2024-06-03 11:33] LABS: Appearance Urine Hazy; Color Urine Red; Glucose Urine UA Negative (Negative); Urine Blood Large (3+) (Negative); Urine Ketones Negative (Negative); Urine Protein 300 (3+) mg/dL (Neg-Trace)
[2024-06-03 11:34] LABS: Leukocyte Esterase Urine Large (3+) (Negative); Nitrite Urine Negative (Negative); UACC Culture Trigger YES; UMIC TRIGGER UACC YES
--- NOTE | 2024-06-03 11:43 | PC.NURSE ---
report given to RUFUS Warner at [facility] as well as KATHIA Ramirez at this time. pt leaving facility.
[2024-06-03 11:44] VITALS: BP 111/69; PULSE 82; RESP 16; TEMP 36.6; O2SAT 100
== END 2024-06-03 11:45 ==
PROVIDERS: Emergency Medicine; Emergency Provider Emergency Medicine Emergency Medical Services
DX: R13.10 Dysphagia, unspecified (principal); E11.9 Type 2 diabetes mellitus without complications; I10 Essential (primary) hypertension; D50.9 Iron deficiency anemia, unspecified; E03.9 Hypothyroidism, unspecified; K21.9 Gastro-esophageal reflux disease without esophagitis; G92.9 Unspecified toxic encephalopathy; Z87.820 Personal history of traumatic brain injury; Z79.899 Other long term (current) drug therapy
CPT/HCPCS: 36415; 80048; 80076; 81001; 83735; 85025; 87086; 99285; J2359

== ENCOUNTER 2024-06-12 07:13 | Emergency (ER) | payer MEDICARE, SELFPAY ==
--- NOTE | ~2024-06-12 | XR_ITS ---
EXAMINATION: XR ABDOMEN KUB CLINICAL INDICATION: vomiting, poor PO intake COMPARISON: None available. TECHNIQUE: AP view of the abdomen. FINDINGS: Tendons stool and gas seen throughout the colon and gas in small bowel loops without distention. No organomegaly. No free air or fluid levels. There is abdominal wall hernia repair with mesh in place along the lower abdomen/pelvic region. No gross bony abnormality. XR/XR KUB IMPRESSION: Unremarkable examination. Mild constipation. Electronically signed by: Kristopher Zhao MD 06/12/2024 10:32 AM RICH
[2024-06-12 07:29] VITALS: BP 131/80; PULSE 85; RESP 15; TEMP 37; O2SAT 98
[2024-06-12 07:36] VITALS: BMI 15.6
--- NOTE | 2024-06-12 07:38 | ED.WEAKNESS ---
HPI - Weakness General Chief complaint: Weakness Stated complaint: LETHARGIC, HYPOTENSIVE Time Seen by Provider: 06/12/24 07:23 Source: patient, EMS and other Mode of arrival: EMS Limitations: other (cognitive impairment) History of Present Illness ED Provider: KEN HERRING Narrative: 68 yo male with PMH of DM2, HTN, schizoaffective disorder, autism order, COPD, dysphagia with history of esophageal stricture, iron deficiency anemia, hypothyroidism, and failure to thrive s/p PEG tube with Dr. Lawrence on 06/02 pulled it out on 06/03 even with bedside attendant. He was sent back to [facility] for further managment as he will continue to pull the feeding tube. He seems more weak and confused today per [facility] staff. He is not a good candidate for feeding tube and will continue to pull it out. He cannot really provide much history just states he is tired. Denies pain. MD Complaint: generalized weakness Onset (ago): day(s) (few) Duration: progressively worsening Location: generalized Migration: none Severity: moderate Relieving factors: none Exacerbating factors: none Context: other Associated symptoms: denies other symptoms Related Data Home Medications ?Medication ?Instructions ?Recorded ?Confirmed acetaminophen 325 mg tablet 650 mg PO Q6H PRN Fever Or Pain 09/23/20 05/31/24 diphenhydramine HCl 25 mg capsule 25 mg PO Q6H PRN Itching 09/23/20 05/31/24 (Benadryl) docusate sodium 100 mg capsule 100 mg PO BID 09/23/20 05/31/24 lactulose 10 gram/15 mL (15 mL) 60 ml PO TID 09/23/20 05/31/24 oral solution sodium bicarbonate 650 mg tablet 650 mg PO DAILY 09/23/20 05/31/24 tamsulosin 0.4 mg capsule 0.4 mg PO DAILY 09/23/20 05/31/24 multivitamin with minerals 1 tab PO DAILY 11/25/20 05/31/24 clozapine 50 mg tablet 1 tab PO BEDTIME 04/23/22 05/31/24 ferrous sulfate 325 mg (65 mg 325 mg PO DAILY 04/23/22 05/31/24 iron) tablet metoprolol succinate 50 mg 1 tab PO BID 04/23/22 05/31/24 tablet,extended release 24 hr sennosides 8.6 mg tablet (senna) 17.2 mg PO DAILY 03/10/23 05/31/24 bisacodyl 10 mg rectal suppository 10 mg CA DAILY PRN Constipation 06/11/23 05/31/24 magnesium hydroxide 400 mg/5 mL 30 ml PO BEDTIME 06/11/23 05/31/24 oral suspension (Milk of Magnesia) ascorbate calcium (vitamin C) 500 500 mg PO DAILY 05/10/24 05/31/24 mg tablet glucagon HCl 1 mg solution for 1 mg subcut Q20M PRN Hypoglycemia 05/10/24 05/31/24 injection (Glucagon (HCl) Emergency Kit) hydroxyzine HCl 50 mg/mL mg IM 05/10/24 05/10/24 intramuscular solution clomipramine 25 mg capsule 100 mg PO BEDTIME 05/31/24 05/31/24 levothyroxine 125 mcg tablet 125 mcg PO DAILY 05/31/24 05/31/24 Previous Rx's ?Medication ?Instructions ?Recorded pantoprazole 40 mg tablet,delayed 40 mg PO BID #90 tabs 08/28/23 release sucralfate 100 mg/mL oral 10 ml PO BID #420 mL 08/28/23 suspension (Carafate) tramadol 50 mg tablet 50 mg PO Q6H PRN pain #10 tabs 06/02/24 Allergies Allergy/AdvReac Type Severity Reaction Status Date / Time fish oil [FISH OIL] Allergy Unknown Unknown Verified 06/12/24 07:37 Iodinated Contrast Media Allergy Unknown Unknown Verified 06/12/24 07:37 [IODINATED CONTRAST- ORAL AND IV DYE] pollen extracts Allergy Unknown Unknown Verified 06/12/24 07:37 shellfish derived Allergy Unknown Unknown Verified 06/12/24 07:37 Review of Systems Review of Systems: ROS unable to be obtained due to unable to fully understand questions and some agitation with questioning PMFSH Past Medical History Source: old records reviewed Medical History Repeated falls Disturbances of salivary secretion Autistic disorder ADHD (attention deficit hyperactivity disorder) Metabolic encephalopathy Adult failure to thrive Erysipelas COVID-19 Cellulitis Muscle weakness (generalized) Osteoarthritis Kidney cyst, acquired Vomiting and diarrhea Emphysema of lung Bronchitis Tubular adenoma Allergic rhinitis Esophageal obstruction Hydronephrosis On beta elmer at home History of COVID-19 Resides in [facility] facility Presbyopia Personality disorder Hypothyroidism GERD (gastroesophageal reflux disease) Anemia Encephalopathy GI bleed BPH (benign prostatic hyperplasia) HTN (hypertension) Dysphagia Diabetes Schizoaffective disorder TBI (traumatic brain injury) Surgical History History of esophagogastroduodenoscopy (EGD) (05/17/24) Hx of cystoscopy Hx of colonoscopy Hx of esophagogastroduodenoscopy Social History Social History Household Members: Other Household Members Other:: [facility] in [facility] Housing: [facility] Other:: [facility]-[phone] Are you a primary urgent care physician to a significant other at home: No Do you presently have visiting nurse or other home services: No Unable to assess alcohol history related to: Unknown Alcohol intake: unknown Comment: 1:1 sitter Patient Tobacco Use Status: Former Tobacco user Advance Directives: Yes Advance Directives on File: Yes Advance Directives Date on File: 02/12/22 service: No Current occupational status: disabled Physical Exam Vital Signs: Vital Signs: Last Vital Signs Temp 98.6 F 06/12/24 07:29 Pulse 85 06/12/24 07:29 Resp 15 06/12/24 07:29 BP 131/80 06/12/24 07:29 Pulse Ox 98 06/12/24 07:29 O2 Del Method Room Air 06/12/24 07:29 BMI result Body Mass Index 15.6 Appearance: Alert. Oriented to self at this time No acute distress. Eyes: Pupils equal, round and reactive to light. ENT: Pharynx mild dry MM. Neck: Normal inspection. Neck supple. CVS: Normal heart rate and rhythm. Pulses normal. Respiratory: No respiratory distress. Breath sounds normal. Abdomen: Soft and nontender. healed tube site Skin: Skin warm and dry. pale skin color. Extremities: No lower extremity edema. Neuro: Oriented X 1. No motor deficit. No sensory deficit. Course Course Course Narrative: vomit x 1 has been made DNR/DNI send back to [facility] he has no abdominal pain on exam Reevaluation(s) Reevaluation #1: send back to [facility] per Dr. Vazquez no further workup Medications Administered Discontinued Medications Generic Name Dose Route Start Last Admin Trade Name Freq PRN Reason Stop Dose Admin Ondansetron HCl 4 mg 06/12/24 10:10 06/12/24 10:28 Ondansetron Odt 4 Mg Tab.Elicia WINCHESTERU 06/12/24 10:11 4 mg ONCE ONE Administration Medical Decision Making Medical Decision Making [facility] Narrative: 68 yo male with PMH of DM2, HTN, schizoaffective disorder, autism order, COPD, dysphagia with history of esophageal stricture, iron deficiency anemia, hypothyroidism, and failure to thrive s/p PEG tube with Dr. Lawrence on 06/02 then pulled it the next day. He is very high risk of pulling it again and really is not a good candidate to have an external device. I am going to check labs and consult with his provider Dr. Vazquez at [facility]. He just appears weak but has no acute abdominal pain and he really doesn't seem different from his visit 9 days ago. Differential Diagnosis Differential Diagnoses: The differential diagnosis associated with the presentation includes dehydration, FTT, inability to maintain feeding tube Admission/Observation Consideration of admission/observation: Escalation of care including admission/observation considered okay to go back to [facility] per his caregiver there, aware of labs Consult Healthcare Provider Management of the patient was discussed with: Hotel Administrative Assistant Lab Data [facility] Lab Attestation statement: I reviewed the patient's lab results. 06/12/24 07:53 06/12/24 07:53 Labs: Lab Results 06/12/24 Range/Units 07:53 WBC 5.2 (4.8-10.8) X10*3/uL RBC 3.26 L (4.60-5.80) X10*6/uL Hgb 8.7 L (14.0-18.0) g/dl Hct 27.1 L (42.0-52.0) % MCV 83.1 (80.0-98.0) fL MCH 26.7 L (27.0-33.0) pg MCHC 32.1 (31.0-36.0) g/dl RDW 14.2 (11.0-16.0) % Plt Count 399 (160-400) X10*3/uL MPV 9.1 L (9.4-12.4) fL Immature Gran % (Auto) 0.8 H (0.0-0.4) % Neut % (Auto) 72.1 (45-73) % Lymph % (Auto) 16.7 L (20-40) % Dickson % (Auto) 7.8 (2-11) % Eos % (Auto) 1.2 (0-4) % Baso % (Auto) 1.4 (0-2) % Lymph # (Auto) 0.9 L (1.2-4.9) X10*3/uL Dickson # (Auto) 0.4 (0.1-1.2) X10*3/uL Eos # (Auto) 0.1 (0.0-0.4) X10*3/uL Baso # (Auto) 0.1 (0.0-0.2) X10*3/uL Abs Immat Gran (auto) 0.04 H (0.00-0.03) X10*3/uL Absolute Neuts (auto) 3.7 (2.0-8.3) x10*3/uL Absolute Nucleated RBC 0.000 (0.0-0.012) X10*3/uL Nucleated RBC % (auto) 0.0 (0.0-0.2) /100WBC Sodium 142 (135-145) mmol/L Potassium 3.3 (3.3-5.1) mmol/L Chloride 110 H (96-108) mmol/L Carbon Dioxide 22 (22-29) mmol/L Anion Gap 13 (12-20) BUN 26 H (9-16) mg/dL Creatinine 0.80 (0.5-1.4) mg/dL Estim Creat Clear Calc 60.0 Estimated GFR > 60 Random Glucose 113 (60-115) mg/dL Calcium 8.5 (8.4-10.2) mg/dL Magnesium 2.0 (1.6-2.6) mg/dL Total Bilirubin 0.2 (0.0-1.0) mg/dL Direct Bilirubin < 0.2 (0.0-0.5) mg/dL AST 19 (5-37) U/L ALT 9 (0-40) U/L Alkaline Phosphatase 84 (39-117) U/L Total Protein 5.9 L (6.5-8.0) g/dL Albumin 3.1 L (3.5-5.0) g/dL Independent Historian Clinical information obtained from an independent historian. History obtained from or confirmed by: EMS External Record Review External record reviewed: Outpatient record Discharge Plan Discharge Clinical Impression: Adult failure to thrive Patient Disposition: Xfer LTC Transfer Details: [facility] Instructions: Failure to Thrive in Older Adults (ED) Additional Instructions: lytes are normal slightly more anemic suspect poor PO intake please return for any worsening symptoms or concerns TECHNIQUE: AP view of the abdomen. FINDINGS: Tendons stool and gas seen throughout the colon and gas in small bowel loops without distention. No organomegaly. No free air or fluid levels. There is abdominal wall hernia repair with mesh in place along the lower abdomen/pelvic region. No gross bony abnormality. XR/XR KUB IMPRESSION: Unremarkable examination. Mild constipation. Prescriptions: No Action tamsulosin 0.4 mg capsule 0.4 mg PO DAILY acetaminophen 325 mg Tablet 650 mg PO Q6H PRN (Reason: Fever Or Pain) Rx Instructions: not to exceed 3000mg/day sodium bicarbonate 650 mg Tablet 650 mg PO DAILY diphenhydramine HCl [Benadryl] 25 mg Capsule 25 mg PO Q6H PRN (Reason: Itching) docusate sodium 100 mg Capsule 100 mg PO BID lactulose 10 gram/15 mL (15 mL) Solution 60 ml PO TID multivitamin with minerals Tablet 1 tab PO DAILY metoprolol succinate 50 mg tablet extended release 24 hr 1 tab PO BID ferrous sulfate 325 mg (65 mg iron) Tablet 325 mg PO DAILY clozapine 50 mg tablet 1 tab PO BEDTIME magnesium hydroxide [Milk of Magnesia] 400 mg/5 mL Suspension 30 ml PO BEDTIME bisacodyl 10 mg Suppository 10 mg CA DAILY PRN (Reason: Constipation) sennosides [senna] 8.6 mg tablet 17.2 mg PO DAILY sucralfate [Carafate] 100 mg/mL suspension 10 ml PO BID Qty: 420 0RF pantoprazole 40 mg tablet,delayed release (DR/EC) 40 mg PO BID Qty: 90 1RF tramadol 50 mg tablet 50 mg PO Q6H PRN (Reason: pain) Qty: 10 0RF clomipramine 25 mg capsule 100 mg PO BEDTIME levothyroxine 125 mcg tablet 125 mcg PO DAILY hydroxyzine HCl 50 mg/mL solution IM glucagon HCl [Glucagon (HCl) Emergency Kit] 1 mg recon soln 1 mg subcut Q20M PRN (Reason: Hypoglycemia) Rx Instructions: until target blood sugar attained ascorbate calcium (vitamin C) 500 mg tablet 500 mg PO DAILY Print Language: Albanian
[2024-06-12 07:56] LABS: MANUAL DIFF FLAG NO
[2024-06-12 08:03] LABS: Basophils Absolute Auto 0.1 X10*3/uL (0.0-0.2); Basophils Percent Auto 1.4 % (0-2); Eosinophils Absolute Auto 0.1 X10*3/uL (0.0-0.4); Eosinophils Percent Auto 1.2 % (0-4); Hematocrit 27.1 % (42.0-52.0); Hemoglobin 8.7 g/dl (14.0-18.0); Imm Gran Abs Auto 0.04 X10*3/uL (0.00-0.03); Imm Gran Pct Auto 0.8 % (0.0-0.4); Lymphocytes Absolute Auto 0.9 X10*3/uL (1.2-4.9); Lymphocytes Percent Auto 16.7 % (20-40); Mean Corpuscular HGB Conc 32.1 g/dl (31.0-36.0); Mean Corpuscular Hemoglobin 26.7 pg (27.0-33.0); Mean Corpuscular Volume 83.1 fL (80.0-98.0); Mean Platelet Volume 9.1 fL (9.4-12.4); Monocytes Absolute Auto 0.4 X10*3/uL (0.1-1.2); Monocytes Percent Auto 7.8 % (2-11); Neutrophils Absolute Auto 3.7 x10*3/uL (2.0-8.3); Neutrophils Percent Auto 72.1 % (45-73); Platelet Count 399 X10*3/uL (160-400); Red Blood Count 3.26 X10*6/uL (4.60-5.80); Red Cell Distribution Width 14.2 % (11.0-16.0); White Blood Count 5.2 X10*3/uL (4.8-10.8)
[2024-06-12 08:11] LABS: Alanine Aminotransferase 9 U/L (0-40); Albumin Level 3.1 g/dL (3.5-5.0); Alkaline Phosphatase 84 U/L (39-117); Anion Gap 13 (12-20); Aspartate Amino Transferase 19 U/L (5-37); Bilirubin Direct < 0.2 mg/dL (0.0-0.5); Bilirubin Total 0.2 mg/dL (0.0-1.0); Blood Urea Nitrogen 26 mg/dL (9-16); Calcium 8.5 mg/dL (8.4-10.2); Carbon Dioxide 22 mmol/L (22-29); Chloride 110 mmol/L (96-108); Estimated Glomerular Filt Rate > 60; Glucose Random 113 mg/dL (60-115); Potassium 3.3 mmol/L (3.3-5.1); Sodium 142 mmol/L (135-145); Total Protein 5.9 g/dL (6.5-8.0)
--- NOTE | 2024-06-12 10:22 | PM.EVENT ---
Event Note Date of Service: 06/12/24 Event Note: Patient well known to me from [facility]. Continues to fail. Discussed with guardian Kenny Arredondo changing code status to DNR DNI. Kenny conferred with Levar brother and all are in agreement. . . Patient will now be DNR DNI. He will be transferred back to [facility] and I will follow with him there Time Spent With Patient Time: Total time managing care of this patient today ____ minutes.
[2024-06-12] MEDS: Ondansetron ODT 4 MG TAB.RAPDIS TRANSLINGU (10:28)
[2024-06-12 11:56] VITALS: RESP 16
[2024-06-12 12:00] VITALS: BP 117/68; PULSE 72; RESP 16; TEMP 36.1; O2SAT 100
== END 2024-06-12 12:05 ==
PROVIDERS: Emergency Provider Emergency Medicine; PCP Hospitalist
DX: R62.7 Adult failure to thrive (principal); Z68.1 Body mass index [BMI] 19.9 or less, adult; R41.0 Disorientation, unspecified; E03.9 Hypothyroidism, unspecified; J44.9 Chronic obstructive pulmonary disease, unspecified; I10 Essential (primary) hypertension; F25.9 Schizoaffective disorder, unspecified; E11.9 Type 2 diabetes mellitus without complications; Z79.899 Other long term (current) drug therapy; Z87.820 Personal history of traumatic brain injury; Z66 Do not resuscitate
CPT/HCPCS: 36415; 74018; 80048; 80076; 83735; 85025; 99282; 99283

== ENCOUNTER → 2024-06-12 10:10 | Outpatient (BNV) | payer MEDICARE, SELFPAY | PROVIDERS: Emergency Provider Emergency Medicine; PCP Hospitalist; Visit Provider Radiology Diagnostic Radiology | DX: R11.10 Vomiting, unspecified (principal) | CPT/HCPCS: 74018 ==

== ENCOUNTER 2025-05-21 12:25 | Emergency (ER) | payer MEDICARE, SELFPAY ==
[2025-05-21] VITALS (8 sets, daily range): BP systolic 113–153; BP diastolic 74–92; PULSE 77–100; RESP 16–20; TEMP -17.7–0; O2SAT 95–100; BMI 13.5
--- NOTE | ~2025-05-21 | CT_ITS ---
EXAMINATION: CT HEAD WITHOUT IV CONTRAST HISTORY: head injury. TECHNIQUE: Unenhanced helical CT of the head was performed per standard departmental protocol. Coronal and sagittal reformats of the head were also evaluated. One or more of the following techniques was used for dose reduction: Automated exposure control, adjustment of the mA and/or kV according to patient size, use of iterative reconstruction technique. DLP: 65 mGy-cm COMPARISON: Comparison is made with the prior examination dated 12/09/2023. FINDINGS: BRAIN: There is mild prominence of the ventricular system and cortical sulci, consistent with atrophy. Scattered periventricular and subcortical white matter hypodensities are noted which are nonspecific, but often seen in the setting of small vessel ischemic disease. There is no mass effect or midline shift. No intra- or extra-axial fluid collections are identified. SINUSES: The visualized paranasal sinuses are clear. The mastoid air cells and middle ear cavities are well pneumatized. ORBITS: The visualized orbits are unremarkable. BONES/SOFT TISSUES: The extracranial soft tissues are unremarkable. The calvarium is intact. No suspicious lytic or sclerotic lesions. CT/CT head/brain wo IV con IMPRESSION: No acute intracranial abnormality. Electronically signed by: Christiano Cortes MD 05/21/2025 02:31 PM [facility] [place]
--- NOTE | ~2025-05-21 | CT_ITS ---
EXAMINATION: CT CERVICAL SPINE WITHOUT CONTRAST CLINICAL INFORMATION: Injury. COMPARISON: December 09, 2023. TECHNIQUE: Contiguous axial images through the cervical spine using 3 mm collimation with bone and soft tissue algorithm. Sagittal and coronal reformatted images acquired. This CT examination was performed using dose optimization techniques as appropriate, variously including the following: *Automated exposure control *Adjustment of mA and/or kV according to patient size (this includes techniques or standardized protocols for targeted exams where dose is matched to indication/reason for exam; i.e. extremities or head) *Use of iterative reconstruction technique DLP: 266.06 mGy-cm FINDINGS: Degenerative changes in the periodontal C1 region. Craniocervical junction is intact with normal alignment between the occipital condyles and the lateral masses of C1. Multilevel marginal osteophyte formation and subchondral cyst formation and endplate sclerosis and decreased intervertebral disc height from C3 to C7. Vacuum phenomenon at C4-5 C5-6 and C6-7 levels. Trabeculated to sclerotic lesion centered T2 and T3, unchanged. Bilateral facet joint hypertrophy and incomplete fusion of the right facet joints at C2-3. C1 is intact. C2 is intact. C3 is intact. C4 is intact. C5 is intact. C6 is intact. C7 is intact. No gross malalignment between the vertebral bodies or the facet joints. No gross prevertebral compartment hematoma. Fluid and likely food contents within the intrathoracic esophagus. Atrophic thyroid gland. Bilateral apical lung scarring. Probable emphysematous type changes. Tympanic cavities and mastoid air cells are aerated. CT/CT cervical spine wo IV con IMPRESSION: Multilevel cervical spondylosis without acute fracture or trauma-related listhesis. Fleischner guidelines were followed. Electronically signed by: Eric Serra MD 05/21/2025 02:34 PM EST
--- NOTE | 2025-05-21 12:48 | ED_ITS ---
HPI - Fall General Chief Complaint: Fall Stated Complaint: LAC TO FOREHEAD Time Seen by Provider: 05/21/25 12:36 Source: EMS Mode of arrival: EMS Limitations: other (developmental delay) History of Present Illness ED Provider: HPI Narrative: 69 M PMH of DM2, HTN, schizoaffective disorder, autism order, COPD witnessed fall from [facility], hit his head on the edge of the bed sustained laceration to forehead it was dressed by EMS, patient is limited historian, who refuses to be touched. Related Data Home Medications ?Medication ?Instructions ?Recorded ?Confirmed acetaminophen 325 mg tablet 650 mg PO Q6H PRN Fever Or Pain 09/23/20 05/31/24 diphenhydramine HCl 25 mg capsule 25 mg PO Q6H PRN Itc jerald 09/23/20 05/31/24 (Benadryl) docusate sodium 100 mg capsule 100 mg PO BID 09/23/20 05/31/24 lactulose 10 gram/15 mL (15 mL) 60 ml PO TID 09/23/20 05/31/24 oral solution sodium bicarbonate 650 mg tablet 650 mg PO DAILY 09/2305/31/24 tamsulosin 0.4 mg capsule 0.4 mg PO DAILY 09/23/20 multivitamin with minerals 1 tab PO DAILY 11/25/20 clozapine 50 mg tablet 1 tab PO BEDTIME 04/23/22 ferrous sulfate 325 mg (65 mg 325 mg PO DAILY 04/23/22 05/31/24 iron) tablet metoprolol succinate 50 mg 1 tab PO BID 04/23/2205/31 tablet,extended release 24 hr sennosides 8.6 mg tablet (senna) 17.2 mg PO DAILY 02/1305/31/24 bisacodyl 10 mg rectal suppository 10 mg CO DAILY PRN Constipation 06/11/23 05/31/24 magnesium hydroxide 400 mg/5 mL 30 ml PO BEDTIME 06/1105/31/24 oral suspension (Milk of Magnesia) ascorbate calcium (vitamin C) 500 500 mg PO DAILY 04/1505/31/24 mg tablet glucagon HCl 1 mg solution for 1 mg subcut Q20M PRN Hy poglycemia 05/10/24 05/31/24 injection (Glucagon (HCl) Emergency Kit) hydroxyzine HCl 50 mg/mL mg IM 05/10/24 05/10/24 intramuscular solution clomipramine 25 mg capsule 100 mg PO BEDTIME 05/31/24 05/31/24 levothyroxine 125 mcg tablet 125 mcg PO DAILY 05/31/24 05/31/24 Previous Rx's ?Medication ?Instructions ?Recorded pantoprazole 40 mg tablet,delayed 40 mg PO BID #90 tab s 08/28/23 release sucralfate 100 mg/mL oral 10 ml PO BID #420 mL 4 suspension (Carafate) tramadol 50 mg tablet 50 mg PO Q6H PRN pain #10 ta bs 06/02/24 Allergies Allergy/AdvReac Type Severity Reaction Status Date / Time fish oil (FISH OIL) Allergy Unknown Unknown Verified 05/21/25 12:39 Iodinated Contrast Media Allergy Unknown Unknown Verified 05/21/25 12:39 (IODINATED CONTRAST- ORAL AND IV DYE) pollen extracts Allergy Unknown Unknown Verified 05/21/25 12:39 shellfish derived Allergy Unknown Unknown Verified 05/21/25 12:39 Review of Systems Constitutional: Constitutional: Reports as per HPI COUNTS INCLUDE 234 BEDS AT THE [facility] Past Medical History Medical History (Updated 05/21/25 @ 14:01 by Vinicio England DO) Repeated falls Disturbances of salivary secretion Autistic disorder ADHD (attention deficit hyperactivity disorder) Metabolic encephalopathy Adult failure to thrive Erysipelas COVID-19 Cellulitis Muscle weakness (generalized) Osteoarthritis Kidney cyst, acquired Vomiting and diarrhea Emphysema of lung Bronchitis Tubular adenoma Allergic rhinitis Esophageal obstruction Hydronephrosis On beta elmer at home History of COVID-19 [facility]ides in detention facility Presbyopia Personality disorder Hypothyroidism GERD (gastroesophageal reflux disease) Anemia Encephalopathy GI bleed BPH (benign prostatic hyperplasia) HTN (hypertension) Dysphagia Diabetes Schizoaffective disorder TBI (traumatic brain injury) Surgical History (Updated 10/26/24 @ 09:38 by Olivia Fowler RN) History of percutaneous endoscopic gastrostomy History of esophagogastroduodenoscopy (EGD) (05/17/24) Hx of cystoscopy Hx of colonoscopy Social History Social History Household Members: Other Household Members Other:: [facility] in [facility] Home Housing: [facility] Housing Other:: [facility]-[phone] Are you a primary manager home healthcare to a significant other at home: No Do you presently have visiting nurse or other home services: No Alcohol intake: unknown Comment: 1:1 sitter Patient Tobacco Use Status: Former Tobacco user Advance Directives: Yes Advance Directives Information Provided: No Advance Directives on File: No Advance Directives Date on File: 02/12/22 service: No Current occupational status: disabled Physical Exam Exam: Exam: After patient was sedated I was able to examine him, he has 3 cm mid forehead laceration full-thickness No trauma to the back of the head no facial trauma No oral trauma Cachectic appearing male S1-S2 Lungs are clear, moving air well Pelvis is stable, range of motion of his upper and lower extremities did not reveal any deformities Vital Signs: Vital Signs: Last Vital Signs Pulse 86 05/21/25 14:23 Resp 16 05/21/25 14:23 BP 153/87 H 05/21/25 14:23 Pulse Ox 95 05/21/25 14:23 O2 Del Method Room Air 05/21/25 14:23 BMI result Body Mass Index 13.5 Medications Administered Discontinued Medications Generic Name Dose Route Start Last Admin Trade Name Freq PRN Reason Stop Dose Admin Diphtheria/Tetanus/Acell Pertussis 0.5 ml 05/21/25 12:59 05/21/25 14:07 Diphth,Pertus(Acell),Tet Adult 0.5 Ml Syringe IM 05/21/25 13:00 0.5 ml .ONCE ONE Administration Olanzapine 10 mg 05/21/25 12:43 05/21/25 12:49 Olanzapine 10 Mg Vial IM 05/21/25 12:44 10 mg ONCE ONE Administration Procedures Laceration Laceration 1: Site: other (forehead) Size (cm): 3 Description: linear and clean Depth: simple, single layer Pre-repair: irrigated extensively Skin layer closed with: skin adhesive and steri-strips Medical Decision Making Medical Decision Making [facility] Narrative: 1:01 PM 05/21/2025 (Dr. Vinicio England): Patient had to be sedated for exam I am vital signs and for further imaging, has laceration that I would likely closed with skin glue and Steri-Strips, I think placing sutures that we would need to be removed later can place him at additional exposure for sedation etc. This is a witnessed nonsyncopal injury hit his head the bedpost No injury to the face to the back of the head, to the neck area to the upper or lower extremities 1:56 PM 05/21/2025 (Dr. Vinicio England): After Zyprexa patient became more cooperative and allowed me to place Steri-Strips and Dermabond and cleaned the wound and I think he will able to go to CT but I would have to be sedate him to place sutures in place and so I we will hold off on suturing the laceration so will not have to continue sedating the patient and then again sedation for removal approximation with Steri-Strips and skin glue is adequate Differential Diagnosis Differential Diagnoses: The differential diagnosis associated with the presentation includes (Traumatic brain injury, facial trauma, syncope, fracture dislocation upper and lower extremities) Admission/Observation Consideration of admission/observation: Escalation of care including admission/observation considered Radiology Impression Discussion of test interpretation with radiology: I have reviewed the radiologist's reading. Radiologist Impression: CT/CT cervical spine wo IV con IMPRESSION: Multilevel cervical spondylosis without acute fracture or trauma-related listhesis No acute intracranial abnormality Independent Historian Clinical information obtained from an independent historian. History obtained from or confirmed by: EMS Tests considered The following testing was considered but not selected: CBC, chemistry, EKG, urinalysis Chronic Conditions Patient?s care impacted by: Other (Behavioral issues, schizoaffective) Discharge Plan Discharge Clinical Impression: Forehead laceration, Head injury Patient Disposition: Home, Self-Care Additional Instructions: Presented after forehead laceration, had CT head and neck which was negative, required some degree of sedation for any workup, received 10 mg of Zyprexa enough to clean the area and applied Dermabond and Steri-Strips but no sutures as I would have to sedate him deeper in place him at risk, keep the Héctor wrap in place for the next 48 hours, thereafter can remove and change the Band-Aid and keep the area covered for the next 4 or 5 days and then over the next week or so as the Steri-Strips detach trimmed the edges, do not wet the area or do not rub for the next 1 week Prescriptions: No Action tamsulosin 0.4 mg capsule 0.4 mg PO DAILY acetaminophen 325 mg Tablet 650 mg PO Q6H PRN (Reason: Fever Or Pain) Rx Instructions: not to exceed 3000mg/day sodium bicarbonate 650 mg Tablet 650 mg PO DAILY diphenhydramine HCl [Benadryl] 25 mg Capsule 25 mg PO Q6H PRN (Reason: Itching) docusate sodium 100 mg Capsule 100 mg PO BID lactulose 10 gram/15 mL (15 mL) Solution 60 ml PO TID multivitamin with minerals Tablet 1 tab PO DAILY metoprolol succinate 50 mg tablet extended release 24 hr 1 tab PO BID ferrous sulfate 325 mg (65 mg iron) Tablet 325 mg PO DAILY clozapine 50 mg tablet 1 tab PO BEDTIME magnesium hydroxide [Milk of Magnesia] 400 mg/5 mL Suspension 30 ml PO BEDTIME bisacodyl 10 mg Suppository 10 mg CO DAILY PRN (Reason: Constipation) sennosides [senna] 8.6 mg tablet 17.2 mg PO DAILY sucralfate [Carafate] 100 mg/mL suspension 10 ml PO BID Qty: 420 0RF pantoprazole 40 mg tablet,delayed release (DR/EC) 40 mg PO BID Qty: 90 1RF tramadol 50 mg tablet 50 mg PO Q6H PRN (Reason: pain) Qty: 10 0RF clomipramine 25 mg capsule 100 mg PO BEDTIME levothyroxine 125 mcg tablet 125 mcg PO DAILY hydroxyzine HCl 50 mg/mL solution IM glucagon HCl [Glucagon (HCl) Emergency Kit] 1 mg recon soln 1 mg subcut Q20M PRN (Reason: Hypoglycemia) Rx Instructions: until target blood sugar attained ascorbate calcium (vitamin C) 500 mg tablet 500 mg PO DAILY Print Language: Romanian
[2025-05-21] MEDS: OLANZapine 10 MG VIAL IM (12:49)
[2025-05-21] MEDS: Diphth,Pertus(ACell),Tet Adult 0.5 ML SYRINGE IM (14:07)
--- NOTE | 2025-05-21 15:53 | PC.NURSE ---
Report given to RN on [place] [facility] at [facility]
== END 2025-05-21 15:54 | disposition home or self-care (01) ==
PROVIDERS: Emergency Provider Emergency Medicine; PCP Hospitalist
DX: S01.81XA Laceration without foreign body of other part of head, initial encounter (principal); S09.90XA Unspecified injury of head, initial encounter; W18.30XA Fall on same level, unspecified, initial encounter; Y93.9 Activity, unspecified; Y92.122 Bedroom in nursing home as the place of occurrence of the external cause; Z23 Encounter for immunization; E11.9 Type 2 diabetes mellitus without complications; I10 Essential (primary) hypertension; J44.9 Chronic obstructive pulmonary disease, unspecified; F84.0 Autistic disorder; Z87.891 Personal history of nicotine dependence; Z79.899 Other long term (current) drug therapy
CPT/HCPCS: 12013; 70450; 72125; 90471; 90715; 96372; 99284; J2359

== ENCOUNTER → 2025-05-21 12:43 | Outpatient (BNV) | payer MEDICARE, SELFPAY | PROVIDERS: Emergency Provider Emergency Medicine; PCP Hospitalist; Visit Provider Radiology Diagnostic Radiology | DX: M47.812 Spondylosis without myelopathy or radiculopathy, cervical region (principal); S09.90XA Unspecified injury of head, initial encounter | CPT/HCPCS: 70450 ==